=== PATIENT | male | born 1935 | race Caucasian/White ===

== ENCOUNTER → 2017-06-08 13:36 | Outpatient (CLI) | payer MEDICARE, SELFPAY ==
[2017-06-08 13:26] LABS: Absolute Lymphocyte Count 1.95 X10^3/ul (0.83-4.51); Absolute Neutrophil Count 3.2 X10^3/uL (2.0-7.7); Basophil# 0.03 X10^3/uL; Basophil% 0.5 % (0-1); Eosinophil# 0.15 X10^3/uL; Eosinophils% 2.4 % (0-5); Hematocrit 44.1 % (40-54); Hemoglobin 14.5 g/dl (13.0-16.5); Lymphocyte # 1.95 X10^3/ul (4.0); Lymphocyte % 31.2 % (19-41); Mean Corp Hgb Conc 32.9 g/gl (32-36); Mean Corpuscular Hgb 27.7 pg (27.0-32.0); Mean Corpuscular Volume 84.2 fL (80-94); Mean Platelet Vol. 10.2 fl (6.2-12.0); Monocyte# 0.96 X10^3/uL; Monocyte% 15.4 % (0-10); Neutrophil # 3.15 X10^3/uL (2.7-7.7); Neutrophil % 50.3 % (47-70); Platelet Count 170 K/mm3 (150-450); RBC Distribution Width CV 16.1 % (11.6-14.6); RBC Distribution Width SD 49.2 fl (35.1-43.9); Red Blood Count 5.24 M/mm3 (4.6-6.2); White Blood Count 6.3 K/mm3 (4.4-11.0)
[2017-06-08 13:28] LABS: POSITIVE COUNT NO; POSITIVE DIFFERENTIAL NO; POSITIVE MORPHOLOGY NO
[2017-06-08 13:45] LABS: Vitamin D,25 Hydroxy 17.9 ng/mL (29.95-100.01)
[2017-06-08 13:48] LABS: ALB/GLOB Ratio 1.1 RATIO (0.9-2.4); AST(SGOT) 11 U/L (15-37); Alanine Aminotransfer ALT/SGPT 17 U/L (16-61); Albumin, Serum 3.8 g/dL (3.2-5.0); Alkaline Phosphatase 139 U/L (45-117); Anion Gap 7 (5-15); BUN 14 mg/dL (7-18); BUN/Creat Ratio 15.1 RATIO (10-20); Calcium,Total 8.3 mg/dL (8.5-10.1); Chloride 108 mmol/L (98-107); Creatinine, Serum 0.93 mg/dL (0.70-1.30); EST Glomerular Filtration Rate 83 mL/min (>60); Est Glom Filt Rate - Afr Amer 100 mL/min (>60); Globulin 3.6 g/dL (2.2-4.2); Glucose 117 mg/dL (74-106); Protein, Total 7.4 g/dL (6.4-8.2); Sodium Level 141 mmol/L (136-145)
== END ==
PROVIDERS: Family Provider Family Medicine Geriatric Medicine; PCP Family Medicine Geriatric Medicine; Visit Provider Family Medicine Geriatric Medicine
DX: I10 Essential (primary) hypertension (principal); E55.9 Vitamin D deficiency, unspecified; N39.0 Urinary tract infection, site not specified
CPT/HCPCS: 36415; 80053; 82306; 84443; 85025; 87077; 87086; 87088

== ENCOUNTER → 2017-12-06 14:06 | Outpatient (CLI) | payer MEDICARE, SELFPAY ==
[2017-12-06 17:04] LABS: Absolute Neutrophil Count 4.5 X10^3/uL (2.0-7.7); Basophil# 0.05 X10^3/uL; Basophil% 0.7 % (0-1); Eosinophil# 0.06 X10^3/uL; Eosinophils% 0.8 % (0-5); Hematocrit 44.2 % (40-54); Hemoglobin 15.4 g/dl (13.0-16.5); Lymphocyte % 23.7 % (19-41); Mean Corp Hgb Conc 34.8 g/gl (32-36); Mean Corpuscular Hgb 31.2 pg (27.0-32.0); Mean Corpuscular Volume 89.7 fL (80-94); Mean Platelet Vol. 10.3 fl (6.2-12.0); Monocyte% 12.5 % (0-10); Neutrophil # 4.45 X10^3/uL (2.7-7.7); Platelet Count 193 K/mm3 (150-450); RBC Distribution Width SD 45.9 fl (35.1-43.9); Red Blood Count 4.93 M/mm3 (4.6-6.2); White Blood Count 7.2 K/mm3 (4.4-11.0)
[2017-12-06 17:33] LABS: Vitamin D,25 Hydroxy 26.6 ng/mL (29.95-100.01)
[2017-12-06 17:48] LABS: POSITIVE COUNT NO; POSITIVE DIFFERENTIAL NO; POSITIVE MORPHOLOGY NO
[2017-12-06 17:49] LABS: ALB/GLOB Ratio 1.1 RATIO (0.9-2.4); AST(SGOT) 12 U/L (15-37); Alanine Aminotransfer ALT/SGPT 22 U/L (16-61); Albumin, Serum 3.9 g/dL (3.2-5.0); Alkaline Phosphatase 111 U/L (45-117); Anion Gap 9 (5-15); BUN 10 mg/dL (7-18); BUN/Creat Ratio 10.2 RATIO (10-20); Calcium,Total 8.7 mg/dL (8.5-10.1); Chloride 102 mmol/L (98-107); Creatinine, Serum 0.98 mg/dL (0.70-1.30); EST Glomerular Filtration Rate 78 mL/min (>60); Est Glom Filt Rate - Afr Amer 94 mL/min (>60); Globulin 3.5 g/dL (2.2-4.2); Glucose 113 mg/dL (74-106); Potassium 4.3 mmol/L (3.5-5.1); Protein, Total 7.4 g/dL (6.4-8.2); Sodium Level 137 mmol/L (136-145); Thyroid Stim Hormone (TSH) 2.75 uIU/mL (0.358-3.74)
== END ==
PROVIDERS: Family Provider Family Medicine Geriatric Medicine; PCP Family Medicine Geriatric Medicine; Visit Provider Family Medicine Geriatric Medicine
DX: I10 Essential (primary) hypertension (principal); E55.9 Vitamin D deficiency, unspecified
CPT/HCPCS: 36415; 80053; 82306; 84443; 85025

== ENCOUNTER → 2018-06-18 | Outpatient (CLI) | payer MEDICARE, SELFPAY ==
[2017-01-10 14:19] VITALS: BMI 28.8
[2018-06-18 12:44] LABS: Absolute Lymphocyte Count 2.38 X10^3/ul (0.83-4.51); Absolute Neutrophil Count 4.4 X10^3/uL (2.0-7.7); Basophil# 0.04 X10^3/uL; Basophil% 0.5 % (0-1); Eosinophil# 0.17 X10^3/uL; Eosinophils% 2.1 % (0-5); Hematocrit 47.1 % (40-54); Hemoglobin 16.1 g/dl (13.0-16.5); Lymphocyte # 2.38 X10^3/ul (4.0); Lymphocyte % 29.9 % (19-41); Mean Corp Hgb Conc 34.2 g/gl (32-36); Mean Corpuscular Hgb 31.6 pg (27.0-32.0); Mean Corpuscular Volume 92.5 fL (80-94); Mean Platelet Vol. 10.2 fl (6.2-12.0); Monocyte# 0.98 X10^3/uL; Monocyte% 12.3 % (0-10); Neutrophil # 4.36 X10^3/uL (2.7-7.7); Neutrophil % 54.8 % (47-70); Platelet Count 159 K/mm3 (150-450); RBC Distribution Width CV 13.5 % (11.6-14.6); RBC Distribution Width SD 45.8 fl (35.1-43.9); Red Blood Count 5.09 M/mm3 (4.6-6.2)
[2018-06-18 12:52] LABS: POSITIVE COUNT NO; POSITIVE DIFFERENTIAL NO; POSITIVE MORPHOLOGY NO
[2018-06-18 12:59] LABS: Vitamin D,25 Hydroxy 13.3 ng/mL (29.95-100.01)
[2018-06-18 13:05] LABS: ALB/GLOB Ratio 1.2 RATIO (0.9-2.4); AST(SGOT) 16 U/L (15-37); Alanine Aminotransfer ALT/SGPT 27 U/L (16-61); Albumin, Serum 4.1 g/dL (3.2-5.0); Alkaline Phosphatase 126 U/L (45-117); Anion Gap 6 (5-15); BUN 13 mg/dL (7-18); BUN/Creat Ratio 13.4 RATIO (10-20); Calcium,Total 8.7 mg/dL (8.5-10.1); Chloride 106 mmol/L (98-107); Creatinine, Serum 0.97 mg/dL (0.70-1.30); EST Glomerular Filtration Rate 79 mL/min (>60); Est Glom Filt Rate - Afr Amer 95 mL/min (>60); Globulin 3.4 g/dL (2.2-4.2); Glucose 96 mg/dL (74-106); Potassium 4.5 mmol/L (3.5-5.1); Protein, Total 7.5 g/dL (6.4-8.2); Sodium Level 142 mmol/L (136-145); Thyroid Stim Hormone (TSH) 3.11 uIU/mL (0.358-3.74)
== END | disposition home or self-care (01) ==
PROVIDERS: Family Provider Family Medicine Geriatric Medicine; PCP Family Medicine Geriatric Medicine; Visit Provider Family Medicine Geriatric Medicine
DX: I10 Essential (primary) hypertension (principal); E55.9 Vitamin D deficiency, unspecified
CPT/HCPCS: 36415; 80053; 82306; 84443; 85025

== ENCOUNTER 2018-10-18 06:52 | Emergency (ER) | payer MEDICARE, SELFPAY ==
[2018-10-18 06:54] VITALS: BP 142/87; PULSE 8; RESP 15; TEMP 36.6; O2SAT 97; BMI 27.5
--- NOTE | 2018-10-18 07:29 | CT_ITS ---
STUDY: CT ABDOMEN AND PELVIS WITHOUT CONTRAST REASON FOR EXAM: Male, 82 years old. Low back pain with constipation RADIATION DOSAGE (If Supplied By Facility): CTDIvol = ( 8.43 ) mGy, DLP = ( 419.31 ) mGycm TECHNIQUE: Transaxial images were obtained from the dome of the diaphragm to the symphysis pubis without oral contrast, and without intravenous contrast. Sagittal and coronal images were reconstructed. Individualized dose optimization techniques were used for this CT. COMPARISON: 12/11/2016. FINDINGS: Mild to moderate hiatal hernia, with increase in size since prior. The visualized lung bases are unremarkable. The visualized portions of the heart are within normal limits. Normal liver. Normal gallbladder and extrahepatic biliary system. Normal spleen. Normal pancreas. Normal bilateral adrenal glands. Bilateral mild perinephric infiltration, and this may be due to sequelae of chronic medical renal disease. Normal visualized stomach. Normal small intestine. Moderate amount of stool content in the colon. The appendix is visualized and appears normal. There is diffuse atherosclerotic calcification of the abdominal aorta, without a demonstrated aneurysm. Normal inferior vena cava. Normal retroperitoneum. Normal urinary bladder. There is enlargement of the prostate gland. There is stable prominent fatty distention of the inguinal canals in proximal spermatic cords. There are diffuse degenerative changes of the visualized lumbar spine, increased in extent since prior, most significantly at L2-3. CT/Abdomen/Pelvis without Cont IMPRESSION: Moderate fecal loading in the colon. Prostatomegaly. [id number] hiatal hernia, with increase in size since prior study. Bilateral mild perinephric infiltration, and this may be due to sequelae of chronic medical renal disease. There are diffuse degenerative changes of the visualized lumbar spine, increased in extent since prior, most significantly at L2-3 level. Electronically Signed: Mynor Gastelum MD at 9:15 EDT Tel [phone], Service support ,
--- NOTE | 2018-10-18 07:30 | ED.DCSUM_ITS ---
History of Present Illness Chief Complaint: Back Detail of Chief Complaint: back pain, constipation Informant: Patient Onset: Weeks - several Context: Gradual Onset Timing: Continuous Quality: ache Location: across low back Current Severity: Mild Maximum Severity: Severe Worsened by: moving; this AM, severe when trying to stand up Relieved by: rest/remaining still Associated Symptoms: constipation Narrative: Patient states for several weeks he has been very constipated. He is having bowel movements but they are small and hard like rocks. The last one was yesterday. He feels like he needs to have a bowel movement but is unable at this time. He presents by EMS because of severe pain in his low back when he tried to stand this morning. He states standing has been difficult because of this pain, but this morning the pain was much more severe. States it is not as bad now but is still aches. He has had no radiation of pain down his lower extremities, no numbness in his lower extremities or his groin/perineum, and no problems urinating. Denies any incontinence or retention of urine, denies any incontinence of stool. He denies any weakness in his legs, he was only limited by pain. He denies having any abdominal pain, nausea, or vomiting. No fevers or thoracic symptoms or lightheadedness/syncope. States he has been taking MiraLAX and stool softeners which seemed to help yesterday, but overall they are not fixing the problem. He is on no narcotic analgesics. Patient does provide all of this history, however he does not remember any other details and states he has been having some memory issues for several months. He lives with a significant other who corroborates this history. - Past Medical History (1) Anemia Status: Chronic (2) Atrial fibrillation Status: Chronic (3) Dysphagia Status: Chronic (4) GERD (gastroesophageal reflux disease) Status: Chronic (5) HLD (hyperlipidemia) Status: Chronic (6) Osteoarthritis Status: Chronic Past Medical History - Allergies and Home Meds Allergies/Adverse Reactions: Allergies No Known Allergies Allergy (Verified 12/11/16 15:00) Primary Care Physician: Jose Francisco Shah Chi, MD [Primary Care Provider] - Surgical History: TURP Lives: Spouse/ Significant Other Smoking Status: Never smoker Alcohol: None Drugs: None - Family History Maternal Family History: Reports: - Additional Family History: No coronary artery disease Paternal Family History: Reports: - - His father of a stroke at the age of 89. There is no family history of myocardial infarction or congestive heart failure. Review of Systems General: Denies: Chills, Fever, Sweats Eyes: Denies: Visual changes - bilaterally, Diplopia ENT: Denies: Rhinorrhea, Sore throat Cardiovascular: Denies: Chest pain, Palpitations Respiratory: Denies: Dyspnea, Cough, Dyspnea on exertion Gastrointestinal: Reports: Constipation. Denies: Abdominal pain, Nausea, Vomiting, Diarrhea, Melena, Hematochezia Genitourinary: Denies: Dysuria, Hematuria, Frequency Musculoskeletal: Reports: Back pain. Denies: Swelling, Extremity Pain Skin: Denies: Rash, Wounds Neurological: Reports: - - memory problems. Denies: Headache, Weakness, Numbness Physical Exam Vital Signs/Narrative: Vital Signs Temp Pulse Resp BP Pulse Ox 10/18/18 06:54 97.8 F 8 L 15 142/87 H 97 Inital Vital Signs reviewed: Yes General: Well nourished, Well developed, No Acute Distress - well-appearing, conversive Head: Normocephalic, Atraumatic Eyes: Perrl, EOMI ENT: Moist mucous membranes, No rhinorrhea Neck: Supple, Nontender Cardiovascular: Regular rate, Regular rhythm, No murmurs Respiratory: No distress, CTA bilaterally, Chest nontender Abdomen: Soft, Nontender, Nondistended, Normal bowel sounds. Negative for: Pulsatile mass Rectal: Nontender - no hard stool palpable. no gross blood or melena. normal tone and sensation. Back: Nontender, Normal Inspection - w/o rash, - - able to sit up w/ assistance w/o significant pain, although he said it did hurt to do so. Negative for: CVA tenderness, Spinal tenderness Extremities: Nontender, No edema Skin: Normal color, No rash Neurological: Alert, Oriented x3, Cranial nerves II-XII grossly intact, Normal Strength, Normal Sensation Psychological: Normal affect, Normal Mood Diagnostic/Tx/Re-eval Impressions Abdomen/Pelvis CT 10/18/18 07:29 IMPRESSION: Moderate fecal loading in the colon. Prostatomegaly. [id number]-[id number] hiatal hernia, with increase in size since prior study. Bilateral mild perinephric infiltration, and this may be due to sequelae of chronic medical renal disease. There are diffuse degenerative changes of the visualized lumbar spine, increased in extent since prior, most significantly at L2-3 level. Electronically Signed: Mynor Gastelum MD at 9:15 EDT Tel [phone], Service support , 10/18/18 07:29 Abdomen/Pelvis without Cont [CT] Stat Laboratory Results 10/18/18 10/18/18 10/18/18 07:05 07:05 07:50 WBC 6.5 RBC 5.14 Hgb 16.2 Hct 47.0 MCV 91.4 MCH 31.5 MCHC 34.5 RDW Std Deviation 42.8 RDW Coeff of Francis 12.8 Plt Count 148 L MPV 9.7 Immature Gran % (Auto) 0.200 Neut % (Auto) 57.4 Lymph % (Auto) 28.1 [place] % (Auto) 11.2 H Eos % (Auto) 2.0 Baso % (Auto) 1.1 H Absolute Neuts (auto) 3.8 Absolute Lymphs (auto) 1.83 Nucleated RBC % 0 Sodium 142 Potassium 3.8 Chloride 107 Carbon Dioxide 29.0 Anion Gap 6 BUN 14 Creatinine 0.99 Estim Creat Clear Calc 60.21 Est GFR (MDRD) Af Amer 93 Est GFR (MDRD) Non-Af 77 BUN/Creatinine Ratio 14.1 Glucose 112 H Calcium 8.7 Urine Color Yellow Urine Clarity Sl. Cloudy Urine pH 7.0 Ur Specific [place] 1.010 Urine Protein 15 H Urine Glucose (UA) Normal Urine Ketones Negative Urine Occult Blood 10 H Urine Nitrite Negative Urine Bilirubin Negative Urine Urobilinogen 1 H Ur Leukocyte Esterase 25 H Urine RBC 0-5 SEEN Urine WBC 0-5 SEEN Ur Squamous Epith Cells 0 SEEN Urine Bacteria 3+ Urine Mucus 0 SEEN - Medical Decision Making Labs and CT are unremarkable, and consistent with significant constipation. He was given an enema and did have somewhat of a bowel movement, he did feel better. He does have musculoskeletal component to his back discomfort since he is triggering it/exacerbating it with movements and standing, he feels able to go home and he was able to stand without significant difficulty here. Advised to follow-up and continue stool softeners with MiraLAX which seemed to help yesterday. He is comfortable with that plan. ED Disposition - Plan for ED Patient: Disposition: Home or Assisted Living Diagnosis: Constipation, Low back pain Instructions: BACK PAIN (Acute or Chronic), CONSTIPATION (Adult) Referrals: Jose Francisco Shah Chi, MD [Primary Care Provider] - 3-5 Days if not improving Additional Instructions: Continue stool softeners, daily MiraLAX while drinking plenty of fluids, and you may use a fleets enema as needed for worsening issues.
[2018-10-18] MEDS: Acetaminophen 325 MG Tablet 650 MG PO (07:45)
[2018-10-18 07:57] LABS: Mucous, Urine 0 SEEN /hpf (<or=2+); Squamous Epithelial Cells - UA 0 SEEN /hpf (0-5)
[2018-10-18 07:59] LABS: Color, Urine Yellow (Yellow); Glucose, Dipstick Normal (Normal); Ketone-Dipstick Negative (Negative); Leukocyte Esterase-Dipstick 25 /ul (Negative); Nitrite-Dipstick Negative (Negative); Occult Blood-Urine 10 /ul (Negative); Protein-Dipstick 15 mg/dl (Negative); Urine Bilirubin Dipstick Negative (Negative); Urine Clarity Sl. Cloudy (Clear); Urine Urobilinogen 1 mg/dl (Normal)
[2018-10-18 08:00] LABS: Absolute Lymphocyte Count 1.83 X10^3/uL (0.83-4.51); Absolute Neutrophil Count 3.8 X10^3/uL (2.0-7.7); Basophil# 0.07 X10^3/uL; Basophil% 1.1 % (0-1); Eosinophil# 0.13 X10^3/uL; Hemoglobin 16.2 g/dL (13.0-16.5); Lymphocyte # 1.83 X10^3/ul (4.0); Lymphocyte % 28.1 % (19-41); Mean Corp Hgb Conc 34.5 g/dL (32-36); Mean Corpuscular Hgb 31.5 pg (27.0-32.0); Mean Corpuscular Volume 91.4 fL (80-94); Mean Platelet Vol. 9.7 fl (6.2-12.0); Monocyte# 0.73 X10^3/uL; Monocyte% 11.2 % (0-10); NRBC Flagged by Analyzer 0 % (0-5); Neutrophil # 3.75 X10^3/uL (2.7-7.7); Neutrophil % 57.4 % (47-70); Platelet Count 148 K/mm3 (150-450); RBC Distribution Width CV 12.8 % (11.6-14.6); RBC Distribution Width SD 42.8 fl (35.1-43.9); Red Blood Count 5.14 M/mm3 (4.6-6.2); White Blood Count 6.5 K/mm3 (4.4-11.0)
[2018-10-18 08:05] LABS: Bacteria 3+ /hpf (None Seen); Red Blood Cells-Urine 0-5 SEEN /hpf (0-5); White Blood Cells 0-5 SEEN /hpf (0-5)
[2018-10-18 08:08] LABS: Anion Gap 6 (5-15); BUN 14 mg/dL (7-18); BUN/Creat Ratio 14.1 RATIO (10-20); Calcium,Total 8.7 mg/dL (8.5-10.1); Chloride 107 mmol/L (98-107); Creatinine, Serum 0.99 mg/dL (0.70-1.30); EST Glomerular Filtration Rate 77 mL/min (>60); Est Glom Filt Rate - Afr Amer 93 mL/min (>60); Estimated Creatinine Clearance 60.21 ml/min; Glucose 112 mg/dL (74-106); Potassium 3.8 mmol/L (3.5-5.1); Sodium Level 142 mmol/L (136-145)
[2018-10-18] MEDS: Fleet Enema 1 ML RECTAL (11:05)
[2018-10-18 11:45] VITALS: BP 159/67; PULSE 75; RESP 16; RESP 18; O2SAT 97
== END 2018-10-18 11:47 | disposition home or self-care (01) ==
PROVIDERS: Emergency Provider Emergency Medicine; Family Provider Family Medicine Geriatric Medicine; PCP Family Medicine Geriatric Medicine
DX: K59.00 Constipation, unspecified (principal); M54.5 Low back pain; I48.91 Unspecified atrial fibrillation; K21.9 Gastro-esophageal reflux disease without esophagitis; E78.5 Hyperlipidemia, unspecified; M19.90 Unspecified osteoarthritis, unspecified site
CPT/HCPCS: 74176; 80048; 81001; 85025; 99285; A4216

== ENCOUNTER → 2018-12-18 | Outpatient (CLI) | payer MEDICARE, SELFPAY ==
[2018-12-18 12:50] LABS: Absolute Lymphocyte Count 1.74 X10^3/uL (0.83-4.51); Absolute Neutrophil Count 4.3 X10^3/uL (2.0-7.7); Basophil# 0.09 X10^3/uL; Basophil% 1.3 % (0-1); Eosinophils% 1.4 % (0-5); Hematocrit 48.6 % (40-54); Hemoglobin 16.5 g/dL (13.0-16.5); Lymphocyte # 1.74 X10^3/ul (4.0); Lymphocyte % 24.5 % (19-41); Mean Corpuscular Hgb 31.7 pg (27.0-32.0); Mean Corpuscular Volume 93.3 fL (80-94); Mean Platelet Vol. 9.9 fl (6.2-12.0); Monocyte% 12.7 % (0-10); NRBC Flagged by Analyzer 0 % (0-5); Neutrophil # 4.25 X10^3/uL (2.7-7.7); Neutrophil % 59.8 % (47-70); Platelet Count 182 K/mm3 (150-450); RBC Distribution Width CV 12.8 % (11.6-14.6); RBC Distribution Width SD 43.9 fl (35.1-43.9); Red Blood Count 5.21 M/mm3 (4.6-6.2); White Blood Count 7.1 K/mm3 (4.4-11.0)
[2018-12-18 13:11] LABS: ALB/GLOB Ratio 1.1 RATIO (0.9-2.4); AST(SGOT) 17 U/L (15-37); Alanine Aminotransfer ALT/SGPT 26 U/L (16-61); Albumin, Serum 4.1 g/dL (3.2-5.0); Alkaline Phosphatase 103 U/L (45-117); Anion Gap 5 (5-15); BUN 13 mg/dL (7-18); Calcium,Total 8.7 mg/dL (8.5-10.1); Chloride 101 mmol/L (98-107); EST Glomerular Filtration Rate 76 mL/min (>60); Est Glom Filt Rate - Afr Amer 92 mL/min (>60); Globulin 3.6 g/dL (2.2-4.2); Glucose 96 mg/dL (74-106); Potassium 4.6 mmol/L (3.5-5.1); Protein, Total 7.7 g/dL (6.4-8.2); Sodium Level 136 mmol/L (136-145); Thyroid Stim Hormone (TSH) 3.06 uIU/mL (0.358-3.74)
== END | disposition home or self-care (01) ==
LOC: POLAB3 11:02
PROVIDERS: Family Provider Family Medicine Geriatric Medicine; PCP Family Medicine Geriatric Medicine; Visit Provider Family Medicine Geriatric Medicine
DX: E55.9 Vitamin D deficiency, unspecified (principal); I10 Essential (primary) hypertension
CPT/HCPCS: 36415; 80053; 82306; 84443; 85025

== ENCOUNTER → 2019-06-20 | Outpatient (CLI) | payer MEDICARE, SELFPAY ==
[2019-06-20 12:33] LABS: Absolute Lymphocyte Count 2.03 X10^3/uL (0.83-4.51); Absolute Neutrophil Count 5.2 X10^3/uL (2.0-7.7); Basophil# 0.08 X10^3/uL; Basophil% 0.9 % (0-1); Eosinophils% 1.2 % (0-5); Hematocrit 48.7 % (40-54); Hemoglobin 16.4 g/dL (13.0-16.5); Lymphocyte # 2.03 X10^3/ul (4.0); Lymphocyte % 24.1 % (19-41); Mean Corp Hgb Conc 33.7 g/dL (32-36); Mean Corpuscular Hgb 31.3 pg (27.0-32.0); Mean Corpuscular Volume 92.9 fL (80-94); Mean Platelet Vol. 9.9 fl (6.2-12.0); Monocyte# 0.95 X10^3/uL; Monocyte% 11.3 % (0-10); NRBC Flagged by Analyzer 0 % (0-5); Neutrophil # 5.23 X10^3/uL (2.7-7.7); Platelet Count 198 K/mm3 (150-450); RBC Distribution Width CV 13.2 % (11.6-14.6); RBC Distribution Width SD 44.6 fl (35.1-43.9); Red Blood Count 5.24 M/mm3 (4.6-6.2); White Blood Count 8.4 K/mm3 (4.4-11.0)
[2019-06-20 12:55] LABS: Vitamin D,25 Hydroxy 34.1 ng/mL
[2019-06-20 13:08] LABS: AST(SGOT) 18 U/L (15-37); Alanine Aminotransfer ALT/SGPT 31 U/L (16-61); Alkaline Phosphatase 108 U/L (45-117); Anion Gap 6 (5-15); BUN 11 mg/dL (7-18); BUN/Creat Ratio 11.9 RATIO (10-20); Calcium,Total 9.1 mg/dL (8.5-10.1); Chloride 104 mmol/L (98-107); Creatinine, Serum 0.93 mg/dL (0.70-1.30); EST Glomerular Filtration Rate 83 mL/min (>60); Est Glom Filt Rate - Afr Amer 100 mL/min (>60); Globulin 3.9 g/dL (2.2-4.2); Glucose 104 mg/dL (74-106); Potassium 3.9 mmol/L (3.5-5.1); Protein, Total 7.9 g/dL (6.4-8.2); Sodium Level 136 mmol/L (136-145); Thyroid Stim Hormone (TSH) 3.35 uIU/mL (0.358-3.74)
== END | disposition home or self-care (01) ==
LOC: LAB.FUTURE 11:33
PROVIDERS: PCP Family Medicine Geriatric Medicine; Referring Provider Family Medicine Geriatric Medicine; Visit Provider Family Medicine Geriatric Medicine
DX: I10 Essential (primary) hypertension (principal); E55.9 Vitamin D deficiency, unspecified
CPT/HCPCS: 36415; 80053; 82306; 84443; 85025

== ENCOUNTER 2019-07-11 12:56 | Observation (INO) | payer MEDICARE, SELFPAY ==
[2019-07-11] VITALS (11 sets, daily range): BP systolic 113–145; BP diastolic 65–80; PULSE 100–144; RESP 16–25; TEMP 36.4–37.7; O2SAT 94–100; BMI 26.2; BMI 25.5; BMI 25.6
--- NOTE | 2019-07-11 13:15 | EKG12_ITS ---
Test Reason : IRREGHR Blood Pressure : / mmHG Vent. Rate : 115 BPM Atrial Rate : 115 BPM P-R Int : 166 ms QRS Dur : 088 ms QT Int : 316 ms P-R-T Axes : 068 041 128 degrees QTc Int : 437 ms Sinus tachycardia with Premature atrial complexes Nonspecific T wave abnormality Abnormal ECG Confirmed by LATASHA ROBERSON, SAMIRA ([id number]), food editor AL PAINTING ([id number]) on 07/15/2019 3:15:18 PM Referred By: CAMI Confirmed By:ALCON PAGAN MD
[2019-07-11 13:36] LABS: Absolute Lymphocyte Count 1.43 X10^3/uL (0.83-4.51); Basophil# 0.05 X10^3/uL; Basophil% 0.5 % (0-1); Hematocrit 38.5 % (40-54); Hemoglobin 13.5 g/dL (13.0-16.5); Lymphocyte # 1.43 X10^3/ul (4.0); Lymphocyte % 13.9 % (19-41); Mean Corp Hgb Conc 35.1 g/dL (32-36); Mean Corpuscular Hgb 31.8 pg (27.0-32.0); Mean Corpuscular Volume 90.8 fL (80-94); Mean Platelet Vol. 9.5 fl (6.2-12.0); Monocyte# 0.82 X10^3/uL; Monocyte% 7.9 % (0-10); NRBC Flagged by Analyzer 0 % (0-5); Neutrophil # 7.98 X10^3/uL (2.7-7.7); Neutrophil % 77.3 % (47-70); Platelet Count 189 K/mm3 (150-450); RBC Distribution Width CV 13.2 % (11.6-14.6); RBC Distribution Width SD 43.5 fl (35.1-43.9); Red Blood Count 4.24 M/mm3 (4.6-6.2); White Blood Count 10.3 K/mm3 (4.4-11.0)
--- NOTE | 2019-07-11 13:40 | RAD_ITS ---
STUDY: X-RAY CHEST REASON FOR EXAM: Male, 83 years old. TACHYCARDIA, HEMATURIA TECHNIQUE: Single AP portable view of the chest. COMPARISON: Comparison is made with prior examination of May 14, 2013. FINDINGS: EKG electrodes are seen. There is hyperinflation of the lungs consistent with chronic obstructive lung disease (COPD). There is no demonstrated pleural abnormality. Normal size heart. Normal mediastinum and deysi. There is prominence of the pulmonary hilar arteries without peripheral pulmonary vascular congestion, suggesting pulmonary hypertension. There is atherosclerotic calcification of the aortic arch with tortuosity. There are diffuse degenerative changes of the visualized thoracic spine. Normal visualized ribs, clavicles, and shoulders. There is no demonstrated abnormality of the visualized soft tissue structures of the upper abdomen. RAD/Chest 1 View (Portable) IMPRESSION: Hyperinflation. Prominence of the central pulmonary arteries bilaterally. Electronically Signed: Omega Almaguer, at 13:53 EDT , Service support ,
[2019-07-11 13:42] LABS: International Normalized Ratio 1.1; Prothrombin Time (Protime)PT. 13.8 SECONDS (11.7-14.9)
[2019-07-11 13:43] LABS: Partial Thromboplast Time 32.3 Seconds (24.1-36.2)
[2019-07-11 13:50] LABS: ALB/GLOB Ratio 1.1 RATIO (0.9-2.4); AST(SGOT) 15 U/L (15-37); Alanine Aminotransfer ALT/SGPT 23 U/L (16-61); Albumin, Serum 3.8 g/dL (3.2-5.0); Alkaline Phosphatase 81 U/L (45-117); Anion Gap 5 (5-15); BUN 21 mg/dL (7-18); BUN/Creat Ratio 20.4 RATIO (10-20); Calcium,Total 9.3 mg/dL (8.5-10.1); Chloride 109 mmol/L (98-107); Creatinine, Serum 1.03 mg/dL (0.70-1.30); EST Glomerular Filtration Rate 73 mL/min (>60); Est Glom Filt Rate - Afr Amer 88 mL/min (>60); Estimated Creatinine Clearance 56.86 ml/min; Globulin 3.6 g/dL (2.2-4.2); Glucose 146 mg/dL (74-106); Potassium 3.9 mmol/L (3.5-5.1); Protein, Total 7.4 g/dL (6.4-8.2); Sodium Level 142 mmol/L (136-145)
[2019-07-11 14:01] LABS: Lactic Acid 1.6 mmol/L (0.4-1.9)
[2019-07-11 14:11] LABS: Bacteria 0 SEEN /hpf (None Seen); Mucous, Urine 0 SEEN /hpf (<or=2+); Squamous Epithelial Cells - UA 0 SEEN /hpf (0-5); White Blood Cells 0 SEEN /hpf (0-5)
[2019-07-11 14:26] LABS: Color, Urine Red (Yellow); Glucose, Dipstick Normal (Normal); Ketone-Dipstick 5 mg/dl (Negative); Leukocyte Esterase-Dipstick 25 /ul (Negative); Nitrite-Dipstick Negative (Negative); Occult Blood-Urine 250 /ul (Negative); Protein-Dipstick 500 mg/dl (Negative); Urine Bilirubin Dipstick Negative (Negative); Urine Clarity Turbid (Clear); Urine Urobilinogen Normal (Normal)
[2019-07-11 14:29] LABS: Red Blood Cells-Urine > 100 SEEN /hpf (0-5)
--- NOTE | 2019-07-11 15:00 | CT_ITS ---
STUDY: CT ABDOMEN AND PELVIS WITHOUT CONTRAST REASON FOR EXAM: Male, 83 years old. HEMATURIA X 1 WEEK, CONFUSION. ENLARGED PROSTATE. URINARY RETENTION/CATHETER RADIATION DOSAGE (If Supplied By Facility): CTDIvol = ( 13.73 ) mGy, DLP = ( 677.17 ) mGycm TECHNIQUE: Transaxial images were obtained from the dome of the diaphragm to the symphysis pubis without oral contrast, and without intravenous contrast. Sagittal and coronal images were reconstructed. Individualized dose optimization techniques were used for this CT. COMPARISON: Comparison is made with prior study dated October 18, 2018. FINDINGS: The visualized lung bases are unremarkable. Coronary arterial calcification. Normal liver. Normal gallbladder and extrahepatic biliary system. Normal spleen. There is diffuse atrophy of the pancreas. Normal bilateral adrenal glands. Normal right kidney. Minimal degree of left perinephric stranding and minimal degree of the left hydronephrosis. There is a small hiatal hernia. Normal small intestine. There are multiple colonic diverticula consistent with diverticulosis. The appendix is visualized and appears normal. There is diffuse atherosclerotic calcification of the abdominal aorta, without a demonstrated aneurysm. Normal inferior vena cava. Normal retroperitoneum. There is evidence of high density material within the base of the bladder suggestive of blood within the bladder. A small amount of air is seen in the anterior aspect of the bladder most likely secondary to the presence of the Velarde catheter. Marked enlargement of the prostate with indentation of the bladder base. The prostate measures 7.8 cm x 6.1 cm. A Velarde catheter is seen within the base of the bladder. Small bilateral inguinal hernias containing fat. There are degenerative changes of the visualized lumbar spine. CT/Abdomen/Pelvis without Cont IMPRESSION: Mildly distended urinary bladder with findings suggestive of blood within the bladder base. Marked enlargement of the prostate gland. Electronically Signed: Omega Almaguer, at 15:33 EDT , Service support ,
--- NOTE | 2019-07-11 15:38 | PCM.HP.STD ---
Problem List (1) Hematuria Status: Acute (2) S/P TURP (status post transurethral resection of prostate) Status: Chronic (3) Atrial fibrillation Status: Chronic Qualifiers: (4) BPH (benign prostatic hyperplasia) Status: Chronic (5) GERD (gastroesophageal reflux disease) Status: Chronic (6) HLD (hyperlipidemia) Status: Chronic (7) Osteoarthritis Status: Chronic History of Present Illness Date of Admission: 07/11/19 Chief Complaint: hematuria The patient is a 83 year old M with pmhx of BPH s/p TURP, CVA, Afib, who presented to the ER with c/o hematuria. He is a very poor historian with a hx of sundownders so suspected dementia. The patient thinks he has had hematuria with difficulty voiding for several days. When I talked to him he was more concerned about constipation and not moving his bowels for 2 days. He has no abdominal pain. He denies dysuria. He has no SOB/LH/Dizziness and does not have a significantly low Hgb. He has seen Nacho in the past for BPH and TURP. He has been irrigated in the ER and still has dark red blood. He will be seen by Dr. Griffith. [] Past Medical History Past Medical History (Chronic Problems): Chronic Problems Atrial fibrillation (Chronic) Anemia (Chronic) S/P TURP (status post transurethral resection of prostate) (Chronic) HLD (hyperlipidemia) (Chronic) Dysphagia (Chronic) Osteoarthritis (Chronic) GERD (gastroesophageal reflux disease) (Chronic) BPH (benign prostatic hyperplasia) (Chronic) Allergies No Known Allergies Allergy (Verified 07/11/19 12:59) Home Medications: Ambulatory Orders Medication Instructions Recorded Aspirin E.C. [Ecotrin] 81 mg PO DAILY@0800 01/03/17 Levothyroxine [Synthroid] 50 mcg PO DAILY 10/18/18 Atorvastatin Calcium [Lipitor] 40 mg PO QHS 07/11/19 Surgical History: TURP Psychiatric History: No pertinent psych hx Lives: Spouse/ Significant Other Smoking Status: Never smoker Tobacco Use: Non-smoker Alcohol: None Drugs: None - *Family History Maternal History Items: - Paternal History Items: - - His father of a stroke at the age of 89. There is no family history of myocardial infarction or congestive heart failure. Review of Systems Constitutional: Denies: Chills, Fever, Weight Change HEENT: Denies: Head Aches, Sinus Congestion, Sinus Drainage Cardiovascular: Denies: Chest Pain, Heaviness, Light Headedness, Palpitations Respiratory: Denies: Cough, Shortness of Breath, Shortness of breath at rest, Sputum production Gastrointestinal: Reports: Constipation. Denies: Abdominal Pain, Diarrhea, Nausea, Vomiting Genitourinary: Reports: Hematuria. Denies: Dysuria Musculoskeletal: Denies: Joint Pain, Joint Tenderness, Muscle pain Skin: Denies: Lesions, Rash, Wounds Neurological: Denies: Numbness, Tingling, Focal weakness Psychiatric: Denies: Anxiety, Depression, Homicidal Ideations, Suicidal Ideations Hematologic/ Lymphatic: Denies: Easy Bruising, Easy Bleeding VTE Information - Inpt Only VTE Present on Admission: No VTE Mechan Device Prophylaxis: SCD's VTE Pharm Prophylaxis ordered?: No Patient Problems: Active and Suspected Problems Hematuria (Acute) - Physical Exam Vitals/I&O's: Vital Signs Temp Pulse Resp BP Pulse Ox 99.9 F H 106 H 25 H 118/75 94 07/11/19 13:57 07/11/19 14:15 07/11/19 14:15 07/11/19 14:15 07/11/19 14:15 Oxygen Delivery Method Room Air Weight: 188 lb 6.4 oz Body Mass Index (BMI) 26.2 Finger Stick Blood Glucose 105 Intake and Output for Last 24 Hours 07/09/19 07/10/19 07/11/19 23:59 23:59 23:59 Output Total 1350 / 1350 Balance -1350 / -1350 General: Alert, Cooperative, Confused - a/ox2 HEENT: Atraumatic, PERRLA, EOMI, Normocephalic Neck: Supple, No JVD, Negative Carotid Bruits Lungs: Clear to auscultation, Normal air movement Cardiovascular: Regular rate, No murmurs Abdomen: Bowel Sounds Present, Soft, Non Tender Extremities: No edema, Capillary Refill Less than 3 Seconds Skin: No rashes, No breakdown Musculoskeletal: No Tenderness to Palpation of Joints or Extremities Neurological: Cranial nerves II-XII grossly intact Psych/Mental Status: Normal Affect, Appropriate Laboratory Results 07/11/19 13:18: WBC 10.3, RBC 4.24 L, Hgb 13.5, Hct 38.5 L, MCV 90.8, MCH 31.8, MCHC 35.1, RDW Std Deviation 43.5, RDW Coeff of Francis 13.2, Plt Count 189, MPV 9.5, Immature Gran % (Auto) 0.400, Neut % (Auto) 77.3 H, Lymph % (Auto) 13.9 L, [place] % (Auto) 7.9, Eos % (Auto) 0.0, Baso % (Auto) 0.5, Absolute Neuts (auto) 8.0 H, Absolute Lymphs (auto) 1.43, Nucleated RBC % 0 07/11/19 13:18: PT 13.8, INR 1.1, APTT 32.3 07/11/19 13:18: Sodium 142, Potassium 3.9, Chloride 109 H, Carbon Dioxide 28.0, Anion Gap 5, BUN 21 H, Creatinine 1.03, Estim Creat Clear Calc 56.86, Est GFR (MDRD) Af Amer 88, Est GFR (MDRD) Non-Af 73, BUN/Creatinine Ratio 20.4 H, Glucose 146 H, Calcium 9.3, Total Bilirubin 0.80, AST 15, ALT 23, Alkaline Phosphatase 81, Total Protein 7.4, Albumin 3.8, Globulin 3.6, Albumin/Globulin Ratio 1.1 07/11/19 13:18: Lactic Acid 1.6 07/11/19 14:04: Urine Color Red, Urine Clarity Turbid, Urine pH 7.0, Ur Specific [place] 1.010, Urine Protein 500 H, Urine Glucose (UA) Normal, Urine Ketones 5 H, Urine Occult Blood 250 H, Urine Nitrite Negative, Urine Bilirubin Negative, Urine Urobilinogen Normal, Ur Leukocyte Esterase 25 H, Urine RBC > 100 SEEN, Urine WBC 0 SEEN, Ur Squamous Epith Cells 0 SEEN, Urine Bacteria 0 SEEN, Urine Mucus 0 SEEN 07/11/19 14:38: Blood Type Pending, Antibody Screen Pending Assessment/Plan All Active Problems Hematuria (Acute) Abnormal cardiac enzyme level (Acute) Dysarthria (Acute) Expressive aphasia (Acute) Syncope (Acute) 1. Hematuria - hx BPH prior TURP. Continue with CBI. C/s to Dr. Griffith. No significant anemia. Hold aspirin. AM CBC. [address] abdomen shows large prostate, blood in the bladder, distended bladder. Prior TURP. 2. HLD - statin 3. hypothyroidism - continue synthroid. 4. Dementia - poor historian. Lives with spouse. 5. Hx CVA - hold aspirin. continue statin DVT ppx: SCDs This patient was seen by Vishnu Shipman PA-C under the supervision of Dr. Anderson.
--- NOTE | 2019-07-11 15:42 | ED.DCSUM_ITS ---
- ER Visit Summary Date of Service: 07/11/19 Chief Complaint: Blood in urine History of Present Illness: The patient is a [address] Shah. He had seen Dr. Griffith in the past. He is a poor informant. He reports that he is had blood in his urine for the past week. States is been able to urinate in all today. He denies any fever or chills. No abdominal pain. No nausea, vomiting, or diarrhea. No chest pain or shortness of breath. Physical Examination: Vitals: Stable. Afebrile. General: Well-nourished and well-developed. Head: Normocephalic atraumatic. Neck: Supple, no lymphadenopathy. No JVD. Nontender. Cardiovascular: Tachycardic regular rhythm with a 2 out of 6 stock murmur. Respiratory: No respiratory distress. Clear to auscultation bilaterally. Abdominal: Soft, nontender, nondistended, normal bowel sounds. No guarding, rebound, or peritoneal signs. Back: Nontender. Extremities: Nontender, 1+ pitting edema lower extremities bilaterally. Skin: Normal color, no rash. Neurologic: Alert and oriented ?2. Cranial nerves II through XII are intact. Normal strength and sensation. Psych: Normal affect. Test Results: EKG is sinus tachycardia at [address] changes. CBC shows a hematocrit of 38.5, stable neutrophils 77, lymphocytes 14. Chem-7 shows a chloride 109, glucose 146, BUN 21. Lactic acid is normal. INR is 1.1. PTT is 32.3. UA shows greater than 100 reds with no evidence of infection. Clinical Impression(s) from Imaging Studies Chest X-Ray 07/11/19 13:40 IMPRESSION: Hyperinflation. Prominence of the central pulmonary arteries bilaterally. Electronically Signed: Omega Almaguer, at 13:53 EDT , Service support , Abdomen/Pelvis CT 07/11/19 15:00 IMPRESSION: Mildly distended urinary bladder with findings suggestive of blood within the bladder base. Marked enlargement of the prostate gland. Electronically Signed: Omega Almaguer, at 15:33 EDT , Service support , Emergency Department Course and Treatment: Patient had an IV placed. Is given 500 cc bolus of normal saline. He had a catheter placed. Manual irrigation was undertaken this was not clearing. He was placed on continuous irrigation and continues to drain grossly bloody urine. Treatment Plan: Patient was discussed Dr. Anderson and Dr. Griffith. He will be admitted to hospital for further evaluation treatment. Disposition: Admitted in stable condition. Impression: 1. Gross hematuria. 2. Sinus tachycardia. This note was generated with [employer] dictation software. It may contain incorrect words, spelling, and punctuation that were not noted in review of the chart prior to signing ED Disposition - Plan for ED Patient: Referrals: Jose Francisco Shah Chi, MD [Primary Care Provider] -
--- NOTE | 2019-07-11 15:47 | NURSING ---
PCU HEMATURIA TERELETSKY
--- NOTE | 2019-07-11 16:34 | ED.RN ---
[place] plugged again and pt restless with hr up. manual irrigation done x3 with larg amt clots evacuated. [place] patent after irrigation. waiting on bed for floor
--- NOTE | 2019-07-11 17:06 | CON.PCM_ITS ---
Problem List (1) Gross hematuria Status: Acute Reason for Consult Date of Consultation: 07/11/19 Reason for Consultation: Gross hematuria history of a TURP in the past History of Present Illness: The patient is a 83 year old male who presented to the hospital 3 years ago in 2017 with urinary retention over 2.5 L in his bladder at that point he failed a voiding trial and Dr. Da Silva took him to surgery for a transurethral resection of the prostate and placement of a suprapubic catheter. After this the superacute pubic catheter was removed and surprisingly he resumed normal urination with low postvoid residuals. He is followed in the office but recently he failed to keep his follow-up appointment mostly due to his worsening short-term memory says he could not remember where the office was and did not follow-up for his appointment because of his memory problems. Now he presents to the emergency room with difficulty with urination and gross hematuria. He states this is been going on for some time but his memory is poor he cannot tell me how a days he is been urinating blood. Had a CAT scan done that demonstrates a bladder that has bright blood within the bladder no clots no obvious tumors does have a very large prostate he has been on some aspirin or blood thinners. Catheter is in place and irrigating well still having a few clots. Past Medical History Past Medical History (Chronic Problems): Chronic Problems Atrial fibrillation (Chronic) Anemia (Chronic) S/P TURP (status post transurethral resection of prostate) (Chronic) HLD (hyperlipidemia) (Chronic) Dysphagia (Chronic) Osteoarthritis (Chronic) GERD (gastroesophageal reflux disease) (Chronic) BPH (benign prostatic hyperplasia) (Chronic) Allergies No Known Allergies Allergy (Verified 07/11/19 12:59) Home Medications: Ambulatory Orders Medication Instructions Recorded Aspirin E.C. [Ecotrin] 81 mg PO DAILY@0800 01/03/17 Levothyroxine [Synthroid] 50 mcg PO DAILY 10/18/18 Atorvastatin Calcium [Lipitor] 40 mg PO QHS 07/11/19 Surgical History: TURP Psychiatric History: No pertinent psych hx Lives: Spouse/ Significant Other Smoking Status: Never smoker Tobacco Use: Non-smoker Alcohol: None Drugs: None - *Family History Maternal History Items: - Paternal History Items: - - His father of a stroke at the age of 89. There is no family history of myocardial infarction or congestive heart failure. Review of Systems Constitutional: Denies: Chills, Fever, Weight Change HEENT: Denies: Head Aches, Sinus Congestion, Sinus Drainage Cardiovascular: Denies: Chest Pain, Palpitations Respiratory: Denies: Cough, Shortness of breath at rest, Sputum production Gastrointestinal: Denies: Abdominal Pain, Nausea, Vomiting Genitourinary: Reports: Dysuria, Frequency, Hematuria Musculoskeletal: Denies: Joint Pain, Joint Tenderness Skin: Denies: Rash, Wounds Neurological: Denies: Numbness, Tingling, Focal weakness Psychiatric: Denies: Anxiety, Depression, Homicidal Ideations, Suicidal Ideation s Hematologic/ Lymphatic: Denies: Easy Bruising, Easy Bleeding Physical Exam - Physical Exam Vital Signs Temp 98.5 F 07/11/19 16:00 Pulse 101 H 07/11/19 16:00 Resp 16 07/11/19 16:00 BP 145/72 H 07/11/19 16:00 Pulse Ox 98 07/11/19 16:00 Intake & Output 07/09/19 07/10/19 07/11/19 23:59 23:59 23:59 Output Total 1350 / 1350 Balance -1350 / -1350 Weight: 85.457 kg Output: Urine 1350 / 1350 General: Alert, Oriented x3 HEENT: Atraumatic, PERRLA Oral: Moist Mucosa, No Gingival or Mucosal Lesions/ Ulcerations Neck: Supple, No JVD Lungs: Normal air movement Cardiovascular: Regular rate Abdomen: Soft, Obese Rectal: Exam deferred Testicle: Right Normal, Left Normal Epididymis: Right Normal, Left Normal Penis: Velarde in place Groin: No hernia, Non-reducible hernia Extremities: No clubbing, No cyanosis, No edema Skin: No rashes Musculoskeletal: No Tenderness to Palpation of Joints or Extremities Lymphatic: No Cervical, Supraclavicular, or Inguinal Adenopathy Neurological: Cranial nerves II-XII grossly intact Laboratory Tests Past 24 Hrs 07/11/19 07/11/19 07/11/19 13:18 13:18 13:18 WBC 10.3 RBC 4.24 L Hgb 13.5 Hct 38.5 L MCV 90.8 MCH 31.8 MCHC 35.1 RDW Std Deviation 43.5 RDW Coeff of Francis 13.2 Plt Count 189 MPV 9.5 Immature Gran % (Auto) 0.400 Neut % (Auto) 77.3 H Lymph % (Auto) 13.9 L [place] % (Auto) 7.9 Eos % (Auto) 0.0 Baso % (Auto) 0.5 Absolute Neuts (auto) 8.0 H Absolute Lymphs (auto) 1.43 Nucleated RBC % 0 PT 13.8 INR 1.1 APTT 32.3 Sodium 142 Potassium 3.9 Chloride 109 H Carbon Dioxide 28.0 Anion Gap 5 BUN 21 H Creatinine 1.03 Estim Creat Clear Calc 56.86 Est GFR (MDRD) Af Amer 88 Est GFR (MDRD) Non-Af 73 BUN/Creatinine Ratio 20.4 H Glucose 146 H Lactic Acid Calcium 9.3 Total Bilirubin 0.80 AST 15 ALT 23 Alkaline Phosphatase 81 Total Protein 7.4 Albumin 3.8 Globulin 3.6 Albumin/Globulin Ratio 1.1 Urine Color Urine Clarity Urine pH Ur Specific [place] Urine Protein Urine Glucose (UA) Urine Ketones Urine Occult Blood Urine Nitrite Urine Bilirubin Urine Urobilinogen Ur Leukocyte Esterase Urine RBC Urine WBC Ur Squamous Epith Cells Urine Bacteria Urine Mucus Blood Type Antibody Screen 07/11/19 07/11/19 07/11/19 13:18 14:04 14:38 WBC RBC Hgb Hct MCV MCH MCHC RDW Std Deviation RDW Coeff of Francis Plt Count MPV Immature Gran % (Auto) Neut % (Auto) Lymph % (Auto) [place] % (Auto) Eos % (Auto) Baso % (Auto) Absolute Neuts (auto) Absolute Lymphs (auto) Nucleated RBC % PT INR APTT Sodium Potassium Chloride Carbon Dioxide Anion Gap BUN Creatinine Estim Creat Clear Calc Est GFR (MDRD) Af Amer Est GFR (MDRD) Non-Af BUN/Creatinine Ratio Glucose Lactic Acid 1.6 Calcium Total Bilirubin AST ALT Alkaline Phosphatase Total Protein Albumin Globulin Albumin/Globulin Ratio Urine Color Red Urine Clarity Turbid Urine pH 7.0 Ur Specific [place] 1.010 Urine Protein 500 H Urine Glucose (UA) Normal Urine Ketones 5 H Urine Occult Blood 250 H Urine Nitrite Negative Urine Bilirubin Negative Urine Urobilinogen Normal Ur Leukocyte Esterase 25 H Urine RBC > 100 SEEN Urine WBC 0 SEEN Ur Squamous Epith Cells 0 SEEN Urine Bacteria 0 SEEN Urine Mucus 0 SEEN Blood Type O POSITIVE Antibody Screen NEGATIVE Assessment/Plan All Active Problems Hematuria (Acute) Gross hematuria (Acute) Abnormal cardiac enzyme level (Acute) Dysarthria (Acute) Expressive aphasia (Acute) Syncope (Acute) 83-year-old male with a history of multiple medical problems who presents to the hospital he has been on blood thinners with aspirin presents with gross hematuria he does have a very large prostate on CAT scan and he is been having gross bleeding, Velarde catheter is in place and has been irrigating at this point given his status of not, taken to surgery anytime soon we will continue with continuous bladder irrigation recommend the nurses do manual irrigation as necessary if this catheter clots off he may need a bigger catheter like a 24 Romansh catheter to irrigate and will continue with irrigation hold aspirin. He can eat regular food no plan for surgery at this point spoke to the patient regarding the current condition he knows that he has bleeding but cannot remember when it started explained to him would like to avoid taking the surgery if possible continue with irrigation to see if this will clear on its own certainly if it fails to clear on its own then we may consider surgical intervention but will wait till the aspirin and blood thinning wears off first, no obvious signs of any cancer on CAT scan will await results from the CAT scan itself medical service is good admit the patient I will continue to follow.
[2019-07-11] MEDS: 0.9% Saline Lock 10 ML Syringe IV (18:04)
[2019-07-11] MEDS: Tamsulosin HCl 0.4 MG Capsule 0.8 MG PO (18:04)
[2019-07-11] MEDS: 0.9% Normal Saline 1,000 ML 100 ML IV (18:05)
--- NOTE | 2019-07-11 18:34 | NURSING ---
Call recieved from ER that Pts POA and son Juan Jose Win just got intubated and is in icu. ER spoke with other son Mann Win whom can be reached @ [phone].
[2019-07-11] MEDS: Atorvastatin Calcium 40 MG Tablet PO (21:00)
[2019-07-12] VITALS (7 sets, daily range): BP systolic 115–139; BP diastolic 54–83; PULSE 92–115; RESP 16–18; TEMP 36.7–37.3; O2SAT 95–98
--- NOTE | 2019-07-12 03:10 | NURSING ---
Pt increasingly getting more agitated. setting off bed exit approx every 20 minutes. Stating he is leaving. States he is going to call the police on staff, threatened to charge staff with assault 'for doing this to him'. Pt does not remember coming into the ER or being in the hospital. Several attempts to reorient. Pt will settle back down but attempting to get out of bed frequently.
[2019-07-12] MEDS: 0.9% Saline Lock 10 ML Syringe IV (03:43)
[2019-07-12] MEDS: 0.9% Normal Saline 1,000 ML 100 ML IV (03:44)
[2019-07-12] MEDS: Levothyroxine 50 MCG Tablet PO (05:02)
[2019-07-12 06:17] LABS: Absolute Lymphocyte Count 1.48 X10^3/uL (0.83-4.51); Absolute Neutrophil Count 7.9 X10^3/uL (2.0-7.7); Basophil# 0.05 X10^3/uL; Basophil% 0.5 % (0-1); Eosinophil# 0.11 X10^3/uL; Hematocrit 32.4 % (40-54); Lymphocyte # 1.48 X10^3/ul (4.0); Lymphocyte % 13.9 % (19-41); Mean Corpuscular Hgb 31.3 pg (27.0-32.0); Mean Corpuscular Volume 92.3 fL (80-94); Mean Platelet Vol. 9.6 fl (6.2-12.0); Monocyte# 1.02 X10^3/uL; Monocyte% 9.6 % (0-10); NRBC Flagged by Analyzer 0 % (0-5); Neutrophil # 7.94 X10^3/uL (2.7-7.7); Neutrophil % 74.6 % (47-70); Platelet Count 158 K/mm3 (150-450); Red Blood Count 3.51 M/mm3 (4.6-6.2); White Blood Count 10.6 K/mm3 (4.4-11.0)
[2019-07-12 06:39] LABS: Anion Gap 6 (5-15); BUN 15 mg/dL (7-18); BUN/Creat Ratio 22.1 RATIO (10-20); Calcium,Total 7.9 mg/dL (8.5-10.1); Chloride 111 mmol/L (98-107); Creatinine, Serum 0.68 mg/dL (0.70-1.30); EST Glomerular Filtration Rate 118 mL/min (>60); Est Glom Filt Rate - Afr Amer 143 mL/min (>60); Estimated Creatinine Clearance 58.57 ml/min; Glucose 116 mg/dL (74-106); Potassium 3.4 mmol/L (3.5-5.1); Sodium Level 142 mmol/L (136-145)
--- NOTE | 2019-07-12 10:13 | PCM.PROGNOTE ---
Patient Problems: Active and Suspected Problems Hematuria (Acute) Gross hematuria (Acute) Subjective: Follow-up to consultation, 83-year-old male with a history of enlarged prostate TURP in the past presents with gross hematuria, has been irrigated overnight the urine today is more clear, darkish tea colored no active bleeding seen will continue with CBI no surgical intervention at this point planned CT scan reviewed. - Physical Exam Vitals/I&O's: Vital Signs Temp Pulse Resp BP Pulse Ox 99.0 F 115 H 16 115/54 L 95 07/12/19 08:58 07/12/19 08:58 07/12/19 08:58 07/12/19 08:58 07/12/19 08:58 Oxygen Delivery Method Room Air Weight: 83.1 kg Body Mass Index (BMI) 25.5 Finger Stick Blood Glucose 105 Intake and Output for Last 24 Hours 07/10/19 07/11/19 07/12/19 23:59 23:59 23:59 Intake Total 500 / 500 1015 / 1015 Output Total 2625 / 2625 575 / 575 Balance -2125 / -2125 440 / 440 General: Alert, Oriented x3, Cooperative HEENT: Atraumatic, PERRLA, EOMI, Normocephalic Neck: Supple, No JVD, Negative Carotid Bruits Lungs: Clear to auscultation, Normal air movement Cardiovascular: Regular rate, No murmurs Abdomen: Bowel Sounds Present, Soft, Non Tender Extremities: No edema, Capillary Refill Less than 3 Seconds Skin: No rashes, No breakdown Musculoskeletal: No Tenderness to Palpation of Joints or Extremities Neurological: Cranial nerves II-XII grossly intact Psych/Mental Status: Normal Affect, Appropriate Laboratory Results 07/11/19 13:18: WBC 10.3, RBC 4.24 L, Hgb 13.5, Hct 38.5 L, MCV 90.8, MCH 31.8, MCHC 35.1, RDW Std Deviation 43.5, RDW Coeff of Francis 13.2, Plt Count 189, MPV 9.5, Immature Gran % (Auto) 0.400, Neut % (Auto) 77.3 H, Lymph % (Auto) 13.9 L, [place] % (Auto) 7.9, Eos % (Auto) 0.0, Baso % (Auto) 0.5, Absolute Neuts (auto) 8.0 H, Absolute Lymphs (auto) 1.43, Nucleated RBC % 0 07/11/19 13:18: PT 13.8, INR 1.1, APTT 32.3 07/11/19 13:18: Sodium 142, Potassium 3.9, Chloride 109 H, Carbon Dioxide 28.0, Anion Gap 5, BUN 21 H, Creatinine 1.03, Estim Creat Clear Calc 56.86, Est GFR (MDRD) Af Amer 88, Est GFR (MDRD) Non-Af 73, BUN/Creatinine Ratio 20.4 H, Glucose 146 H, Calcium 9.3, Total Bilirubin 0.80, AST 15, ALT 23, Alkaline Phosphatase 81, Total Protein 7.4, Albumin 3.8, Globulin 3.6, Albumin/Globulin Ratio 1.1 07/11/19 13:18: Lactic Acid 1.6 07/11/19 14:04: Urine Color Red, Urine Clarity Turbid, Urine pH 7.0, Ur Specific [place] 1.010, Urine Protein 500 H, Urine Glucose (UA) Normal, Urine Ketones 5 H, Urine Occult Blood 250 H, Urine Nitrite Negative, Urine Bilirubin Negative, Urine Urobilinogen Normal, Ur Leukocyte Esterase 25 H, Urine RBC > 100 SEEN, Urine WBC 0 SEEN, Ur Squamous Epith Cells 0 SEEN, Urine Bacteria 0 SEEN, Urine Mucus 0 SEEN 07/11/19 14:38: Blood Type O POSITIVE, Antibody Screen NEGATIVE 07/12/19 05:50: WBC 10.6, RBC 3.51 L, Hgb 11.0 L, Hct 32.4 L, MCV 92.3, MCH 31.3, MCHC 34.0, RDW Std Deviation 43.0, RDW Coeff of Francis 13.0, Plt Count 158, MPV 9.6, Immature Gran % (Auto) 0.400, Neut % (Auto) 74.6 H, Lymph % (Auto) 13.9 L, [place] % (Auto) 9.6, Eos % (Auto) 1.0, Baso % (Auto) 0.5, Absolute Neuts (auto) 7.9 H, Absolute Lymphs (auto) 1.48, Nucleated RBC % 0 07/12/19 05:50: Sodium 142, Potassium 3.4 L, Chloride 111 H, Carbon Dioxide 25.0, Anion Gap 6, BUN 15, Creatinine 0.68 L, Estim Creat Clear Calc 58.57, Est GFR (MDRD) Af Amer 143, Est GFR (MDRD) Non-Af 118, BUN/Creatinine Ratio 22.1 H, Glucose 116 H, Calcium 7.9 L Current Medications Atorvastatin Calcium (Lipitor) 40 mg PO QHS [facility] Last Admin: 07/11/19 21:00 Dose: 40 mg Documented by: Ciprofloxacin HCl (Cipro) 500 mg PO BID [facility] Dextrose (D50w Syringe) 0 gm IV X1 PRN; Protocol PRN Reason: Hypoglycemia Glucagon () 1 mg IM .X1 PRN PRN Reason: Hypoglycemia Sodium Chloride () 1,000 mls @ 75 mls/hr IV .[id number] [facility] Last Admin: 07/12/19 03:44 Dose: 100 mls/hr Documented by: Sodium Chloride () 250 mls @ 15 mls/hr IV .[id number] PRN PRN Reason: Saline Flush Sodium Chloride () 250 mls @ 15 mls/hr IV .[id number] PRN PRN Reason: Additional IVPB Infusion Levothyroxine Sodium (Synthroid) 50 mcg PO DAILY@0600 [facility] Last Admin: 07/12/19 05:02 Dose: 50 mcg Documented by: Sodium Chloride () 10 - 40 ml IV UD PRN PRN Reason: SALINE FLUSH Last Admin: 07/12/19 03:43 Dose: 10 ml Documented by: Tamsulosin HCl (Flomax) 0.8 mg PO DAILY@1730 [facility] Last Admin: 07/11/19 18:04 Dose: 0.8 mg Documented by: Medical Necessity - Tobacco Use Smoking Status: Never smoker Tobacco Use: Non-smoker Assessment/Plan All Active Problems Hematuria (Acute) Gross hematuria (Acute) Abnormal cardiac enzyme level (Acute) Dysarthria (Acute) Expressive aphasia (Acute) Syncope (Acute) 83-year-old male history of very large prostate he had bleeding probably from the prostate also hematuria could continue with antibiotics also can add finasteride to see if this helps shrink the prostate prevent more bleeding I suspect the prostate is the main source of the bleeding once his urine gets clear we can DC the Velarde for voiding trial. I will be back to see him tomorrow.
[2019-07-12] MEDS: Ciprofloxacin 500 MG Tablet PO ×2 (10:25→20:48)
--- NOTE | 2019-07-12 11:06 | PN_ITS ---
Patient Problems: Active and Suspected Problems Hematuria (Acute) Gross hematuria (Acute) Reason for Visit: Hematuria Subjective: Pt has no complaints. CBI shows tea colored urine. No CP/SOB/LH. Pt pleasantly confused. Vitals/I&O's: Vital Signs Temp Pulse Resp BP Pulse Ox 99.0 F 115 H 16 115/54 L 95 07/12/19 08:58 07/12/19 08:58 07/12/19 08:58 07/12/19 08:58 07/12/19 08:58 Oxygen Delivery Method Room Air Weight: 183 lb 3.266 oz Body Mass Index (BMI) 25.5 Finger Stick Blood Glucose 105 Intake and Output for Last 24 Hours 07/10/19 07/11/19 07/12/19 23:59 23:59 23:59 Intake Total 500 / 500 1015 / 1015 Output Total 2625 / 2625 575 / 575 Balance -2125 / -2125 440 / 440 General: Alert, Cooperative, Confused HEENT: Atraumatic, PERRLA, EOMI, Normocephalic Neck: Supple, No JVD, Negative Carotid Bruits Lungs: Clear to auscultation, Normal air movement Cardiovascular: Regular rate, No murmurs Abdomen: Bowel Sounds Present, Soft, Non Tender Extremities: No edema, Capillary Refill Less than 3 Seconds Skin: No rashes, No breakdown Musculoskeletal: No Tenderness to Palpation of Joints or Extremities Neurological: Cranial nerves II-XII grossly intact Psych/Mental Status: Normal Affect, Appropriate, Alert and oriented to time, place, person, mood and affect Laboratory Results 07/11/19 13:18: WBC 10.3, RBC 4.24 L, Hgb 13.5, Hct 38.5 L, MCV 90.8, MCH 31.8, MCHC 35.1, RDW Std Deviation 43.5, RDW Coeff of Francis 13.2, Plt Count 189, MPV 9.5, Immature Gran % (Auto) 0.400, Neut % (Auto) 77.3 H, Lymph % (Auto) 13.9 L, [place] % (Auto) 7.9, Eos % (Auto) 0.0, Baso % (Auto) 0.5, Absolute Neuts (auto) 8.0 H, Absolute Lymphs (auto) 1.43, Nucleated RBC % 0 07/11/19 13:18: PT 13.8, INR 1.1, APTT 32.3 07/11/19 13:18: Sodium 142, Potassium 3.9, Chloride 109 H, Carbon Dioxide 28.0, Anion Gap 5, BUN 21 H, Creatinine 1.03, Estim Creat Clear Calc 56.86, Est GFR (MDRD) Af Amer 88, Est GFR (MDRD) Non-Af 73, BUN/Creatinine Ratio 20.4 H, Glucose 146 H, Calcium 9.3, Total Bilirubin 0.80, AST 15, ALT 23, Alkaline Phosphatase 81, Total Protein 7.4, Albumin 3.8, Globulin 3.6, Albumin/Globulin Ratio 1.1 07/11/19 13:18: Lactic Acid 1.6 07/11/19 14:04: Urine Color Red, Urine Clarity Turbid, Urine pH 7.0, Ur Specific [place] 1.010, Urine Protein 500 H, Urine Glucose (UA) Normal, Urine Ketones 5 H , Urine Occult Blood 250 H, Urine Nitrite Negative, Urine Bilirubin Negative, Urine Urobilinogen Normal, Ur Leukocyte Esterase 25 H, Urine RBC > 100 SEEN, Urine WBC 0 SEEN, Ur Squamous Epith Cells 0 SEEN, Urine Bacteria 0 SEEN, Urine Mucus 0 SEEN 07/11/19 14:38: Blood Type O POSITIVE, Antibody Screen NEGATIVE 07/12/19 05:50: WBC 10.6, RBC 3.51 L, Hgb 11.0 L, Hct 32.4 L, MCV 92.3, MCH 31.3, MCHC 34.0, RDW Std Deviation 43.0, RDW Coeff of Francis 13.0, Plt Count 158, MPV 9.6, Immature Gran % (Auto) 0.400, Neut % (Auto) 74.6 H, Lymph % (Auto) 13.9 L, [place] % (Auto) 9.6, Eos % (Auto) 1.0, Baso % (Auto) 0.5, Absolute Neuts (auto) 7.9 H, Absolute Lymphs (auto) 1.48, Nucleated RBC % 0 07/12/19 05:50: Sodium 142, Potassium 3.4 L, Chloride 111 H, Carbon Dioxide 25.0, Anion Gap 6, BUN 15, Creatinine 0.68 L, Estim Creat Clear Calc 58.57, Est GFR (MDRD) Af Amer 143, Est GFR (MDRD) Non-Af 118, BUN/Creatinine Ratio 22.1 H, Glucose 116 H, Calcium 7.9 L Current Medications Atorvastatin Calcium (Lipitor) 40 mg PO QHS [facility] Last Admin: 07/11/19 21:00 Dose: 40 mg Documented by: Ciprofloxacin HCl (Cipro) 500 mg PO BID [facility] Last Admin: 07/12/19 10:25 Dose: 500 mg Documented by: Dextrose (D50w Syringe) 0 gm IV X1 PRN; Protocol PRN Reason: Hypoglycemia Finasteride (Proscar) 5 mg PO DAILY [facility] Glucagon () 1 mg IM .X1 PRN PRN Reason: Hypoglycemia Sodium Chloride () 1,000 mls @ 75 mls/hr IV .[id number] [facility] Last Admin: 07/12/19 03:44 Dose: 100 mls/hr Documented by: Sodium Chloride () 250 mls @ 15 mls/hr IV .[id number] PRN PRN Reason: Saline Flush Sodium Chloride () 250 mls @ 15 mls/hr IV .[id number] PRN PRN Reason: Additional IVPB Infusion Levothyroxine Sodium (Synthroid) 50 mcg PO DAILY@0600 [facility] Last Admin: 07/12/19 05:02 Dose: 50 mcg Documented by: Sodium Chloride () 10 - 40 ml IV UD PRN PRN Reason: SALINE FLUSH Last Admin: 07/12/19 03:43 Dose: 10 ml Documented by: Tamsulosin HCl (Flomax) 0.8 mg PO DAILY@1730 [facility] Last Admin: 07/11/19 18:04 Dose: 0.8 mg Documented by: STROKE Vital Signs/Narrative: Vital Signs Temp Pulse Resp BP Pulse Ox 07/12/19 08:58 99.0 F 115 H 16 115/54 L 95 07/12/19 07:27 108 H Medical Necessity - Tobacco Use Smoking Status: Never smoker Tobacco Use: Non-smoker Assessment/Plan All Active Problems Hematuria (Acute) Gross hematuria (Acute) Abnormal cardiac enzyme level (Acute) Dysarthria (Acute) Expressive aphasia (Acute) Syncope (Acute) 1. Hematuria - hx BPH prior TURP. Continue with CBI. Dr. Griffith following. Continue flomax. Continue IVF. Uro started proscar. Uro recommends continue abx: Cipro BID. Mild drop in Hgb, will trend. Hold aspirin. AM CBC. [address] abdomen shows large prostate, blood in the bladder, distended bladder. Prior TURP. 2. HLD - statin 3. hypothyroidism - continue synthroid. 4. Dementia - poor historian. Lives with spouse. 5. Hx CVA - hold aspirin. continue statin 6. hypokalemia - replete K+. DVT ppx: SCDs This patient was seen by Vishnu Shipman PA-C under the supervision of Dr. Anderson.
--- NOTE | 2019-07-12 14:13 | CASEMGMT ---
[employer] form completed via phone with son Mann Win. Per hospitalist documentation patient is confused. RN KHRIS explained [employer] form with son Mann. Mann voiced understanding and gave telephone consent for form. Original [employer] form filed in chart and copy placed in patient's discharge folder. Cm voiced no further questions or concerns.
[2019-07-12] MEDS: 0.9% Normal Saline 1,000 ML 75 ML IV (14:27)
--- NOTE | 2019-07-12 15:11 | NURSING ---
PT ATTEMPTED TO GET OUT OF BED. PT WAS FOUND STANDING AT BEDSIDE WITH IV AND SMITH STRETCHED TAUT. PT REORIENTED BACK TO PLACE AND ESCORTED BACK INTO BED.
[2019-07-12] MEDS: Tamsulosin HCl 0.4 MG Capsule 0.8 MG PO (17:41)
[2019-07-12] MEDS: Atorvastatin Calcium 40 MG Tablet PO (20:48)
[2019-07-13] MEDS: QUEtiapine 25 MG Tablet 12.5 MG PO ×2 (00:10→22:40)
[2019-07-13 02:27] VITALS: BP 139/73; PULSE 101; RESP 18; TEMP 36.8; O2SAT 94
[2019-07-13] MEDS: 0.9% Normal Saline 1,000 ML 75 ML IV ×2 (03:21→22:35)
[2019-07-13 06:30] LABS: Hematocrit 31.4 % (40-54); Hemoglobin 10.7 g/dL (13.0-16.5); Mean Corp Hgb Conc 34.1 g/dL (32-36); Mean Corpuscular Hgb 31.6 pg (27.0-32.0); Mean Corpuscular Volume 92.6 fL (80-94); Mean Platelet Vol. 9.8 fl (6.2-12.0); Platelet Count 165 K/mm3 (150-450); RBC Distribution Width CV 12.8 % (11.6-14.6); RBC Distribution Width SD 42.4 fl (35.1-43.9); Red Blood Count 3.39 M/mm3 (4.6-6.2); White Blood Count 8.6 K/mm3 (4.4-11.0)
[2019-07-13 06:35] LABS: Anion Gap 7 (5-15); BUN 8 mg/dL (7-18); BUN/Creat Ratio 11.4 RATIO (10-20); Calcium,Total 8.1 mg/dL (8.5-10.1); Chloride 109 mmol/L (98-107); EST Glomerular Filtration Rate 114 mL/min (>60); Est Glom Filt Rate - Afr Amer 138 mL/min (>60); Estimated Creatinine Clearance 58.57 ml/min; Glucose 97 mg/dL (74-106); Potassium 3.3 mmol/L (3.5-5.1); Sodium Level 141 mmol/L (136-145)
[2019-07-13] MEDS: Finasteride 5 MG Tablet PO (11:02)
[2019-07-13] MEDS: Ciprofloxacin 500 MG Tablet PO ×2 (11:03→22:37)
[2019-07-13 11:07] VITALS: BP 128/58; PULSE 80; RESP 18; TEMP 36.8; O2SAT 97
--- NOTE | 2019-07-13 12:04 | PN_ITS ---
Patient Problems: Active and Suspected Problems Hematuria (Acute) Gross hematuria (Acute) Reason for Visit: Hematuria Subjective: Pt resting comfortably in bed NAD. He is confused stating that he has been kidnapped and is being held against his will. He has no fever/chills, no rectal pain, no abdominal pain, no ventura discomfort. Vitals/I&O's: Vital Signs Temp Pulse Resp BP Pulse Ox 98.3 F 80 18 128/58 H 97 07/13/19 11:07 07/13/19 11:07 07/13/19 11:07 07/13/19 11:07 07/13/19 11:07 Oxygen Delivery Method Room Air Weight: 183 lb 3.266 oz Body Mass Index (BMI) 25.5 Finger Stick Blood Glucose 105 Intake and Output for Last 24 Hours 07/11/19 07/12/19 07/13/19 23:59 23:59 23:59 Intake Total 500 / 500 1975.42 / 2175.42 1317.5 / 1317.5 Output Total 2625 / 2625 575 / 575 0 / 0 Balance -2125 / -2125 1400.42 / 1600.42 1317.5 / 1317.5 General: Alert, Oriented x3, Cooperative HEENT: Atraumatic, PERRLA, EOMI, Normocephalic Neck: Supple, No JVD, Negative Carotid Bruits Lungs: Clear to auscultation, Normal air movement Cardiovascular: Regular rate, No murmurs Abdomen: Bowel Sounds Present, Soft, Non Tender Extremities: No edema, Capillary Refill Less than 3 Seconds Skin: No rashes, No breakdown Musculoskeletal: No Tenderness to Palpation of Joints or Extremities Neurological: Cranial nerves II-XII grossly intact Psych/Mental Status: Normal Affect, Appropriate, Alert and oriented to time, place, person, mood and affect Microbiology Past 72 Hours 07/11/19 13:41 Blood Culture (Wb) - Left Hand Blood Culture - Preliminary No growth in 48 hours. 07/11/19 13:18 Blood Culture (Wb) - Anticubital Left Blood Culture - Preliminary No growth in 48 hours. 07/11/19 14:04 Urine Catheter - Catheter Urine Culture - Preliminary Alpha Hemolytic Streptococcus Laboratory Results 07/13/19 05:45: WBC 8.6, RBC 3.39 L, Hgb 10.7 L, Hct 31.4 L, MCV 92.6, MCH 31.6, MCHC 34.1, RDW Std Deviation 42.4, RDW Coeff of Francis 12.8, Plt Count 165, MPV 9.8 07/13/19 05:45: Sodium 141, Potassium 3.3 L, Chloride 109 H, Carbon Dioxide 25.0, Anion Gap 7, BUN 8, Creatinine 0.70, Estim Creat Clear Calc 58.57, Est GFR (MDRD) Af Amer 138, Est GFR (MDRD) Non-Af 114, BUN/Creatinine Ratio 11.4, Glucose 97, Calcium 8.1 L Current Medications Atorvastatin Calcium (Lipitor) 40 mg PO QHS [facility] Last Admin: 07/12/19 20:48 Dose: 40 mg Documented by: Ciprofloxacin HCl (Cipro) 500 mg PO BID [facility] Last Admin: 07/13/19 11:03 Dose: 500 mg Documented by: Dextrose (D50w Syringe) 0 gm IV X1 PRN; Protocol PRN Reason: Hypoglycemia Finasteride (Proscar) 5 mg PO DAILY [facility] Last Admin: 07/13/19 11:02 Dose: 5 mg Documented by: Glucagon () 1 mg IM .X1 PRN PRN Reason: Hypoglycemia Sodium Chloride () 1,000 mls @ 75 mls/hr IV .[id number] [facility] Last Admin: 07/13/19 03:21 Dose: 75 mls/hr Documented by: Sodium Chloride () 250 mls @ 15 mls/hr IV .[id number] PRN PRN Reason: Saline Flush Sodium Chloride () 250 mls @ 15 mls/hr IV .[id number] PRN PRN Reason: Additional IVPB Infusion Levothyroxine Sodium (Synthroid) 50 mcg PO DAILY@0600 [facility] Last Admin: 07/13/19 06:13 Dose: Not Given Documented by: Sodium Chloride () 10 - 40 ml IV UD PRN PRN Reason: SALINE FLUSH Last Admin: 07/12/19 03:43 Dose: 10 ml Documented by: Tamsulosin HCl (Flomax) 0.8 mg PO DAILY@1730 [facility] Last Admin: 07/12/19 17:41 Dose: 0.8 mg Documented by: STROKE Vital Signs/Narrative: Vital Signs Temp Pulse Resp BP Pulse Ox 07/13/19 11:07 98.3 F 80 18 128/58 H 97 Medical Necessity - Tobacco Use Smoking Status: Never smoker Tobacco Use: Non-smoker Assessment/Plan All Active Problems Hematuria (Acute) Gross hematuria (Acute) Abnormal cardiac enzyme level (Acute) Dysarthria (Acute) Expressive aphasia (Acute) Syncope (Acute) 1. Hematuria - hx BPH prior TURP. Hgb stable now. Bag has some pink, ventura line is clear yellow. Urology following. Continue proscar, flomax, cipro. Aspirin held. DC CBI when ok with urology. 2. HLD - statin 3. hypothyroidism - continue Synthroid. 4. Dementia - poor historian. Lives with spouse who also has dementia. 5. Hx CVA - hold aspirin. continue statin 6. hypokalemia - replete K+. check mag DVT ppx: SCDs DC planning: likely unsafe to return home. also has dementia. Case management consult in the AM. PT OT evals added as there may be a need for SNF placement. This patient was seen by Vishnu Shipman PA-C under the supervision of Dr. Anderson.
[2019-07-13 12:31] LABS: Magnesium 1.8 mg/dL (1.6-2.6)
[2019-07-13 14:43] LABS: Phosphorus 2.6 mg/dL (2.5-4.9)
[2019-07-13] MEDS: Magnesium Oxide 400 MG Tablet 800 MG PO (18:23)
[2019-07-13] MEDS: Tamsulosin HCl 0.4 MG Capsule 0.8 MG PO (18:24)
[2019-07-13 18:26] VITALS: BP 127/80; PULSE 101; RESP 16; TEMP 36.8; O2SAT 97
--- NOTE | 2019-07-13 18:48 | NURSING ---
Irrigated, no clots obtained. D/c'ed CBI bags.
[2019-07-13 22:09] VITALS: BP 142/77; PULSE 98; RESP 18; TEMP 37.1; O2SAT 97
[2019-07-13] MEDS: Atorvastatin Calcium 40 MG Tablet PO (22:37)
[2019-07-13 22:49] VITALS: RESP 18
[2019-07-14 04:00] VITALS: BP 108/60; PULSE 52; RESP 18; TEMP 36.8; O2SAT 94
[2019-07-14] MEDS: Levothyroxine 50 MCG Tablet PO (04:38)
[2019-07-14 06:07] LABS: Hematocrit 32.3 % (40-54); Hemoglobin 11.1 g/dL (13.0-16.5); Mean Corp Hgb Conc 34.4 g/dL (32-36); Mean Corpuscular Hgb 31.4 pg (27.0-32.0); Mean Corpuscular Volume 91.5 fL (80-94); Mean Platelet Vol. 9.8 fl (6.2-12.0); Platelet Count 170 K/mm3 (150-450); RBC Distribution Width CV 12.7 % (11.6-14.6); RBC Distribution Width SD 41.7 fl (35.1-43.9); Red Blood Count 3.53 M/mm3 (4.6-6.2); White Blood Count 6.7 K/mm3 (4.4-11.0)
[2019-07-14 06:25] LABS: Anion Gap 5 (5-15); BUN 10 mg/dL (7-18); BUN/Creat Ratio 14.6 RATIO (10-20); Calcium,Total 8.2 mg/dL (8.5-10.1); Chloride 109 mmol/L (98-107); Creatinine, Serum 0.69 mg/dL (0.70-1.30); EST Glomerular Filtration Rate 117 mL/min (>60); Est Glom Filt Rate - Afr Amer 141 mL/min (>60); Estimated Creatinine Clearance 58.57 ml/min; Glucose 92 mg/dL (74-106); Potassium 3.3 mmol/L (3.5-5.1); Sodium Level 140 mmol/L (136-145)
--- NOTE | 2019-07-14 07:37 | PCM.PROGNOTE ---
Patient Problems: Active and Suspected Problems Hematuria (Acute) Gross hematuria (Acute) Subjective: 83-year-old male admitted for bleeding, had a TURP about 3 years ago, had a UTI culture came back positive make sure that we treat this. Urine is now nice and clear with no bladder infection draining clear yellow urine. He is on Flomax I recommend he continue also with Flomax and Proscar. He does have a lot of confusion dementia and poor memory which is chronic. - Physical Exam Vitals/I&O's: Vital Signs Temp Pulse Resp BP Pulse Ox 98.3 F 52 L 18 108/60 94 07/14/19 04:00 07/14/19 04:00 07/14/19 04:00 07/14/19 04:00 07/14/19 04:00 Oxygen Delivery Method Room Air Weight: 83.1 kg Body Mass Index (BMI) 25.5 Finger Stick Blood Glucose 105 Intake and Output for Last 24 Hours 07/12/19 07/13/19 07/14/19 23:59 23:59 23:59 Intake Total 1975.42 / 2175.42 2677.5 / 2677.5 200 / 200 Output Total 575 / 575 300 / 300 1400 / 1400 Balance 1400.42 / 1600.42 2377.5 / 2377.5 -1200 / -1200 General: Alert, Oriented x3, Cooperative HEENT: Atraumatic, PERRLA, EOMI, Normocephalic Neck: Supple, No JVD, Negative Carotid Bruits Lungs: Clear to auscultation, Normal air movement Cardiovascular: Regular rate, No murmurs Abdomen: Bowel Sounds Present, Soft, Non Tender Extremities: No edema, Capillary Refill Less than 3 Seconds Skin: No rashes, No breakdown Musculoskeletal: No Tenderness to Palpation of Joints or Extremities Neurological: Cranial nerves II-XII grossly intact Psych/Mental Status: Normal Affect, Appropriate Microbiology Past 72 Hours 07/11/19 14:04 Urine Catheter - Catheter Urine Culture - Final Streptococcus viridans group 07/11/19 13:41 Blood Culture (Wb) - Left Hand Blood Culture - Preliminary No growth in 48 hours. 07/11/19 13:18 Blood Culture (Wb) - Anticubital Left Blood Culture - Preliminary No growth in 48 hours. Laboratory Results 07/13/19 05:45: Magnesium 1.8 07/13/19 05:45: Phosphorus 2.6 07/14/19 05:30: WBC 6.7, RBC 3.53 L, Hgb 11.1 L, Hct 32.3 L, MCV 91.5, MCH 31.4, MCHC 34.4, RDW Std Deviation 41.7, RDW Coeff of Francis 12.7, Plt Count 170, MPV 9.8 07/14/19 05:30: Sodium 140, Potassium 3.3 L, Chloride 109 H, Carbon Dioxide 26.0, Anion Gap 5, BUN 10, Creatinine 0.69 L, Estim Creat Clear Calc 58.57, Est GFR (MDRD) Af Amer 141, Est GFR (MDRD) Non-Af 117, BUN/Creatinine Ratio 14.6, Glucose 92, Calcium 8.2 L Current Medications Atorvastatin Calcium (Lipitor) 40 mg PO QHS REPLACED BY [facility] Last Admin: 07/13/19 22:37 Dose: 40 mg Documented by: Ciprofloxacin HCl (Cipro) 500 mg PO BID REPLACED BY [facility] Last Admin: 07/13/19 22:37 Dose: 500 mg Documented by: Dextrose (D50w Syringe) 0 gm IV X1 PRN; Protocol PRN Reason: Hypoglycemia Finasteride (Proscar) 5 mg PO DAILY REPLACED BY [facility] Last Admin: 07/13/19 11:02 Dose: 5 mg Documented by: Glucagon () 1 mg IM .X1 PRN PRN Reason: Hypoglycemia Sodium Chloride () 1,000 mls @ 75 mls/hr IV .[id number] REPLACED BY [facility] Last Admin: 07/13/19 22:35 Dose: 75 mls/hr Documented by: Sodium Chloride () 250 mls @ 15 mls/hr IV .[id number] PRN PRN Reason: Saline Flush Sodium Chloride () 250 mls @ 15 mls/hr IV .[id number] PRN PRN Reason: Additional IVPB Infusion Levothyroxine Sodium (Synthroid) 50 mcg PO DAILY@0600 REPLACED BY [facility] Last Admin: 07/14/19 04:38 Dose: 50 mcg Documented by: Quetiapine Fumarate (Seroquel) 12.5 mg PO QHS REPLACED BY [facility] Last Admin: 07/13/19 22:40 Dose: 12.5 mg Documented by: Sodium Chloride () 10 - 40 ml IV UD PRN PRN Reason: SALINE FLUSH Last Admin: 07/12/19 03:43 Dose: 10 ml Documented by: Tamsulosin HCl (Flomax) 0.8 mg PO DAILY@1730 REPLACED BY [facility] Last Admin: 07/13/19 18:24 Dose: 0.8 mg Documented by: Medical Necessity - Tobacco Use Smoking Status: Never smoker Tobacco Use: Non-smoker Assessment/Plan All Active Problems Hematuria (Acute) Gross hematuria (Acute) Abnormal cardiac enzyme level (Acute) Dysarthria (Acute) Expressive aphasia (Acute) Syncope (Acute) 83-year-old male admitted to the hospital for gross hematuria urinary tract infection CAT scan was done demonstrated a large prostate lots of blood in the bladder but no obvious tumors or masses. The urine is now clear, today we can remove the catheter for voiding trial if he is able to urinate okay we can leave the catheter out he can follow-up as an outpatient in my office for an outpatient cystoscopy to evaluate the prostate and bladder he needs to continue with Flomax and Proscar for his large prostate and he needs to finish up a course of antibiotics for the infection call me with questions.
[2019-07-14 08:08] VITALS: BP 135/84; PULSE 95; RESP 18; TEMP 36.7; O2SAT 99
[2019-07-14] MEDS: Ciprofloxacin 500 MG Tablet PO (09:08)
[2019-07-14] MEDS: Finasteride 5 MG Tablet PO (09:09)
--- NOTE | 2019-07-14 11:15 | CASEMGMT ---
Addendum entered by Radha Teixeira 07/14/19 14:24: SW had also spoken to Mann about 24 hour care in the home, assisted living, independent living. Addendum entered by Radha Teixeira 07/14/19 12:00: PT/OT are available. MANASA faxed referral to [facility]. MANASA called Yuliya at [facility], per Yuliya's voicemail she is out of the office until tomorrow asked to call Brigid ([phone]). MANASA placed a call to Brigid and provided referral. Fabby asked for referral to be faxed. MANASA informed Fabby that referral has been faxed so she should receive referral shortly. Brigid states understanding, states will review referral and then give this worker a call. Original Note: Social Work Note SW received referral for possible SNF placement, not safe for pt to return home at discharge as pt is alert and orientated x1, demented. MANASA reviewed pt's chart. No HCPOA/LW documents are on file for pt. Pt has two children listed on demographics, son Mann and daughter Silvia. Pt also has significant other Ekaterina listed who per notes, also has memory issues. Pt also has a son Juan Jose who is in ICU, intubated currently at [facility]. Per notes, staff at [facility] has been talking to pt's son Mann. MANASA placed a call to pt's son Mann (Shreyas) to discuss discharge plans. MANASA introduced self and role at [facility]. Shreyas states that he lives in [place], pt's daughter Silvia lives 10-12 minutes from pt, and pt's son Juan Jose (Refugio) lives in [facility] but does confirm that Refugio is currently in ICU at [facility]. Mann (Shreyas) states that he and pt's daughter Silvia have been making decisions together for pt since Juan Jose (Shreyas) has been at [facility]. Mann states that as far as he knows pt doesn't have HCPOA/LW files. 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 Mann states that he feels that pt and Ekaterina are not able to live alone together and not able to take care of themselves at home. Mann states that about 18 months ago, it was recommended that pt go to independent living but pt adamantly refused. MANASA informed Mann that pt is currently confused, only alert and orientated x1, unable to make own decisions so by law it would go to his children to make Healthcare decisions as pt and Ekaterina are not . Mann states that he is aware that pt probably has the beginning of advanced dementia and not safe for pt to return home at this time but states that he hasn't thought about getting his dad into any independent living or assisted living. MANASA spoke with Mann regarding going to SNF for rehabilitation while he and Silvia work to discuss the next plan for pt whether that be independent living or assisted living. Mann agreeable to SNF. MANASA verbally provided Mann with list of SNF that accept pt's insurance. Mann states his first choice is [facility], second choice would be [facility]. MANASA explained referral process and that pt would need pre-cert. Mann states understanding. MANASA informed Mann that this worker will be calling Silvia to update her. Mann states that Silvia's had cataract surgery today, won't be available until this afternoon. MANASA informed Mann that this worker will send referrals out and see which SNF is able to accept pt and then update both Mann and Silvia. Mann states understanding. MANASA placed a call to Clementine in TCU, provided referral. Clementine states she is able to accept pt pending pre-cert, will need negative COVID test. MANASA updated PA who will order COVID test. MANASA will fax referral to [facility] once PT/OT notes are available. Plan: TCU pending pre-cert Radha Teixeira MSW, REVENUE CYCLE ADMINISTRATOR
--- NOTE | 2019-07-14 11:25 | NURSING ---
confirmed with Vishnu MAYBERRY COVID testing done for ECF placement, no symptoms
[2019-07-14 13:35] VITALS: BP 147/91; PULSE 109; RESP 18; TEMP 36.7; O2SAT 98
--- NOTE | 2019-07-14 13:41 | PCM.PN.HOSP ---
<Vishnu Shipman - Last Filed: 07/14/19 13:41> Patient Problems: Active and Suspected Problems Hematuria (Acute) Gross hematuria (Acute) Reason for Visit: hematuria Subjective: Velarde removed. Awaiting voiding trial. No fevers/chills. No abd pain/rectal pain. No dysuria. Vitals/I&O's: Vital Signs Temp Pulse Resp BP Pulse Ox 98.0 F 109 H 18 147/91 H 98 07/14/19 13:35 07/14/19 13:35 07/14/19 13:35 07/14/19 13:35 07/14/19 13:35 Oxygen Delivery Method Room Air Weight: 183 lb 3.266 oz Body Mass Index (BMI) 25.5 Finger Stick Blood Glucose 105 Intake and Output for Last 24 Hours 07/12/19 07/13/19 07/14/19 23:59 23:59 23:59 Intake Total 1975.42 / 2175.42 2677.5 / 2677.5 1636.25 / 1636.25 Output Total 575 / 575 300 / 300 1400 / 1400 Balance 1400.42 / 1600.42 2377.5 / 2377.5 236.25 / 236.25 General: Alert, Cooperative, Confused HEENT: Atraumatic, PERRLA, EOMI, Normocephalic Neck: Supple, No JVD, Negative Carotid Bruits Lungs: Clear to auscultation, Normal air movement Cardiovascular: Regular rate, No murmurs Abdomen: Bowel Sounds Present, Soft, Non Tender Extremities: No edema, Capillary Refill Less than 3 Seconds Skin: No rashes, No breakdown Musculoskeletal: No Tenderness to Palpation of Joints or Extremities Neurological: Cranial nerves II-XII grossly intact Psych/Mental Status: Normal Affect, Appropriate, Alert and oriented to time, place, person, mood and affect Microbiology Past 72 Hours 07/11/19 14:04 Urine Catheter - Catheter Urine Culture - Final Streptococcus viridans group 07/11/19 13:41 Blood Culture (Wb) - Left Hand Blood Culture - Preliminary No growth in 48 hours. 07/11/19 13:18 Blood Culture (Wb) - Anticubital Left Blood Culture - Preliminary No growth in 48 hours. Laboratory Results 07/13/19 05:45: Phosphorus 2.6 07/14/19 05:30: WBC 6.7, RBC 3.53 L, Hgb 11.1 L, Hct 32.3 L, MCV 91.5, MCH 31.4, MCHC 34.4, RDW Std Deviation 41.7, RDW Coeff of Francis 12.7, Plt Count 170, MPV 9.8 07/14/19 05:30: Sodium 140, Potassium 3.3 L, Chloride 109 H, Carbon Dioxide 26.0, Anion Gap 5, BUN 10, Creatinine 0.69 L, Estim Creat Clear Calc 58.57, Est GFR (MDRD) Af Amer 141, Est GFR (MDRD) Non-Af 117, BUN/Creatinine Ratio 14.6, Glucose 92, Calcium 8.2 L 07/14/19 11:26: COVID-19 ([place]) Pending Current Medications Atorvastatin Calcium (Lipitor) 40 mg PO QHS [facility] Last Admin: 07/13/19 22:37 Dose: 40 mg Documented by: Dextrose (D50w Syringe) 0 gm IV X1 PRN; Protocol PRN Reason: Hypoglycemia Finasteride (Proscar) 5 mg PO DAILY [facility] Last Admin: 07/14/19 09:09 Dose: 5 mg Documented by: Glucagon () 1 mg IM .X1 PRN PRN Reason: Hypoglycemia Sodium Chloride () 250 mls @ 15 mls/hr IV .[id number] PRN PRN Reason: Saline Flush Sodium Chloride () 250 mls @ 15 mls/hr IV .[id number] PRN PRN Reason: Additional IVPB Infusion Ceftriaxone Sodium 2 gm/ (Sodium Chloride) 50 mls @ 100 mls/hr IV Q24 [facility] Last Infusion: 07/14/19 12:53 Dose: Infused Documented by: Levothyroxine Sodium (Synthroid) 50 mcg PO DAILY@0600 [facility] Last Admin: 07/14/19 04:38 Dose: 50 mcg Documented by: Quetiapine Fumarate (Seroquel) 12.5 mg PO QHS [facility] Last Admin: 07/13/19 22:40 Dose: 12.5 mg Documented by: Sodium Chloride () 10 - 40 ml IV UD PRN PRN Reason: SALINE FLUSH Last Admin: 07/12/19 03:43 Dose: 10 ml Documented by: Tamsulosin HCl (Flomax) 0.8 mg PO DAILY@1730 [facility] Last Admin: 07/13/19 18:24 Dose: 0.8 mg Documented by: STROKE Vital Signs/Narrative: Vital Signs Temp Pulse Resp BP Pulse Ox 07/14/19 13:35 98.0 F 109 H 18 147/91 H 98 Medical Necessity - Tobacco Use Smoking Status: Never smoker Tobacco Use: Non-smoker Assessment/Plan All Active Problems Hematuria (Acute) Gross hematuria (Acute) Abnormal cardiac enzyme level (Acute) Dysarthria (Acute) Expressive aphasia (Acute) Syncope (Acute) 1. Hematuria - hx BPH prior TURP. Hgb stable now. Velarde out. Continue proscar/flomax. Continue abx for possible underlying prostatitis. Cx shows Strep viridans. F.u with Dr. Griffith as an outpatient. 2. HLD - statin 3. hypothyroidism - continue Synthroid. 4. Dementia - poor historian. Lives with spouse who also has dementia. 5. Hx CVA - hold aspirin. continue statin 6. hypokalemia - replete K+. DVT ppx: SCDs DC planning: TCU pending precert. COVID test pending (required for TCU) This patient was seen by Vishnu Shipman PA-C under the supervision of Dr. Holt <Tyler Holt - Last Filed: 07/14/19 13:55> Reason for Visit: The patient was admitted with hematuria. History of BPH status post TURP. Patient had hematuria, difficulty voiding, irritative symptoms of increased frequency and urgency for several days. Vitals/I&O's: Vital Signs Temp Pulse Resp BP Pulse Ox 98.0 F 109 H 18 147/91 H 98 07/14/19 13:35 07/14/19 13:35 07/14/19 13:35 07/14/19 13:35 07/14/19 13:35 Oxygen Delivery Method Room Air Weight: 183 lb 3.266 oz Body Mass Index (BMI) 25.5 Finger Stick Blood Glucose 105 Intake and Output for Last 24 Hours 07/12/19 07/13/19 07/14/19 23:59 23:59 23:59 Intake Total 1975.42 / 2175.42 2677.5 / 2677.5 1636.25 / 1636.25 Output Total 575 / 575 300 / 300 1400 / 1400 Balance 1400.42 / 1600.42 2377.5 / 2377.5 236.25 / 236.25 General: Alert, Cooperative, - - Patient has cognitive deficit symptoms difficulty in recall and registration. HEENT: Atraumatic, PERRLA, EOMI, Normocephalic Neck: Supple, No JVD, Negative Carotid Bruits Lungs: Clear to auscultation, No rhonchi, No wheeze, No rales, Diminished Cardiovascular: Regular rate, Regular Rhythm, Normal S1, Normal S2, No murmurs Abdomen: Bowel Sounds Present, Soft, Non Tender, Non-Distended Extremities: No edema, Capillary Refill Less than 3 Seconds Skin: No rashes, No breakdown Musculoskeletal: No Tenderness to Palpation of Joints or Extremities, Arthritic Changes Neurological: Cranial nerves II-XII grossly intact, Neuro grossly intact Psych/Mental Status: Normal Affect, Appropriate Microbiology Past 72 Hours 07/11/19 14:04 Urine Catheter - Catheter Urine Culture - Final Streptococcus viridans group 07/11/19 13:41 Blood Culture (Wb) - Left Hand Blood Culture - Preliminary No growth in 48 hours. 07/11/19 13:18 Blood Culture (Wb) - Anticubital Left Blood Culture - Preliminary No growth in 48 hours. Laboratory Results 07/13/19 05:45: Phosphorus 2.6 07/14/19 05:30: WBC 6.7, RBC 3.53 L, Hgb 11.1 L, Hct 32.3 L, MCV 91.5, MCH 31.4, MCHC 34.4, RDW Std Deviation 41.7, RDW Coeff of Francis 12.7, Plt Count 170, MPV 9.8 07/14/19 05:30: Sodium 140, Potassium 3.3 L, Chloride 109 H, Carbon Dioxide 26.0, Anion Gap 5, BUN 10, Creatinine 0.69 L, Estim Creat Clear Calc 58.57, Est GFR (MDRD) Af Amer 141, Est GFR (MDRD) Non-Af 117, BUN/Creatinine Ratio 14.6, Glucose 92, Calcium 8.2 L 07/14/19 11:26: COVID-19 ([place]) Pending Current Medications Atorvastatin Calcium (Lipitor) 40 mg PO QHS [facility] Last Admin: 07/13/19 22:37 Dose: 40 mg Documented by: Dextrose (D50w Syringe) 0 gm IV X1 PRN; Protocol PRN Reason: Hypoglycemia Finasteride (Proscar) 5 mg PO DAILY [facility] Last Admin: 07/14/19 09:09 Dose: 5 mg Documented by: Glucagon () 1 mg IM .X1 PRN PRN Reason: Hypoglycemia Sodium Chloride () 250 mls @ 15 mls/hr IV .[id number] PRN PRN Reason: Saline Flush Sodium Chloride () 250 mls @ 15 mls/hr IV .[id number] PRN PRN Reason: Additional IVPB Infusion Ceftriaxone Sodium 2 gm/ (Sodium Chloride) 50 mls @ 100 mls/hr IV Q24 [facility] Last Infusion: 07/14/19 12:53 Dose: Infused Documented by: Levothyroxine Sodium (Synthroid) 50 mcg PO DAILY@0600 [facility] Last Admin: 07/14/19 04:38 Dose: 50 mcg Documented by: Quetiapine Fumarate (Seroquel) 12.5 mg PO QHS [facility] Last Admin: 07/13/19 22:40 Dose: 12.5 mg Documented by: Sodium Chloride () 10 - 40 ml IV UD PRN PRN Reason: SALINE FLUSH Last Admin: 07/12/19 03:43 Dose: 10 ml Documented by: Tamsulosin HCl (Flomax) 0.8 mg PO DAILY@1730 [facility] Last Admin: 07/13/19 18:24 Dose: 0.8 mg Documented by: STROKE Vital Signs/Narrative: Vital Signs Temp Pulse Resp BP Pulse Ox 07/14/19 13:35 98.0 F 109 H 18 147/91 H 98 Assessment/Plan This patient was seen in conjunction with Vishnu MAYBERRY. I have independently interviewed and examined the patient and reviewed pertinent history, examination findings, laboratory and plan of management. I have reviewed the note and agree with the documented findings with the few additional points. In brief, patient is 83, gentleman with history of BPH status post TURP was admitted with hematuria. Patient is on Proscar and Flomax. CT abdomen was done which showed marked enlargement of the prostate with indentation of base of bladder. Prostate measures 7.8 x 6.1 cm. Presence of blood in the bladder. Urine culture shows strep viridans sensitive to benzyl penicillin. Suspicion of acute prostatitis therefore patient will need 4 weeks of antibiotic. Discussed with ID. Follow-up with Dr. Griffith and ID as an outpatient. Patient needs precertification for discharge to TCU I have discussed my assessment with Vishnu MAYBERRY and orders have been reviewed. Inpatient E&M: [id number] Subs Hosp L2
--- NOTE | 2019-07-14 14:30 | CASEMGMT ---
Addendum entered by Radha Teixeira 07/14/19 15:34: SW received call from Fabby at [facility] stating pt has been approved for SNF, can admit today. SW updated PA, pt's COVID test came back negative, pt is able to admit to TCU today. SW placed a call to Clementine in TCU and updated her. Clementine confirms she can take pt today. SW placed a call to pt's son Mann and updated him on acceptance and approval to TCU and discharge today. Mann states understanding, asked that this worker call pt's daughter Silvia to update. SW placed a call to pt's daughter Silvia, introduced self and role at [facility]. SW updated Silvia that pt will be going to TCU today for therapy. Silvia states she will call pt's S/O Noreen and update her. SW asked Silvia about Noreen being alone in the home and asked if there are any concerns with her being alone. Silvia states that she checks in with Noreen daily and will be continuing to do so while pt is at TCU. SW explained that this worker can make APS referral and they can send someone out pt's house to meet with Noreen and check in with Noreen and provide additional information and resources for Noreen. Silvia is agreeable to APS referral. SW in to speak with pt. SW introduced self and role at [facility]. Pt states that he lives with his (significant other) in a condo but is not sure if there are any steps to enter. Pt states that he has cane, walker, wheelchair at home. Pt states that he was previously independent with ADLs and he and Noreen are able to assist each other as needed. Pt confirms his PCP is Dr. Shah. Pt denied any Mental Health or substance abuse history. SW spoke with pt about going to TCU as physicians are recommending SNF and pt's family Mann and Silvia are agreeable to TCU. SW informed pt that he would be going to TCU for therapy and continued nursing care. Pt does state that he had to have his catheter inserted again as he was unable to relieve himself. MANASA spoke with pt regarding TCU. Pt asked this worker to call his significant other Noreen and get approval from her and if she approves he will go to TCU. Pt was alert and orientated x3, and able to answers questions appropriately. MANASA placed a call to pt's significant other Noreen and updated her on approval and recommendation for TCU. Noreen is agreeable to pt going to TCU. Noreen asked for pt's room number and phone number to call. MANASA informed Noreen that this worker doesn't know pt's room number yet for TCU but can have staff at TCU call her and provide pt's room number and direct number to call. Noreen states understanding. SW back in to speak with pt. MANASA updated pt that this worker called Noreen and she is agreeable to pt going to TCU. Pt states understanding, agreeable to TCU. SW asked pt about HCPOA/LW as currently pt is alert and orientated x3. Pt states that he hasn't completed documents, SW asked pt if he wanted to complete them but pt states he doesn't have his reading glasses and doesn't want to complete them without his reading glasses so he can see the document. SW informed pt that this worker will leave documents for pt and SW on TCU will able to complete them with pt if he is agreeable. Pt states understanding. MANASA called APS, provided referral to [facility]. Plan: TCU today Original Note: Social Work Note MANASA placed a call to Brigid at [facility] for update on referral. Fabby states she is reviewing referral right now, will call this worker back soon. MANASA provided direct number for Brigid to call. MANASA waiting for call back from Brigid at [facility]. Plan: TCU pending pre-cert. Radha Teixeira CHIEF OPERATOR HYDROFORMER, WOOD HEEL ATTACHER
--- NOTE | 2019-07-14 15:03 | PCM.EXTCARCO ---
- Diet 07/11/19 17:28 Diet: Regular Diet Food consistency:: Regular Liquid Consistency:: Regular/Thin - Routine Orders/Code Status Suppository Type: Dulcolax 10mg Suppository Frequency: Daily PRN Routine Lab Work: CBC - 3 days, BMP - 3 days Code Status: Full Code - Therapies Physical Therapy: Eval and Treat Occupational Therapy: Eval and Treat - Problem/Diagnosis (1) Hematuria Status: Acute Current Visit: Yes (2) S/P TURP (status post transurethral resection of prostate) Status: Chronic Current Visit: No (3) Atrial fibrillation Status: Chronic Current Visit: No (4) BPH (benign prostatic hyperplasia) Status: Chronic Current Visit: No (5) GERD (gastroesophageal reflux disease) Status: Chronic Current Visit: No (6) HLD (hyperlipidemia) Status: Chronic Current Visit: No (7) Osteoarthritis Status: Chronic Current Visit: No (8) Dementia Status: Chronic Current Visit: Yes - Allergies/Procedures Done in Hospital Allergies/Adverse Reactions: Allergies No Known Allergies Allergy (Verified 07/11/19 12:59) Procedures: - - CBI - Type of Care/Length of Stay Estimated LOS: Convalescent Care Less Than 30 days Type of Care Needed: Skilled Rehab Potential: Fair Prognosis: Fair - Additional Orders/Day of Discharge Day of Discharge: 07/14/19 - Follow Up Care Primary Care Physician: Jose Francisco Shah Chi, MD [Primary Care Provider] - Please follow up with your Primary Care Physician in: 1-2 weeks Please Follow Up With: Markos Griffith MD When: 1-2 weeks
--- NOTE | 2019-07-14 15:05 | PCM.DC.SUM ---
<Vishnu Shipman - Last Filed: 07/14/19 15:05> Discharge Date and Diagnosis - Problem List Patient Problems: Active and Suspected Problems Hematuria (Acute) Gross hematuria (Acute) Date of Admission: 07/11/19 Date of Discharge: 07/14/19 - Primary Discharge Diagnosis Active and Suspected Problems Hematuria (Acute) 2/2 BPH, suspected acute prostatitis 2/2 Streptococcus viridans Hypokalemia Dementia Hypothyroidism Hx CVA - Secondary Discharge Diagnosis Chronic Problems Dementia (Chronic) Atrial fibrillation (Chronic) Anemia (Chronic) S/P TURP (status post transurethral resection of prostate) (Chronic) HLD (hyperlipidemia) (Chronic) Dysphagia (Chronic) Osteoarthritis (Chronic) GERD (gastroesophageal reflux disease) (Chronic) BPH (benign prostatic hyperplasia) (Chronic) Hospital Course and Treatment Imaging Results: RAD/Chest 1 View (Portable) IMPRESSION: Hyperinflation. Prominence of the central pulmonary arteries bilaterally. CT/Abdomen/Pelvis without Cont IMPRESSION: Mildly distended urinary bladder with findings suggestive of blood within the bladder base. Marked enlargement of the prostate gland. Consults: Urology Naomi Griffith Operations: None Procedures: - - CBI Summary of Care Provided: Hospital Course: The patient is a 83 year old M with pmhx of dementia, BPH with prior TURP per Dr. Griffith, who presented to the ER with hematuria for unspecified amount of time. The patient has significant dementia and was not able to provide accurate history, and lives with a significant other that is also demented. The patient was started on continuous bladder irrigation in the ER with dark red drainage. CT abdomen showed large prostate and blood in the bladder. Hgb was 13.5. He was admitted to the med surg floor. His home aspirin was discontinued. Bladder irrigation was continued. He was started on cipro for possible underlying prostatitis. He grew Strep viridans in his urine. We were able to clear the hematuria with CBI. Dr. Griffith felt there was no need for cystoscopy at this time. He was placed on flomax and proscar. Velarde was discontinued. He had minor decrease in Hgb, and it was 11.1 by the time of discharge. He was confused throughout his stay and was felt to be unsafe to return home and care for himself. His care was discussed with his son and it was decided that he would go to shelter. He was discharged to TCU in stable condition. He will need follow up with his PCP in 1-[address] Griffith in 1-2 weeks. He completed 3 days of antibiotic therapy here and will need to complete 25 more days of antibiotic therapy for 4 weeks minimum - for Strep viridans he was placed on Amoxicillin 875 BID next dose tomorrow AM. COVID 19 test is negative. This patient was seen by Vishnu Shipman PA-C under the supervision of Dr. Holt. [] Patient Problems: Active and Suspected Problems Hematuria (Acute) Gross hematuria (Acute) - Physical Exam Vitals/I&O's: Vital Signs Temp Pulse Resp BP Pulse Ox 98.0 F 109 H 18 147/91 H 98 07/14/19 13:35 07/14/19 13:35 07/14/19 13:35 07/14/19 13:35 07/14/19 13:35 Oxygen Delivery Method Room Air Weight: 183 lb 3.266 oz Body Mass Index (BMI) 25.5 Finger Stick Blood Glucose 105 Intake and Output for Last 24 Hours 07/12/19 07/13/19 07/14/19 23:59 23:59 23:59 Intake Total 1975.42 / 2175.42 2677.5 / 2677.5 1636.25 / 1636.25 Output Total 575 / 575 300 / 300 1400 / 1400 Balance 1400.42 / 1600.42 2377.5 / 2377.5 236.25 / 236.25 General: Alert, Cooperative, Confused HEENT: Atraumatic, PERRLA, EOMI, Normocephalic Neck: Supple, No JVD, Negative Carotid Bruits Lungs: Clear to auscultation, Normal air movement Cardiovascular: Regular rate, No murmurs Abdomen: Bowel Sounds Present, Soft, Non Tender Extremities: No edema, Capillary Refill Less than 3 Seconds Skin: No rashes, No breakdown Musculoskeletal: No Tenderness to Palpation of Joints or Extremities Neurological: Cranial nerves II-XII grossly intact Psych/Mental Status: Normal Affect, Appropriate, Alert and oriented to time, place, person, mood and affect Microbiology Past 72 Hours 07/14/19 11:26 Mucosa - Nasopharyngeal Coronavirus COVID-19 PCR - Final 07/11/19 14:04 Urine Catheter - Catheter Urine Culture - Final Streptococcus viridans group 07/11/19 13:41 Blood Culture (Wb) - Left Hand Blood Culture - Preliminary No growth in 48 hours. 07/11/19 13:18 Blood Culture (Wb) - Anticubital Left Blood Culture - Preliminary No growth in 48 hours. Laboratory Results 07/14/19 05:30: WBC 6.7, RBC 3.53 L, Hgb 11.1 L, Hct 32.3 L, MCV 91.5, MCH 31.4, MCHC 34.4, RDW Std Deviation 41.7, RDW Coeff of Francis 12.7, Plt Count 170, MPV 9.8 07/14/19 05:30: Sodium 140, Potassium 3.3 L, Chloride 109 H, Carbon Dioxide 26.0, Anion Gap 5, BUN 10, Creatinine 0.69 L, Estim Creat Clear Calc 58.57, Est GFR (MDRD) Af Amer 141, Est GFR (MDRD) Non-Af 117, BUN/Creatinine Ratio 14.6, Glucose 92, Calcium 8.2 L 07/14/19 11:26: COVID-19 ([place]) Pending Current Medications Atorvastatin Calcium (Lipitor) 40 mg PO QHS [facility] Last Admin: 07/13/19 22:37 Dose: 40 mg Documented by: Dextrose (D50w Syringe) 0 gm IV X1 PRN; Protocol PRN Reason: Hypoglycemia Finasteride (Proscar) 5 mg PO DAILY [facility] Last Admin: 07/14/19 09:09 Dose: 5 mg Documented by: Glucagon () 1 mg IM .X1 PRN PRN Reason: Hypoglycemia Sodium Chloride () 250 mls @ 15 mls/hr IV .[id number] PRN PRN Reason: Saline Flush Sodium Chloride () 250 mls @ 15 mls/hr IV .[id number] PRN PRN Reason: Additional IVPB Infusion Ceftriaxone Sodium 2 gm/ (Sodium Chloride) 50 mls @ 100 mls/hr IV Q24 [facility] Last Infusion: 07/14/19 12:53 Dose: Infused Documented by: Levothyroxine Sodium (Synthroid) 50 mcg PO DAILY@0600 [facility] Last Admin: 07/14/19 04:38 Dose: 50 mcg Documented by: Quetiapine Fumarate (Seroquel) 12.5 mg PO QHS [facility] Last Admin: 07/13/19 22:40 Dose: 12.5 mg Documented by: Sodium Chloride () 10 - 40 ml IV UD PRN PRN Reason: SALINE FLUSH Last Admin: 07/12/19 03:43 Dose: 10 ml Documented by: Tamsulosin HCl (Flomax) 0.8 mg PO DAILY@1730 [facility] Last Admin: 07/13/19 18:24 Dose: 0.8 mg Documented by: Discharge Diet: Low fat/ Low Cholesterol, 2000 mg Sodium Diet Discharge Activity: Return to Normal Activity Home Medications: Medications to take at Discharge Levothyroxine [Synthroid] 50 mcg PO DAILY 10/18/18 Atorvastatin Calcium [Lipitor] 40 mg PO QHS 07/11/19 Amoxicillin 875 mg PO BID 25 Days #50 tab 07/14/19 Finasteride [Proscar] 5 mg PO DAILY tab 07/14/19 Tamsulosin HCl [Flomax] 0.8 mg PO DAILY@1730 cap 07/14/19 Following Prescrptions Were Given to Patient: Amoxicillin 875 mg PO BID 25 Days #50 tab Primary Care Physician: Jose Francisco Shah Chi, MD [Primary Care Provider] - Please follow up with your Primary Care Physician in: 1-2 weeks Please Follow Up With: Markos Griffith MD When: 1-2 weeks Disposition: Halfway facility Minutes spent on discharge:: 35 Patient Condition:: Stable Medical Necessity - Tobacco Use Smoking Status: Never smoker Tobacco Use: Non-smoker Meaningful Use Info Meaningful Use Diagnoses (Choose all that apply): None applicable <JonathonRandyTyler - Last Filed: 07/14/19 16:01> Discharge Date and Diagnosis - Primary Discharge Diagnosis Active and Suspected Problems Hematuria (Acute) Gross hematuria (Acute) - Secondary Discharge Diagnosis Chronic Problems Dementia (Chronic) Atrial fibrillation (Chronic) Anemia (Chronic) S/P TURP (status post transurethral resection of prostate) (Chronic) HLD (hyperlipidemia) (Chronic) Dysphagia (Chronic) Osteoarthritis (Chronic) GERD (gastroesophageal reflux disease) (Chronic) BPH (benign prostatic hyperplasia) (Chronic) Hospital Course and Treatment Summary of Care Provided: [] This patient was seen in conjunction with Vishnu MAYBERRY. I have independently interviewed and examined the patient and reviewed pertinent history, examination findings, laboratory and plan of management. I have reviewed the note and agree with the documented findings with the few additional points. In brief, patient is 83, gentleman with history of BPH status post TURP was admitted with hematuria. Patient is on Proscar and Flomax. CT abdomen was done which showed marked enlargement of the prostate with indentation of base of bladder. Prostate measures 7.8 x 6.1 cm. Presence of blood in the bladder. Urine culture shows strep viridans sensitive to benzyl penicillin. Suspicion of acute prostatitis therefore patient will need 4 weeks of antibiotic. Discussed with ID. Follow-up with Dr. Griffith and ID as an outpatient. Velarde catheter was reinserted as he could not void spontaneously. Patient is being discharged to TCU. Discharge medication reconciliation done. Discharge follow-up instructions completed. Discharge process discussed with the patient and all questions were answered to patient's satisfaction. Total time spent, exact 35 minutes on discharge meds reconciliation, examination, coordination of care with nurses and ancillary staff, review of imaging and blood test and discussion with the patient on follow-up instructions I have discussed my assessment with Vishnu MAYBERRY and orders have been reviewed. Objective: Patient was seen and examined today on the day of discharge. Patient could not spontaneously void the urine therefore Velarde catheter was reinserted. - Physical Exam Vitals/I&O's: Vital Signs Temp Pulse Resp BP Pulse Ox 98.0 F 109 H 18 147/91 H 98 07/14/19 13:35 07/14/19 13:35 07/14/19 13:35 07/14/19 13:35 07/14/19 13:35 Oxygen Delivery Method Room Air Weight: 183 lb 3.266 oz Body Mass Index (BMI) 25.5 Finger Stick Blood Glucose 105 Intake and Output for Last 24 Hours 07/12/19 07/13/19 07/14/19 23:59 23:59 23:59 Intake Total 1975.42 / 2175.42 2677.5 / 2677.5 1636.25 / 1636.25 Output Total 575 / 575 300 / 300 2200 / 2200 Balance 1400.42 / 1600.42 2377.5 / 2377.5 -563.75 / -563.75 Microbiology Past 72 Hours 07/14/19 11:26 Mucosa - Nasopharyngeal Coronavirus COVID-19 PCR - Final 07/11/19 14:04 Urine Catheter - Catheter Urine Culture - Final Streptococcus viridans group 07/11/19 13:41 Blood Culture (Wb) - Left Hand Blood Culture - Preliminary No growth in 48 hours. 07/11/19 13:18 Blood Culture (Wb) - Anticubital Left Blood Culture - Preliminary No growth in 48 hours. Laboratory Results 07/14/19 05:30: WBC 6.7, RBC 3.53 L, Hgb 11.1 L, Hct 32.3 L, MCV 91.5, MCH 31.4, MCHC 34.4, RDW Std Deviation 41.7, RDW Coeff of Francis 12.7, Plt Count 170, MPV 9.8 07/14/19 05:30: Sodium 140, Potassium 3.3 L, Chloride 109 H, Carbon Dioxide 26.0, Anion Gap 5, BUN 10, Creatinine 0.69 L, Estim Creat Clear Calc 58.57, Est GFR (MDRD) Af Amer 141, Est GFR (MDRD) Non-Af 117, BUN/Creatinine Ratio 14.6, Glucose 92, Calcium 8.2 L 07/14/19 11:26: COVID-19 ([place]) Pending Current Medications Atorvastatin Calcium (Lipitor) 40 mg PO QHS [facility] Last Admin: 07/13/19 22:37 Dose: 40 mg Documented by: Dextrose (D50w Syringe) 0 gm IV X1 PRN; Protocol PRN Reason: Hypoglycemia Finasteride (Proscar) 5 mg PO DAILY [facility] Last Admin: 07/14/19 09:09 Dose: 5 mg Documented by: Glucagon () 1 mg IM .X1 PRN PRN Reason: Hypoglycemia Sodium Chloride () 250 mls @ 15 mls/hr IV .[id number] PRN PRN Reason: Saline Flush Sodium Chloride () 250 mls @ 15 mls/hr IV .[id number] PRN PRN Reason: Additional IVPB Infusion Ceftriaxone Sodium 2 gm/ (Sodium Chloride) 50 mls @ 100 mls/hr IV Q24 [facility] Last Infusion: 07/14/19 12:53 Dose: Infused Documented by: Levothyroxine Sodium (Synthroid) 50 mcg PO DAILY@0600 [facility] Last Admin: 07/14/19 04:38 Dose: 50 mcg Documented by: Quetiapine Fumarate (Seroquel) 12.5 mg PO QHS [facility] Last Admin: 07/13/19 22:40 Dose: 12.5 mg Documented by: Sodium Chloride () 10 - 40 ml IV UD PRN PRN Reason: SALINE FLUSH Last Admin: 07/12/19 03:43 Dose: 10 ml Documented by: Tamsulosin HCl (Flomax) 0.8 mg PO DAILY@0300 [facility] Last Admin: 07/13/19 18:24 Dose: 0.8 mg Documented by: Please cancel the charge of progress note of same date. Inpatient E&M: [id number] Disch Hosp
== END 2019-07-14 16:00 | disposition skilled nursing facility (03) ==
LOC: ED 13:56 → MS3 18:23
PROVIDERS: Physician Assistant; Admitting Provider Internal Medicine; Emergency Provider Emergency Medicine; PCP Family Medicine Geriatric Medicine; Visit Provider Internal Medicine
DX: N40.1 Benign prostatic hyperplasia with lower urinary tract symptoms (principal); N39.0 Urinary tract infection, site not specified; B95.4 Other streptococcus as the cause of diseases classified elsewhere; R31.0 Gross hematuria; E87.6 Hypokalemia; R00.0 Tachycardia, unspecified; R94.31 Abnormal electrocardiogram [ECG] [EKG]; E03.9 Hypothyroidism, unspecified; F03.90 Unspecified dementia, unspecified severity, without behavioral disturbance, psychotic disturbance, mood disturbance, and anxiety; R47.01 Aphasia; R47.1 Dysarthria and anarthria; K21.9 Gastro-esophageal reflux disease without esophagitis; M19.90 Unspecified osteoarthritis, unspecified site; E78.5 Hyperlipidemia, unspecified; I48.20 Chronic atrial fibrillation, unspecified; Z79.899 Other long term (current) drug therapy; Z79.82 Long term (current) use of aspirin
CPT/HCPCS: 36415; 51702; 71045; 74176; 80048; 80053; 81001; 83605; 83735; 84100; 85025; 85027; 85610; 85730; 86850; 86900; 86901; 87040; 87077; 87086; 87088; 87186; 87635; 93005; 96361; 96365; 96366; 97162; 97166; 99218; 99285; G2023; J7030; A4216; G0378; J0696; U0002; U0004

== ENCOUNTER 2019-07-14 16:18 | Inpatient (IN) | payer MEDICARE, SELFPAY ==
[2019-07-11 17:35] VITALS: BMI 25.5
[2019-07-14 16:21] VITALS: BP 148/84; PULSE 114; RESP 16; TEMP 37.2; O2SAT 98; BMI 26.2; BMI 262.0
[2019-07-14] MEDS: Tamsulosin HCl 0.4 MG Capsule 0.8 MG PO (18:55)
--- NOTE | 2019-07-14 20:14 | PCM.HP.STD ---
Problem List (1) Debility Status: Acute (2) Prostatitis Status: Acute (3) UTI (urinary tract infection) Status: Acute (4) Urinary retention Status: Acute (5) Vascular dementia Status: Chronic (6) Stroke Status: Chronic (7) Osteoarthritis Status: Chronic (8) Hypothyroidism Status: Chronic (9) Gross hematuria Status: Acute (10) Atrial fibrillation Status: Chronic Qualifiers: (11) HLD (hyperlipidemia) Status: Chronic (12) GERD (gastroesophageal reflux disease) Status: Chronic (13) BPH (benign prostatic hyperplasia) Status: Chronic History of Present Illness Date of Admission: 07/14/19 Chief Complaint: Here for rehabilitation, strengthening, prior to disposition determination. 07/11/2019 The patient is a 83 year old Male with below past medical history presented to [facility] Emergency Department with blood in urine. 07/11/2019 Chest X-ray showed hyperinflation, prominence of central pulmonary arteries bilaterally. 07/11/2019 CT abdomen/pelvis mildly distended urinary bladder with blood bladder base, markedly enlarged prostate. Blood in urine x 1 week, but patient poor historian. EKG sinus tachycardia, heart rate 115, Nonspecific ST changes. HCT 38.5, Glucose 146, BUN 21, Lactic acid normal. INR 1.1, PTT 32.3. UA > 100 RBC, negative for infection. IV Fluids given, Ventura catheter inserted, continuous bladder irrigation. 07/11/2019 Admit to Hospital. Hold Aspirin due to hematuria. Consult Dr. Griffith. Continuous bladder irrigation. 07/11/2019 Dr. Griffith recomended continuous bladder irrigation. Consider Surgery in future. Cipro started for prostatitis. Urine grew strep viridans. Hematuria resolved with continuous bladder irrigation. Tamsulosin, Finasteride started for enlarged prostate. Unable to return home due to vascular dementia. Failed voiding trial, Ventura catheter reinserted. 4 weeks Augmentin for prostatitis, Strep viridans UTI. 07/14/2019 Admit to TCU with debility, here for rehabilitation, strengthening, prior to disposition determination. Due to vascular dementia, I have asked him to move to assisted living every time I saw him in the office but he has stubbornly refused. Past Medical History Past Medical History (Chronic Problems): Chronic Problems Dementia (Chronic) Vascular dementia (Chronic) Stroke (Chronic) Osteoarthritis (Chronic) Hypothyroidism (Chronic) Atrial fibrillation (Chronic) Anemia (Chronic) S/P TURP (status post transurethral resection of prostate) (Chronic) HLD (hyperlipidemia) (Chronic) Dysphagia (Chronic) Osteoarthritis (Chronic) GERD (gastroesophageal reflux disease) (Chronic) BPH (benign prostatic hyperplasia) (Chronic) Allergies No Known Allergies Allergy (Verified 07/11/19 12:59) Home Medications: Ambulatory Orders Medication Instructions Recorded Levothyroxine [Synthroid] 50 mcg PO DAILY 10/18/18 Atorvastatin Calcium [Lipitor] 40 mg PO QHS 07/11/19 Amoxicillin 875 mg PO BID 07/14/19 Finasteride [Proscar] 5 mg PO DAILY 07/14/19 Tamsulosin HCl [Flomax] 0.8 mg PO DAILY@1730 07/14/19 Surgical History: TURP Psychiatric History: No pertinent psych hx Lives: Spouse/ Significant Other - Lives with demented girlfriend. Smoking Status: Never smoker Tobacco Use: Non-smoker Alcohol: None Drugs: None - *Family History Maternal History Items: - Paternal History Items: - - His father of a stroke at the age of 89. There is no family history of myocardial infarction or congestive heart failure. Review of Systems Constitutional: Denies: Chills, Fever, Weight Change HEENT: Denies: Head Aches, Sinus Congestion, Sinus Drainage Cardiovascular: Denies: Chest Pain, Palpitations Respiratory: Denies: Cough, Shortness of breath at rest, Sputum production Gastrointestinal: Denies: Abdominal Pain, Nausea, Vomiting Genitourinary: Denies: Dysuria Musculoskeletal: Denies: Joint Pain, Joint Tenderness Skin: Denies: Rash, Wounds Neurological: Denies: Numbness, Tingling, Focal weakness Psychiatric: Denies: Anxiety, Depression, Homicidal Ideations, Suicidal Ideations Hematologic/ Lymphatic: Denies: Easy Bruising, Easy Bleeding VTE Information - Inpt Only VTE Present on Admission: No VTE Mechan Device Prophylaxis: Knee High JUDY Hose VTE Pharm Prophylaxis ordered?: No Reason prophylaxis not ordered:: Medical Contraindication Patient Problems: Active and Suspected Problems Debility (Acute) Prostatitis (Acute) UTI (urinary tract infection) (Acute) Urinary retention (Acute) - Physical Exam Vitals/I&O's: Vital Signs Temp Pulse Resp BP Pulse Ox 99.0 F 114 H 16 148/84 H 98 07/14/19 16:21 07/14/19 16:21 07/14/19 16:21 07/14/19 16:21 07/14/19 16:21 Oxygen Delivery Method Room Air Weight: 85.2 kg Body Mass Index (BMI) 26.2 Finger Stick Blood Glucose 105 General: Alert, Oriented x3, Cooperative HEENT: Atraumatic, PERRLA, EOMI, Normocephalic Neck: Supple, No JVD, Negative Carotid Bruits Lungs: Clear to auscultation, Normal air movement Cardiovascular: Regular rate, No murmurs Abdomen: Bowel Sounds Present, Soft, Non Tender, - - Indwelling ventura catheter, urine in bag is clear. Extremities: No edema, Capillary Refill Less than 3 Seconds Skin: No rashes, No breakdown Musculoskeletal: No Tenderness to Palpation of Joints or Extremities Neurological: Cranial nerves II-XII grossly intact Psych/Mental Status: Normal Affect, Appropriate Current Medications Amoxicillin (Amoxicillin) 875 mg PO BID [facility] Stop: 08/08/19 18:01 Atorvastatin Calcium (Lipitor) 40 mg PO QHS [facility] Finasteride (Proscar) 5 mg PO DAILY [facility] Levothyroxine Sodium (Synthroid) 50 mcg PO DAILY [facility] Tamsulosin HCl (Flomax) 0.8 mg PO DAILY@1730 [facility] Last Admin: 07/14/19 18:55 Dose: 0.8 mg Documented by: Tuberculin PPD (Tubersol, Aplisol, Ppd) 5 tu ID X1 ONE Stop: 07/15/19 10:01 Tuberculin PPD (Tubersol, Aplisol, Ppd) 5 tu ID X1 ONE Stop: 07/22/19 10:01 Assessment/Plan All Active Problems Hematuria (Acute) Gross hematuria (Acute) Debility (Acute) Prostatitis (Acute) UTI (urinary tract infection) (Acute) Urinary retention (Acute) Abnormal cardiac enzyme level (Acute) Dysarthria (Acute) Expressive aphasia (Acute) Syncope (Acute) 83 year old male with below past medical history hospitalized for hematuria, complicated by BPH, prostatitis, vascular dementia, non-compliance, admitted to TCU with debility, here for rehabilitation, strengthening, prior to disposition determination. Debility - PT/OT. Pain - Tylenol 1000MG Q6H PRN pain (1-10). Bowel - Miralax 17GM daily, Senna/colace 1 tablet BID, Dulcolax 10MG daily PRN, Soap Suds enema x 1. Adult immunization - Administer Prevnar 13, Pneumovax 23, Fluzone as appropriate. DVT prophylaxis - Hold, recent hematuria. S. Viridans prostatitis - Amoxicillin 875MG BID thru 08/08/2019. Hyperlipidemia - Atorvastatin 40MG QHS. BPH - Finasteride 5MG, Tamsulosin 0.8MG daily. Urinary retention - Indwelling Ventura catheter, voiding trials per protocol. Hypothyroidism - Levothyroxine 50MCG daily. Vascular Dementia - Rx Galantamine 4MG BID. Stroke - Restart Aspirin 81MG in 1 week. Disposition - Recommend discharge to Assisted Living Facility, resident lives with demented girlfriend, and it is not a safe living situation.
[2019-07-14] MEDS: Atorvastatin Calcium 40 MG Tablet PO (20:29)
--- NOTE | 2019-07-14 23:09 | NURSING ---
Addendum entered by Korina Chirinos 07/15/19 01:00: 0000 Pt confused bed alarm sounding & trying to get OOB unassisted. Pt pulling at ventura and pulled off stat-lock. New stat-lock applied, pt reoriented and repositioned in bed. some blood streaks noted in tubing of ventura catheter. will continue to monitor. Original Note: 2245- SSE administered per orders. Small, loose BM on BSC. Pt alert and oriented to self at this time. Asking if he was still in the hospital. Easily reoriented/redirected. Bed alarm on and functioning. Use of call light reinforced.
[2019-07-15] MEDS: Polyethylene Glycol 3350 17 GM PACKET PO (03:39)
[2019-07-15] MEDS: Finasteride 5 MG Tablet PO (03:40)
[2019-07-15] MEDS: Levothyroxine 50 MCG Tablet PO (03:40)
[2019-07-15] MEDS: Bisacodyl 5 MG Tablet 10 MG PO (03:40)
[2019-07-15] MEDS: AMOXICILLIN 875 MG TABLET PO ×2 (03:41→17:17)
[2019-07-15] MEDS: Senna/Docusate Sodium 1 Tablet PO ×2 (03:41→17:18)
[2019-07-15 04:00] VITALS: BP 119/71; PULSE 95; RESP 18; TEMP 36.9; O2SAT 96
[2019-07-15 05:46] LABS: Absolute Lymphocyte Count 1.45 X10^3/uL (0.83-4.51); Absolute Neutrophil Count 5.9 X10^3/uL (2.0-7.7); Basophil# 0.07 X10^3/uL; Basophil% 0.8 % (0-1); Eosinophil# 0.14 X10^3/uL; Eosinophils% 1.6 % (0-5); Hematocrit 34.7 % (40-54); Hemoglobin 11.9 g/dL (13.0-16.5); Lymphocyte # 1.45 X10^3/ul (4.0); Lymphocyte % 16.9 % (19-41); Mean Corp Hgb Conc 34.3 g/dL (32-36); Mean Corpuscular Hgb 31.5 pg (27.0-32.0); Mean Corpuscular Volume 91.8 fL (80-94); Mean Platelet Vol. 9.8 fl (6.2-12.0); Monocyte# 0.98 X10^3/uL; Monocyte% 11.4 % (0-10); NRBC Flagged by Analyzer 0 % (0-5); Neutrophil # 5.89 X10^3/uL (2.7-7.7); Neutrophil % 68.6 % (47-70); Platelet Count 232 K/mm3 (150-450); RBC Distribution Width CV 12.8 % (11.6-14.6); RBC Distribution Width SD 41.9 fl (35.1-43.9); Red Blood Count 3.78 M/mm3 (4.6-6.2); White Blood Count 8.6 K/mm3 (4.4-11.0)
[2019-07-15 06:11] LABS: Anion Gap 7 (5-15); BUN 10 mg/dL (7-18); BUN/Creat Ratio 11.8 RATIO (10-20); Calcium,Total 8.4 mg/dL (8.5-10.1); Chloride 103 mmol/L (98-107); Creatinine, Serum 0.85 mg/dL (0.70-1.30); EST Glomerular Filtration Rate 91 mL/min (>60); Est Glom Filt Rate - Afr Amer 111 mL/min (>60); Glucose 105 mg/dL (74-106); Potassium 3.5 mmol/L (3.5-5.1); Sodium Level 137 mmol/L (136-145)
[2019-07-15] MEDS: Tuberculin,Purif.prot.deriv. 50 TU/ML Vial 5 ML ID (09:54)
[2019-07-15] MEDS: Galantamine Hydrobromide 4 MG Tablet PO ×2 (09:56→17:18)
--- NOTE | 2019-07-15 12:09 | PCM.PN.RX ---
<ZeeshanandreaOlga M - Last Filed: 07/15/19 12:09> Progress Note - Pharmacy Subjective: TCU ADMISSION Objective: Allergies No Known Allergies Allergy (Verified 07/11/19 12:59) Current Medications Generic Name Dose Route Start Last Admin Trade Name Freq PRN Reason Stop Dose Admin Acetaminophen 1,000 mg 07/14/19 20:31 Tylenol PO Q6H PRN PRN Pain Score 1-10 Amoxicillin 875 mg 07/15/19 06:00 07/15/19 03:41 Amoxicillin PO 08/08/19 18:01 875 mg BID ERICH Administration Aspirin 81 mg 07/21/19 08:00 Ecotrin PO DAILY@0800 ERICH Atorvastatin Calcium 40 mg 07/14/19 22:00 07/14/19 20:29 Lipitor PO 40 mg QHS ERICH Administration Bisacodyl 10 mg 07/14/19 20:32 07/15/19 03:40 Dulcolax PO 10 mg DAILY PRN Administration Constipation Finasteride 5 mg 07/15/19 06:00 07/15/19 03:40 Proscar PO 5 mg DAILY ERICH Administration Galantamine Hydrobromide 4 mg 07/15/19 08:00 07/15/19 09:56 Razadyne PO 4 mg BIDCM ERICH Administration Levothyroxine Sodium 50 mcg 07/15/19 06:00 07/15/19 03:40 Synthroid PO 50 mcg DAILY ERICH Administration Polyethylene Glycol 17 gm 07/15/19 06:00 07/15/19 03:39 Miralax PO 17 gm DAILY ERICH Administration Senna/Docusate Sodium 1 tablet 07/15/19 06:00 07/15/19 03:41 Senokot-S, Rocio-Colace PO 1 tablet BID ERICH Administration Tamsulosin HCl 0.8 mg 07/14/19 17:30 07/14/19 18:55 Flomax PO 0.8 mg DAILY@1730 ERICH Administration Tuberculin PPD 5 tu 07/22/19 10:00 Tubersol, Aplisol, Ppd ID 07/22/19 10:01 X1 ONE Problem List Debility (Acute) Prostatitis (Acute) UTI (urinary tract infection) (Acute) Urinary retention (Acute) Vascular dementia (Chronic) Stroke (Chronic) Osteoarthritis (Chronic) Hypothyroidism (Chronic) Vital Signs Temp Pulse Resp BP Pulse Ox 98.5 F 95 18 119/71 96 07/15/19 04:00 07/15/19 04:00 07/15/19 04:00 07/15/19 04:00 07/15/19 04:00 Oxygen Delivery Method Room Air Weight: 85.2 kg Body Mass Index (BMI) 26.2 Finger Stick Blood Glucose 105 Sodium 137 mmol/L (136-145) 07/15/19 05:15 Potassium 3.5 mmol/L (3.5-5.1) 07/15/19 05:15 Chloride 103 mmol/L (98-107) 07/15/19 05:15 Carbon Dioxide 27.0 mmol/L (21.0-32.0) 07/15/19 05:15 Anion Gap 7 (5-15) 07/15/19 05:15 BUN 10 mg/dL (7-18) 07/15/19 05:15 Creatinine 0.85 mg/dL (0.70-1.30) 07/15/19 05:15 Est GFR (MDRD) Af Amer 111 mL/min (>60) 07/15/19 05:15 Est GFR (MDRD) Non-Af 91 mL/min (>60) 07/15/19 05:15 BUN/Creatinine Ratio 11.8 RATIO (10-20) 07/15/19 05:15 Glucose 105 mg/dL (74-106) 07/15/19 05:15 Assessment/Plan: 1. Pain: Tylenol 1000mg PO Q6h PRN pain 1-12/05. Please continue to monitor for S/S increased/decreased pain, PRN medication usage. 2. Prostatidis secondary to S. Viridans: Amoxil 800mg PO BID thru 08/08/19. Please monitor for improvement of infection, headache, nausea, diarrhea. 3. BPH: Finasteride 5mg PO Daily, Flomax 0.8mg PO Daily. Please continue to monitor for medication effectiveness, symptom improvement. 4. Hypothyroid: Synthroid 50mcg PO Daily. Please continue to monitor for S/S hyper/hypothyroid, thyroid function testing as indicated. 5. HLD/ Cardiac: Lipitor 40mg PO QHS, Aspirin 81mg Daily. Please continue to monitor lipid panel at least annually or sooner if clinically indicated, S/S bleeding or bruising. 6. Vascular Dementia: Galantamine 4mg PO BID. Please continue to monitor symptoms. Psychotropic Medications: None Unnecessary Medications: None Bowel Regimen: Miralax 17g PO Daily, Senna/Docusate 1 tab PO BID, Bisacodyl 10mg PO Daily PRN. Please continue to monitor for increased/decreased constipation and/or diarrhea. Date of Note:: 07/15/19 - Provider Comments Provider responsibility: Provider responsible to enter orders to implement recommendations <Jose Francisco Shah Chi - Last Filed: 07/15/19 13:02> Progress Note - Pharmacy Subjective: [] Objective: Allergies No Known Allergies Allergy (Verified 07/11/19 12:59) Current Medications Generic Name Dose Route Start Last Admin Trade Name Freq PRN Reason Stop Dose Admin Acetaminophen 1,000 mg 07/14/19 20:31 Tylenol PO Q6H PRN PRN Pain Score 1-12/05 Amoxicillin 875 mg 07/15/19 06:00 07/15/19 03:41 Amoxicillin PO 08/08/19 18:01 875 mg BID ERICH Administration Aspirin 81 mg 07/21/19 08:00 Ecotrin PO DAILY@0800 ERICH Atorvastatin Calcium 40 mg 07/14/19 22:00 07/14/19 20:29 Lipitor PO 40 mg QHS ERICH Administration Bisacodyl 10 mg 07/14/19 20:32 07/15/19 03:40 Dulcolax PO 10 mg DAILY PRN Administration Constipation Finasteride 5 mg 07/15/19 06:00 07/15/19 03:40 Proscar PO 5 mg DAILY ERICH Administration Galantamine Hydrobromide 4 mg 07/15/19 08:00 07/15/19 09:56 Razadyne PO 4 mg BIDCM ERICH Administration Levothyroxine Sodium 50 mcg 07/15/19 06:00 07/15/19 03:40 Synthroid PO 50 mcg DAILY ERICH Administration Polyethylene Glycol 17 gm 07/15/19 06:00 07/15/19 03:39 Miralax PO 17 gm DAILY ERICH Administration Senna/Docusate Sodium 1 tablet 07/15/19 06:00 07/15/19 03:41 Senokot-S, Rocio-Colace PO 1 tablet BID ERICH Administration Tamsulosin HCl 0.8 mg 07/14/19 17:30 07/14/19 18:55 Flomax PO 0.8 mg DAILY@1730 ERICH Administration Tuberculin PPD 5 tu 07/22/19 10:00 Tubersol, Aplisol, Ppd ID 07/22/19 10:01 X1 ONE Problem List Debility (Acute) Prostatitis (Acute) UTI (urinary tract infection) (Acute) Urinary retention (Acute) Vascular dementia (Chronic) Stroke (Chronic) Osteoarthritis (Chronic) Hypothyroidism (Chronic) Vital Signs Temp Pulse Resp BP Pulse Ox 98.5 F 95 18 119/71 96 07/15/19 04:00 07/15/19 04:00 07/15/19 04:00 07/15/19 04:00 07/15/19 04:00 Oxygen Delivery Method Room Air Weight: 85.2 kg Body Mass Index (BMI) 26.2 Finger Stick Blood Glucose 105 Sodium 137 mmol/L (136-145) 07/15/19 05:15 Potassium 3.5 mmol/L (3.5-5.1) 07/15/19 05:15 Chloride 103 mmol/L (98-107) 07/15/19 05:15 Carbon Dioxide 27.0 mmol/L (21.0-32.0) 07/15/19 05:15 Anion Gap 7 (5-15) 07/15/19 05:15 BUN 10 mg/dL (7-18) 07/15/19 05:15 Creatinine 0.85 mg/dL (0.70-1.30) 07/15/19 05:15 Est GFR (MDRD) Af Amer 111 mL/min (>60) 07/15/19 05:15 Est GFR (MDRD) Non-Af 91 mL/min (>60) 07/15/19 05:15 BUN/Creatinine Ratio 11.8 RATIO (10-20) 07/15/19 05:15 Glucose 105 mg/dL (74-106) 07/15/19 05:15 Assessment/Plan: Psychotropic Medications: Unnecessary Medications: Bowel Regimen: - Provider Comments Provider responsibility: Provider responsible to enter orders to implement recommendations Provider Comments to Recommendations by Pharmacy: Agree
--- NOTE | 2019-07-15 13:07 | CASEMGMT ---
Social Work Discussed code status with pt. Pt confirmed full code. MOLST form completed and placed in chart. Vanessa Claudio MSW VESSEL CREW MEMBER
[2019-07-15 14:19] VITALS: BP 141/78; PULSE 58; RESP 20; TEMP 37.4; O2SAT 97
[2019-07-15 15:32] VITALS: PULSE 160
[2019-07-15 15:46] VITALS: PULSE 160; TEMP 37.4
--- NOTE | 2019-07-15 15:55 | NURSING ---
Addendum entered by Marli Maradiaga 07/15/19 16:30: Son, updated on elevated pulse and toprol given. Original Note: pulse noted to be 160 BPM, irregular, while doing clinical assessment. Denies chest discomfort. History of chronic A.fib. Temp 99.3, BP stable. Dr Shah updated and orders Metoprolol 12.5mg PO BID and give dose now.
[2019-07-15 16:15] VITALS: PULSE 160
[2019-07-15] MEDS: Metoprolol Tartrate 25 MG Tablet 12.5 MG PO (16:15)
[2019-07-15] MEDS: Tamsulosin HCl 0.4 MG Capsule 0.8 MG PO (17:18)
[2019-07-15 17:29] VITALS: PULSE 136
[2019-07-15] MEDS: Atorvastatin Calcium 40 MG Tablet PO (19:34)
[2019-07-16 06:14] VITALS: BP 116/58; PULSE 96
[2019-07-16] MEDS: Metoprolol Tartrate 25 MG Tablet 12.5 MG PO ×2 (06:14→17:36)
[2019-07-16] MEDS: Finasteride 5 MG Tablet PO (06:16)
[2019-07-16] MEDS: Senna/Docusate Sodium 1 Tablet PO ×2 (06:17→17:36)
[2019-07-16] MEDS: AMOXICILLIN 875 MG TABLET PO ×2 (06:17→17:37)
[2019-07-16] MEDS: Levothyroxine 50 MCG Tablet PO (06:17)
[2019-07-16] MEDS: Polyethylene Glycol 3350 17 GM PACKET PO (06:17)
[2019-07-16 06:21] VITALS: BP 116/58; PULSE 96; RESP 18; TEMP 36.9; O2SAT 97
[2019-07-16] MEDS: Galantamine Hydrobromide 4 MG Tablet PO ×2 (08:31→17:37)
[2019-07-16 14:17] VITALS: BP 106/51; PULSE 59; RESP 18; TEMP 36.7; O2SAT 98
[2019-07-16 17:32] VITALS: BP 147/81; PULSE 99; RESP 14; TEMP 36.6; O2SAT 99
[2019-07-16 17:36] VITALS: BP 147/81; PULSE 99
[2019-07-16] MEDS: Tamsulosin HCl 0.4 MG Capsule 0.8 MG PO (17:38)
[2019-07-16] MEDS: Atorvastatin Calcium 40 MG Tablet PO (21:07)
[2019-07-17 06:45] VITALS: BP 111/57; PULSE 62
[2019-07-17] MEDS: Levothyroxine 50 MCG Tablet PO (06:45)
[2019-07-17] MEDS: Senna/Docusate Sodium 1 Tablet PO ×2 (06:45→16:50)
[2019-07-17] MEDS: Finasteride 5 MG Tablet PO (06:45)
[2019-07-17] MEDS: Metoprolol Tartrate 25 MG Tablet 12.5 MG PO ×2 (06:45→16:49)
[2019-07-17] MEDS: AMOXICILLIN 875 MG TABLET PO ×2 (06:45→16:49)
[2019-07-17] MEDS: Polyethylene Glycol 3350 17 GM PACKET PO (06:45)
[2019-07-17 06:49] VITALS: RESP 17; TEMP 36.8; O2SAT 94
[2019-07-17] MEDS: Galantamine Hydrobromide 4 MG Tablet PO ×2 (07:55→16:02)
[2019-07-17] MEDS: Magnesium Citrate 300 ML PO (09:25)
[2019-07-17 10:00] VITALS: PULSE 90; RESP 14; O2SAT 94
--- NOTE | 2019-07-17 10:44 | NURSING ---
Resident speaking with family on the phone at this time. Resident sitting comfortably in recliner in room. No complaints or concerns.
[2019-07-17 12:53] VITALS: BP 115/54; PULSE 90; RESP 16; TEMP 36.9; O2SAT 94
[2019-07-17] MEDS: Tamsulosin HCl 0.4 MG Capsule 0.8 MG PO (16:02)
[2019-07-17 16:49] VITALS: PULSE 90
[2019-07-17] MEDS: Atorvastatin Calcium 40 MG Tablet PO (22:09)
[2019-07-18 05:07] VITALS: BP 124/62; PULSE 90; RESP 16; TEMP 36.6; O2SAT 95
[2019-07-18 05:09] VITALS: BP 124/62; PULSE 90
[2019-07-18] MEDS: Metoprolol Tartrate 25 MG Tablet 12.5 MG PO ×2 (05:09→17:11)
[2019-07-18] MEDS: AMOXICILLIN 875 MG TABLET PO ×2 (05:09→17:12)
[2019-07-18] MEDS: Levothyroxine 50 MCG Tablet PO (05:09)
[2019-07-18] MEDS: Polyethylene Glycol 3350 17 GM PACKET PO (05:10)
[2019-07-18] MEDS: Finasteride 5 MG Tablet PO (05:10)
[2019-07-18] MEDS: Senna/Docusate Sodium 1 Tablet PO (05:10)
[2019-07-18] MEDS: Galantamine Hydrobromide 4 MG Tablet PO ×2 (08:09→17:12)
[2019-07-18] MEDS: Electrolyte Solution/Peg's 4000 ML 1000 ML PO (10:40)
--- NOTE | 2019-07-18 12:29 | CASEMGMT ---
Social Work BIMS and PHQ-9 completed for MDS assessment. Vanessa Claudio, [employer]GS[employer] STOCK CLERK CORE WORKER
[2019-07-18 15:03] VITALS: BP 119/60; PULSE 101; RESP 16; TEMP 36.8; O2SAT 96
[2019-07-18 17:11] VITALS: PULSE 101
[2019-07-18] MEDS: Tamsulosin HCl 0.4 MG Capsule 0.8 MG PO (17:12)
[2019-07-18] MEDS: Atorvastatin Calcium 40 MG Tablet PO (20:56)
[2019-07-19 04:00] VITALS: BP 110/61; PULSE 94; RESP 18; TEMP 37.3; O2SAT 94
[2019-07-19] MEDS: Polyethylene Glycol 3350 17 GM PACKET PO (06:14)
[2019-07-19] MEDS: Menthol/Lanolin/Calamine/Znox 113 GM Tube 1 APPLIC TOPICAL ×2 (06:14→17:27)
[2019-07-19 06:15] VITALS: PULSE 94
[2019-07-19] MEDS: Finasteride 5 MG Tablet PO (06:15)
[2019-07-19] MEDS: Metoprolol Tartrate 25 MG Tablet 12.5 MG PO ×2 (06:15→17:26)
[2019-07-19] MEDS: Senna/Docusate Sodium 1 Tablet PO ×2 (06:15→17:25)
[2019-07-19] MEDS: Levothyroxine 50 MCG Tablet PO (06:15)
[2019-07-19] MEDS: AMOXICILLIN 875 MG TABLET PO ×2 (06:15→17:27)
[2019-07-19] MEDS: Galantamine Hydrobromide 4 MG Tablet PO ×2 (08:59→17:26)
[2019-07-19 10:00] VITALS: PULSE 78; RESP 16; O2SAT 97
[2019-07-19 14:02] VITALS: BP 109/60; PULSE 84; RESP 15; TEMP 36.9; O2SAT 95
[2019-07-19] MEDS: Tamsulosin HCl 0.4 MG Capsule 0.8 MG PO (17:25)
[2019-07-19 17:26] VITALS: PULSE 68
[2019-07-19] MEDS: Atorvastatin Calcium 40 MG Tablet PO (20:37)
[2019-07-20 04:00] VITALS: BP 114/61; PULSE 80; RESP 16; TEMP 36.7; O2SAT 96
[2019-07-20] MEDS: Polyethylene Glycol 3350 17 GM PACKET PO (04:18)
[2019-07-20 04:20] VITALS: BP 114/61; PULSE 80
[2019-07-20] MEDS: Metoprolol Tartrate 25 MG Tablet 12.5 MG PO ×2 (04:20→17:42)
[2019-07-20] MEDS: Senna/Docusate Sodium 1 Tablet PO ×2 (04:20→17:42)
[2019-07-20] MEDS: AMOXICILLIN 875 MG TABLET PO ×2 (04:21→17:42)
[2019-07-20] MEDS: Levothyroxine 50 MCG Tablet PO (04:25)
[2019-07-20] MEDS: Finasteride 5 MG Tablet PO (04:25)
[2019-07-20] MEDS: Menthol/Lanolin/Calamine/Znox 113 GM Tube 1 APPLIC TOPICAL ×2 (04:27→17:54)
[2019-07-20] MEDS: Galantamine Hydrobromide 4 MG Tablet PO ×2 (07:47→17:43)
[2019-07-20 15:06] VITALS: BP 107/60; PULSE 94; RESP 14; TEMP 36.6; O2SAT 96
[2019-07-20 17:42] VITALS: BP 107/60; PULSE 75
[2019-07-20] MEDS: Tamsulosin HCl 0.4 MG Capsule 0.8 MG PO (17:42)
[2019-07-20] MEDS: Atorvastatin Calcium 40 MG Tablet PO (20:33)
[2019-07-21 04:00] VITALS: BP 111/67; PULSE 84; RESP 16; O2SAT 95
[2019-07-21 06:07] VITALS: BP 111/67; PULSE 84
[2019-07-21] MEDS: Levothyroxine 50 MCG Tablet PO (06:07)
[2019-07-21] MEDS: Polyethylene Glycol 3350 17 GM PACKET PO (06:07)
[2019-07-21] MEDS: Senna/Docusate Sodium 1 Tablet PO ×2 (06:07→17:19)
[2019-07-21] MEDS: AMOXICILLIN 875 MG TABLET PO ×2 (06:07→17:20)
[2019-07-21] MEDS: Metoprolol Tartrate 25 MG Tablet 12.5 MG PO ×2 (06:07→17:19)
[2019-07-21] MEDS: Finasteride 5 MG Tablet PO (06:09)
[2019-07-21] MEDS: Menthol/Lanolin/Calamine/Znox 113 GM Tube 1 APPLIC TOPICAL ×2 (06:12→17:20)
[2019-07-21] MEDS: Galantamine Hydrobromide 4 MG Tablet PO ×2 (07:41→17:20)
[2019-07-21] MEDS: Aspirin E.C. 81 MG Tablet PO (07:41)
[2019-07-21 07:50] VITALS: PULSE 88; RESP 16; O2SAT 95
[2019-07-21 15:01] VITALS: BP 106/42; PULSE 120; RESP 16; TEMP 36.9; O2SAT 94
[2019-07-21 17:19] VITALS: PULSE 102
[2019-07-21] MEDS: Tamsulosin HCl 0.4 MG Capsule 0.8 MG PO (17:20)
[2019-07-21] MEDS: Atorvastatin Calcium 40 MG Tablet PO (20:42)
[2019-07-22 04:27] VITALS: BP 113/55; PULSE 78; RESP 16; TEMP 36.6; O2SAT 95
[2019-07-22 04:31] VITALS: BP 113/55; PULSE 78
[2019-07-22] MEDS: Polyethylene Glycol 3350 17 GM PACKET PO (04:31)
[2019-07-22] MEDS: Metoprolol Tartrate 25 MG Tablet 12.5 MG PO ×2 (04:31→17:40)
[2019-07-22] MEDS: Senna/Docusate Sodium 1 Tablet PO ×2 (04:31→17:41)
[2019-07-22] MEDS: Levothyroxine 50 MCG Tablet PO (04:31)
[2019-07-22] MEDS: Finasteride 5 MG Tablet PO (04:32)
[2019-07-22] MEDS: AMOXICILLIN 875 MG TABLET PO ×2 (04:32→17:39)
[2019-07-22] MEDS: Menthol/Lanolin/Calamine/Znox 113 GM Tube 1 APPLIC TOPICAL ×2 (04:34→17:40)
[2019-07-22 05:49] LABS: Absolute Lymphocyte Count 1.45 X10^3/uL (0.83-4.51); Absolute Neutrophil Count 4.7 X10^3/uL (2.0-7.7); Basophil# 0.08 X10^3/uL; Basophil% 1.1 % (0-1); Eosinophil# 0.22 X10^3/uL; Hematocrit 34.6 % (40-54); Hemoglobin 11.5 g/dL (13.0-16.5); Lymphocyte # 1.45 X10^3/ul (4.0); Lymphocyte % 19.9 % (19-41); Mean Corp Hgb Conc 33.2 g/dL (32-36); Mean Corpuscular Volume 93.3 fL (80-94); Mean Platelet Vol. 9.6 fl (6.2-12.0); Monocyte# 0.83 X10^3/uL; Monocyte% 11.4 % (0-10); NRBC Flagged by Analyzer 0 % (0-5); Neutrophil # 4.67 X10^3/uL (2.7-7.7); Neutrophil % 64.3 % (47-70); Platelet Count 257 K/mm3 (150-450); RBC Distribution Width CV 13.2 % (11.6-14.6); RBC Distribution Width SD 44.7 fl (35.1-43.9); Red Blood Count 3.71 M/mm3 (4.6-6.2); White Blood Count 7.3 K/mm3 (4.4-11.0)
[2019-07-22 06:12] LABS: Anion Gap 4 (5-15); BUN 14 mg/dL (7-18); BUN/Creat Ratio 17.3 RATIO (10-20); Calcium,Total 8.3 mg/dL (8.5-10.1); Chloride 104 mmol/L (98-107); Creatinine, Serum 0.81 mg/dL (0.70-1.30); EST Glomerular Filtration Rate 97 mL/min (>60); Est Glom Filt Rate - Afr Amer 117 mL/min (>60); Glucose 104 mg/dL (74-106); Potassium 3.8 mmol/L (3.5-5.1); Sodium Level 137 mmol/L (136-145)
[2019-07-22] MEDS: Aspirin E.C. 81 MG Tablet PO (08:07)
[2019-07-22] MEDS: Galantamine Hydrobromide 4 MG Tablet PO ×2 (08:07→17:39)
[2019-07-22] MEDS: Tuberculin,Purif.prot.deriv. 50 TU/ML Vial 5 ML ID (11:35)
[2019-07-22 16:00] VITALS: BP 135/80; PULSE 108; RESP 18; TEMP 37; O2SAT 97
[2019-07-22] MEDS: Tamsulosin HCl 0.4 MG Capsule 0.8 MG PO (17:39)
[2019-07-22 17:40] VITALS: PULSE 108
[2019-07-22] MEDS: Atorvastatin Calcium 40 MG Tablet PO (20:05)
[2019-07-23 04:30] VITALS: BP 115/60; PULSE 85; RESP 16; TEMP 36.5; O2SAT 96
[2019-07-23 04:36] VITALS: PULSE 85
[2019-07-23] MEDS: AMOXICILLIN 875 MG TABLET PO ×2 (04:36→18:17)
[2019-07-23] MEDS: Polyethylene Glycol 3350 17 GM PACKET PO (04:36)
[2019-07-23] MEDS: Metoprolol Tartrate 25 MG Tablet 12.5 MG PO ×2 (04:36→18:21)
[2019-07-23] MEDS: Menthol/Lanolin/Calamine/Znox 113 GM Tube 1 APPLIC TOPICAL ×2 (04:36→18:22)
[2019-07-23] MEDS: Finasteride 5 MG Tablet PO (04:36)
[2019-07-23] MEDS: Levothyroxine 50 MCG Tablet PO (04:37)
[2019-07-23] MEDS: Senna/Docusate Sodium 1 Tablet PO ×2 (04:37→18:21)
[2019-07-23] MEDS: Aspirin E.C. 81 MG Tablet PO (08:24)
[2019-07-23] MEDS: Galantamine Hydrobromide 4 MG Tablet PO ×2 (08:24→18:17)
[2019-07-23 13:25] VITALS: BP 114/72; PULSE 114; RESP 18; TEMP 36.7; O2SAT 96
--- NOTE | 2019-07-23 15:40 | NURSING ---
Update provided to family
--- NOTE | 2019-07-23 15:52 | CASEMGMT ---
Social Work IDT met with patient, son and via conference call for care plan meeting. Discussed patient's progress in therapy. Pt is SBA for bed mobility and transfers with cane, just started using cane this week and needs CGA-SBA ambulating 120 ft. Pt is SBA for UE bathing, min for LE bathing, SBA for UE dressing, min assist LE dressing, SBA for standing at the sink for grooming. ST working with pt on memory deficits, pt requiring repetition of information, deficits with problem solving for safety, poor insight, although pt is oriented. appears to have issues with memory as well. PT enjoying discussing hiking and past experiences, journaling and 1:1 visits with activities. Pt is out of room isolation 07/26, and has new catheter. Explained insurance with [employer] 07/21 and continued stay is not guaranteed. The goal is for the pt to return home with the spouse. Will notify Suha at [facility] upon discharge. IDT [id number] supervision at NH. Son stated he lives in [place] and the his brother whom lives by pt is having his own health issues so cannot assist. Explained nonskilled [facility] agencies. Emailed son a list to contact.
[2019-07-23] MEDS: Tamsulosin HCl 0.4 MG Capsule 0.8 MG PO (18:17)
[2019-07-23 18:21] VITALS: PULSE 114
[2019-07-23] MEDS: Atorvastatin Calcium 40 MG Tablet PO (19:40)
[2019-07-24 04:00] VITALS: BP 114/66; PULSE 79; RESP 18; TEMP 36.7; O2SAT 98
[2019-07-24 06:25] VITALS: BP 114/66; PULSE 79
[2019-07-24] MEDS: Polyethylene Glycol 3350 17 GM PACKET PO (06:25)
[2019-07-24] MEDS: AMOXICILLIN 875 MG TABLET PO ×2 (06:25→17:18)
[2019-07-24] MEDS: Metoprolol Tartrate 25 MG Tablet 12.5 MG PO ×2 (06:25→17:18)
[2019-07-24] MEDS: Levothyroxine 50 MCG Tablet PO (06:26)
[2019-07-24] MEDS: Finasteride 5 MG Tablet PO (06:26)
[2019-07-24] MEDS: Senna/Docusate Sodium 1 Tablet PO ×2 (06:26→17:19)
[2019-07-24] MEDS: Menthol/Lanolin/Calamine/Znox 113 GM Tube 1 APPLIC TOPICAL ×2 (06:30→17:18)
[2019-07-24] MEDS: Aspirin E.C. 81 MG Tablet PO (07:51)
[2019-07-24] MEDS: Galantamine Hydrobromide 4 MG Tablet PO ×2 (07:51→17:17)
[2019-07-24 14:44] VITALS: BP 101/56; PULSE 80; RESP 16; TEMP 36.8; O2SAT 98
--- NOTE | 2019-07-24 14:51 | MDS.RN ---
Information for the mds was obtained from review of the clinical record, interview of resident, staff, and direct observation of resident's care.
--- NOTE | 2019-07-24 15:05 | NURSING ---
No complaints this shift other than resident states he is feeling a little depressed and alludes to it being kept in the hospital. He states he will feel better when I can see my . tearful. Encouragement offered.
[2019-07-24] MEDS: Tamsulosin HCl 0.4 MG Capsule 0.8 MG PO (17:17)
[2019-07-24 17:18] VITALS: PULSE 80
--- NOTE | 2019-07-24 17:34 | PCM.CONS.U ---
Reason for Consult Date of Consultation: 07/24/19 Reason for Consultation: Urinary retention History of Present Illness: The patient is a 83 year old male with a history of urinary tension he was in the hospital with BPH obstruction and catheter was then placed he had gross hematuria the urine is now cleared up but he still is a Velarde catheter in half to go home with a catheter we will see him in the office to discuss options of management including either TURP or UroLift in the office given his age probably would try to avoid anesthesia but will see what the best for him we will set set him up for cystoscopy as an outpatient. Past Medical History Past Medical History (Chronic Problems): Chronic Problems Dementia (Chronic) Vascular dementia (Chronic) Stroke (Chronic) Osteoarthritis (Chronic) Hypothyroidism (Chronic) Atrial fibrillation (Chronic) Anemia (Chronic) S/P TURP (status post transurethral resection of prostate) (Chronic) HLD (hyperlipidemia) (Chronic) Dysphagia (Chronic) Osteoarthritis (Chronic) GERD (gastroesophageal reflux disease) (Chronic) BPH (benign prostatic hyperplasia) (Chronic) Allergies No Known Allergies Allergy (Verified 07/11/19 12:59) Home Medications: Ambulatory Orders Medication Instructions Recorded Levothyroxine [Synthroid] 50 mcg PO DAILY 10/18/18 Atorvastatin Calcium [Lipitor] 40 mg PO QHS 07/11/19 Amoxicillin 875 mg PO BID 07/14/19 Finasteride [Proscar] 5 mg PO DAILY 07/14/19 Tamsulosin HCl [Flomax] 0.8 mg PO DAILY@1730 07/14/19 Surgical History: TURP Psychiatric History: No pertinent psych hx Lives: Spouse/ Significant Other - Lives with demented girlfriend. Smoking Status: Never smoker Tobacco Use: Non-smoker Alcohol: None Drugs: None - *Family History Maternal History Items: - Paternal History Items: - - His father of a stroke at the age of 89. There is no family history of myocardial infarction or congestive heart failure. Review of Systems Constitutional: Denies: Chills, Fever, Weight Change HEENT: Denies: Head Aches, Sinus Congestion, Sinus Drainage Cardiovascular: Denies: Chest Pain, Palpitations Respiratory: Denies: Cough, Shortness of breath at rest, Sputum production Gastrointestinal: Denies: Abdominal Pain, Nausea, Vomiting Genitourinary: Denies: Dysuria Musculoskeletal: Denies: Joint Pain, Joint Tenderness Skin: Denies: Rash, Wounds Neurological: Denies: Numbness, Tingling, Focal weakness Psychiatric: Denies: Anxiety, Depression, Homicidal Ideations, Suicidal Ideations Hematologic/ Lymphatic: Denies: Easy Bruising, Easy Bleeding Physical Exam - Physical Exam Vital Signs Temp 98.2 F 07/24/19 14:44 Pulse 80 07/24/19 17:18 Resp 16 07/24/19 14:44 BP 101/56 L 07/24/19 14:44 Pulse Ox 98 07/24/19 14:44 Intake & Output 07/22/19 07/23/19 07/24/19 23:59 23:59 23:59 Intake Total 580 / 580 480 / 480 480 / 480 Output Total 800 / 800 2275 / 2275 1050 / 1050 Balance -220 / -220 -1795 / -1795 -570 / -570 Weight: 85.2 kg Intake: Oral 580 / 580 480 / 480 480 / 480 Output: Urine 800 / 800 2275 / 2275 1050 / 1050 Other: Incontinent Amount Moderate Moderate General: Alert, Oriented x3 HEENT: Atraumatic Oral: Moist Mucosa Neck: Supple Lungs: Normal air movement Assessment/Plan All Active Problems Hematuria (Acute) Gross hematuria (Acute) Debility (Acute) Prostatitis (Acute) UTI (urinary tract infection) (Acute) Urinary retention (Acute) Abnormal cardiac enzyme level (Acute) Dysarthria (Acute) Expressive aphasia (Acute) Syncope (Acute) 83-year-old male with BPH and obstruction with catheter in place urine is now nice and clear he does not want to do a voiding trial we talked about about taking out the catheter receiving urine in his own but he is afraid he is in a fail he is already failed once before. Plan is to home with a catheter he can see me in the office please help the patient make an appoint with me says he does know where my office is and I can see him in the office for follow-up plan to do a cystoscopy and set him up either for TURP or UroLift depending on his findings.
[2019-07-24] MEDS: Atorvastatin Calcium 40 MG Tablet PO (20:15)
[2019-07-25 05:21] VITALS: BP 114/58; PULSE 82; RESP 16; TEMP 36.6; O2SAT 97
[2019-07-25 05:26] VITALS: BP 114/58; PULSE 82
[2019-07-25] MEDS: AMOXICILLIN 875 MG TABLET PO ×2 (05:26→16:47)
[2019-07-25] MEDS: Metoprolol Tartrate 25 MG Tablet 12.5 MG PO ×2 (05:26→16:46)
[2019-07-25] MEDS: Finasteride 5 MG Tablet PO (05:27)
[2019-07-25] MEDS: Polyethylene Glycol 3350 17 GM PACKET PO (05:27)
[2019-07-25] MEDS: Senna/Docusate Sodium 1 Tablet PO ×2 (05:27→16:46)
[2019-07-25] MEDS: Menthol/Lanolin/Calamine/Znox 113 GM Tube 1 APPLIC TOPICAL ×2 (05:27→16:47)
[2019-07-25] MEDS: Levothyroxine 50 MCG Tablet PO (05:27)
[2019-07-25] MEDS: Galantamine Hydrobromide 4 MG Tablet PO ×2 (07:43→16:46)
[2019-07-25] MEDS: Aspirin E.C. 81 MG Tablet PO (07:43)
[2019-07-25 10:17] VITALS: PULSE 83; RESP 16; O2SAT 95
[2019-07-25 13:50] VITALS: BP 101/50; PULSE 65; RESP 18; TEMP 36.7; O2SAT 92
--- NOTE | 2019-07-25 16:22 | NURSING ---
PT son, Mann updated on plan of care. no changes.
[2019-07-25 16:46] VITALS: PULSE 65
[2019-07-25] MEDS: Tamsulosin HCl 0.4 MG Capsule 0.8 MG PO (16:46)
[2019-07-25] MEDS: Atorvastatin Calcium 40 MG Tablet PO (20:39)
[2019-07-26 05:21] VITALS: BP 130/66; PULSE 91
[2019-07-26] MEDS: Metoprolol Tartrate 25 MG Tablet 12.5 MG PO ×2 (05:21→18:13)
[2019-07-26] MEDS: Polyethylene Glycol 3350 17 GM PACKET PO (05:21)
[2019-07-26] MEDS: AMOXICILLIN 875 MG TABLET PO ×2 (05:21→18:13)
[2019-07-26] MEDS: Levothyroxine 50 MCG Tablet PO (05:21)
[2019-07-26] MEDS: Senna/Docusate Sodium 1 Tablet PO ×2 (05:21→18:13)
[2019-07-26] MEDS: Finasteride 5 MG Tablet PO (05:22)
[2019-07-26] MEDS: Menthol/Lanolin/Calamine/Znox 113 GM Tube 1 APPLIC TOPICAL ×2 (05:24→18:17)
[2019-07-26 05:25] VITALS: BP 130/66; PULSE 91; RESP 16; TEMP 36.4; O2SAT 96
[2019-07-26] MEDS: Galantamine Hydrobromide 4 MG Tablet PO ×2 (07:49→18:13)
[2019-07-26] MEDS: Aspirin E.C. 81 MG Tablet PO (07:49)
[2019-07-26 10:00] VITALS: PULSE 78; RESP 78; O2SAT 98
[2019-07-26 14:28] VITALS: BP 105/56; PULSE 81; RESP 16; TEMP 36.9; O2SAT 96
[2019-07-26 18:13] VITALS: BP 105/56; PULSE 81
[2019-07-26] MEDS: Tamsulosin HCl 0.4 MG Capsule 0.8 MG PO (18:13)
[2019-07-26] MEDS: Atorvastatin Calcium 40 MG Tablet PO (20:58)
[2019-07-27] MEDS: Polyethylene Glycol 3350 17 GM PACKET PO (05:41)
[2019-07-27] MEDS: AMOXICILLIN 875 MG TABLET PO ×2 (05:41→17:06)
[2019-07-27] MEDS: Finasteride 5 MG Tablet PO (05:41)
[2019-07-27 05:42] VITALS: BP 117/62; PULSE 82
[2019-07-27] MEDS: Metoprolol Tartrate 25 MG Tablet 12.5 MG PO ×2 (05:42→17:05)
[2019-07-27] MEDS: Senna/Docusate Sodium 1 Tablet PO ×2 (05:42→17:06)
[2019-07-27] MEDS: Levothyroxine 50 MCG Tablet PO (05:42)
[2019-07-27] MEDS: Menthol/Lanolin/Calamine/Znox 113 GM Tube 1 APPLIC TOPICAL ×2 (05:44→17:06)
[2019-07-27 05:45] VITALS: BP 117/62; PULSE 81; RESP 18; TEMP 37.1; O2SAT 96
[2019-07-27] MEDS: Galantamine Hydrobromide 4 MG Tablet PO ×2 (07:56→17:06)
[2019-07-27] MEDS: Aspirin E.C. 81 MG Tablet PO (07:56)
[2019-07-27 16:00] VITALS: BP 119/59; PULSE 80; RESP 16; TEMP 36.6; O2SAT 97
[2019-07-27 17:05] VITALS: PULSE 79
[2019-07-27] MEDS: Tamsulosin HCl 0.4 MG Capsule 0.8 MG PO (17:06)
[2019-07-27] MEDS: Atorvastatin Calcium 40 MG Tablet PO (20:26)
[2019-07-28 04:24] VITALS: BP 109/56; PULSE 76; RESP 15; TEMP 36.7; O2SAT 98
[2019-07-28 04:26] VITALS: BP 109/56; PULSE 76
[2019-07-28] MEDS: Metoprolol Tartrate 25 MG Tablet 12.5 MG PO ×2 (04:26→16:41)
[2019-07-28] MEDS: Levothyroxine 50 MCG Tablet PO (04:26)
[2019-07-28] MEDS: Senna/Docusate Sodium 1 Tablet PO ×2 (04:26→16:41)
[2019-07-28] MEDS: Finasteride 5 MG Tablet PO (04:26)
[2019-07-28] MEDS: AMOXICILLIN 875 MG TABLET PO ×2 (04:27→16:41)
[2019-07-28] MEDS: Menthol/Lanolin/Calamine/Znox 113 GM Tube 1 APPLIC TOPICAL ×2 (04:28→16:42)
[2019-07-28] MEDS: Aspirin E.C. 81 MG Tablet PO (07:46)
[2019-07-28] MEDS: Galantamine Hydrobromide 4 MG Tablet PO ×2 (07:46→16:41)
[2019-07-28 13:45] VITALS: BP 114/54; PULSE 83; RESP 16; TEMP 37.1; O2SAT 97
--- NOTE | 2019-07-28 16:28 | NURSING ---
updated family on pt, pt requesting to talk with Dr Shah. note left for Dr Shah to go speak with pt.
[2019-07-28 16:41] VITALS: PULSE 83
[2019-07-28] MEDS: Tamsulosin HCl 0.4 MG Capsule 0.8 MG PO (16:41)
--- NOTE | 2019-07-28 16:59 | CASEMGMT ---
Social Work Therapy spoke with pt about DC plans as pt is requesting to DC home. SW followed up and IDT agreeable to DC home 07/30 for HHC and APS to follow up prior to weekend. Pt agreeable to C and requested SW to call son Shreyas. Message left with Shreyas to finalize DC plans. Will continue to follow. Vanessa Claudio, BOATHOUSE KEEPER SURGICAL SERVICES DIRECTOR
--- NOTE | 2019-07-28 17:43 | NURSING ---
Pt requesting to speak with Dr shah, Dr Shah went in & discussed discharge date and answered questions of pt
--- NOTE | 2019-07-28 19:06 | DCINST_ITS ---
- Discharge Diagnoses Current Active Problems: Current Active and Chronic Problems Debility (Acute) Prostatitis (Acute) UTI (urinary tract infection) (Acute) Urinary retention (Acute) Vascular dementia (Chronic) Stroke (Chronic) Osteoarthritis (Chronic) Hypothyroidism (Chronic) You will use the following diet at home:: No restrictions, Regular Your food should be the consistency of: Regular Your liquids should be the consistency of: Regular/Thin Discharge Activity: Return to Normal Activity, May Shower, Use Walker Weight Bearing Status: Weight bearing as tolerated Call your doctor if you observe: Fever of 101 or Higher, Inability to urinate, Inability to have a bowel movement, Shortness of breath, Chest pain, Uncontrolled pain Allergies/Adverse Reactions: Allergies No Known Allergies Allergy (Verified 07/11/19 12:59) Medications to take at Discharge Levothyroxine [Synthroid] 50 mcg PO DAILY 10/18/18 Atorvastatin Calcium [Lipitor] 40 mg PO QHS 07/11/19 Acetaminophen [Tylenol] 1,000 mg PO Q6H PRN PRN tablet 07/28/19 Amoxicillin 875 mg PO BID #18 tab 07/28/19 Aspirin E.C. [Ecotrin] 81 mg PO DAILY@0800 tablet 07/28/19 Finasteride [Proscar] 5 mg PO DAILY #30 tab 07/28/19 Galantamine Hbr [Razadyne] 4 mg PO BIDCM #60 tab 07/28/19 Menthol/Lanolin/Calamine/Znox [Calmoseptine Ointment] 1 applic TOPICAL BID tube 07/28/19 Metoprolol Tartrate [Lopressor (beta fidencio)] 12.5 mg PO BID #60 tab 07/28/19 Tamsulosin HCl [Flomax] 0.8 mg PO DAILY@1730 #60 cap 07/28/19 The following prescriptions were given: Amoxicillin 875 mg PO BID #18 tab Transmission Status: Pending to [facility] Tamsulosin HCl [Flomax] 0.8 mg PO DAILY@1730 #60 cap Transmission Status: Pending to [facility] Metoprolol Tartrate [Lopressor (beta fidencio)] 12.5 mg PO BID #60 tab Transmission Status: Pending to [facility] Finasteride [Proscar] 5 mg PO DAILY #30 tab Transmission Status: Pending to [facility] Galantamine Hbr [Razadyne] 4 mg PO BIDCM #60 tab Transmission Status: Pending to [facility] Primary Care Physician: Jose Francisco Shah Chi, MD [Primary Care Provider] - Please follow up with your Primary Care Physician in: 1 week. Test Results: Test results from this visit will be discussed in further detail at your follow- up appointment, if applicable. Please Follow Up With: Markos Griffith MD When: after d/c from TCU Proposed Discharge Date: 07/31/19
--- NOTE | 2019-07-28 19:08 | DS.PCM_ITS ---
Discharge Date and Diagnosis - Problem List Patient Problems: Active and Suspected Problems Debility (Acute) Prostatitis (Acute) UTI (urinary tract infection) (Acute) Urinary retention (Acute) Date of Admission: 07/14/19 Date of Discharge: 07/31/19 - Primary Discharge Diagnosis Acute Problems: Active Problems Debility (Acute) Prostatitis (Acute) UTI (urinary tract infection) (Acute) Urinary retention (Acute) - Secondary Discharge Diagnosis Chronic Problems: Chronic Problems Dementia (Chronic) Vascular dementia (Chronic) Stroke (Chronic) Osteoarthritis (Chronic) Hypothyroidism (Chronic) Atrial fibrillation (Chronic) Anemia (Chronic) S/P TURP (status post transurethral resection of prostate) (Chronic) HLD (hyperlipidemia) (Chronic) Dysphagia (Chronic) Osteoarthritis (Chronic) GERD (gastroesophageal reflux disease) (Chronic) BPH (benign prostatic hyperplasia) (Chronic) Hospital Course and Treatment Imaging Results: 07/14/19 16:27 Diet: Regular Diet Food consistency:: Regular Liquid Consistency:: Regular/Thin Operations: None Procedures: None Summary of Care Provided: The patient is a 83 year old Male with below past medical history hospitalized for hematuria, complicated by BPH, prostatitis, vascular dementia, non-c ompliance, admitted to TCU with debility, here for rehabilitation, strengthening, prior to disposition determination. Due to vascular dementia, resident having increasing difficulty caring for self. I have discussed with Juan oJse higher level of care for at least 2 years, but he has refused to move, he told me today he likes his house, dog, car, common sense (not common law) . I told Juan Jose, most likely he will go home, something bad will happen, and he will have to return to hospital shortly. Dr. Griffith consulted on Juan Jose, will discharge home with indwelling Velarde Catheter, needs outpatient cystoscopy, then decide Urolift versus TURP. Discharge home with significant other [facility] for PT/OT/ST. APS to follow. Patient Problems: Active and Suspected Problems Debility (Acute) Prostatitis (Acute) UTI (urinary tract infection) (Acute) Urinary retention (Acute) - Physical Exam Vitals/I&O's: Vital Signs Temp Pulse Resp BP Pulse Ox 98.8 F 83 16 114/54 L 97 07/28/19 13:45 07/28/19 16:41 07/28/19 13:45 07/28/19 13:45 07/28/19 13:45 Oxygen Delivery Method Room Air Weight: 85.2 kg Body Mass Index (BMI) 26.2 Finger Stick Blood Glucose 105 Intake and Output for Last 24 Hours 07/26/19 07/27/19 07/28/19 23:59 23:59 23:59 Intake Total 540 / 540 360 / 360 480 / 480 Output Total 1300 / 1300 1125 / 1125 1525 / 1525 Balance -760 / -760 -765 / -765 -1045 / -1045 Current Medications Acetaminophen (Tylenol) 1,000 mg PO Q6H PRN PRN PRN Reason: Pain Score 1-12/05 Amoxicillin (Amoxicillin) 875 mg PO BID [facility] Stop: 08/08/19 18:01 Last Admin: 07/28/19 16:41 Dose: 875 mg Documented by: Aspirin (Ecotrin) 81 mg PO DAILY@0800 [facility] Last Admin: 07/28/19 07:46 Dose: 81 mg Documented by: Atorvastatin Calcium (Lipitor) 40 mg PO QHS [facility] Last Admin: 07/27/19 20:26 Dose: 40 mg Documented by: Bisacodyl (Dulcolax) 10 mg PO DAILY PRN PRN Reason: Constipation Last Admin: 07/15/19 03:40 Dose: 10 mg Documented by: Calamine/Phenol (Calmoseptine Ointment) 1 applic TOPICAL BID [facility]; Protocol Last Admin: 07/28/19 16:42 Dose: 1 applicatio Documented by: Finasteride (Proscar) 5 mg PO DAILY [facility] Last Admin: 07/28/19 04:26 Dose: 5 mg Documented by: [facility]amine [facility] ([facility]) [facility] Last Admin: 07/28/19 16:41 Dose: 4 mg Documented by: Levothyroxine Sodium (Synthroid) 50 mcg PO DAILY [facility] Last Admin: 07/28/19 04:26 Dose: 50 mcg Documented by: Metoprolol Tartrate (Lopressor (Beta Samuel)) 12.5 mg PO BID [facility] Last Admin: 07/28/19 16:41 Dose: 12.5 mg Documented by: Polyethylene Glycol (Miralax) 17 gm PO DAILY [facility] Last Admin: 07/28/19 04:27 Dose: Not Given Documented by: Senna/Docusate Sodium (Senokot-S, Rocio-Colace) 1 tablet PO BID [facility] Last Admin: 07/28/19 16:41 Dose: 1 tablet Documented by: Tamsulosin HCl (Flomax) 0.8 mg PO DAILY@1730 [facility] Last Admin: 07/28/19 16:41 Dose: 0.8 mg Documented by: Discharge Diet: No Restrictions Discharge Activity: Return to Normal Activity, May Shower, Use Walker Weight Bearing Status: Weight bearing as tolerated Call your doctor if you observe: Fever of 101 or Higher, Inability to urinate, Inability to have a bowel movement, Shortness of breath, Chest pain, Uncontrolled pain Home Medications: Medications to take at Discharge Levothyroxine [Synthroid] 50 mcg PO DAILY 10/18/18 Atorvastatin Calcium [Lipitor] 40 mg PO QHS 07/11/19 Acetaminophen [Tylenol] 1,000 mg PO Q6H PRN PRN tablet 07/28/19 Amoxicillin 875 mg PO BID #18 tab 07/28/19 Aspirin E.C. [Ecotrin] 81 mg PO DAILY@0800 tablet 07/28/19 Finasteride [Proscar] 5 mg PO DAILY #30 tab 07/28/19 Galantamine Hbr [Razadyne] 4 mg PO BIDCM #60 tab 07/28/19 Menthol/Lanolin/Calamine/Znox [Calmoseptine Ointment] 1 applic TOPICAL BID tube 07/28/19 Metoprolol Tartrate [Lopressor (beta samuel)] 12.5 mg PO BID #60 tab 07/28/19 Tamsulosin HCl [Flomax] 0.8 mg PO DAILY@1730 #60 cap 07/28/19 Following Prescrptions Were Given to Patient: Amoxicillin 875 mg PO BID #18 tab Transmission Status: Pending to [facility] Tamsulosin HCl [Flomax] 0.8 mg PO DAILY@1730 #60 cap Transmission Status: Pending to [facility] Metoprolol Tartrate [Lopressor (beta samuel)] 12.5 mg PO BID #60 tab Transmission Status: Pending to [facility] Finasteride [Proscar] 5 mg PO DAILY #30 tab Transmission Status: Pending to [facility] Galantamine Hbr [Razadyne] 4 mg PO BIDCM #60 tab Transmission Status: Pending to [facility] Primary Care Physician: Jose Francisco Shah Chi, MD [Primary Care Provider] - Please follow up with your Primary Care Physician in: 1 week. Please Follow Up With: Markos Griffith MD When: after d/c from TCU Disposition: Home with Home Health Minutes spent on discharge:: 35 Patient Condition:: Stable Medical Necessity - Tobacco Use Smoking Status: Never smoker Tobacco Use: Non-smoker Meaningful Use Info Meaningful Use Diagnoses (Choose all that apply): None applicable
[2019-07-28] MEDS: Atorvastatin Calcium 40 MG Tablet PO (19:50)
[2019-07-29 05:40] LABS: Absolute Lymphocyte Count 1.31 X10^3/uL (0.83-4.51); Absolute Neutrophil Count 3.7 X10^3/uL (2.0-7.7); Basophil# 0.07 X10^3/uL; Basophil% 1.1 % (0-1); Eosinophil# 0.25 X10^3/uL; Eosinophils% 4.1 % (0-5); Hematocrit 37.1 % (40-54); Hemoglobin 11.8 g/dL (13.0-16.5); Lymphocyte # 1.31 X10^3/ul (4.0); Lymphocyte % 21.3 % (19-41); Mean Corp Hgb Conc 31.8 g/dL (32-36); Mean Corpuscular Hgb 30.5 pg (27.0-32.0); Mean Corpuscular Volume 95.9 fL (80-94); Mean Platelet Vol. 9.6 fl (6.2-12.0); Monocyte# 0.77 X10^3/uL; Monocyte% 12.5 % (0-10); NRBC Flagged by Analyzer 0 % (0-5); Neutrophil # 3.73 X10^3/uL (2.7-7.7); Neutrophil % 60.8 % (47-70); Platelet Count 208 K/mm3 (150-450); RBC Distribution Width CV 13.5 % (11.6-14.6); RBC Distribution Width SD 47.4 fl (35.1-43.9); Red Blood Count 3.87 M/mm3 (4.6-6.2); White Blood Count 6.1 K/mm3 (4.4-11.0)
[2019-07-29 05:51] VITALS: BP 110/68; PULSE 77; RESP 16; TEMP 36.8; O2SAT 98
[2019-07-29 05:53] VITALS: BP 110/68; PULSE 77
[2019-07-29] MEDS: Metoprolol Tartrate 25 MG Tablet 12.5 MG PO ×2 (05:53→17:08)
[2019-07-29] MEDS: Polyethylene Glycol 3350 17 GM PACKET PO (05:53)
[2019-07-29] MEDS: AMOXICILLIN 875 MG TABLET PO ×2 (05:53→17:08)
[2019-07-29] MEDS: Senna/Docusate Sodium 1 Tablet PO ×2 (05:54→17:08)
[2019-07-29] MEDS: Levothyroxine 50 MCG Tablet PO (05:54)
[2019-07-29] MEDS: Finasteride 5 MG Tablet PO (05:54)
[2019-07-29] MEDS: Menthol/Lanolin/Calamine/Znox 113 GM Tube 1 APPLIC TOPICAL ×2 (05:55→17:10)
[2019-07-29 06:02] LABS: Anion Gap 4 (5-15); BUN 9 mg/dL (7-18); BUN/Creat Ratio 9.6 RATIO (10-20); Calcium,Total 8.3 mg/dL (8.5-10.1); Chloride 106 mmol/L (98-107); Creatinine, Serum 0.94 mg/dL (0.70-1.30); EST Glomerular Filtration Rate 82 mL/min (>60); Est Glom Filt Rate - Afr Amer 99 mL/min (>60); Glucose 94 mg/dL (74-106); Potassium 3.9 mmol/L (3.5-5.1); Sodium Level 139 mmol/L (136-145)
[2019-07-29] MEDS: Galantamine Hydrobromide 4 MG Tablet PO ×2 (07:51→17:08)
[2019-07-29] MEDS: Aspirin E.C. 81 MG Tablet PO (07:51)
[2019-07-29] MEDS: Glycerin/Hypromellose/PEG400 15 ml Bottle 2 DRP LEFT EYE ×3 (12:20→20:03)
--- NOTE | 2019-07-29 12:22 | NURSING ---
Addendum entered by Dilia Packer 07/29/19 12:26: pt incont liquid yellowish stool. incont care provided. Original Note: pt c/o LT eye painful, like something in it. assessed, unable to see any objects in eye. Flushed with sterile water & cool wash cloth given. Dr Shah updated, new order for art tears. Pt states feeling better after flushing. LT eye sclera reddened. will cont monitor.
--- NOTE | 2019-07-29 12:30 | NURSING ---
pt c/o pain LT eye feels like something in eye. assessed with light, no foreign objects noted. flushed eye with 5 cc sterile water, pt stated it felt alittle better. Dr lopez updated, new order for artificial tears PRN. Sclera noted with redness. cool washcloth given. pt sitting in recliner chair. call light in reach.
[2019-07-29 13:29] VITALS: BP 125/54; PULSE 84; RESP 16; TEMP 36.6; O2SAT 96
[2019-07-29 17:08] VITALS: PULSE 84
[2019-07-29] MEDS: Tamsulosin HCl 0.4 MG Capsule 0.8 MG PO (17:08)
[2019-07-29] MEDS: Atorvastatin Calcium 40 MG Tablet PO (20:03)
[2019-07-30 05:19] VITALS: BP 121/65; PULSE 82; RESP 18; TEMP 36.8; O2SAT 97
[2019-07-30 05:21] VITALS: BP 121/65; PULSE 82
[2019-07-30] MEDS: Senna/Docusate Sodium 1 Tablet PO ×2 (05:21→17:21)
[2019-07-30] MEDS: Metoprolol Tartrate 25 MG Tablet 12.5 MG PO ×2 (05:21→17:17)
[2019-07-30] MEDS: Levothyroxine 50 MCG Tablet PO (05:21)
[2019-07-30] MEDS: Finasteride 5 MG Tablet PO (05:21)
[2019-07-30] MEDS: AMOXICILLIN 875 MG TABLET PO ×2 (05:22→17:18)
[2019-07-30] MEDS: Polyethylene Glycol 3350 17 GM PACKET PO (05:22)
[2019-07-30] MEDS: Menthol/Lanolin/Calamine/Znox 113 GM Tube 1 APPLIC TOPICAL ×2 (05:24→17:19)
[2019-07-30] MEDS: Galantamine Hydrobromide 4 MG Tablet PO ×2 (07:36→17:18)
[2019-07-30] MEDS: Aspirin E.C. 81 MG Tablet PO (07:37)
[2019-07-30 09:32] VITALS: PULSE 87; RESP 14; O2SAT 96
--- NOTE | 2019-07-30 12:45 | CASEMGMT ---
Addendum entered by Vanessa Claudio 07/30/19 12:53: Adding [facility]. Original Note: Social Work Contacted Bill again - Bill will moss picker patient 07/30 at noon. Son requested [facility] - referral made for PT/OT/ST/SN. Notified Suha at [facility] of DC date. Referred to [facility] for cane and son to pick that up. Vanessa Claudio, CIRCUS AGENT OUTDOOR PURSUITS INSTRUCTOR
[2019-07-30 13:33] VITALS: BP 120/56; PULSE 81; RESP 18; TEMP 36.4; O2SAT 98
--- NOTE | 2019-07-30 15:17 | NURSING ---
Update provided to family.
[2019-07-30 17:17] VITALS: PULSE 81
[2019-07-30] MEDS: Tamsulosin HCl 0.4 MG Capsule 0.8 MG PO (17:18)
[2019-07-30 19:00] LABS: Mucous, Urine 0 SEEN /hpf (<or=2+); Squamous Epithelial Cells - UA 0 SEEN /hpf (0-5)
[2019-07-30 19:42] LABS: Color, Urine Amber (Yellow); Glucose, Dipstick Normal (Normal); Ketone-Dipstick 5 mg/dl (Negative); Leukocyte Esterase-Dipstick 100 /ul (Negative); Nitrite-Dipstick Negative (Negative); Occult Blood-Urine 250 /ul (Negative); Protein-Dipstick 100 mg/dl (Negative); Specific Gravity, Urine 1.025 (1.002-1.030); Urine Bilirubin Dipstick Negative (Negative); Urine Clarity Cloudy (Clear); Urine Urobilinogen 1 mg/dl (Normal)
[2019-07-30 19:51] LABS: Bacteria RARE /hpf (None Seen); Calcium Oxalate Crystals Ur 1+ /hpf (<or=2+); Red Blood Cells-Urine > 100 SEEN /hpf (0-5); White Blood Cells 0-5 SEEN /hpf (0-5)
[2019-07-30] MEDS: Atorvastatin Calcium 40 MG Tablet PO (20:26)
[2019-07-31] MEDS: Polyethylene Glycol 3350 17 GM PACKET PO (04:57)
[2019-07-31 04:58] VITALS: BP 122/78; PULSE 88
[2019-07-31] MEDS: Senna/Docusate Sodium 1 Tablet PO (04:58)
[2019-07-31] MEDS: Metoprolol Tartrate 25 MG Tablet 12.5 MG PO (04:58)
[2019-07-31] MEDS: Levothyroxine 50 MCG Tablet PO (04:59)
[2019-07-31] MEDS: AMOXICILLIN 875 MG TABLET PO (04:59)
[2019-07-31] MEDS: Finasteride 5 MG Tablet PO (04:59)
[2019-07-31] MEDS: Menthol/Lanolin/Calamine/Znox 113 GM Tube 1 APPLIC TOPICAL (05:00)
[2019-07-31 05:05] VITALS: BP 122/78; PULSE 88; RESP 17; TEMP 36.9; O2SAT 92
[2019-07-31] MEDS: Galantamine Hydrobromide 4 MG Tablet PO (07:59)
[2019-07-31] MEDS: Aspirin E.C. 81 MG Tablet PO (08:00)
--- NOTE | 2019-07-31 10:23 | NURSING ---
pt given wallet back that was locked in med box. pt to get picked up at 1200 today with son. dc instructions gone over and given to pt and then pt's son bill. home health to also come for continued catheter care.
[2019-07-31 11:22] VITALS: BP 121/66; PULSE 75; RESP 16; TEMP 37.1; O2SAT 98
== END 2019-07-31 11:55 | disposition home health service (06) | DRG 728 ==
PROVIDERS: Admitting Provider Family Medicine Geriatric Medicine; PCP Family Medicine Geriatric Medicine; Referring Provider Family Medicine Geriatric Medicine; Visit Provider Family Medicine Geriatric Medicine
DX: N41.0 Acute prostatitis (principal); N39.0 Urinary tract infection, site not specified; I48.20 Chronic atrial fibrillation, unspecified; N13.8 Other obstructive and reflux uropathy; F01.50 Vascular dementia, unspecified severity, without behavioral disturbance, psychotic disturbance, mood disturbance, and anxiety; E03.9 Hypothyroidism, unspecified; N40.1 Benign prostatic hyperplasia with lower urinary tract symptoms; E78.5 Hyperlipidemia, unspecified; R33.9 Retention of urine, unspecified; Z91.19 Patient's noncompliance with other medical treatment and regimen; K21.9 Gastro-esophageal reflux disease without esophagitis; M19.90 Unspecified osteoarthritis, unspecified site; B95.4 Other streptococcus as the cause of diseases classified elsewhere
CPT/HCPCS: 36415; 80048; 81001; 85025; 87086; 87635; 92507; 92523; 97110; 97116; 97162; 97166; 97530; 97535; 97802; G2023; U0002

== ENCOUNTER 2019-08-08 08:11 | Day surgery (SDC) | payer MEDICARE, SELFPAY ==
[2019-07-14 16:21] VITALS: BMI 26.2
[2019-08-08] VITALS (11 sets, daily range): BP systolic 90–112; BP diastolic 48–68; PULSE 52–79; RESP 14–18; TEMP 36.2–36.8; O2SAT 95–99; BMI 24.4
--- NOTE | 2019-08-08 08:37 | PCM.HP.STD ---
History of Present Illness Date of Admission: 08/08/19 Chief Complaint: Urinary retention The patient is a 83 year old elderly male with a history of BPH with obstruction presented to my office with a catheter he was discharged from the hospital recently has not been able to urinate without a catheter is failed voiding trial so organ to proceed with a TURP Past Medical History Past Medical History (Chronic Problems): Chronic Problems Dementia (Chronic) Vascular dementia (Chronic) Stroke (Chronic) Osteoarthritis (Chronic) Hypothyroidism (Chronic) Atrial fibrillation (Chronic) Anemia (Chronic) S/P TURP (status post transurethral resection of prostate) (Chronic) HLD (hyperlipidemia) (Chronic) Dysphagia (Chronic) Osteoarthritis (Chronic) GERD (gastroesophageal reflux disease) (Chronic) BPH (benign prostatic hyperplasia) (Chronic) Allergies No Known Allergies Allergy (Verified 08/08/19 08:16) Home Medications: Ambulatory Orders Medication Instructions Recorded Levothyroxine [Synthroid] 50 mcg PO DAILY 10/18/18 Atorvastatin Calcium [Lipitor] 40 mg PO QHS 07/11/19 Acetaminophen [Tylenol] 1,000 mg PO Q6H PRN PRN tab 07/28/19 Amoxicillin 875 mg PO BID #18 tab 07/28/19 Finasteride [Proscar] 5 mg PO DAILY #30 tab 07/28/19 Galantamine Hbr [Razadyne] 4 mg PO BIDCM #60 tab 07/28/19 Menthol/Lanolin/Calamine/Znox 1 applic TOPICAL BID tube 07/28/19 [Calmoseptine Ointment] Metoprolol Tartrate [Lopressor 12.5 mg PO BID #60 tab 07/28/19 (beta fidencio)] Tamsulosin HCl [Flomax] 0.8 mg PO DAILY@1730 #60 cap 07/28/19 Surgical History: TURP Psychiatric History: No pertinent psych hx Smoking Status: Former smoker - *Family History Maternal History Items: - Paternal History Items: - - His father of a stroke at the age of 89. There is no family history of myocardial infarction or congestive heart failure. Review of Systems Constitutional: Denies: Chills, Fever, Weight Change HEENT: Denies: Head Aches, Sinus Congestion, Sinus Drainage Cardiovascular: Denies: Chest Pain, Palpitations Respiratory: Denies: Cough, Shortness of breath at rest, Sputum production Gastrointestinal: Denies: Abdominal Pain, Nausea, Vomiting Genitourinary: Reports: Retention. Denies: Dysuria Musculoskeletal: Denies: Joint Pain, Joint Tenderness Skin: Denies: Rash, Wounds Neurological: Denies: Numbness, Tingling, Focal weakness Psychiatric: Denies: Anxiety, Depression, Homicidal Ideations, Suicidal Ideations Hematologic/ Lymphatic: Denies: Easy Bruising, Easy Bleeding VTE Information - Inpt Only VTE Present on Admission: No VTE Mechan Device Prophylaxis: SCD's - Physical Exam Vitals/I&O's: Body Mass Index (BMI) 26.2 Finger Stick Blood Glucose 105 General: Alert, Oriented x3, Cooperative HEENT: Atraumatic, PERRLA, EOMI, Normocephalic Neck: Supple, No JVD, Negative Carotid Bruits Lungs: Clear to auscultation, Normal air movement Cardiovascular: Regular rate, No murmurs Abdomen: Bowel Sounds Present, Soft, Non Tender Extremities: No edema, Capillary Refill Less than 3 Seconds Skin: No rashes, No breakdown Musculoskeletal: No Tenderness to Palpation of Joints or Extremities Neurological: Cranial nerves II-XII grossly intact Psych/Mental Status: Normal Affect, Appropriate Comment: Velarde catheter in place Laboratory Results 08/07/19 10:10: COVID-19 ([place]) Not Detected 08/08/19 08:30: TSH Pending Current Medications Cefazolin Sodium 2 gm/ Sodium (Chloride) 110 mls @ 150 mls/hr IV PREOP ONE Stop: 08/08/19 10:43 Assessment/Plan All Active Problems Hematuria (Acute) Gross hematuria (Acute) Debility (Acute) Prostatitis (Acute) UTI (urinary tract infection) (Acute) Urinary retention (Acute) Abnormal cardiac enzyme level (Acute) Dysarthria (Acute) Expressive aphasia (Acute) Syncope (Acute) 83-year-old male with multiple medical problems retention of urine is failed conservative management still not able to urinate working and plan with a to proceed with a transurethral resection of the prostate.
--- NOTE | 2019-08-08 08:39 | DCINST_ITS ---
Discharge Diet: No Restrictions, Light diet - advance as tolerated Discharge Activity: Return to Normal Activity, May Not Drive - for 2 days., May not drive while taking narcotic pain medications. Additional Activity Instructions:: Please be aware that pain medications may cause nausea. You should typically eat light foods as you take your pain medication. Pain medication may cause constipation, if this is a problem for you, please discuss with your doctor. Call your doctor if your incision/area has: Continuous Slow Oozing, Sudden Increased Bleeding, Increased Pain/ Swelling, Increased Redness, Foul Smelling Discharge, Swelling at the incision site Call your doctor if you observe: Fever of 101 or Higher, Inability to urinate, Uncontrolled pain Suture Line Care: Avoid Pulling/Pushing, Avoid Pinching/Bending Instructions: Transurethral Resection of the Prostate (TURP): Home Recovery Allergies/Adverse Reactions: Allergies No Known Allergies Allergy (Verified 08/08/19 08:16) Medications to take at Discharge Levothyroxine [Synthroid] 50 mcg PO DAILY 10/18/18 Atorvastatin Calcium [Lipitor] 40 mg PO QHS 07/11/19 Acetaminophen [Tylenol] 1,000 mg PO Q6H PRN PRN tab 07/28/19 Amoxicillin 875 mg PO BID #18 tab 07/28/19 Finasteride [Proscar] 5 mg PO DAILY #30 tab 07/28/19 Galantamine Hbr [Razadyne] 4 mg PO BIDCM #60 tab 07/28/19 Menthol/Lanolin/Calamine/Znox [Calmoseptine Ointment] 1 applic TOPICAL BID tube 07/28/19 Metoprolol Tartrate [Lopressor (beta fidencio)] 12.5 mg PO BID #60 tab 07/28/19 Tamsulosin HCl [Flomax] 0.8 mg PO DAILY@1730 #60 cap 07/28/19 Ciprofloxacin [Cipro] 500 mg PO BID #14 tab 08/08/19 Orders to be completed after discharge: Thyroid Stim Hormone (TSH) Time Frame: 08/08/19, Facility: [facility], Location: Laboratory Primary Care Physician: Jose Francisco Shah Chi, MD [Primary Care Provider] - Test Results: Test results from this visit will be discussed in further detail at your follow- up appointment, if applicable. Please Follow Up With: Markos Griffith MD When: in 2 weeks, please call to make an appointment. Proposed Discharge Date: 08/08/19
[2019-08-08] MEDS: Lactated Ringers 1,000 ML 100 ML IV (08:44)
[2019-08-08] MEDS: Cefazolin 2 GM in 0.9% Normal Saline 100 ML IV (09:04)
[2019-08-08 09:22] LABS: Thyroid Stim Hormone (TSH) 2.47 uIU/mL (0.358-3.74)
--- NOTE | 2019-08-08 09:56 | PCM.OPRPT ---
Report of Operation Date of Procedure: 08/08/19 Pre-Operative Diagnosis: BPH with retention Post-Operative Diagnosis: Same Surgery/Procedure Performed:: Transurethral resection of prostate Description of Surgical Findings:: 83-year-old male who has a catheter is failed voiding trials not been able to urinate he does have a weakened bladder cleared we tried medical therapy he has not been able to urinate spontaneously so today we will proceed a transurethral resection of the prostate. Patient was taken back to the operating room at the smooth induction of general anesthesia he was placed supine on the table and then in dorsolithotomy position, the penis and testicles were prepped and draped in usual sterile fashion. I first went into the bladder with a 21 Cook Islander rigid cystourethroscope the entire length of the urethra was normal the prostate was enlarged mostly some able growth is blocking the channel inside the bladder was trabeculated with large diverticuli throughout the bladder and saccules left the right ureter orifice were identified. I decided to use a bipolar button vaporization to resect the prostate I started with the resection at the bladder neck were correct way back to the verumontanum resected the right lobe of the prostate resected the left lobe the prostate create a nice wide open channel did a flow test, after the flow test had a nice wide open flow then went back in and with cautery I cauterized the prostate extensively until I got good hemostasis once there was no more bleeding from the prostate put a 22 Cook Islander catheter into the bladder and continuous irrigation anesthesia was reversed he was taken back to PACU good condition plans to remove the catheter tomorrow for voiding trial. Type of Anesthesia:: General Drains: [address] - Admit VTE Documentation VTE Present on Admission: No VTE Mechan Device Prophylaxis: SCD's
[2019-08-08] MEDS: 0.9% Normal Saline 1,000 ML 75 ML IV ×2 (11:35→20:53)
--- NOTE | 2019-08-08 14:09 | CASEMGMT ---
ABELARDO PINEDO NOTE: Message received that pt is active w/[facility]. Call placed to Earline Zimmer RN, @ [facility]. She states pt is currently receiving SN, PT/OT, ST, and SW services. She requests for d/c instructions to be faxed to [facility] @ D/C. [facility]: PH: [phone] Babak YU RN CM
--- NOTE | 2019-08-08 14:11 | CASEMGMT ---
Social Work Note SW updated that pt had [facility] report made when pt discharged from TCU. MANASA placed a call to Greg at [facility] and left message that pt is in [facility] for surgery will likely discharge home tomorrow. Radha Teixeira NOVELTY CANDY MAKER, MILK HANDLER
[2019-08-08] MEDS: Galantamine Hydrobromide 4 MG Tablet PO (16:30)
[2019-08-08] MEDS: Tamsulosin HCl 0.4 MG Capsule 0.8 MG PO (16:30)
[2019-08-08] MEDS: Metoprolol Tartrate 25 MG Tablet 12.5 MG PO (20:51)
[2019-08-08] MEDS: Amox/Clavulanate 875 MG Tablet PO (20:52)
[2019-08-08] MEDS: Docusate Sodium 100 MG Capsule PO (20:52)
[2019-08-08] MEDS: Atorvastatin Calcium 40 MG Tablet PO (20:52)
[2019-08-09 00:09] VITALS: BP 115/77; PULSE 75; RESP 16; TEMP 36.8; O2SAT 96
[2019-08-09 03:25] VITALS: BP 112/68; PULSE 79; RESP 16; TEMP 36.8; O2SAT 96
[2019-08-09] MEDS: Levothyroxine 50 MCG Tablet PO (06:39)
[2019-08-09 08:53] VITALS: BP 113/59; PULSE 70; RESP 16; TEMP 36.9; O2SAT 99
[2019-08-09 08:56] VITALS: PULSE 70
[2019-08-09] MEDS: Metoprolol Tartrate 25 MG Tablet 12.5 MG PO (08:56)
[2019-08-09] MEDS: Docusate Sodium 100 MG Capsule PO (08:56)
[2019-08-09] MEDS: Galantamine Hydrobromide 4 MG Tablet PO (08:57)
[2019-08-09] MEDS: Amox/Clavulanate 875 MG Tablet PO (08:57)
[2019-08-09] MEDS: Pantoprazole Sodium 40 MG Tablet PO (08:58)
[2019-08-09] MEDS: Finasteride 5 MG Tablet PO (08:58)
[2019-08-09] MEDS: 0.9% Normal Saline 1,000 ML 75 ML IV (08:58)
--- NOTE | 2019-08-09 09:30 | NURSING ---
Assisted patient up to chair.
--- NOTE | 2019-08-09 11:37 | NURSING ---
Update given to patient's significant other, Ekaterina, and daughter, Silvia. They are both aware of POC for this afternoon.
[2019-08-09 13:04] VITALS: BP 137/61; PULSE 67; RESP 18; TEMP 36.6; O2SAT 97
--- NOTE | 2019-08-11 08:24 | CASEMGMT ---
Social Work Note SW called Suha at [facility] and left message that pt discharged home over the weekend. Radha Teixeira ULTRASOUND COORDINATOR, PEST CONTROL WORKER
== END 2019-08-09 13:45 | disposition home or self-care (01) ==
LOC: SDC 08:12 → AC 08:14 → MS3 12:57
PROVIDERS: Anesthesiology; PCP Family Medicine Geriatric Medicine; Referring Provider Urology; Visit Provider Urology
PROC: (CPT 52630; principal; 2019-08-08 10:00)
DX: N40.1 Benign prostatic hyperplasia with lower urinary tract symptoms (principal); R33.8 Other retention of urine; F01.50 Vascular dementia, unspecified severity, without behavioral disturbance, psychotic disturbance, mood disturbance, and anxiety; M19.90 Unspecified osteoarthritis, unspecified site; E03.9 Hypothyroidism, unspecified; D64.9 Anemia, unspecified; E78.5 Hyperlipidemia, unspecified; K21.9 Gastro-esophageal reflux disease without esophagitis; I48.91 Unspecified atrial fibrillation; G47.30 Sleep apnea, unspecified; Z11.59 Encounter for screening for other viral diseases; Z86.73 Personal history of transient ischemic attack (TIA), and cerebral infarction without residual deficits; Z79.899 Other long term (current) drug therapy; Z87.891 Personal history of nicotine dependence
CPT/HCPCS: 00914; 52630; 84443; 87635; G2023; J7030; J7120; J2405; U0003

== ENCOUNTER → 2020-01-01 15:53 | Outpatient (CLI) | payer MEDICARE, SELFPAY ==
[2019-08-08 11:36] VITALS: BMI 24.4
[2020-01-01 17:38] LABS: Absolute Lymphocyte Count 1.83 X10^3/uL (0.83-4.51); Absolute Neutrophil Count 4.7 X10^3/uL (2.0-7.7); Basophil# 0.06 X10^3/uL; Basophil% 0.8 % (0-1); Eosinophils% 1.3 % (0-5); Hematocrit 47.2 % (40-54); Hemoglobin 15.4 g/dL (13.0-16.5); Lymphocyte # 1.83 X10^3/ul (4.0); Lymphocyte % 24.3 % (19-41); Mean Corp Hgb Conc 32.6 g/dL (32-36); Mean Corpuscular Hgb 29.2 pg (27.0-32.0); Mean Corpuscular Volume 89.4 fL (80-94); Mean Platelet Vol. 9.9 fl (6.2-12.0); Monocyte# 0.87 X10^3/uL; Monocyte% 11.5 % (0-10); NRBC Flagged by Analyzer 0 % (0-5); Neutrophil # 4.65 X10^3/uL (2.7-7.7); Neutrophil % 61.7 % (47-70); Platelet Count 186 K/mm3 (150-450); RBC Distribution Width CV 15.6 % (11.6-14.6); RBC Distribution Width SD 51.5 fl (35.1-43.9); Red Blood Count 5.28 M/mm3 (4.6-6.2); White Blood Count 7.5 K/mm3 (4.4-11.0)
[2020-01-01 17:48] LABS: Vitamin D,25 Hydroxy 30.2 ng/mL
[2020-01-01 18:01] LABS: AST(SGOT) 16 U/L (15-37); Alanine Aminotransfer ALT/SGPT 33 U/L (16-61); Albumin, Serum 3.6 g/dL (3.2-5.0); Alkaline Phosphatase 123 U/L (45-117); Anion Gap 7 (5-15); BUN 12 mg/dL (7-18); BUN/Creat Ratio 11.5 RATIO (10-20); Calcium,Total 8.3 mg/dL (8.5-10.1); Chloride 106 mmol/L (98-107); Creatinine, Serum 1.04 mg/dL (0.70-1.30); EST Glomerular Filtration Rate 72 mL/min (>60); Est Glom Filt Rate - Afr Amer 87 mL/min (>60); Globulin 3.5 g/dL (2.2-4.2); Glucose 124 mg/dL (74-106); Protein, Total 7.1 g/dL (6.4-8.2); Sodium Level 140 mmol/L (136-145); Thyroid Stim Hormone (TSH) 3.23 uIU/mL (0.358-3.74)
== END ==
PROVIDERS: PCP Family Medicine Geriatric Medicine; Visit Provider Family Medicine Geriatric Medicine
DX: I10 Essential (primary) hypertension (principal); E55.9 Vitamin D deficiency, unspecified
CPT/HCPCS: 36415; 80053; 82306; 84443; 85025

== ENCOUNTER 2020-04-29 08:03 | Outpatient (RCR) | payer MEDICARE, SELFPAY ==
[2019-08-08 11:36] VITALS: BMI 24.4
[2020-04-29] MEDS: COVID-19 VACC, MRNA(PFIZER)/PF 30 MCG/0.3 ML SYRINGE IM (14:30)
[2020-05-20] MEDS: COVID-19 VACC, MRNA(PFIZER)/PF 30 MCG/0.3 ML SYRINGE IM (13:42)
== END 2020-08-03 23:59 ==
LOC: IMMUN 08:03
PROVIDERS: PCP Family Medicine Geriatric Medicine; Referring Provider Family Medicine; Visit Provider Family Medicine
DX: Z23 Encounter for immunization (principal)
CPT/HCPCS: 0001A; 0002A; 91300

== ENCOUNTER → 2020-06-21 11:23 | Outpatient (CLI) | payer MEDICARE, SELFPAY ==
[2019-08-08 11:36] VITALS: BMI 24.4
[2020-06-21 12:24] LABS: Absolute Lymphocyte Count 1.52 X10^3/uL (0.83-4.51); Absolute Neutrophil Count 4.5 X10^3/uL (2.0-7.7); Basophil# 0.06 X10^3/uL; Basophil% 0.8 % (0-1); Eosinophil# 0.07 X10^3/uL; Hemoglobin 16.2 g/dL (13.0-16.5); Lymphocyte # 1.52 X10^3/ul (0.83-4.51); Lymphocyte % 21.3 % (19-41); Mean Corp Hgb Conc 33.8 g/dL (32-36); Mean Corpuscular Hgb 30.8 pg (27.0-32.0); Mean Corpuscular Volume 91.3 fL (80-94); Mean Platelet Vol. 9.5 fl (6.2-12.0); NRBC Flagged by Analyzer 0 % (0-5); Neutrophil # 4.46 X10^3/uL (2.7-7.7); Neutrophil % 62.6 % (47-70); Platelet Count 182 K/mm3 (150-450); RBC Distribution Width CV 13.2 % (11.6-14.6); RBC Distribution Width SD 44.5 fl (35.1-43.9); Red Blood Count 5.26 M/mm3 (4.6-6.2); White Blood Count 7.1 K/mm3 (4.4-11.0)
[2020-06-21 12:49] LABS: Vitamin D,25 Hydroxy 28.9 ng/mL
[2020-06-21 12:50] LABS: ALB/GLOB Ratio 0.9 RATIO (0.9-2.4); AST(SGOT) 13 U/L (15-37); Alanine Aminotransfer ALT/SGPT 27 U/L (16-61); Albumin, Serum 3.7 g/dL (3.2-5.0); Alkaline Phosphatase 110 U/L (45-117); Anion Gap 3 (5-15); BUN 9 mg/dL (7-18); BUN/Creat Ratio 9.7 RATIO (10-20); Calcium,Total 9.3 mg/dL (8.5-10.1); Chloride 99 mmol/L (98-107); Creatinine, Serum 0.93 mg/dL (0.70-1.30); EST Glomerular Filtration Rate 82 mL/min (>60); Est Glom Filt Rate - Afr Amer 99 mL/min (>60); Globulin 3.9 g/dL (2.2-4.2); Glucose 96 mg/dL (74-106); Potassium 4.5 mmol/L (3.5-5.1); Protein, Total 7.6 g/dL (6.4-8.2); Sodium Level 134 mmol/L (136-145); Thyroid Stim Hormone (TSH) 2.85 uIU/mL (0.358-3.74)
== END ==
PROVIDERS: PCP Family Medicine Geriatric Medicine; Visit Provider Family Medicine Geriatric Medicine
DX: I10 Essential (primary) hypertension (principal); E55.9 Vitamin D deficiency, unspecified
CPT/HCPCS: 36415; 80053; 82306; 84443; 85025

== ENCOUNTER 2020-07-09 22:30 | Observation (INO) | payer MEDICARE, SELFPAY ==
[2019-08-08 11:36] VITALS: BMI 24.4
[2020-07-09 22:31] VITALS: BP 161/89; PULSE 87; RESP 15; TEMP 36.8; O2SAT 96; BMI 24.9
[2020-07-09 22:37] VITALS: BP 161/89; PULSE 82; RESP 15; TEMP 36.8; O2SAT 96
--- NOTE | 2020-07-09 23:10 | CT_ITS ---
STUDY: CT ABDOMEN AND PELVIS WITHOUT CONTRAST REASON FOR EXAM: Male, 84 years old. back pain RADIATION DOSAGE (If Supplied By Facility): CTDIvol = ( 7.38 ) mGy, DLP = ( 379.94 ) mGycm TECHNIQUE: Transaxial images were obtained from the dome of the diaphragm to the symphysis pubis without oral contrast, and without intravenous contrast. Sagittal and coronal images were reconstructed. Individualized dose optimization techniques were used for this CT. COMPARISON: None. FINDINGS: Subtle right basilar airspace disease. Moderate cardiomegaly. Normal liver. Normal gallbladder and extrahepatic biliary system. Normal spleen. Normal pancreas. Normal bilateral adrenal glands. Normal right kidney. Normal left kidney. There is a small hiatal hernia. Normal small intestine. There are multiple colonic diverticula consistent with diverticulosis. There is non-visualization of the appendix. Prominent fecal retention throughout the colon. There is diffuse atherosclerotic calcification of the abdominal aorta, without a demonstrated aneurysm. Normal inferior vena cava. Normal retroperitoneum. Normal urinary bladder. Marked enlargement of the prostate Normal abdominal wall. There are diffuse degenerative changes of the visualized lumbar spine. Likely subacute compression fracture of L2. CT/Abdomen/Pelvis without Cont IMPRESSION: Likely subacute compression fracture of L2. No retropulsed fragmentation. Subtle right basilar airspace disease. Electronically Signed: Jose Billy DO at 0:13 EDT Tel , Service support ,
--- NOTE | 2020-07-09 23:11 | ED.VIS.BACK ---
HPI History of Present Illness Chief Complaint: Back Informant: patient Onset/Context/Timing Onset: Month(s) (a number) Context: - (unk) Timing: Continuous Quality: Aching Location: Lumbar (across, bilat) Current Severity: Moderate Maximum Severity: Severe Worsened by: improves with Movement Relieved by: Nothing Associated Symptoms Associated Symptoms: Unable to Ambulate (tonight due to pain severity) and Constipation; Negative for Numbness, Tingling, Radiation to Right Leg, Radiation to Left Leg, Fever, Abdominal Pain, Dysuria, Unable to Transfer, Urinary Retention, Urinary Incontinence and Fecal Incontinence Narrative Narrative: Patient states he has been having pain across his low back for months, but it got worse today, gradually, for no good reason necessarily or anything obvious that he can tell is associated with it. Denies any numbness in his groin, perianal area, lower extremities. He has nocturia that is chronic and unchanged. He has constipation over the last 4 or 5 days. He denies any systemic symptoms. He provides relatively poor history on all of this. [facility] Medical History Anemia Atrial fibrillation BPH (benign prostatic hyperplasia) Debility Dementia GERD (gastroesophageal reflux disease) Hypothyroidism Osteoarthritis Prostatitis Stroke Urinary retention Vascular dementia Home Medications levothyroxine 50 mcg PO DAILY 10/18/18 [History Last Taken Unknown] atorvastatin 40 mg PO QHS 07/11/19 [History Last Taken Unknown] finasteride 5 mg PO DAILY #30 tab 07/28/19 [Rx Last Taken Unknown] galantamine 4 mg PO BIDCM #60 tab 07/28/19 [Rx Last Taken Unknown] metoprolol tartrate 12.5 mg PO BID #60 tab 07/28/19 [Rx Last Taken Unknown] tamsulosin 0.8 mg PO DAILY@1730 #60 cap 07/28/19 [Rx Last Taken Unknown] hydrocodone-acetaminophen 1 tab PO Q6H PRN PRN 3 Days #10 tablet 07/10/20 [Rx Last Taken Unknown] Allergy/AdvReac Type Severity Reaction Status Date / Time No Known Allergies Allergy Verified 07/09/20 22:39 Surgical History (Updated 07/09/20 @ 23:[address] Jarett Joseph MD) S/P TURP (status post transurethral resection of prostate) Social History Smoking Status: Former smoker ROS ROS ED Constitutional Constitutional ED: Denies chills or fever(s) Eyes Eyes: Denies change in vision or diplopia ENT ENT ED: Denies rhinorrhea or sore throat Cardiovascular Cardiovascular: Denies chest pain or palpitations Respiratory/Chest Respiratory/Chest: Denies cough or dyspnea Gastrointestinal Gastrointestinal: Denies abdominal pain, diarrhea, nausea or vomiting Genitourinary Genitourinary ED: Denies dysuria or hematuria Musculoskeletal Musculoskeletal: Denies neck pain Integumentary Denies abscess or rash Neurologic Neurologic: Denies headache(s), paresthesias or weakness Psychiatric Psychiatric: Reports depression and suicidal thoughts; Denies anxiety or suicidal ideation EXAM Physical Exam Const Vital Signs: 07/09/20 22:31 07/09/20 22:37 07/09/20 23:14 Temperature 98.2 F 98.2 F Temperature Source Temporal Temporal Pulse Rate 87 82 88 Respiratory Rate 15 15 Blood Pressure 161/89 H 161/89 H 136/79 H Blood Pressure Mean 113 113 98 Pulse Ox 96 96 95 Oxygen Delivery Method Room Air Room Air Room Air 07/09/20 23:45 07/10/20 00:18 07/10/20 01:14 Temperature 98.7 F 98.0 F 98.1 F Temperature Source Temporal Temporal Temporal Pulse Rate 84 87 84 Respiratory Rate 15 14 16 Blood Pressure 154/90 H 139/84 H 132/80 H Blood Pressure Mean 111 102 97 Pulse Ox 94 95 97 Oxygen Delivery Method Room Air Room Air Room Air Positive well nourished and well developed General Appearance ED: well developed and NAD HEENT Reports moist mucous membranes normocephalic and atraumatic Eyes PERRL and EOMs intact bilaterally Neck full ROM and supple Resp normal respiratory effort and clear to auscultation bilaterally Cardio regular rate, regular rhythm and no murmurs GI non-distended Auscultation: normoactive bowel sounds Palpation: soft and tender epigastric, LUQ and RUQ; Negative for guarding or rebound tenderness present Back/Spine no CVA tenderness, normal to inspection, no thoracic nor lumbar tenderness and straight leg raise negative bilaterally General Back: other FROM Extremity normal to inspection General Extremety ED: Negative for edema, pulses abnormal or tenderness General Extremity: Negative for edema or pulses abnormal Neuro oriented x3, CN's II-XII intact bilaterally and no sensory deficits noted Sensorium / Orientation: awake and alert Motor Exam: strength 5/5 throughout Skin no rashes or lesions noted and no wounds MDM MDM MDM Narrative Medical decision making narrative: CT abdomen and pelvis was performed, shows no intra-abdominal abnormality but a likely subacute L2 fracture which would explain his pain. He was having a difficult time urinating, so the nurse straight cathed him for 1 or 200 cc of urine, there was pyuria but no bacteria, this was sent for culture, I am less suspicious this is indicative of acute infection, which would not necessarily explain his symptoms, but the L2 fracture would. I offered admission, he initially declined and, wanted to go home, but he was unable to get out of bed without a significant amount of assistance, even after 2 doses of analgesics. He lives at home with his elderly ; nurses and pt spoke to her on the phone and she doesn't seem able to help him much, and she convinced the pt to stay in the hospital for further tx and evaluation, which I think would be safest for him. Lab Data Attestation: I reviewed the patient's lab results. Labs: Laboratory Results - last 24 hr 07/09/20 07/10/20 23:40 00:19 Sodium 136 Potassium 3.7 Chloride 103 Carbon Dioxide 29.0 Anion Gap 4 L BUN 13 Creatinine 0.76 Estim Creat Clear Calc 59.28 Est GFR (MDRD) Af Amer 125 Est GFR (MDRD) Non-Af 103 BUN/Creatinine Ratio 17.1 Glucose 118 H Calcium 8.5 Total Bilirubin 1.80 H AST 19 ALT 18 Alkaline Phosphatase 92 Total Protein 7.0 Albumin 3.6 Globulin 3.4 Albumin/Globulin Ratio 1.1 Lipase 59 L Urine Color Yellow Urine Clarity Sl. Cloudy Urine pH 6.0 Ur Specific [place] 1.025 Urine Protein 30 H Urine Glucose (UA) Normal Urine Ketones 50 H Urine Occult Blood 25 H Urine Nitrite Negative Urine Bilirubin 1 H Urine Urobilinogen 4 H Ur Leukocyte Esterase 100 H Urine RBC 5-10 SEEN Urine WBC 10-25 SEEN Ur Squamous Epith Cells 0 SEEN Amorphous Sediment 1+ Urine Bacteria 0 SEEN Urine Mucus 1+ Urine Yeast 1+ Radiography Diagnostic Testing: Radiology Impression Abdomen/Pelvis CT 07/09/20 23:10 IMPRESSION: Likely subacute compression fracture of L2. No retropulsed fragmentation. Subtle right basilar airspace disease. Electronically Signed: Jose DO Wenceslao at 0:13 EDT Tel , Service support , Discharge Plan Dx/Rx/DC Orders Clinical Impression: Closed compression fracture of L2 vertebra, Intractable low back pain Disposition Disposition: Acute Care Hospital [facility]
[2020-07-09 23:14] VITALS: BP 136/79; PULSE 88; O2SAT 95
[2020-07-09] MEDS: Ondansetron 4 MG/2 ML Vial IV (23:41)
[2020-07-09] MEDS: Morphine 2 MG/ML Syringe IV (23:41)
[2020-07-09 23:45] VITALS: BP 154/90; PULSE 84; RESP 15; TEMP 37.1; O2SAT 94
[2020-07-10] VITALS (11 sets, daily range): BP systolic 130–148; BP diastolic 74–84; PULSE 68–87; RESP 14–18; TEMP 36.6–36.7; O2SAT 94–98; BMI 24.4
[2020-07-10 00:18] LABS: ALB/GLOB Ratio 1.1 RATIO (0.9-2.4); AST(SGOT) 19 U/L (15-37); Alanine Aminotransfer ALT/SGPT 18 U/L (16-61); Albumin, Serum 3.6 g/dL (3.2-5.0); Alkaline Phosphatase 92 U/L (45-117); Anion Gap 4 (5-15); BUN 13 mg/dL (7-18); BUN/Creat Ratio 17.1 RATIO (10-20); Calcium,Total 8.5 mg/dL (8.5-10.1); Chloride 103 mmol/L (98-107); Creatinine, Serum 0.76 mg/dL (0.70-1.30); EST Glomerular Filtration Rate 103 mL/min (>60); Est Glom Filt Rate - Afr Amer 125 mL/min (>60); Estimated Creatinine Clearance 59.28 ml/min; Globulin 3.4 g/dL (2.2-4.2); Glucose 118 mg/dL (74-106); Lipase 59 U/L (73-393); Potassium 3.7 mmol/L (3.5-5.1); Sodium Level 136 mmol/L (136-145)
[2020-07-10 00:25] LABS: Bacteria 0 SEEN /hpf (None Seen); Squamous Epithelial Cells - UA 0 SEEN /hpf (0-5)
--- NOTE | 2020-07-10 00:25 | ED.RN ---
patient not able to void after several attempts and his boxers were soiled in feces and urine. Requested straight cath order and cleaned patient up after. 500ml dark yellow, odorous urine drained from the catheter. Barrier wipes used. Tolerated well and no further needs at this time
[2020-07-10 00:26] LABS: Color, Urine Yellow (Yellow); Glucose, Dipstick Normal (Normal); Ketone-Dipstick 50 mg/dl (Negative); Leukocyte Esterase-Dipstick 100 /ul (Negative); Nitrite-Dipstick Negative (Negative); Occult Blood-Urine 25 /ul (Negative); Protein-Dipstick 30 mg/dl (Negative); Specific Gravity, Urine 1.025 (1.002-1.030); Urine Clarity Sl. Cloudy (Clear); Urine Urobilinogen 4 mg/dl (Normal)
[2020-07-10 00:48] LABS: Urine Bilirubin Dipstick 1 mg/dL (Negative)
[2020-07-10 00:49] LABS: Amorphous Sediment 1+; Mucous, Urine 1+ /hpf (<or=2+); Red Blood Cells-Urine 5-10 SEEN /hpf (0-5); White Blood Cells 10-25 SEEN /hpf (0-5); Yeast-Urine 1+ /hpf (None Seen)
[2020-07-10] MEDS: HYDROcodone Bitartrate/Apap 5/325 Tablet PO (01:37)
--- NOTE | 2020-07-10 03:13 | ED.RN ---
Patient continues to have issues with mobility and cannot get up or down on his own. He is elderly and lives alone with his . He states his pain comes and goes and right now no pain. Once he is up, he is pretty steady ambulating with a walker but he uses a cane at home. He states he as a walker at home to use while he is struggling. He has dementia and when talking to his she did not know he was here and did not know how he got here but she was present when the squad picked up him to bring him. This nurse had a long conversation with patient regarding the decision to go home and follow up with his dr Sunday vs stay here. He initially wanted to go home but he continues to not be able to get up and down on his own which is what brought him in here. He states he does not want to be a burden on his and states she cannot help him. I asked about kids but he says he has one local daughter who he has not talked to in a while. He also said he was from far away in [place] and thought we were in [place]. He does not live in [place], as he lives in [place], so uncertain of the accuracy of this report. Regardless, he states no one can help him at home and with the limited mobility and pain, he would like to talk to the doctor regarding admission. A social service director should be considered while in the hospital.
--- NOTE | 2020-07-10 03:47 | PCM.HP.STD ---
HPI - General General Date of Admission: 07/10/20 HPI Narrative BETHANY MNOAHAN, is a 84 M with a significant history of vascular dementia; hypothyroidism; debility; atrial fibrillation and BPH who presents with excruciating sharp lower back pain which prevented him from being able to get up and was kept in knee down position for a long time. Patient has had low back pain for several months however on the day of presentation his back pain worsened considerably. His pain worsens with movement and his pain improves with rest. His pain is nonradiating. At the Emergency department even after pain medication patient continued to have pain so a decision was made to admit the patient. At the emergency department 500 mL urine was obtained with catheterization. Of note patient has chronic urinary retention. He reports chronic constipation. [facility] Medical History Anemia Atrial fibrillation BPH (benign prostatic hyperplasia) Debility Dementia Depression Former smoker GERD (gastroesophageal reflux disease) Hypertension Hypothyroidism Hypothyroidism Osteoarthritis Prostatitis Sleep apnea Stroke Urinary retention Vascular dementia Home Medications levothyroxine 50 mcg PO DAILY 10/18/18 [History Last Taken Unknown] atorvastatin 40 mg PO QHS 07/11/19 [History Last Taken Unknown] finasteride 5 mg PO DAILY #30 tab 07/28/19 [Rx Last Taken Unknown] galantamine 4 mg PO BIDCM #60 tab 07/28/19 [Rx Last Taken Unknown] metoprolol tartrate 12.5 mg PO BID #60 tab 07/28/19 [Rx Last Taken Unknown] tamsulosin 0.8 mg PO DAILY@1730 #60 cap 07/28/19 [Rx Last Taken Unknown] hydrocodone-acetaminophen 1 tab PO Q6H PRN PRN 3 Days #10 tablet 07/10/20 [Rx Last Taken Unknown] Allergy/AdvReac Type Severity Reaction Status Date / Time No Known Allergies Allergy Verified 07/09/20 22:39 unable to obtain (Unable to be obtained secondary to vascular dementia. Reportedly also have a cognitive issues) Surgical History S/P TURP (status post transurethral resection of prostate) Social History Smoking Status: Former smoker ROS Review of Systems ROS Unobtainable: due to mental condition and other Details: also has cognitive issue. Vital Signs Vital Signs Vital Signs: 07/09/20 22:31 07/09/20 22:37 07/09/20 23:14 Temperature 98.2 F 98.2 F Temperature Source Temporal Temporal Pulse Rate 87 82 88 Respiratory Rate 15 15 Blood Pressure 161/89 H 161/89 H 136/79 H Blood Pressure Mean 113 113 98 Pulse Ox 96 96 95 Oxygen Delivery Method Room Air Room Air Room Air 07/09/20 23:45 07/10/20 00:18 07/10/20 01:14 Temperature 98.7 F 98.0 F 98.1 F Temperature Source Temporal Temporal Temporal Pulse Rate 84 87 84 Respiratory Rate 15 14 16 Blood Pressure 154/90 H 139/84 H 132/80 H Blood Pressure Mean 111 102 97 Pulse Ox 94 95 97 Oxygen Delivery Method Room Air Room Air Room Air 07/10/20 03:19 Temperature 97.9 F Temperature Source Oral Pulse Rate 68 Respiratory Rate 14 Blood Pressure 136/77 H Blood Pressure Mean 96 Pulse Ox 97 Oxygen Delivery Method Room Air Physical Exam Narrative Alert and oriented x3 Nontraumatic; normocephalic Lung clear to auscultate Heart sounds S1-S2. No murmur, gallop or rubs. Abdomen bowel sounds present soft, nontender nondistended Extremity without edema cyanosis or clubbing. Lab / Micro Data Result Diagrams: 07/09/20 23:40 07/09/20 23:40 Labs: Laboratory Results - last 24 hr 07/09/20 07/10/20 23:40 00:19 Sodium 136 Potassium 3.7 Chloride 103 Carbon Dioxide 29.0 Anion Gap 4 L BUN 13 Creatinine 0.76 Estim Creat Clear Calc 59.28 Est GFR (MDRD) Af Amer 125 Est GFR (MDRD) Non-Af 103 BUN/Creatinine Ratio 17.1 Glucose 118 H Calcium 8.5 Total Bilirubin 1.80 H AST 19 ALT 18 Alkaline Phosphatase 92 Total Protein 7.0 Albumin 3.6 Globulin 3.4 Albumin/Globulin Ratio 1.1 Lipase 59 L Urine Color Yellow Urine Clarity Sl. Cloudy Urine pH 6.0 Ur Specific [place] 1.025 Urine Protein 30 H Urine Glucose (UA) Normal Urine Ketones 50 H Urine Occult Blood 25 H Urine Nitrite Negative Urine Bilirubin 1 H Urine Urobilinogen 4 H Ur Leukocyte Esterase 100 H Urine RBC 5-10 SEEN Urine WBC 10-25 SEEN Ur Squamous Epith Cells 0 SEEN Amorphous Sediment 1+ Urine Bacteria 0 SEEN Urine Mucus 1+ Urine Yeast 1+ Radiology Impression Abdomen/Pelvis CT 07/09/20 23:10 IMPRESSION: Likely subacute compression fracture of L2. No retropulsed fragmentation. Subtle right basilar airspace disease. Electronically Signed: Jose Billy DO at 0:13 EDT Tel , Service support , Assessment & Plan Assessment/Plan (1) Closed compression fracture of L2 vertebra: QUALIFIERS: Encounter type: initial encounter Qualified Code(s): S32.020A - Wedge compression fracture of second lumbar vertebra, initial encounter for closed fracture (2) Intractable low back pain: PLAN: Closed compression fracture of L2 vertebrae/intractable lower back pain Abdomen and pelvis CT showed likely subacute compression fracture of L2. This confirms patient's symptoms. PT and OT to work with patient. Case management consult for disposition. Oxycodone as needed and acetaminophen as needed ordered. Decadron [id number]. Constipation MiraLAX and senna as needed ordered DVT prophylaxis Subcutaneous Lovenox ordered. Visit Charges OBSV E&M: 56561 Initial observation care L2
--- NOTE | 2020-07-10 04:02 | ED.RN ---
Issues with [employer] and pharmacy. Called pharm and waiting for med so we can give him before going to the floor since not crossing over.
--- NOTE | 2020-07-10 04:08 | ED.RN ---
Talked to and tried to call daughter but her name is lien and the name on the voicemail was renetta. Son's number did go to a voicemail with a male voice but I am not sure if that is him and he did not continuous pickling line pickler helper the phone. Patient states he does not know the numbers and neither does the , will have to try to conact Adria, son, again tomorrow from the floor.
--- NOTE | 2020-07-10 04:16 | ED.RN ---
Still having issues with pharmacy and begin able to get meds to cross over to mar. OVERRIDE done for the morphine 2mg in 1ml and given to patient via IV in L hand. Cnnfirmed [id number], name and on band, record and name with patient. lot [id number]. exp 07/27/2021.
[2020-07-10] MEDS: dexAMETHasone 4 MG/ML Vial IV (06:16)
[2020-07-10] MEDS: 0.9% Saline Lock 10 ML Syringe IV (06:16)
[2020-07-10] MEDS: Levothyroxine 50 MCG Tablet PO (06:16)
[2020-07-10] MEDS: Galantamine Hydrobromide 4 MG Tablet PO ×2 (07:40→16:51)
[2020-07-10] MEDS: Finasteride 5 MG Tablet PO (09:28)
[2020-07-10] MEDS: Polyethylene Glycol 3350 17 GM PACKET PO (09:28)
[2020-07-10] MEDS: Metoprolol Tartrate 25 MG Tablet 12.5 MG PO ×2 (09:28→22:44)
[2020-07-10] MEDS: Acetaminophen 500 MG Tablet 1000 MG PO ×2 (13:53→22:44)
--- NOTE | 2020-07-10 15:36 | CASEMGMT ---
Addendum entered by Gaye Santoyo 07/10/20 16:47: MANASA reviewed legal section of patient's chart and NO HCPOA or Advanced directives in legal charting of [facility] . Gaye GREENBERG Addendum entered by Gaye Santoyo 07/10/20 16:06: MANASA called patient's daughter, Silvia, to ask if patient receives any [facility] from [facility]. She said no. Gaye GREENBERG Original Note: MANASA Note Referral Source: MD Guzman Referral Reason: Discharge planning SW met with charger Carole on MS3 and nurse Андрей. They report that patient and his girlfriend live together and the girlfriend has dementia and forgot he (patient) left . Per staff patient was not sure how he got to the hospital. Staff noted that patient is very confused. SW met with patient in his room. He was agitated and as we talked he became increasingly irritable. Patient was asked his PCP and he said Oh I forget it starts with a C and reports he doesn't think he has any specialist. Patient wanted this teletypewriter installer to speak to his and continually attempted to get out of the chair. SW encouraged the patient to just stay in his chair and this teletypewriter installer will look for his . SW will call family for history. MANASA spoke to staff physical therapist. Patient's daughter, Silvia Bains ([phone]) called in this morning to check on patient. SW will follow up with her. SW was advised by health psychologist that patient's daughter was in the hospital visiting patient. SW went to [facility] and went to patient's room and patient's daughter left the room. Patient asked who this teletypewriter installer was and what did you want earlier'. MANASA advised that this teletypewriter installer will follow up with patient's daughter. MANASA called patient's daughter, Silvia. Silvia said that she had gotten off the phone with her brothers as she met with her dad this morning and said to them dad's not with it. Silvia said that she has been researching [facility] ([facility]) for the past 2 months as she realized that placement would come soon for her dad. Silvia said that patient's is actually his girlfrien, Noreen, and she is worse off. Silvia said that we need to put Noreen somewhere. Silvia said that her dad doesn't remember doing things in the previous 24 hours. Silvia said that this morning, when she met with patient, he was very agitated and thinks his home is being invaded. Silvia reports that she is not legally her dad's stepdaughter as her mother is . Silvia said that her mother in 2009. Silvia said that patient calls her his daughter and she calls him dad. Silvia said that sometimes patient will say that her mom is Noreen but Noreen is NOT her mother. Silvia said that one brother lives in [place], one brother lives in [place] and one brother lives in [place] but in 2019 he had heart issues and was in the hospital. Patient said that her brothers say Silvia take over. Silvia said that she has also been in every SNF as she volunteered with [facility] and took dogs into all SNF settings. Silvia was trixie to assist this teletypewriter installer in completing the SW assessment. Patient's PCP: Dr. Shah Specialist: None Preferred Pharmacy: [facility] Insurance: [facility] Living Will/POA : Patient reports that she was attempting to get an appointment for POA/Living Will but did not. LNOK: Per chart patients Mann Win, son, Living Arrangements: One story condo. DME: Patient does not use any DME, except when Silvia takes him shopping and he has to walk a long distance and then he uses a can. HHC/SNF: No home health care. Silvia believes she wants [facility] and plans to tour it. She believes it will be best as when patient's medicare benefits run out he can stay there on medicaid. Patient had previously been at [facility]( [facility]) in the past (2019) June/July for Rehab on the 4th floor at [facility]. Plan: Family plans to place patient in [facility] at discharge. Gaye GREENBERG
--- NOTE | 2020-07-10 15:40 | CASEMGMT ---
ABELARDO PINEDO competed ESCOBEDO form with daughter Silvia via telephone as patient is confused. Silvia understood and gave telephone consent for ESCOBEDO form. Copy of ESCOBEDO form placed in patient's room. Silvia had no further questions or concerns at this time.
[2020-07-10] MEDS: Tamsulosin HCl 0.4 MG Capsule 0.8 MG PO (16:51)
[2020-07-10] MEDS: MELATONIN 3 MG TABLET PO (22:44)
[2020-07-10] MEDS: Atorvastatin Calcium 40 MG Tablet PO (22:44)
[2020-07-11] VITALS (7 sets, daily range): BP systolic 145–159; BP diastolic 78–86; PULSE 70–95; RESP 16–18; TEMP 36.4–36.8; O2SAT 93–98
[2020-07-11] MEDS: oxyCODONE 5 MG Tablet PO ×3 (00:33→21:40)
[2020-07-11 06:37] LABS: Absolute Lymphocyte Count 0.77 X10^3/uL (0.83-4.51); Absolute Neutrophil Count 9.5 X10^3/uL (2.0-7.7); Basophil# 0.04 X10^3/uL; Basophil% 0.3 % (0-1); Eosinophil# 0.01 X10^3/uL; Eosinophils% 0.1 % (0-5); Lymphocyte # 0.77 X10^3/ul (0.83-4.51); Lymphocyte % 6.5 % (19-41); Mean Corp Hgb Conc 34.8 g/dL (32-36); Mean Corpuscular Hgb 31.5 pg (27.0-32.0); Mean Corpuscular Volume 90.6 fL (80-94); Mean Platelet Vol. 9.9 fl (6.2-12.0); Monocyte# 1.44 X10^3/uL; Monocyte% 12.2 % (0-10); NRBC Flagged by Analyzer 0 % (0-5); Neutrophil # 9.53 X10^3/uL (2.7-7.7); Neutrophil % 80.4 % (47-70); Platelet Count 145 K/mm3 (150-450); RBC Distribution Width CV 13.1 % (11.6-14.6); RBC Distribution Width SD 43.3 fl (35.1-43.9); Red Blood Count 5.08 M/mm3 (4.6-6.2); White Blood Count 11.9 K/mm3 (4.4-11.0)
[2020-07-11] MEDS: Levothyroxine 50 MCG Tablet PO (06:43)
[2020-07-11] MEDS: Acetaminophen 500 MG Tablet 1000 MG PO ×3 (06:43→21:41)
[2020-07-11 07:06] LABS: AST(SGOT) 17 U/L (15-37); Alanine Aminotransfer ALT/SGPT 16 U/L (16-61); Albumin, Serum 3.3 g/dL (3.2-5.0); Alkaline Phosphatase 85 U/L (45-117); Anion Gap 7 (5-15); BUN 19 mg/dL (7-18); BUN/Creat Ratio 31.1 RATIO (10-20); Calcium,Total 8.5 mg/dL (8.5-10.1); Chloride 100 mmol/L (98-107); Creatinine, Serum 0.61 mg/dL (0.70-1.30); EST Glomerular Filtration Rate 133 mL/min (>60); Est Glom Filt Rate - Afr Amer 161 mL/min (>60); Estimated Creatinine Clearance 57.52 ml/min; Globulin 3.3 g/dL (2.2-4.2); Glucose 116 mg/dL (74-106); Potassium 3.5 mmol/L (3.5-5.1); Protein, Total 6.6 g/dL (6.4-8.2); Sodium Level 134 mmol/L (136-145)
[2020-07-11] MEDS: dexAMETHasone 4 MG Tablet PO (09:57)
[2020-07-11] MEDS: Metoprolol Tartrate 25 MG Tablet 12.5 MG PO ×2 (09:57→21:41)
[2020-07-11] MEDS: Polyethylene Glycol 3350 17 GM PACKET PO (09:59)
[2020-07-11] MEDS: Finasteride 5 MG Tablet PO (09:59)
[2020-07-11] MEDS: Galantamine Hydrobromide 4 MG Tablet PO ×2 (09:59→18:03)
--- NOTE | 2020-07-11 12:12 | PCM.PN.HOSP ---
Subjective Subjective Patient was seen and examined. He is intermittently confused. Alert oriented to self. Family is looking for discharge to long term facility. Objective Data Objective Data Vital Signs: Vital Signs Temp Pulse Resp BP Pulse Ox 98.3 F 81 16 145/81 H 96 07/11/20 09:00 07/11/20 09:57 07/11/20 09:00 07/11/20 09:00 07/11/20 09:00 Oxygen Delivery Method Room Air Weight: 79.435 kg Body Mass Index (BMI) 24.4 Intake & Output: Intake and Output for Last 24 Hours 07/09/20 07/10/20 07/11/20 23:59 23:59 23:59 Output Total 400 / 400 100 / 100 Balance -400 / -400 -100 / -100 Lab / Micro Data Result Diagrams: 07/11/20 06:00 07/11/20 06:00 Labs: Laboratory Results - last 24 hr 07/11/20 07/11/20 06:00 06:00 WBC 11.9 H RBC 5.08 Hgb 16.0 Hct 46.0 MCV 90.6 MCH 31.5 MCHC 34.8 RDW Std Deviation 43.3 RDW Coeff of Francis 13.1 Plt Count 145 L MPV 9.9 Immature Gran % (Auto) 0.500 Neut % (Auto) 80.4 H Lymph % (Auto) 6.5 L [place] % (Auto) 12.2 H Eos % (Auto) 0.1 Baso % (Auto) 0.3 Absolute Neuts (auto) 9.5 H Absolute Lymphs (auto) 0.77 L Nucleated RBC % 0 Sodium 134 L Potassium 3.5 Chloride 100 Carbon Dioxide 27.0 Anion Gap 7 BUN 19 H Creatinine 0.61 L Estim Creat Clear Calc 57.52 Est GFR (MDRD) Af Amer 161 Est GFR (MDRD) Non-Af 133 BUN/Creatinine Ratio 31.1 H Glucose 116 H Calcium 8.5 Total Bilirubin 1.70 H AST 17 ALT 16 Alkaline Phosphatase 85 Total Protein 6.6 Albumin 3.3 Globulin 3.3 Albumin/Globulin Ratio 1.0 Physical Exam Narrative Physical exam: General: Alert, Oriented to self, Cooperative, No apparent distress, Well developed HEENT: Atraumatic Oral: Moist Mucosa Neck: Supple Lungs: Clear to auscultation Cardiovascular: HS I+II, regular, no murmurs Abdomen: Bowel Sounds Present, Soft, Non Tender Extremities: No edema Skin: No rashes, No breakdown Neurological: Grossly intact Psych/Mental Status: Appropriate Assessment & Plan Assessment/Plan (1) Closed compression fracture of L2 vertebra: QUALIFIERS: Encounter type: initial encounter Qualified Code(s): S32.020A - Wedge compression fracture of second lumbar vertebra, initial encounter for closed fracture (2) Intractable low back pain: (3) Constipation: QUALIFIERS: Constipation type: unspecified constipation type Qualified Code(s): K59.00 - Constipation, unspecified PLAN: 84-year-old male with past medical history of dementia, who lives at home with his demented girlfriend comes in after a fall and complains of intractable back pain. 1. Acute intractable back pain secondary to subacute L2 fracture, pain has been controlled Continue on Tylenol scheduled, Decadron, oxycodone as needed May DC Decadron in am if patient continues to have his pain improved Will consult pain management for evaluation for possible kyphoplasty 2. Constipation, continue stool regimen 3. Rest of chronic medical conditions including dementia, BPH, hypothyroidism, hypertension all remained stable Home regimen continued Disposition: Social work consult for discharge planning to long term facility (4) Debility: Visit Charges Inpatient E&M: 73430 Subs Hosp L2
[2020-07-11] MEDS: Tamsulosin HCl 0.4 MG Capsule 0.8 MG PO (18:03)
[2020-07-11] MEDS: Atorvastatin Calcium 40 MG Tablet PO (21:40)
[2020-07-11] MEDS: MELATONIN 3 MG TABLET PO (21:40)
[2020-07-12] VITALS (8 sets, daily range): BP systolic 130–140; BP diastolic 62–81; PULSE 71–89; RESP 16–18; TEMP 36.7–37.1; O2SAT 94–98
[2020-07-12] MEDS: oxyCODONE 5 MG Tablet PO (02:15)
[2020-07-12] MEDS: Acetaminophen 500 MG Tablet 1000 MG PO ×2 (05:11→13:19)
[2020-07-12] MEDS: Levothyroxine 50 MCG Tablet PO (05:11)
[2020-07-12 05:26] LABS: Absolute Lymphocyte Count 1.08 X10^3/uL (0.83-4.51); Basophil# 0.03 X10^3/uL; Basophil% 0.3 % (0-1); Eosinophil# 0.05 X10^3/uL; Eosinophils% 0.5 % (0-5); Hematocrit 43.4 % (40-54); Hemoglobin 15.4 g/dL (13.0-16.5); Lymphocyte # 1.08 X10^3/ul (0.83-4.51); Lymphocyte % 11.4 % (19-41); Mean Corp Hgb Conc 35.5 g/dL (32-36); Mean Corpuscular Hgb 31.7 pg (27.0-32.0); Mean Corpuscular Volume 89.3 fL (80-94); Mean Platelet Vol. 9.3 fl (6.2-12.0); Monocyte# 1.24 X10^3/uL; Monocyte% 13.1 % (0-10); NRBC Flagged by Analyzer 0 % (0-5); Neutrophil # 7.03 X10^3/uL (2.7-7.7); Neutrophil % 74.5 % (47-70); Platelet Count 156 K/mm3 (150-450); RBC Distribution Width CV 13.2 % (11.6-14.6); RBC Distribution Width SD 42.8 fl (35.1-43.9); Red Blood Count 4.86 M/mm3 (4.6-6.2); White Blood Count 9.5 K/mm3 (4.4-11.0)
[2020-07-12 05:49] LABS: ALB/GLOB Ratio 0.9 RATIO (0.9-2.4); AST(SGOT) 15 U/L (15-37); Alanine Aminotransfer ALT/SGPT 16 U/L (16-61); Albumin, Serum 2.9 g/dL (3.2-5.0); Alkaline Phosphatase 78 U/L (45-117); Anion Gap 6 (5-15); BUN 20 mg/dL (7-18); BUN/Creat Ratio 26.8 RATIO (10-20); Calcium,Total 8.4 mg/dL (8.5-10.1); Chloride 102 mmol/L (98-107); Creatinine, Serum 0.74 mg/dL (0.70-1.30); EST Glomerular Filtration Rate 106 mL/min (>60); Est Glom Filt Rate - Afr Amer 128 mL/min (>60); Estimated Creatinine Clearance 57.52 ml/min; Globulin 3.2 g/dL (2.2-4.2); Glucose 95 mg/dL (74-106); Potassium 3.9 mmol/L (3.5-5.1); Protein, Total 6.1 g/dL (6.4-8.2); Sodium Level 135 mmol/L (136-145)
[2020-07-12] MEDS: Galantamine Hydrobromide 4 MG Tablet PO (09:03)
[2020-07-12] MEDS: dexAMETHasone 4 MG Tablet PO (09:03)
[2020-07-12] MEDS: Finasteride 5 MG Tablet PO (10:33)
[2020-07-12] MEDS: Metoprolol Tartrate 25 MG Tablet 12.5 MG PO (10:34)
--- NOTE | 2020-07-12 10:35 | CASEMGMT ---
Social Work Note Pt's daughter Silvia is present at [facility]. SW in to speak with pt and Silvia. SW spoke with pt and Silvia about discharge plans and recommendation of SNF. SW explained that pt is medically ready for discharge today so a decision of discharge planning needs to be made. Silvia states she spoke with her other family and plan is to take pt home while they look at facilities. SW informed Silvia that pt will need 24/7 care at this time. Silvia states between her and her family pt will have 24/7 care. SW spoke with pt and Silvia about HHC. Pt and Silvia agreeable to C. MANASA updated RN CM. Plan: Home with HHC Radha Teixeira APARTMENT PROPERTY MANAGER, PRE PRESS OPERATOR
[2020-07-12] MEDS: Polyethylene Glycol 3350 17 GM PACKET PO (10:38)
--- NOTE | 2020-07-12 11:00 | CASEMGMT ---
ABELARDO PINEDO updated by MANASA that patient and daughter Silvia would like HHC at discharge. RN CM in to discuss HHC with patient and daughter Silvia. Patient was provided a list of C providers including quality and resource use data and consistent with the patient?s preferred geographic region, medical needs, and insurance network. The patient?s preferred provider is [facility]. RN KHRIS sent referral to [facility] and they are able to accept the patient. CM to send discharge paperwork when available. Patient and daughter Silvia updated regarding acceptance.
--- NOTE | 2020-07-12 13:44 | CASEMGMT ---
RN CM in to discuss discharge planning with patient and daughter Silvia. Silvia states that they would like for patient to discharge home with [facility]. Patient was provided a list of [facility] providers including quality and resource use data and consistent with the patient?s preferred geographic region, medical needs, and insurance network. The patient?s preferred provider is [facility]. RN CM sent referral to [facility] and they are able to accept the patient. CM to send discharge paperwork when available. Patient and daughter Silvia updated regarding acceptance.
--- NOTE | 2020-07-12 14:06 | PCM.DC ---
Discharge Instructions Diet Discharge Diet: No restrictions Activity Discharge Activity: Return to Normal Activity and May Not Drive Weight Bearing Status: Weight bearing as tolerated Dressing / Incision Call your doctor if you observe: Fever of 101 or Higher, Coldness, Increased Pain, Numbness or Tingling, Change in Color, Inability to urinate, Inability to have a bowel movement, Shortness of breath, Dizziness, Fainting spells, Swelling in the ankles, Chest pain, Prolonged hiccupping, Increased palpitations (irregular heartbeat), Calf discomfort and Uncontrolled pain Follow Up Care Test Results: Test results from this visit will be discussed in further detail at your follow-up appointment, if applicable. Discharge Plan Admission Admit Date/Time: 07/10/20 05:39 Primary Reason for Your Visit: Closed compression fracture of L2 vertebra Attending Provider: Tyler Holt Primary Care Provider: Jose Francisco Shah Chi Consulting Providers: Anaid Myrick Instructions Patient Instructions: Back Fracture (Compression Fracture) Discharge Orders/Prescriptions Prescriptions: New hydrocodone-acetaminophen 5-325 mg tablet 1 tab PO Q6H PRN PRN (Reason: Pain) 3 Days Qty: 10 RF: 0 sennosides-docusate sodium [Stool Softener-Stimulant Laxat] 8.6-50 mg Tablet 2 tab PO BID PRN PRN (Reason: Constipation) Qty: 0 RF: 0 polyethylene glycol 3350 17 gram Powder In Packet 17 g PO DAILY Qty: 0 RF: 0 oxycodone 5 mg tablet 5 mg PO Q4H PRN PRN (Reason: Pain Score 4-10/10) 3 Days Qty: 10 RF: 0 Continued levothyroxine 50 MCG tablet 50 mcg PO DAILY RF: 0 atorvastatin 40 MG tablet 40 mg PO QHS RF: 0 galantamine 4 MG tablet 4 mg PO BIDCM Qty: 60 RF: 0 metoprolol tartrate 25 MG tablet 12.5 mg PO BID Qty: 60 RF: 0 tamsulosin 0.4 MG capsule 0.8 mg PO DAILY@1730 Qty: 60 RF: 0 finasteride 5 MG tablet 5 mg PO DAILY Qty: 30 RF: 0 Referrals / Follow Up: Jose Francisco Shah Chi, MD [Primary Care Provider] - As soon as possible
--- NOTE | 2020-07-12 14:23 | PCM.DC.SUM ---
Providers Date of Admission: 07/10/20 Primary Care Physician: Dr. Joes Francisco Shah MD Consultations 07/11/20 12:12 Consult: Pain Management Routine Consulting Provider: Anaid Myrick Reason for Consult: Subacute L2 compression fracture EMERGENT Consult: No MD Notified: Yes Date Notified:: 07/12/20 Time Notified: 08:13 Method of Notification: spoke with office Reason For Visit: L2 COMPRESSION FX, INTRACTABLE BACK PAIN Diagnosis Discharge Diagnosis (1) Closed compression fracture of L2 vertebra: Status: Acute Code(s): S32.020A - Wedge compression fracture of second lumbar vertebra, initial encounter for closed fracture Qualifiers: Encounter type: initial encounter Qualified Code(s): S32.020A - Wedge compression fracture of second lumbar vertebra, initial encounter for closed fracture (2) Intractable low back pain: Status: Acute Code(s): M54.5 - Low back pain (3) Constipation: Status: Acute Code(s): K59.00 - Constipation, unspecified Qualifiers: Constipation type: unspecified constipation type Qualified Code(s): K59.00 - Constipation, unspecified (4) Debility: Status: Acute Code(s): R53.81 - Other malaise Medications at Discharge Home Medications levothyroxine 50 mcg PO DAILY 10/18/18 atorvastatin 40 mg PO QHS 07/11/19 finasteride 5 mg PO DAILY #30 tab 07/28/19 galantamine 4 mg PO BIDCM #60 tab 07/28/19 metoprolol tartrate 12.5 mg PO BID #60 tab 07/28/19 tamsulosin 0.8 mg PO DAILY@1730 #60 cap 07/28/19 oxycodone 5 mg PO Q4H PRN PRN 3 Days #10 tab 07/12/20 polyethylene glycol 3350 17 g PO DAILY #0 ea 07/12/20 sennosides-docusate sodium [Stool Softener-Stimulant Laxat] 2 tab PO BID PRN PRN #0 tab 07/12/20 Hospital Course Summary of Care Provided Hospital Course: This is 84-year-old male with past medical history of dementia, who lives at home with his girlfriend who also has dementia came to ER after fall and intractable lower back pain. Patient was admitted on [facility] floor. 1.? Acute intractable back pain secondary to subacute L2 fracture, with disability: Pain has been controlled. 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 Recommended home health care and patient discharged with [facility]. Patient was given Decadron during hospital course but discontinued after improvement of pain. Patient given prescription for oxycodone 5 mg every 4 hourly as needed for severe pain total 10 tablets. [place] is checked and patient does not have previous prescription controlled substances. Continue Tylenol [id number] for tflv-if-ritmzetw pain. Follow-up with pain management Dr. Myrick for evaluation for outpatient kyphoplasty. 2.? Constipation, continue stool regimen. Patient on MiraLAX and senna S with me. 3.? Rest of chronic medical conditions including dementia, BPH, hypothyroidism, hypertension all remained stable Discharge medication reconciliation done. Discharge follow-up instructions completed. Discharge process discussed with the patient and all questions were answered to patient's satisfaction. Total time spent, exact 35 minutes on discharge meds reconciliation, examination, coordination of care with nurses and ancillary staff, review of imaging and blood test and discussion with the patient on follow-up instructions Physical Exam Narrative Seen and examined. Patient pain is controlled. Complain of 3-4/10 on movement. General: Alert, Oriented x3, Cooperative HEENT: Atraumatic, PERRLA, EOMI, Normocephalic Oral: No Gingival or Mucosal Lesions/ Ulcerations Neck: Supple, No JVD, Negative Carotid Bruits Lungs: Air entry diminished in bilateral lung bases. No crepitation/rhonchi Cardiovascular: Regular rate, Regular Rhythm, Normal S1, Normal S2, No murmurs Abdomen: Bowel Sounds Present, Soft, Non Tender, Non-Distended : Denies retention of urine or residual urine after voiding. No renal angle tenderness. No suprapubic tenderness. Extremities: No edema, Capillary Refill Less than 3 Seconds Skin: No rashes, No breakdown Musculoskeletal/spine: Tenderness over L2-L3 vertebra. No Tenderness to Palpation of joints of extremities. ROM limited. Neurological: Cranial nerves II-XII grossly intact, Deep Tendon Reflexes 2+/4 and Symmetrical, Neuro grossly intact Psych/Mental Status: Normal Affect, Appropriate. ABG / Lab / Microbiology Data Result Diagrams: 07/12/20 05:14 07/12/20 05:14 Laboratory: Laboratory Results - last 24 hr 07/12/20 07/12/20 05:14 05:14 WBC 9.5 RBC 4.86 Hgb 15.4 Hct 43.4 MCV 89.3 MCH 31.7 MCHC 35.5 RDW Std Deviation 42.8 RDW Coeff of Francis 13.2 Plt Count 156 MPV 9.3 Immature Gran % (Auto) 0.200 Neut % (Auto) 74.5 H Lymph % (Auto) 11.4 L [place] % (Auto) 13.1 H Eos % (Auto) 0.5 Baso % (Auto) 0.3 Absolute Neuts (auto) 7.0 Absolute Lymphs (auto) 1.08 Nucleated RBC % 0 Sodium 135 L Potassium 3.9 Chloride 102 Carbon Dioxide 27.0 Anion Gap 6 BUN 20 H Creatinine 0.74 Estim Creat Clear Calc 57.52 Est GFR (MDRD) Af Amer 128 Est GFR (MDRD) Non-Af 106 BUN/Creatinine Ratio 26.8 H Glucose 95 Calcium 8.4 L Total Bilirubin 1.30 H AST 15 ALT 16 Alkaline Phosphatase 78 Total Protein 6.1 L Albumin 2.9 L Globulin 3.2 Albumin/Globulin Ratio 0.9 Microbiology: Microbiology 07/10/20 00:19 Urine Culture - Preliminary Urine Catheter - Catheter Yeast Microbiology 07/10/20 00:19 Urine Catheter - Catheter Urine Culture - Preliminary Yeast D/C Instructions Discharge Diet: No restrictions Discharge Activity: Return to Normal Activity and May Not Drive Weight Bearing Status: Weight bearing as tolerated Call your doctor if you observe: Fever of 101 or Higher, Coldness, Increased Pain, Numbness or Tingling, Change in Color, Inability to urinate, Inability to have a bowel movement, Shortness of breath, Dizziness, Fainting spells, Swelling in the ankles, Chest pain, Prolonged hiccupping, Increased palpitations (irregular heartbeat), Calf discomfort and Uncontrolled pain Meaningful Use Info Meaningful Use Diagnoses (Choose all that apply): None applicable Discharge Plan Admission Admit Date/Time: 07/10/20 05:39 Primary Reason for Your Visit: Closed compression fracture of L2 vertebra Attending Provider: Tyler Holt Primary Care Provider: Jose Francisco Shah Chi Consulting Providers: Anaid Myrick Instructions Patient Instructions: Back Fracture (Compression Fracture), ED Fracture, Vertebral Compression Discharge Orders/Prescriptions Prescriptions: New sennosides-docusate sodium [Stool Softener-Stimulant Laxat] 8.6-50 mg Tablet 2 tab PO BID PRN PRN (Reason: Constipation) Qty: 0 RF: 0 polyethylene glycol 3350 17 gram Powder In Packet 17 g PO DAILY Qty: 0 RF: 0 oxycodone 5 mg tablet 5 mg PO Q4H PRN PRN (Reason: Pain Score 4-10/10) 3 Days Qty: 10 RF: 0 Continued levothyroxine 50 MCG tablet 50 mcg PO DAILY RF: 0 atorvastatin 40 MG tablet 40 mg PO QHS RF: 0 galantamine 4 MG tablet 4 mg PO BIDCM Qty: 60 RF: 0 metoprolol tartrate 25 MG tablet 12.5 mg PO BID Qty: 60 RF: 0 tamsulosin 0.4 MG capsule 0.8 mg PO DAILY@1730 Qty: 60 RF: 0 finasteride 5 MG tablet 5 mg PO DAILY Qty: 30 RF: 0 Referrals / Follow Up: Anaid Myrick MD [STAFF PHYSICIAN] - In 1 Week ( Call in 2 days to refill pain medication) Jose Francisco Shah Chi, MD [Primary Care Provider] - As soon as possible (In 1 to 2 weeks. Call in [address] Shah office to refill pain medication) Disposition Disposition (needs filled in before D/C Order can be placed): Home Health Service Visit Charges Inpatient E&M: 58469 Disch Hosp
--- NOTE | 2020-07-12 15:00 | PHA.DC.MC ---
Pharmacy Service has performed discharge medication reconciliation and counseling for this patient. 1. OXYCODONE 5MG PO Q4H PRN PAIN 2. MIRALAX 17GM PO DAILY 3. SENNA/DOCUSATE 2T BID PRN CONSTIPATION The patient's discharge medication list was reviewed for discrepancies and discrepancies were resolved. Home Medications levothyroxine 50 mcg PO DAILY 10/18/18 atorvastatin 40 mg PO QHS 07/11/19 finasteride 5 mg PO DAILY #30 tab 07/28/19 galantamine 4 mg PO BIDCM #60 tab 07/28/19 metoprolol tartrate 12.5 mg PO BID #60 tab 07/28/19 tamsulosin 0.8 mg PO DAILY@1730 #60 cap 07/28/19 oxycodone 5 mg PO Q4H PRN PRN 3 Days #10 tab 07/12/20 polyethylene glycol 3350 17 g PO DAILY #0 ea 07/12/20 sennosides-docusate sodium [Stool Softener-Stimulant Laxat] 2 tab PO BID PRN PRN #0 tab 07/12/20 The patient was counseled on the following discharge medications and changes in medications for homegoing were reviewed. The Reason for Use, instructions for use, and potential side effects were reviewed for all new medications. The patient's questions regarding all of their medications were answered. The patient was able to verbally demonstrate an understanding of their discharge medications. Patient's daughter counseled by pharmacy graduate intern
== END 2020-07-12 15:23 | disposition home health service (06) ==
LOC: ED 07-10 03:13 → MS3 07-10 06:02
PROVIDERS: Internal Medicine; Admitting Provider Hospitalist; Emergency Provider Emergency Medicine; PCP Family Medicine Geriatric Medicine; Visit Provider Internal Medicine
DX: S32.020A Wedge compression fracture of second lumbar vertebra, initial encounter for closed fracture (principal); K21.9 Gastro-esophageal reflux disease without esophagitis; R33.8 Other retention of urine; N40.1 Benign prostatic hyperplasia with lower urinary tract symptoms; F01.50 Vascular dementia, unspecified severity, without behavioral disturbance, psychotic disturbance, mood disturbance, and anxiety; M19.90 Unspecified osteoarthritis, unspecified site; E03.9 Hypothyroidism, unspecified; I48.91 Unspecified atrial fibrillation; G47.30 Sleep apnea, unspecified; I10 Essential (primary) hypertension; K59.09 Other constipation; Z87.891 Personal history of nicotine dependence; W19.XXXA Unspecified fall, initial encounter; Y93.9 Activity, unspecified; Y92.9 Unspecified place or not applicable; Z79.899 Other long term (current) drug therapy
CPT/HCPCS: 36415; 74176; 80048; 80053; 81001; 83690; 85025; 87086; 87088; 96374; 96375; 97110; 97163; 97165; 97530; 97535; 99218; 99285; P9612; A4216; G0378; J2405

== ENCOUNTER 2020-07-14 08:41 | Observation (INO) | payer MEDICARE, SELFPAY ==
[2020-07-10 04:39] VITALS: BMI 24.4
[2020-07-14] VITALS (11 sets, daily range): BP systolic 104–148; BP diastolic 67–92; PULSE 77–128; RESP 13–20; TEMP 36.1–36.7; O2SAT 95–99; BMI 25.2; BMI 24.9
--- NOTE | 2020-07-14 08:45 | ED.VIS.BACK ---
HPI History of Present Illness Chief Complaint: Back Informant: patient Onset/Context/Timing Onset: Days (5) Injury: lifting and fall Timing: Continuous Quality: Sharp Location: Lumbar Worsened by: improves with Movement Relieved by: Nothing Associated Symptoms Associated Symptoms: Abdominal Pain and Constipation; Negative for Numbness, Tingling, Radiation to Right Leg, Radiation to Left Leg, Dysuria, Urinary Retention and Urinary Incontinence Narrative Narrative: Patient presents with back pain that became worse today. Patient states he fell recently while he was attempting to lift and has a fracture of his L2 vertebrae. Patient has been taking his pain medications at home with minimal relief. Patient states the pain is worse with movement. Patient states nothing seems to help with the pain. Patient states the pain radiates into his abdomen. Patient admits to some constipation. Patient denies any urine or stool incontinence. Patient denies any paresthesias or weakness. Patient denies any radiation of the pain to his lower extremities. [facility] Medical History Anemia Atrial fibrillation BPH (benign prostatic hyperplasia) Debility Dementia Depression Former smoker GERD (gastroesophageal reflux disease) Hypertension Hypothyroidism Hypothyroidism L2 vertebral fracture Osteoarthritis Prostatitis Sleep apnea Stroke Urinary retention Vascular dementia Home Medications levothyroxine 50 mcg PO DAILY 10/18/18 [History Last Taken Unknown] atorvastatin 40 mg PO QHS 07/11/19 [History Last Taken Unknown] finasteride 5 mg PO DAILY #30 tab 07/28/19 [Rx Last Taken Unknown] galantamine 4 mg PO BIDCM #60 tab 07/28/19 [Rx Last Taken Unknown] metoprolol tartrate 12.5 mg PO BID #60 tab 07/28/19 [Rx Last Taken Unknown] tamsulosin 0.8 mg PO DAILY@1730 #60 cap 07/28/19 [Rx Last Taken Unknown] oxycodone 5 mg PO Q4H PRN PRN 3 Days #10 tab 07/12/20 [Rx Last Taken Unknown] polyethylene glycol 3350 17 g PO DAILY #0 ea 07/12/20 [Rx Last Taken Unknown] sennosides-docusate sodium [Stool Softener-Stimulant Laxat] 2 tab PO BID PRN PRN #0 tab 07/12/20 [Rx Last Taken Unknown] Allergy/AdvReac Type Severity Reaction Status Date / Time No Known Allergies Allergy Verified 07/14/20 08:45 Surgical History S/P TURP (status post transurethral resection of prostate) Social History Smoking Status: Former smoker ROS ROS ED Constitutional Constitutional ED: Denies chills or fever(s) Eyes Eyes: Denies blurry vision or change in vision ENT ENT ED: Denies rhinorrhea or sore throat Cardiovascular Cardiovascular: Denies chest pain or palpitations Respiratory/Chest Respiratory/Chest: Denies dyspnea or sputum Gastrointestinal Gastrointestinal: Reports constipation; Denies nausea or vomiting Genitourinary Genitourinary ED: Denies dysuria or hematuria Musculoskeletal Musculoskeletal: Reports back pain; Denies neck pain Integumentary Denies abscess or rash Neurologic Neurologic: Denies paresthesias or weakness Allergic/Immunologic Allergic/Immunologic ED: Denies mouth swelling or urticaria EXAM Physical Exam Const Vital Signs: 07/14/20 08:42 07/14/20 13:26 Temperature 97.7 F L Temperature Source Oral Pulse Rate 120 H 112 H Respiratory Rate 20 H 13 Blood Pressure 104/67 126/79 H Blood Pressure Mean 79 94 Pulse Ox 96 99 Oxygen Delivery Method Room Air Room Air Positive well nourished and well developed General Appearance ED: well developed Neck supple and no JVD Resp normal respiratory effort and clear to auscultation bilaterally Cardio regular rate and regular rhythm GI normal to inspection, nondistended, normoactive bowel sounds, soft to palpation and non-tender Back/Spine Back/Spine Narrative: There is tenderness over the lower lumbar spine. There is no bony crepitance or step-off. Range of motion was limited in all motions of the lumbar spine secondary to pain. Extremity normal to inspection General Extremety ED: Negative for edema or tenderness General Extremity: Negative for edema Neuro oriented x3 and no sensory deficits noted Sensorium / Orientation: alert Psych mental status grossly normal MDM MDM MDM Narrative Medical decision making narrative: Acute abdominal x-rays were ordered. There were 7 views. On my interpretation, there is no acute cardiopulmonary process. There is an ileus/possible early small bowel obstruction. There is no free air. Radiologist also interpreted the x-ray and agrees. Because of this, CT scan of the abdomen pelvis with oral and IV contrast was ordered. There is an ileus but there is no evidence of bowel obstruction. There is a stable compression fracture of L2. This was interpreted by the radiologist and reviewed by myself. CBC was within normal limits. Comprehensive metabolic profile was essentially within normal limits. Troponin was normal. Urinalysis does not show any evidence of urinary tract infection. Lab Data Attestation: I reviewed the patient's lab results. Labs: Laboratory Results - last 24 hr 07/14/20 07/14/20 07/14/20 09:00 09:00 11:35 WBC 9.4 RBC 5.38 Hgb 17.0 H Hct 48.3 MCV 89.8 MCH 31.6 MCHC 35.2 RDW Std Deviation 43.1 RDW Coeff of Francis 13.2 Plt Count 186 MPV 9.3 Immature Gran % (Auto) 0.300 Neut % (Auto) 75.8 H Lymph % (Auto) 8.8 L [place] % (Auto) 14.1 H Eos % (Auto) 0.5 Baso % (Auto) 0.5 Absolute Neuts (auto) 7.1 Absolute Lymphs (auto) 0.82 L Nucleated RBC % 0 Sodium 134 L Potassium 3.5 Chloride 99 Carbon Dioxide 28.0 Anion Gap 7 BUN 16 Creatinine 0.86 Estim Creat Clear Calc 66.88 Est GFR (MDRD) Af Amer 108 Est GFR (MDRD) Non-Af 89 BUN/Creatinine Ratio 18.5 Glucose 102 Calcium 8.5 Total Bilirubin 1.60 H AST 11 L ALT 16 Alkaline Phosphatase 79 Troponin I < 0.015 Total Protein 6.4 Albumin 3.0 L Globulin 3.4 Albumin/Globulin Ratio 0.9 Urine Color Yellow Urine Clarity Sl. Cloudy Urine pH 6.0 Ur Specific [place] 1.020 Urine Protein 15 H Urine Glucose (UA) Normal Urine Ketones 50 H Urine Occult Blood 25 H Urine Nitrite Negative Urine Bilirubin Negative Urine Urobilinogen 1 H Ur Leukocyte Esterase 25 H Urine RBC 0-5 SEEN Urine WBC 0-5 SEEN Ur Squamous Epith Cells 0-5 SEEN Calcium Oxalate Crystal 1+ Urine Bacteria 2+ Fine Granular Casts 0-5 SEEN Urine Mucus 2+ Radiography Diagnostic Testing: Radiology Impression Acute Abdomen Series 07/14/20 08:57 IMPRESSION: Ileus/early obstructive pattern No free air Degenerative bony changes Electronically Signed: Jorge Alberto Altamirano MD at 10:17 EDT , Service support , Abdomen/Pelvis CT 07/14/20 11:08 IMPRESSION: Small bowel ileus likely due to retained stool in the cecum and ascending colon Retrocardiac hiatal hernia with stable thickening of the distal esophagus suggesting reflux esophagitis. Enlarged prostate No free intraperitoneal fluid, air, or suspicious adenopathy Small bilateral pleural effusions with bibasilar atelectasis Calcified coronary vessels Stable compression fracture at L2 Electronically Signed: Jorge Alberto Altamirano MD at 13:47 EDT , Service support , Treatment and Re-Evaluation Vital Sign Attestation:: Vital signs were reviewed prior to patient being admitted. Patient is still slightly tachycardic at 116. Vital signs are otherwise stable. Discharge Plan Dx/Rx/DC Orders Clinical Impression: Obstructive ileus of small intestine due to impaction, Debility, Intractable low back pain Disposition Disposition: Acute Care [facility] Discharge Date/Time: 07/14/20 14:33
--- NOTE | 2020-07-14 08:57 | RAD_ITS ---
STUDY: X-RAY - ACUTE ABDOMINAL SERIES REASON FOR EXAM: Male, 84 years old. Abdominal pain and distention TECHNIQUE: Single view of the chest. Supine, and decubitus view(s) of the abdomen were obtained. 7 total views obtained COMPARISON: CT scan from 07/09/2020 FINDINGS: EKG leads overlie the chest There are interstitial changes of the lungs. Normal size heart. Normal mediastinum and deysi. Normal visualized pulmonary arteries. Normal visualized aortic arch and descending thoracic aorta. Borderline distended air-filled loops of small and large bowel in all 4 quadrants of the abdomen with multiple air-fluid levels noted on the decubitus films. Findings suggest ileus/early obstruction. There is no significant retained stool. There is also no bowel gas noted within the rectum. There are multiple calcified phleboliths. There are diffuse degenerative changes of the visualized lumbar spine. RAD/Acute Abdomen Inc Chest IMPRESSION: Ileus/early obstructive pattern No free air Degenerative bony changes Electronically Signed: Jorge Alberto Altamirano MD at 10:17 EDT , Service support ,
[2020-07-14] MEDS: Morphine 4 MG/ML Syringe IV (09:31)
[2020-07-14 09:32] LABS: Absolute Lymphocyte Count 0.82 X10^3/uL (0.83-4.51); Absolute Neutrophil Count 7.1 X10^3/uL (2.0-7.7); Basophil# 0.05 X10^3/uL; Basophil% 0.5 % (0-1); Eosinophil# 0.05 X10^3/uL; Eosinophils% 0.5 % (0-5); Hematocrit 48.3 % (40-54); Lymphocyte # 0.82 X10^3/ul (0.83-4.51); Lymphocyte % 8.8 % (19-41); Mean Corp Hgb Conc 35.2 g/dL (32-36); Mean Corpuscular Hgb 31.6 pg (27.0-32.0); Mean Corpuscular Volume 89.8 fL (80-94); Mean Platelet Vol. 9.3 fl (6.2-12.0); Monocyte# 1.32 X10^3/uL; Monocyte% 14.1 % (0-10); NRBC Flagged by Analyzer 0 % (0-5); Neutrophil # 7.08 X10^3/uL (2.7-7.7); Neutrophil % 75.8 % (47-70); Platelet Count 186 K/mm3 (150-450); RBC Distribution Width CV 13.2 % (11.6-14.6); RBC Distribution Width SD 43.1 fl (35.1-43.9); Red Blood Count 5.38 M/mm3 (4.6-6.2); White Blood Count 9.4 K/mm3 (4.4-11.0)
--- NOTE | 2020-07-14 09:34 | ED.RN ---
PT GIVEN A WARM BLANKET UNDER HIS BACK WHICH HELPED HIS PAIN. PT ALSO GIVEN ICE CHIPS PER REQUEST. DAUGHTER AND PT AWARE THAT WE WILL LET MEDS WORK FOR A FEW MIN THEN SEND HIM TO XRAY
[2020-07-14 09:46] LABS: ALB/GLOB Ratio 0.9 RATIO (0.9-2.4); AST(SGOT) 11 U/L (15-37); Alanine Aminotransfer ALT/SGPT 16 U/L (16-61); Alkaline Phosphatase 79 U/L (45-117); Anion Gap 7 (5-15); BUN 16 mg/dL (7-18); BUN/Creat Ratio 18.5 RATIO (10-20); Calcium,Total 8.5 mg/dL (8.5-10.1); Chloride 99 mmol/L (98-107); Creatinine, Serum 0.86 mg/dL (0.70-1.30); EST Glomerular Filtration Rate 89 mL/min (>60); Est Glom Filt Rate - Afr Amer 108 mL/min (>60); Estimated Creatinine Clearance 66.88 ml/min; Globulin 3.4 g/dL (2.2-4.2); Glucose 102 mg/dL (74-106); Potassium 3.5 mmol/L (3.5-5.1); Protein, Total 6.4 g/dL (6.4-8.2); Sodium Level 134 mmol/L (136-145)
--- NOTE | 2020-07-14 11:08 | CT_ITS ---
STUDY: CT ABDOMEN AND PELVIS WITH CONTRAST REASON FOR EXAM: Male, 84 years old. Abdominal pain -- IV PO Contrast RADIATION DOSAGE (If Supplied By Facility): CTDIvol = ( 19.88 ) mGy, DLP = ( 1097.60 ) mGycm TECHNIQUE: Transaxial images were obtained from the dome of the diaphragm to the symphysis pubis without oral contrast. Oral and amp; IV Gastrografin and amp; 100mL Isovue-300 was administered. Sagittal and coronal images were reconstructed. Individualized dose optimization techniques were used for this CT. COMPARISON: 07/09/2020 FINDINGS: Chronic interstitial changes in both lung goins with small bilateral pleural effusions and bibasilar atelectasis worse on the right than the left. Calcified coronary vessels noted. Normal liver. Normal gallbladder and extrahepatic biliary system. Normal spleen. Normal pancreas. Normal bilateral adrenal glands. Normal right kidney. Normal left kidney. Small retrocardiac hiatal hernia noted with thickening of the distal esophagus suggesting reflux esophagitis. Nondistended fluid-filled small bowel loops are noted consistent with ileus. Retained stool noted in the ascending colon There is non-visualization of the appendix. There is diffuse atherosclerotic calcification of the abdominal aorta, without a demonstrated aneurysm. Normal inferior vena cava. Normal retroperitoneum. There is a SMITH catheter within the bladder. The prostate is enlarged and contains punctate calcifications. Bilateral fat-containing inguinal hernias noted. There are diffuse degenerative changes of the visualized lumbar spine, and pelvis. Stable compression fracture at L2. CT/Abdomen/Pelvis WITH Contrast IMPRESSION: Small bowel ileus likely due to retained stool in the cecum and ascending colon Retrocardiac hiatal hernia with stable thickening of the distal esophagus suggesting reflux esophagitis. Enlarged prostate No free intraperitoneal fluid, air, or suspicious adenopathy Small bilateral pleural effusions with bibasilar atelectasis Calcified coronary vessels Stable compression fracture at L2 Electronically Signed: Jorge Alberto Altamirano MD at 13:47 EDT , Service support ,
[2020-07-14 11:49] LABS: Color, Urine Yellow (Yellow); Glucose, Dipstick Normal (Normal); Ketone-Dipstick 50 mg/dl (Negative); Leukocyte Esterase-Dipstick 25 /ul (Negative); Nitrite-Dipstick Negative (Negative); Occult Blood-Urine 25 /ul (Negative); Protein-Dipstick 15 mg/dl (Negative); Urine Bilirubin Dipstick Negative (Negative); Urine Clarity Sl. Cloudy (Clear); Urine Urobilinogen 1 mg/dl (Normal)
[2020-07-14 11:58] LABS: Bacteria 2+ /hpf (None Seen); Mucous, Urine 2+ /hpf (<or=2+)
[2020-07-14 12:00] LABS: Calcium Oxalate Crystals Ur 1+ /hpf (<or=2+); Fine Granular Cast- Urine 0-5 SEEN /lpf (0-5); Red Blood Cells-Urine 0-5 SEEN /hpf (0-5); Squamous Epithelial Cells - UA 0-5 SEEN /hpf (0-5); White Blood Cells 0-5 SEEN /hpf (0-5)
--- NOTE | 2020-07-14 13:55 | HP.PCM.HOS_ITS ---
HPI - General General Date of Admission: 07/14/20 HPI Narrative BETHANY MONAHAN, is a 84 M with a PMH as outlined who presents with a complaint of worsening back pain. Patient says he fell recently after he was trying to lift something heavy, and fractured his L2 vertebrae. He was being managed conservatively on percocet. Pain was however not well controlled, and he also complained of constipation. Pain was worsening and he couldnt move much in the ED. CT of the abdomen showed intestinal ileus. CBC showed wbc of 9.4, Hb of 17 and platelets of 186. CHemistry was unremarkable. and UA showed no evidence of UTI. CT of the abdomen and pelvis showed small bowel ileus likely due to retained stool in the cecum and ascending colon and retrocardiac hiatal hernia with stable thickening of the distal esophagus suggesting reflux esophagitis. He is being admitted to be managed for debility due to intractable back pain from compression fracture, and small bowel ileus due to constipation. [facility] Medical History Anemia Atrial fibrillation BPH (benign prostatic hyperplasia) Debility Dementia Depression Former smoker GERD (gastroesophageal reflux disease) Hypertension Hypothyroidism Hypothyroidism L2 vertebral fracture Osteoarthritis Prostatitis Sleep apnea Stroke Urinary retention Vascular dementia Home Medications levothyroxine 50 mcg PO DAILY 10/18/18 [History Last Taken Unknown] atorvastatin 40 mg PO QHS 07/11/19 [History Last Taken Unknown] finasteride 5 mg PO DAILY #30 tab 07/28/19 [Rx Last Taken Unknown] galantamine 4 mg PO BIDCM #60 tab 07/28/19 [Rx Last Taken Unknown] metoprolol tartrate 12.5 mg PO BID #60 tab 07/28/19 [Rx Last Taken Unknown] tamsulosin 0.8 mg PO DAILY@1730 #60 cap 07/28/19 [Rx Last Taken Unknown] oxycodone 5 mg PO Q4H PRN PRN 3 Days #10 tab 07/12/20 [Rx Last Taken Unknown] polyethylene glycol 3350 17 g PO DAILY #0 ea 07/12/20 [Rx Last Taken Unknown] sennosides-docusate sodium [Stool Softener-Stimulant Laxat] 2 tab PO BID PRN PRN #0 tab 07/12/20 [Rx Last Taken Unknown] Allergy/AdvReac Type Severity Reaction Status Date / Time No Known Allergies Allergy Verified 07/14/20 08:45 Surgical History S/P TURP (status post transurethral resection of prostate) Social History Smoking Status: Former smoker ROS Constitutional Constitutional: Denies anorexia, change in weight, malaise or weakness Eyes Eyes: Denies change in eye color ENT HEENT: Denies dysphagia or headache(s) Cardiovascular Cardiovascular: Denies chest pain, dyspnea on exertion, edema, lightheadedness, orthopnea, palpitations, paroxysmal nocturnal dyspnea or rapid heart rate Respiratory/Chest Respiratory/Chest: Denies cough, dyspnea, shortness of breath at rest or shortness of breath with exertion Gastrointestinal Gastrointestinal: Reports constipation; Denies abdominal pain Genitourinary Genitourinary: Denies burning urination or dysuria Musculoskeletal Musculoskeletal: Reports back pain Neurologic Neurologic: Denies abnormal gait Psychiatric Psychiatric: Denies anxiety Endocrine Endocrinology: Denies change in body appearance Hematologic/Lymphatic Hematologic/Lymphatic: Denies anemia Vital Signs Vital Signs Vital Signs: 07/14/20 08:42 07/14/20 13:26 Temperature 97.7 F L Temperature Source Oral Pulse Rate 120 H 112 H Respiratory Rate 20 H 13 Blood Pressure 104/67 126/79 H Blood Pressure Mean 79 94 Pulse Ox 96 99 Oxygen Delivery Method Room Air Room Air Physical Exam Const alert and oriented x3 General Appearance: cooperative HEENT normocephalic, head/scalp atraumatic and hearing grossly normal bilaterally Eyes EOMs intact bilaterally and conjunctivae normal Neck no lymphadenopathy Resp normal respiratory effort, no retractions, no use of accessory muscles and clear to auscultation bilaterally Cardio regular rate, regular rhythm, S1 normal heart sound, S2 normal heart sound and no murmurs GI normal to inspection, nondistended, normoactive bowel sounds, soft to palpation and non-tender Extremity normal to inspection, full ROM and no clubbing, cyanosis or edema Peripheral Pulses: Yes pulses 2+ throughout Skin no rashes or lesions noted Neuro oriented x3 Neuro Narrative: has lower back tenderness with palpation Sensorium / Orientation: awake and alert Psych affect normal Lab / Micro Data Result Diagrams: 07/14/20 09:00 07/14/20 09:00 Labs: Laboratory Results - last 24 hr 07/14/20 07/14/20 07/14/20 09:00 09:00 11:35 WBC 9.4 RBC 5.38 Hgb 17.0 H Hct 48.3 MCV 89.8 MCH 31.6 MCHC 35.2 RDW Std Deviation 43.1 RDW Coeff of Francis 13.2 Plt Count 186 MPV 9.3 Immature Gran % (Auto) 0.300 Neut % (Auto) 75.8 H Lymph % (Auto) 8.8 L [place] % (Auto) 14.1 H Eos % (Auto) 0.5 Baso % (Auto) 0.5 Absolute Neuts (auto) 7.1 Absolute Lymphs (auto) 0.82 L Nucleated RBC % 0 Sodium 134 L Potassium 3.5 Chloride 99 Carbon Dioxide 28.0 Anion Gap 7 BUN 16 Creatinine 0.86 Estim Creat Clear Calc 66.88 Est GFR (MDRD) Af Amer 108 Est GFR (MDRD) Non-Af 89 BUN/Creatinine Ratio 18.5 Glucose 102 Calcium 8.5 Total Bilirubin 1.60 H AST 11 L ALT 16 Alkaline Phosphatase 79 Troponin I < 0.015 Total Protein 6.4 Albumin 3.0 L Globulin 3.4 Albumin/Globulin Ratio 0.9 Urine Color Yellow Urine Clarity Sl. Cloudy Urine pH 6.0 Ur Specific [place] 1.020 Urine Protein 15 H Urine Glucose (UA) Normal Urine Ketones 50 H Urine Occult Blood 25 H Urine Nitrite Negative Urine Bilirubin Negative Urine Urobilinogen 1 H Ur Leukocyte Esterase 25 H Urine RBC 0-5 SEEN Urine WBC 0-5 SEEN Ur Squamous Epith Cells 0-5 SEEN Calcium Oxalate Crystal 1+ Urine Bacteria 2+ Fine Granular Casts 0-5 SEEN Urine Mucus 2+ Radiology Impression Acute Abdomen Series 07/14/20 08:57 IMPRESSION: Ileus/early obstructive pattern No free air Degenerative bony changes Electronically Signed: Jorge Alberto Altamirano MD at 10:17 EDT , Service support , Abdomen/Pelvis CT 07/14/20 11:08 IMPRESSION: Small bowel ileus likely due to retained stool in the cecum and ascending colon Retrocardiac hiatal hernia with stable thickening of the distal esophagus suggesting reflux esophagitis. Enlarged prostate No free intraperitoneal fluid, air, or suspicious adenopathy Small bilateral pleural effusions with bibasilar atelectasis Calcified coronary vessels Stable compression fracture at L2 Electronically Signed: Jorge Alberto Altamirano MD at 13:47 EDT , Service support , Assessment & Plan Assessment/Plan (1) Intractable low back pain: (2) Constipation: QUALIFIERS: Constipation type: unspecified constipation type Qualified Code(s): K59.00 - Constipation, unspecified (3) Obstructive ileus of small intestine due to impaction: PLAN: #Intractable back pain due to compression fracture of L2 * Admit to [facility] * PT OT consult. Fall precaution. * IV morphine, p.o. Tylenol and p.o. oxycodone as needed for pain * May need placement if is not able to do well with therapy. * Will place on bowel regimen * #Small bowel ileus * Due to constipation from pain medication * Will give an enema and laxatives. If constipation resolves, will hold off on general surgery consult. * will hydrate with IVF NS @ 125cc/hr * if patient continues vomiting, will insert NG tube. * #Afib with RVR * Patient's heart rate was initially controlled but when patient gets up to use the bedside commode or he throws up, his heart rate goes up to the 140s and 150s. * Patient was hydrated with IV fluids and heart rate did improve. 2D echo ordered. * I discussed with knockdown worker on-call, and the thinking is that the A. fib with RVR is likely due to patient's acute medical condition namely the small bowel ileus, nausea and vomiting and intractable back pain. We will hold off on any Cardizem or amiodarone drip for now as patient's heart rate came down to the 110s with just hydration with IV fluids. * Patient also had not taken his metoprolol today. Patient's metoprolol resumed. IV Lopressor as needed. If heart rate goes up again and remains persistently elevated, he will benefit from a drip then. * #Hypothyroidism: On statin #Hypertension: on Metoprolol #BPH: On Flomax DVT prophylaxis: lovenox Code status: DNRCCA do not intubate * Patient was not very interested in discussing CODE STATUS. However his daughter later had a chat with the nurse and per the nurse, patient's daughter said patient has essentially lost the will to live but they would want him to have treatment as needed during this admission. Patient's CODE STATUS was therefore made DNR CCA DO NOT INTUBATE per Discussion with daughter. Visit Charges Inpatient E&M: 83824 Init Hosp L3
--- NOTE | 2020-07-14 14:26 | NURSING ---
324 KORAM ILEUS, L2 FX
[2020-07-14] MEDS: Ondansetron 4 MG/2 ML Vial IV (14:29)
[2020-07-14] MEDS: 0.9% Normal Saline 1,000 ML 500 ML IV (15:45)
[2020-07-14 16:28] LABS: Magnesium 2.1 mg/dL (1.6-2.6)
[2020-07-14] MEDS: Metoprolol Tartrate 25 MG Tablet 12.5 MG PO (17:02)
[2020-07-14] MEDS: 0.9% Normal Saline 1,000 ML 125 ML IV (17:05)
[2020-07-14] MEDS: Galantamine Hydrobromide 4 MG Tablet PO (20:00)
[2020-07-14] MEDS: Senna/Docusate Sodium 1 Tablet 2 TABLET PO (20:00)
[2020-07-14] MEDS: oxyCODONE 5 MG Tablet PO (20:00)
[2020-07-14] MEDS: Tamsulosin HCl 0.4 MG Capsule 0.8 MG PO (20:00)
[2020-07-14] MEDS: Atorvastatin Calcium 40 MG Tablet PO (20:00)
[2020-07-15] VITALS (12 sets, daily range): BP systolic 132–179; BP diastolic 73–92; PULSE 69–137; RESP 16–20; TEMP 36.6–36.8; O2SAT 96–98; BMI 24.9
[2020-07-15] MEDS: 0.9% Normal Saline 1,000 ML 125 ML IV ×3 (01:30→16:49)
[2020-07-15] MEDS: Levothyroxine 50 MCG Tablet PO (05:45)
[2020-07-15] MEDS: Senna/Docusate Sodium 1 Tablet 2 TABLET PO (05:49)
[2020-07-15] MEDS: oxyCODONE 5 MG Tablet PO ×2 (05:49→23:58)
--- NOTE | 2020-07-15 05:55 | ECHOD_ITS ---
Reason For Study: AFIB Procedure This was a 2D Doppler, Color Flow transthoracic echocardiogram. Technically difficult parasternals. Exam performed portable in patient room. Left Ventricle Normal LV size. The estimated ejection fraction is 55 %. No evidence for diastolic dysfunction. No regional wall motion abnormalities noted. Right Ventricle Normal RV size. Normal systolic function. Atria Normal left atrium. Normal right atrium. No doppler evidence for ASD. Mitral Valve There is no mitral valve stenosis. Trivial mitral valve insufficiency. Tricuspid Valve There is no tricuspid stenosis. Trivial tricuspid valve insufficiency. Pulmonary artery systolic pressure is 30-35 mmHg. Aortic Valve Aortic sclerosis, no stenosis. There is no aortic stenosis. No aortic valve insufficiency. Pulmonic Valve There is no pulmonic valvular stenosis. No pulmonic valve insufficiency. Great Vessels Normal aortic root. Pericardium/Pleural No pericardial effusion. MMode/2D Measurements & Calculations LVIDd: 5.1 cm IVSd: 0.88 cm Ao root diam: 2.9 cm LVIDs: 4.2 cm LVPWd: 0.93 cm RVDd: 4.2 cm FS: 18.6 % LAV(MOD-bp): 47.0 ml LVAd ap4: 24.0 cm2 LVAd ap2: 22.0 cm2 LAV(MOD-bp) Indexed: 24.0 ml/m2 LVLd ap4: 7.1 cm LVLd ap2: 8.0 cm LAV(MOD-sp2): 36.1 ml EDV(MOD-sp4): 66.7 ml EDV(MOD-sp2): 51.0 ml LAV(MOD-sp4): 56.3 ml EDV(sp4-el): 68.4 ml EDV(sp2-el): 51.2 ml LVAs ap4: 16.9 cm2 LVAs ap2: 14.3 cm2 LVLs ap4: 6.9 cm LVLs ap2: 7.0 cm ESV(MOD-sp4): 35.7 ml ESV(MOD-sp2): 25.1 ml ESV(sp4-el): 35.4 ml ESV(sp2-el): 24.6 ml EF(MOD-sp4): 46.5 % EF(MOD-sp2): 50.9 % EF(sp4-el): 48.3 % SV(MOD-sp4): 31.0 ml SV(MOD-sp2): 26.0 ml SV(sp4-el): 33.0 ml LA dimension(2D): 3.9 cm LA A4 area: 19.3 cm2 RA A4 area: 16.7 cm2 Time Measurements MV dec time: 0.18 sec Doppler Measurements & Calculations MV E max mee: 91.0 cm/sec Ao V2 max: 98.5 cm/sec LV V1 max: 83.9 cm/sec Ao max P.0 mmHg LV V1 max P.9 mmHg PA V2 max: 96.1 cm/sec TR max mee: 290.7 cm/sec TR max P.8 mmHg ECHO/Echo Complete Interpretation Summary The estimated ejection fraction is 55 %. No evidence for diastolic dysfunction. Trivial mitral valve insufficiency. Ordering Physician: Toshia Chavez Referring Physician: SUNITA WILSON Performed By: Natali Prado RDCS, RVT
[2020-07-15 06:41] LABS: Absolute Lymphocyte Count 0.94 X10^3/uL (0.83-4.51); Absolute Neutrophil Count 5.5 X10^3/uL (2.0-7.7); Basophil# 0.05 X10^3/uL; Basophil% 0.6 % (0-1); Eosinophil# 0.09 X10^3/uL; Eosinophils% 1.2 % (0-5); Hematocrit 46.5 % (40-54); Hemoglobin 16.4 g/dL (13.0-16.5); Lymphocyte # 0.94 X10^3/ul (0.83-4.51); Lymphocyte % 12.1 % (19-41); Mean Corp Hgb Conc 35.3 g/dL (32-36); Mean Corpuscular Hgb 31.4 pg (27.0-32.0); Mean Corpuscular Volume 89.1 fL (80-94); Mean Platelet Vol. 9.7 fl (6.2-12.0); Monocyte# 1.14 X10^3/uL; Monocyte% 14.7 % (0-10); NRBC Flagged by Analyzer 0 % (0-5); Neutrophil # 5.51 X10^3/uL (2.7-7.7); Neutrophil % 70.8 % (47-70); Platelet Count 153 K/mm3 (150-450); RBC Distribution Width CV 13.2 % (11.6-14.6); Red Blood Count 5.22 M/mm3 (4.6-6.2); White Blood Count 7.8 K/mm3 (4.4-11.0)
[2020-07-15 07:09] LABS: Anion Gap 6 (5-15); BUN 12 mg/dL (7-18); BUN/Creat Ratio 20.8 RATIO (10-20); Chloride 104 mmol/L (98-107); Creatinine, Serum 0.58 mg/dL (0.70-1.30); EST Glomerular Filtration Rate 142 mL/min (>60); Est Glom Filt Rate - Afr Amer 172 mL/min (>60); Estimated Creatinine Clearance 55.76 ml/min; Glucose 94 mg/dL (74-106); Potassium 3.3 mmol/L (3.5-5.1); Sodium Level 135 mmol/L (136-145)
--- NOTE | 2020-07-15 07:33 | PN.HOSP_ITS ---
Subjective Subjective Patient easily gets frustrated not cooperative with history. States it is all mentioned in my chart. Patient has chronic urinary retention and incontinence and had Velarde catheter insertion during previous admission. Patient was discharged with Velarde catheter and is on Flomax 0.8 mg along with finasteride. Objective Data Objective Data Vital Signs: Vital Signs Temp Pulse Resp BP Pulse Ox 98.1 F 137 H 18 132/75 H 98 07/15/20 03:00 07/15/20 06:59 07/15/20 03:00 07/15/20 03:00 07/15/20 03:00 Oxygen Delivery Method Room Air Weight: 173 lb 8.061 oz Body Mass Index (BMI) 24.9 Intake & Output: Intake and Output for Last 24 Hours 07/13/20 07/14/20 07/15/20 23:59 23:59 23:59 Intake Total 1023.33 / 1023.33 1480 / 1480 Output Total 600 / 600 400 / 400 Balance 423.33 / 423.33 1080 / 1080 Lab / Micro Data Result Diagrams: 07/15/20 05:40 07/15/20 05:40 Labs: Laboratory Results - last 24 hr 07/14/20 07/14/20 07/14/20 09:00 09:00 09:00 WBC 9.4 RBC 5.38 Hgb 17.0 H Hct 48.3 MCV 89.8 MCH 31.6 MCHC 35.2 RDW Std Deviation 43.1 RDW Coeff of Francis 13.2 Plt Count 186 MPV 9.3 Immature Gran % (Auto) 0.300 Neut % (Auto) 75.8 H Lymph % (Auto) 8.8 L [place] % (Auto) 14.1 H Eos % (Auto) 0.5 Baso % (Auto) 0.5 Absolute Neuts (auto) 7.1 Absolute Lymphs (auto) 0.82 L Nucleated RBC % 0 Sodium 134 L Potassium 3.5 Chloride 99 Carbon Dioxide 28.0 Anion Gap 7 BUN 16 Creatinine 0.86 Estim Creat Clear Calc 66.88 Est GFR (MDRD) Af Amer 108 Est GFR (MDRD) Non-Af 89 BUN/Creatinine Ratio 18.5 Glucose 102 Calcium 8.5 Magnesium 2.1 Total Bilirubin 1.60 H AST 11 L ALT 16 Alkaline Phosphatase 79 Troponin I < 0.015 Total Protein 6.4 Albumin 3.0 L Globulin 3.4 Albumin/Globulin Ratio 0.9 Urine Color Urine Clarity Urine pH Ur Specific [place] Urine Protein Urine Glucose (UA) Urine Ketones Urine Occult Blood Urine Nitrite Urine Bilirubin Urine Urobilinogen Ur Leukocyte Esterase Urine RBC Urine WBC Ur Squamous Epith Cells Calcium Oxalate Crystal Urine Bacteria Fine Granular Casts Urine Mucus 07/14/20 07/15/20 07/15/20 11:35 05:40 05:40 WBC 7.8 RBC 5.22 Hgb 16.4 Hct 46.5 MCV 89.1 MCH 31.4 MCHC 35.3 RDW Std Deviation 43.0 RDW Coeff of Francis 13.2 Plt Count 153 MPV 9.7 Immature Gran % (Auto) 0.600 Neut % (Auto) 70.8 H Lymph % (Auto) 12.1 L [place] % (Auto) 14.7 H Eos % (Auto) 1.2 Baso % (Auto) 0.6 Absolute Neuts (auto) 5.5 Absolute Lymphs (auto) 0.94 Nucleated RBC % 0 Sodium 135 L Potassium 3.3 L Chloride 104 Carbon Dioxide 25.0 Anion Gap 6 BUN 12 Creatinine 0.58 L Estim Creat Clear Calc 55.76 Est GFR (MDRD) Af Amer 172 Est GFR (MDRD) Non-Af 142 BUN/Creatinine Ratio 20.8 H Glucose 94 Calcium 8.0 L Magnesium Total Bilirubin AST ALT Alkaline Phosphatase Troponin I Total Protein Albumin Globulin Albumin/Globulin Ratio Urine Color Yellow Urine Clarity Sl. Cloudy Urine pH 6.0 Ur Specific [place] 1.020 Urine Protein 15 H Urine Glucose (UA) Normal Urine Ketones 50 H Urine Occult Blood 25 H Urine Nitrite Negative Urine Bilirubin Negative Urine Urobilinogen 1 H Ur Leukocyte Esterase 25 H Urine RBC 0-5 SEEN Urine WBC 0-5 SEEN Ur Squamous Epith Cells 0-5 SEEN Calcium Oxalate Crystal 1+ Urine Bacteria 2+ Fine Granular Casts 0-5 SEEN Urine Mucus 2+ Radiography Diagnostic Testing: Radiology Impression Acute Abdomen Series 07/14/20 08:57 IMPRESSION: Ileus/early obstructive pattern No free air Degenerative bony changes Electronically Signed: Jorge Alberto Altamirano MD at 10:17 EDT , Service support , Abdomen/Pelvis CT 07/14/20 11:08 IMPRESSION: Small bowel ileus likely due to retained stool in the cecum and ascending colon Retrocardiac hiatal hernia with stable thickening of the distal esophagus suggesting reflux esophagitis. Enlarged prostate No free intraperitoneal fluid, air, or suspicious adenopathy Small bilateral pleural effusions with bibasilar atelectasis Calcified coronary vessels Stable compression fracture at L2 Electronically Signed: Jorge Alberto Altamirano MD at 13:47 EDT , Service support , Physical Exam Narrative General: Alert, Oriented x3, Cooperative. HEENT: Atraumatic, PERRLA, EOMI, Normocephalic Oral: No Gingival or Mucosal Lesions/ Ulcerations Neck: Supple, No JVD, Negative Carotid Bruits Lungs:? Air entry diminished in bilateral lung bases.? No crepitation/rhonchi Cardiovascular: Regular rate, Regular Rhythm, Normal S1, Normal S2, No murmurs Abdomen: Bowel Sounds Present, Soft, Non Tender, Non-Distended : Velarde catheter, yellow urine. No renal angle tenderness.? No suprapubic tenderness. Extremities: No edema, Capillary Refill Less than 3 Seconds Skin: No rashes, No breakdown Musculoskeletal/spine: Tenderness over L2-L3 vertebra.? No Tenderness to Palpation of joints of extremities.? ROM limited. Neurological: Cranial nerves II-XII grossly intact, Deep Tendon Reflexes 2+/4 and Symmetrical, Neuro grossly intact Psych/Mental Status: Irritable, mild cognitive deficit. Assessment & Plan Assessment/Plan (1) Obstructive ileus of small intestine due to impaction: (2) Closed compression fracture of L2 vertebra: QUALIFIERS: Encounter type: initial encounter Qualified Code(s): S32.020A - Wedge compression fracture of second lumbar vertebra, initial encounter for closed fracture PLAN: This is an elderly 84-year-old gentleman was discharged on 07/14 after pain control of compression fracture of L2 vertebra but came back to ER wi th worsening of pain. CT of abdomen showed intestinal ileus. 1.? Acute intractable back pain secondary to subacute compression fracture of L2 vertebra with disability: Lower lumbar spine pain mainly on movement and is standing up. PT and OT. On pain medications. During previous admission, patie nt was advised to follow-up with Dr. Basali for outpatient kyphoplasty. 2. Constipation with a small bowel ileus: On stool regimen. Dulcolax suppository and soapsuds enema as needed. Patient had bowel movement in the morning today. 3.? A. fib with RVR: Patient heart rate easily controlled but goes high in the 140s on exertion walking. On metoprolol. IV metoprolol as needed for heart rate more than 120. Discussed with floor layer apprentice by admitting hospitalist and advised to hold on Cardizem or amiodarone drip. Heart rate is low 100s. 4. Urinary retention with incontinence probably for last 6 months: 1 Velarde catheter. U[address]ist consult Dr. Griffith. Continue Flomax and Proscar. Rest of chronic medical conditions including dementia, BPH, hypothyroidism, hypertension all remained stable DVT prophylaxis: lovenox Code status: DNRCCA do not intubate as per during last admission which was last week. CODE STATUS was discussed with patient's daughter. Visit Charges Inpatient E&M: 38608 Subs Hosp L2
[2020-07-15] MEDS: Enoxaparin 40 MG/0.4 ML Syringe SC (09:06)
[2020-07-15] MEDS: Metoprolol Tartrate 25 MG Tablet 12.5 MG PO (09:07)
[2020-07-15] MEDS: Galantamine Hydrobromide 4 MG Tablet PO ×2 (09:07→16:50)
[2020-07-15] MEDS: Polyethylene Glycol 3350 17 GM PACKET PO (09:07)
[2020-07-15] MEDS: Finasteride 5 MG Tablet PO (09:07)
--- NOTE | 2020-07-15 13:50 | CASEMGMT ---
Addendum entered by Shira Syed 07/15/20 14:33: Upon giving pt ESCOBEDO form, pt sig other needed assistance with transportation home. TC to grandson Ej Win per pt request. He is coming to transport sig other who has dementia. Original Note: ABELARDO PINEDO made tc to pt dtr regarding ESCOBEDO form as pt is confused per MD report. ABELARDO PINEDO explained ESCOBEDO form, daughter voiced understanding. Daughter gave verbal consent of signature for form and filed in chart. Pt provided with a copy of signed ESCOBEDO form in room. Patient daughter had no further questions or concerns at this time. Jaylyn GOEL witnessed daughter's consent.
--- NOTE | 2020-07-15 13:52 | CASEMGMT ---
MANASA spoke with patient's daughter via phone. SW asked if she was looking for patient to go to a assisted facility. She said definitely. She is out of town until Sunday. She was not sure where she wants him to go. She asked SW to call her son, patient's grandson. He is handling things while she is out of town. SW will call patient's grandson. Jaylyn BLANKENSHIP
--- NOTE | 2020-07-15 14:44 | NT.THERAPY_ITS ---
Nutrition Therapy Report - History Nutrition Services has been consulted to:: Manage nutrient details of diet order Current diet / nutrition support order:: clear liquids, 120mL ensure clear 4x/day - Anthropometric Measurements Height:: 5 ft 10 in Weight:: 78.7 kg Body Mass Index (BMI):: 24.9 - Relevant Labs Relevant Labs:: Hgb 17.0 g/dL (13.0-16.5) H 07/14/20 09:00 Neut % (Auto) 70.8 % (47-70) H 07/15/20 05:40 Lymph % (Auto) 12.1 % (19-41) L 07/15/20 05:40 [place] % (Auto) 14.7 % (0-10) H 07/15/20 05:40 Absolute Lymphs (auto) 0.82 X10^3/uL (0.83-4.51) L 07/14/20 09:00 Sodium 135 mmol/L (136-145) L 07/15/20 05:40 Potassium 3.3 mmol/L (3.5-5.1) L 07/15/20 05:40 Creatinine 0.58 mg/dL (0.70-1.30) L 07/15/20 05:40 BUN/Creatinine Ratio 20.8 RATIO (10-20) H 07/15/20 05:40 Calcium 8.0 mg/dL (8.5-10.1) L 07/15/20 05:40 Total Bilirubin 1.60 mg/dL (0.20-1.00) H 07/14/20 09:00 AST 11 U/L (15-37) L 07/14/20 09:00 Albumin 3.0 g/dL (3.2-5.0) L 07/14/20 09:00 - Assessment Food / Nutrition-Related History:: Pt reports that he has been eating ~50% of his meals. Denies any decrease in appetite. Pt believes UBW is 200# and CBW is 174# representing weight loss of 14% in one year. However, per EMR wt was 183.2# on 07/11/2019 suggesting a 5% wt loss x 1 year. Says he doesn't remember when he last weighed himself. States that he has had chronic constipation. Reports trouble swallowing at times but pt is not specific w/ detains. Noted hx of dysphagia. Denies presence of nausea or vomiting. Says that he has an urge to cough at times. Noted prominent clavicles/muscle loss in clavicle region. - Nutrition Diagnosis Problem / Etiology / Signs & Symptoms (PES):: moderate, chronic malnutrition r/t alteration in gastrointestinal tract function as evidenced by pt report of consumption of ~50% food at meals, muscle wasting/fat loss w/ prominent clavicles, and chronically decreased appetite r/t chronic constipation. Evidence of Malnutrition Exists:: Yes Moderate Protein Calorie Malnutrition:: Chronic Illness - Nutrition Intervention Nutrition Prescription:: 1,800-1,900 kcal/day (RMR x 1.3). Protein 70-80g/day (1g/kg). Fluid 2000mL/day (25mL/kg) - Food / Nutrient Delivery Interventions Summary of nutrition intervention:: Pt is not appropriate for nutrition education. Will monitor appropriateness of ASSET PROTECTION ASSISTANT evaluation pending advancement of PO diet. Nutrition support ordered as / adjusted to:: advance as tolerated to regular; continue ensure w/ medpass. ASSET PROTECTION ASSISTANT eval pending chewing/swallowing difficulties. - MNT Monitoring Further MNT monitoring and evaluation required?: Yes MNT Follow-up in:: 3-5 days
--- NOTE | 2020-07-15 15:58 | CASEMGMT ---
MANASA spoke with patient's grandson Lázaro. MANASA sat down with him and answered his questions as he said he was tossed in the middle of this since his aunt is out of town. He said he thought the plan was for patient to go to [facility]. MANASA told him SW can check on bed availability. MANASA called while sitting there and they would have a bed Sunday. She will look at patient. MANASA let Ej know there is a bed, but they will have to review his chart to make sure they can accept him. MANASA told Ej SW will let him know if there are any problems with TCU. MANASA also told him SW will call [employer] to get patient's benefits for snf. MANASA gave him MANASA's card. MANASA told him MANASA will follow up with him tomorrow with answers to his questions. Plan: [facility]CU as long as they can accept him. The bed will be available Sunday. Family's plan is to have patient go to TCU short term while they decide which facility they would like him to go to senior living. Jaylyn Guzman ELECTRIC METER TESTER PATTIE
[2020-07-15] MEDS: Metoprolol Tartrate 25 MG Tablet PO ×2 (16:49→22:15)
[2020-07-15] MEDS: Tamsulosin HCl 0.4 MG Capsule 0.8 MG PO (16:50)
[2020-07-15] MEDS: Atorvastatin Calcium 40 MG Tablet PO (22:15)
[2020-07-15] MEDS: Ensure Clear 120 ML Liquid PO (22:17)
[2020-07-16] VITALS (8 sets, daily range): BP systolic 130–145; BP diastolic 80–85; PULSE 62–105; RESP 18; TEMP 36.6; O2SAT 97–98
[2020-07-16] MEDS: Levothyroxine 50 MCG Tablet PO (06:16)
[2020-07-16] MEDS: 0.9% Normal Saline 1,000 ML 125 ML IV ×2 (08:07)
[2020-07-16] MEDS: 0.9% Saline Lock 10 ML Syringe IV (08:09)
[2020-07-16] MEDS: Galantamine Hydrobromide 4 MG Tablet PO (09:09)
[2020-07-16] MEDS: Metoprolol Tartrate 25 MG Tablet PO (09:09)
[2020-07-16] MEDS: Enoxaparin 40 MG/0.4 ML Syringe SC (09:10)
[2020-07-16] MEDS: Polyethylene Glycol 3350 17 GM PACKET PO (09:10)
[2020-07-16] MEDS: Finasteride 5 MG Tablet PO (09:11)
--- NOTE | 2020-07-16 09:40 | CASEMGMT ---
MANASA faxed all clinicals to [facility] to obtain insurance authorization. MANASA also called [facility] to obtain patient's SNF benefits. He does not have out of network benefits. His in network benefits are as follows: Days 1-20 covered at 100%, days 21-45 $120/day co-pay, and days 46-100 covered at 100%. MANASA called patient's nephew and gave him this information. MANASA let him know that [facility] can take patient, but it won't be until tomorrow as long as insurance approves him. He asked for some guidance on patient's significant other. She also has Dementia and she has not family. MANASA told him to call Adult Protective Services for some guidance. MANASA also explained the TCU visitation. MANASA gave him the name of the individual he needs to talk with and the phone number to [facility]. MANASA told him he will need to bring in a copy of patient's COVID vaccine card. MANASA also gave him MANASA Mendez in TCU's name and number. MANASA called Vanessa in TCU and left her a voice mail letting her know patient's family's plans. MANASA received a call from Brigid at [facility] and patient was approved to go to [facility] when ready and a bed is available. Jaylyn BLANKENSHIP
--- NOTE | 2020-07-16 11:08 | PN.HOSP_ITS ---
Objective Data Objective Data Vital Signs: Vital Signs Temp Pulse Resp BP Pulse Ox 97.8 F 62 18 145/85 H 97 07/16/20 09:05 07/16/20 09:09 07/16/20 09:05 07/16/20 09:09 07/16/20 09:05 Oxygen Delivery Method Room Air Weight: 173 lb 8.061 oz Body Mass Index (BMI) 24.9 Intake & Output: Intake and Output for Last 24 Hours 07/14/20 07/15/20 07/16/20 23:59 23:59 23:59 Intake Total 1023.33 / 1023.33 3874.58 / 4772.50 1897.92 / 1897.92 Output Total 600 / 600 1600 / 2500 1750 / 1750 Balance 423.33 / 423.33 2274.58 / 2272.50 147.92 / 147.92 Lab / Micro Data Result Diagrams: 07/15/20 05:40 07/15/20 05:40 Micro: Microbiology 07/16/20 10:15 Mucosa - Nose SARS-CoV-2 Antigen (Rapid) - Final Radiography Diagnostic Testing: Radiology Impression Echocardiogram 07/15/20 05:55 Interpretation Summary The estimated ejection fraction is 55 %. No evidence for diastolic dysfunction. Trivial mitral valve insufficiency. Ordering Physician: Toshia Chavez Referring Physician: SUNITA WILSON Performed By: Natali Prado, RDCS, RVT
[2020-07-16] MEDS: oxyCODONE 5 MG Tablet PO (11:59)
--- NOTE | 2020-07-16 12:41 | CASEMGMT ---
There is now a bed available in TCU today. Physician will send patient today. SW notified RN and fisher hand line. SW also called patient's grandson, Lázaro and let him know this information. He will be in to see patient around 130-2p. MANASA notified RN. Plan: d/c to [facility] TCU under skilled level of care. Jaylyn Guzman SHOE STICKS REPAIRER PATTIE
--- NOTE | 2020-07-16 13:31 | TREXTCAR_ITS ---
Diet 07/14/20 15:09 Diet: Clear Liquid Food consistency:: N/A - Liquid only Liquid Consistency:: Regular/Thin Routine Orders/Code Status Suppository Type: Dulcolax 10mg Suppository Frequency: Daily PRN Routine Lab Work: CBC and BMP Code Status: DNRCC-A Therapies Weight Bearing: Weight bearing as tolerated Extremity Affected:: Bilateral Lower Physical Therapy: Eval and Treat Occupational Therapy: Eval and Treat Speech Therapy: Eval and Treat Problem/Diagnosis (1) Obstructive ileus of small intestine due to impaction: Status: Acute (2) Closed compression fracture of L2 vertebra: Status: Acute Allergies/Procedures Done in Hospital Allergies No Known Allergies Allergy (Verified 07/14/20 08:45) Type of Care/Length of Stay Estimated LOS: Convalescent Care Less Than 30 days Type of Care Needed: Skilled Rehab Potential: Good Prognosis: Good Additional Orders/Day of Discharge Day of Discharge: 07/16/20 Dietary and Speech Recommendations Dietitian Recommendations/Changes: Continue clear liquid diet. Proceed to general-healthful diet when medically appropriate. Continue ensure clear 120mL PO 4x/day at [facility]. Anamaria White MS, RDN, LD Follow Up Care Please Follow Up With: Markos Griffith MD When: In 1 to 2 weeks. Patient has indwelling Velarde catheter Discharge Plan Admission Admit Date/Time: 07/14/20 14:10 Primary Reason for Your Visit: Back pain. Constipation with small bowel ileus Attending Provider: Tyler Holt Primary Care Provider: Jose Francisco Shah Chi Consulting Providers: Markos Griffith Instructions Patient Instructions: ED Back Pain (Acute or Chronic) Discharge Orders/Prescriptions Prescriptions: New bisacodyl 10 mg Suppository 10 mg ME DAILY PRN PRN (Reason: Constipation) Qty: 0 RF: 0 ciprofloxacin HCl 0.3 % Drops 2 drp EACH EYE Q6H Qty: 0 RF: 0 enoxaparin 40 mg/0.4 mL Syringe 40 mg subcut DAILY Qty: 0 RF: 0 Continued levothyroxine 50 MCG tablet 50 mcg PO DAILY RF: 0 atorvastatin 40 MG tablet 40 mg PO QHS RF: 0 galantamine 4 MG tablet 4 mg PO BIDCM Qty: 60 RF: 0 metoprolol tartrate 25 MG tablet 12.5 mg PO BID Qty: 60 RF: 0 tamsulosin 0.4 MG capsule 0.8 mg PO DAILY@1730 Qty: 60 RF: 0 finasteride 5 MG tablet 5 mg PO DAILY Qty: 30 RF: 0 polyethylene glycol 3350 17 gram Powder In Packet 17 g PO DAILY Qty: 0 RF: 0 oxycodone 5 mg tablet 5 mg PO Q4H PRN PRN (Reason: Pain Score 4-10/10) 3 Days Qty: 10 RF: 0 Changed sennosides-docusate sodium [Stool Softener-Stimulant Laxat] 8.6-50 mg Tablet 2 tab PO BID Qty: 0 RF: 0 Referrals / Follow Up: Jose Francisco Shah Chi, MD [Primary Care Provider] - Markos Griffith MD [STAFF PHYSICIAN] - Disposition Disposition (needs filled in before D/C Order can be placed): [facility]
--- NOTE | 2020-07-16 13:37 | DS.PCM_ITS ---
Providers Date of Admission: 07/14/20 Primary Care Physician: Dr. Jose Francisco Shah MD Consultations 07/15/20 14:28 Consult: Urology Routine Consulting Provider: Markos Griffith Reason for Consult: On chronic Velarde catheter for about 6 months. Etiology unclear EMERGENT Consult: No MD Notified: Yes Date Notified:: 07/15/20 Time Notified: 13:30 Method of Notification: Verbal Reason For Visit: SMALL BOWEL ILEUS, INTRACTABLE BACK PAIN Diagnosis Discharge Diagnosis (1) Obstructive ileus of small intestine due to impaction: Status: Acute Code(s): K56.699 - Other intestinal obstruction unspecified as to partial versus complete obstruction; K56.49 - Other impaction of intestine (2) Closed compression fracture of L2 vertebra: Status: Acute Code(s): S32.020A - Wedge compression fracture of second lumbar vertebra, initial encounter for closed fracture Qualifiers: Encounter type: initial encounter Qualified Code(s): S32.020A - Wedge compression fracture of second lumbar vertebra, initial encounter for closed fracture Medications at Discharge Home Medications levothyroxine 50 mcg PO DAILY 10/18/18 atorvastatin 40 mg PO QHS 07/11/19 finasteride 5 mg PO DAILY #30 tab 07/28/19 galantamine 4 mg PO BIDCM #60 tab 07/28/19 metoprolol tartrate 12.5 mg PO BID #60 tab 07/28/19 tamsulosin 0.8 mg PO DAILY@1730 #60 cap 07/28/19 oxycodone 5 mg PO Q4H PRN PRN 3 Days #10 tab 07/12/20 polyethylene glycol 3350 17 g PO DAILY #0 ea 07/12/20 bisacodyl 10 mg ME DAILY PRN PRN #0 ea 07/16/20 ciprofloxacin HCl 2 drp EACH EYE Q6H #0 ml 07/16/20 enoxaparin 40 mg SUBCUT DAILY #0 ml 07/16/20 sennosides-docusate sodium [Stool Softener-Stimulant Laxat] 2 tab PO BID #0 tab 07/16/20 Hospital Course Summary of Care Provided Hospital Course: ?This is an elderly 84-year-old gentleman was discharged on 07/14 after pain control of compression fracture of L2 vertebra but came back to ER with worsening of pain.? CT of abdomen showed intestinal ileus. 1.? Acute intractable back pain secondary to subacute compression fracture of L2 vertebra with disability: Lower lumbar spine pain mainly on movement and is standing up.? PT and OT.? On pain medications.? During previous admission, christian mendoza was advised to follow-up with Dr. Myrick? for outpatient kyphoplasty. Discharged to TCU. 2.? Constipation with a small bowel ileus: On stool regimen.? Dulcolax suppository and soapsuds enema as needed.? Continue senna?S, 2 tablet twice daily and MiraLAX. 3.? A. fib with RVR: Patient heart rate easily controlled but goes high in the 140s on exertion walking.? On metoprolol.? IV metoprolol as needed for heart rate more than 120.? Discussed with director of audiology by admitting hospitalist and a dvised to hold on Cardizem or amiodarone drip.? Heart rate is low 100s. Heart rate is controlled. Sinus rhythm 4.? Urinary retention with incontinence probably for last 6 months: 1 Velarde catheter.? Discussed with the urologist, Dr. Griffith yesterday and he agreed to see the patient. ? Continue Flomax and Proscar. ?Rest of chronic medical conditions including dementia, BPH, hypothyroidism, hypertension all remained stable Mild bilateral bulbar conjunctivitis: Cipro drops every 6 hourly bilateral eyes for 3 days. DVT prophylaxis: lovenox 40 mg milligrams for 2 weeks. Discontinue if platelet count drops less than 50,000 or hemoglobin less than 8 g% Code status: DNRCCA do not intubate as per during last admission which was last week.? CODE STATUS was discussed with patient's daughter. Discharge medication reconciliation done. Discharge follow-up instructions completed. Discharge process discussed with the patient and all questions were answered to patient's satisfaction. Total time spent, exact 35 minutes on discharge meds reconciliation, examination, coordination of care with nurses and ancillary staff, review of imaging and blood test and discussion with the patient on follow-up instructions Physical Exam Narrative Seen and examined. Patient back pain is better. His eyes seems red mainly bulbar conjunctiva, right more than left. Patient had bowel movement yesterday. General: Alert, Oriented x3, Cooperative. HEENT: Atraumatic, PERRLA, EOMI, Normocephalic. Bilateral conjunctivitis. Oral: No Gingival or Mucosal Lesions/ Ulcerations Neck: Supple, No JVD, Negative Carotid Bruits Lungs:? Air entry diminished in bilateral lung bases.? No crepitation/rhonchi Cardiovascular: Regular rate, Regular Rhythm, Normal S1, Normal S2, No murmurs Abdomen: Bowel Sounds Present, Soft, Non Tender, Non-Distended : Velarde catheter, yellow urine. No renal angle tenderness.? No suprapubic tenderness. Extremities: Mild bilateral ankle edema, Capillary Refill Less than 3 Seconds Skin: No rashes, No breakdown Musculoskeletal/spine: Tenderness over L2-L3 vertebra.? No Tenderness to Palpation of joints of extremities.? ROM limited. Neurological: Cranial nerves II-XII grossly intact, Deep Tendon Reflexes 2+/4 and Symmetrical, Neuro grossly intact Psych/Mental Status: Dementia. ABG / Lab / Microbiology Data Result Diagrams: 07/15/20 05:40 07/15/20 05:40 Microbiology: Microbiology 07/16/20 10:15 SARS-CoV-2 Antigen (Rapid) - Final Mucosa - Nose Microbiology 07/16/20 10:15 Mucosa - Nose SARS-CoV-2 Antigen (Rapid) - Final Radiography Diagnostic Testing: Radiology Impression Echocardiogram 07/15/20 05:55 Interpretation Summary The estimated ejection fraction is 55 %. No evidence for diastolic dysfunction. Trivial mitral valve insufficiency. Ordering Physician: Toshia Chavez Referring Physician: JOSE FRANCISCO SHAH Performed By: Natali Prado, ZEUS, RVT D/C Instructions Please Follow Up With: Markos Griffith MD Meaningful Use Info Meaningful Use Diagnoses (Choose all that apply): None applicable Discharge Plan Admission Admit Date/Time: 07/14/20 14:10 Primary Reason for Your Visit: Back pain. Constipation with small bowel ileus Attending Provider: Tyler Holt Primary Care Provider: Jose Francisco Shah Chi Consulting Providers: Markos Griffith Instructions Patient Instructions: ED Back Pain (Acute or Chronic) Discharge Orders/Prescriptions Prescriptions: New bisacodyl 10 mg Suppository 10 mg ME DAILY PRN PRN (Reason: Constipation) Qty: 0 RF: 0 ciprofloxacin HCl 0.3 % Drops 2 drp EACH EYE Q6H Qty: 0 RF: 0 enoxaparin 40 mg/0.4 mL Syringe 40 mg subcut DAILY Qty: 0 RF: 0 Continued levothyroxine 50 MCG tablet 50 mcg PO DAILY RF: 0 atorvastatin 40 MG tablet 40 mg PO QHS RF: 0 galantamine 4 MG tablet 4 mg PO BIDCM Qty: 60 RF: 0 metoprolol tartrate 25 MG tablet 12.5 mg PO BID Qty: 60 RF: 0 tamsulosin 0.4 MG capsule 0.8 mg PO DAILY@1730 Qty: 60 RF: 0 finasteride 5 MG tablet 5 mg PO DAILY Qty: 30 RF: 0 polyethylene glycol 3350 17 gram Powder In Packet 17 g PO DAILY Qty: 0 RF: 0 oxycodone 5 mg tablet 5 mg PO Q4H PRN PRN (Reason: Pain Score 4-10/10) 3 Days Qty: 10 RF: 0 Changed sennosides-docusate sodium [Stool Softener-Stimulant Laxat] 8.6-50 mg Tablet 2 tab PO BID Qty: 0 RF: 0 Referrals / Follow Up: Markos Griffith MD [STAFF PHYSICIAN] - Jose Francisco Shah Chi, MD [Primary Care Provider] - Disposition Disposition (needs filled in before D/C Order can be placed): [facility] Facility Visit Charges Inpatient E&M: 13710 Disch Hosp
--- NOTE | 2020-07-16 13:42 | PHA.DC.MR ---
Pharmacy Service has performed discharge medication reconciliation for this patient. The patient's discharge medication list was reviewed for discrepancies and discrepancies were resolved. Home Medications levothyroxine 50 mcg PO DAILY 10/18/18 atorvastatin 40 mg PO QHS 07/11/19 finasteride 5 mg PO DAILY #30 tab 07/28/19 galantamine 4 mg PO BIDCM #60 tab 07/28/19 metoprolol tartrate 12.5 mg PO BID #60 tab 07/28/19 tamsulosin 0.8 mg PO DAILY@1730 #60 cap 07/28/19 oxycodone 5 mg PO Q4H PRN PRN 3 Days #10 tab 07/12/20 polyethylene glycol 3350 17 g PO DAILY #0 ea 07/12/20 bisacodyl 10 mg [place] DAILY PRN PRN #0 ea 07/16/20 ciprofloxacin HCl 2 drp EACH EYE Q6H #0 ml 07/16/20 enoxaparin 40 mg SUBCUT DAILY #0 ml 07/16/20 sennosides-docusate sodium [Stool Softener-Stimulant Laxat] 2 tab PO BID #0 tab 07/16/20
[2020-07-16] MEDS: Potassium Chloride Oral Tablet 20 MEQ 40 MEQ PO (13:58)
--- NOTE | 2020-07-16 14:17 | NURSING ---
Report called to nurse Walter for pt transfer to TCU
[2020-07-16] MEDS: Ciprofloxacin 0.3% 2.5ml Bottle 2 DRP EACH EYE (14:27)
--- NOTE | 2020-07-16 14:39 | CON.PCM.UR_ITS ---
Assessment & Plan Assessment/Plan (1) Retention of urine: PLAN: Plan to proceed with the cystoscopy evaluate the prostatic channel tomorrow possible TURP patient is agreeable with the plan will make him n.p.o. at midnight and let us hold his Lovenox. HPI Consult Data Date of Consult: 07/16/20 HPI Narrative HPI Narrative: Patient presented to the hospital he has retention of urine with a Velarde catheter he does have poor memory problems care member when the catheter was put in. Says he is did see a urologist in the past but because of his poor compliance I do not think he followed up for anything to do with the catheter has been just been living with a catheter for a long time. He is also here with his today. He has fairly severe dementia. [facility] Medical History Anemia Atrial fibrillation BPH (benign prostatic hyperplasia) Debility Dementia Depression Former smoker GERD (gastroesophageal reflux disease) Hypertension Hypothyroidism Hypothyroidism L2 vertebral fracture Osteoarthritis Prostatitis Sleep apnea Stroke Urinary retention Vascular dementia Home Medications levothyroxine 50 mcg PO DAILY 10/18/18 [History Last Taken Unknown] atorvastatin 40 mg PO QHS 07/11/19 [History Last Taken Unknown] finasteride 5 mg PO DAILY #30 tab 07/28/19 [Rx Last Taken Unknown] galantamine 4 mg PO BIDCM #60 tab 07/28/19 [Rx Last Taken Unknown] metoprolol tartrate 12.5 mg PO BID #60 tab 07/28/19 [Rx Last Taken Unknown] tamsulosin 0.8 mg PO DAILY@1730 #60 cap 07/28/19 [Rx Last Taken Unknown] oxycodone 5 mg PO Q4H PRN PRN 3 Days #10 tab 07/12/20 [Rx Last Taken Unknown] polyethylene glycol 3350 17 g PO DAILY #0 ea 07/12/20 [Rx Last Taken Unknown] bisacodyl 10 mg [place] DAILY PRN PRN #0 ea 07/16/20 [Rx Last Taken Unknown] ciprofloxacin HCl 2 drp EACH EYE Q6H #0 ml 07/16/20 [Rx Last Taken Unknown] enoxaparin 40 mg SUBCUT DAILY #0 ml 07/16/20 [Rx Last Taken Unknown] sennosides-docusate sodium [Stool Softener-Stimulant Laxat] 2 tab PO BID #0 tab 07/16/20 [Rx Last Taken Unknown] Allergy/AdvReac Type Severity Reaction Status Date / Time No Known Allergies Allergy Verified 07/14/20 08:45 Surgical History S/P TURP (status post transurethral resection of prostate) Social History Smoking Status: Former smoker Physical Exam Const alert and oriented x3 General Appearance: cooperative HEENT normocephalic, head/scalp atraumatic, EAC's normal and TM's normal bilaterally Eyes PERRL and EOMs intact bilaterally Pupil: sluggish Neck no lymphadenopathy, supple and no JVD General: trachea midline Lymph Lymphatic: no lymphadenopathy noted, lymphedema and lymphadenopathy Resp normal respiratory effort, normal air movement and clear to auscultation bilaterally Cardio regular rate, regular rhythm and peripheral pulses 2+ throughout GI soft to palpation, non-tender and non-distended Extremity normal capillary refill and no clubbing, cyanosis or edema General Extremity: no tenderness to palpation of joints or extremities Skin no rashes or lesions noted General Skin Exam: turgor normal Lesions: no lesions Rashes: no rashes Neuro CN's II-XII intact bilaterally Speech: speech normal Motor Exam: strength 5/5 throughout; Negative for general weakness Psych thought process normal, cooperative and affect normal Appearance: appropriate Lab / Micro Data Result Diagrams: 07/15/20 05:40 07/15/20 05:40 Micro: Microbiology 07/16/20 10:15 SARS-CoV-2 Antigen (Rapid) - Final Mucosa - Nose Radiology Impression Echocardiogram 07/15/20 05:55 Interpretation Summary The estimated ejection fraction is 55 %. No evidence for diastolic dysfunction. Trivial mitral valve insufficiency. Ordering Physician: Toshia Chavez Referring Physician: SUNITA WILSON Performed By: Natali Prado, RDCS, RVT
--- NOTE | 2020-07-16 15:43 | PCM.OPRPT ---
Report of Operation Date of Procedure: 07/16/20 Pre-Operative Diagnosis: BPH with obstruction Post-Operative Diagnosis: Same Surgery/Procedure Performed:: TURP Description of Surgical Findings:: In the preoperative setting I discussed with the patient how the surgery would be done with expect afterwards. We discussed how a prostate resection is done and we discussed the risk of the surgery including, bleeding, infection, retrograde ejaculation, changes with ejaculation or intercourse,. We discussed the possibility that the resection of the prostate may not alleviate his urinary symptoms. We discussed the small risk of developing scar tissue along the urethral channel and strictures. We also discussed the chance of the prostate could grow back and he may need further surgery or treatment in the future for prostate problems. Patient was taken back to the operating room, timeout procedure was performed, he was identified and marked and placed on the operating room table. He underwent general anesthesia. He was placed in dorsolithotomy position. Penis and testicles were prepped and draped in usual sterile fashion. Went into the bladder using the visual obturator with a resectoscope. Once inside the bladder identified the right and left ureteral orifice. I then identified the prostate and the anatomy of the prostate. I marked out the area of the sphincter and the verumontanum was identified. I then proceeded with the prostate resection first resected the median lobe. And then resected the right lobe of the prostate. Then to resect the left lobe of the prostate. I then resected the apical tissue of the prostate. Made sure that there was no injury to the sphincter or the verumontanum was still intact. At the end of the resection all the chips were Ellik out of the bladder. I then identified the left and right ureteral orifice and these were confirmed to be in good position and effluxing and not injured. The resectoscope was removed, a [place] catheter was placed into the bladder on continuous irrigation. And the urine was fairly light pink color and draining normally. He was taken back to the PACU in good condition. Surgeon: TEMITOPE Drains: 22 [place] three-way Admit VTE Documentation VTE Present on Admission: No VTE Mechan Device Prophylaxis: SCD's
== END 2020-07-16 16:25 ==
LOC: ED 14:14 → PCU 07-15 06:20
PROVIDERS: Admitting Provider Student in an Organized Health Care Education/Training Program; Emergency Provider Emergency Medicine; PCP Family Medicine Geriatric Medicine; Visit Provider Internal Medicine
DX: K56.699 Other intestinal obstruction unspecified as to partial versus complete obstruction (principal); K56.49 Other impaction of intestine; K21.9 Gastro-esophageal reflux disease without esophagitis; I48.91 Unspecified atrial fibrillation; N40.1 Benign prostatic hyperplasia with lower urinary tract symptoms; R33.8 Other retention of urine; G47.30 Sleep apnea, unspecified; M19.90 Unspecified osteoarthritis, unspecified site; F01.50 Vascular dementia, unspecified severity, without behavioral disturbance, psychotic disturbance, mood disturbance, and anxiety; E03.9 Hypothyroidism, unspecified; K44.9 Diaphragmatic hernia without obstruction or gangrene; I10 Essential (primary) hypertension; S32.020D Wedge compression fracture of second lumbar vertebra, subsequent encounter for fracture with routine healing; X50.0XXD Overexertion from strenuous movement or load, subsequent encounter; Z87.891 Personal history of nicotine dependence; Z79.899 Other long term (current) drug therapy; K59.03 Drug induced constipation
CPT/HCPCS: 36415; 51702; 74022; 74177; 80048; 80053; 81001; 83735; 84484; 85025; 87426; 93306; 96361; 96372; 96374; 96375; 97162; 97166; 97530; 97535; 97802; 99218; 99285; J7030; Q9967; A4216; G0378; J2405

== ENCOUNTER 2020-07-16 17:13 | Inpatient (IN) | payer MEDICARE, SELFPAY ==
[2020-07-15 14:49] VITALS: BMI 24.9
[2020-07-16 17:00] VITALS: BP 139/84; PULSE 89; RESP 18; TEMP 36.7; O2SAT 97; BMI 25.1
[2020-07-16] MEDS: Ciprofloxacin 0.3% 2.5ml Bottle 2 DRP EACH EYE ×2 (18:28→23:42)
[2020-07-16] MEDS: Tamsulosin HCl 0.4 MG Capsule 0.8 MG PO (18:28)
[2020-07-16] MEDS: Senna/Docusate Sodium 1 Tablet 2 TABLET PO (18:29)
[2020-07-16 18:34] VITALS: PULSE 89
[2020-07-16] MEDS: Metoprolol Tartrate 25 MG Tablet 12.5 MG PO (18:34)
[2020-07-16] MEDS: Atorvastatin Calcium 40 MG Tablet PO (20:34)
--- NOTE | 2020-07-16 20:49 | HP.PCM_ITS ---
HPI - General General Date of Admission: 07/16/20 HPI Narrative 07/14/2020 BETHANY MONAHAN, is a 84 Male who presents to [facility] Emergency Department with back pain. Back pain worse, recent fall with L2 compression fracture. Failed home medications, Pain worse with movement. Pain radiates to abdomen. Acute abdominal series showed possible ileus/early small bowel obstruction. CT abdomen/pelvis showed ileus. Troponin negative, UA negative. 07/14/2020 Admit to Hospital. PT/OT for debility. Enema, laxatives, IV fluids for ileus secondary to constipation. IV Metoprolol as needed for atrial fibrillation with rapid ventricular response. 07/15/2020 Echo EF 55%. Negative diastolic dysfunction. 07/15/2020 Bowel movement today. Tamsulosin, Finasteride, indwelling ventura catheter, Urology for urinary retention. 07/16/2020 Admit to TCU with debility, here for rehabilitation, strengthening, prior to discharge home with significant other. FOR[facility], LATER [facility] Medical History Anemia Atrial fibrillation BPH (benign prostatic hyperplasia) Debility Dementia Depression Former smoker GERD (gastroesophageal reflux disease) Hypertension Hypothyroidism Hypothyroidism L2 vertebral fracture Osteoarthritis Prostatitis Sleep apnea Stroke Urinary retention Vascular dementia Home Medications levothyroxine 50 mcg PO DAILY 10/18/18 [History Last Taken Unknown] atorvastatin 40 mg PO QHS 07/11/19 [History Last Taken Unknown] finasteride 5 mg PO DAILY #30 tab 07/28/19 [Rx Last Taken Unknown] tamsulosin 0.8 mg PO DAILY@1730 #60 cap 07/28/19 [Rx Last Taken Unknown] oxycodone 5 mg PO Q4H PRN PRN 3 Days #10 tab 07/12/20 [Rx Last Taken Unknown] bisacodyl 10 mg NC DAILY PRN PRN #0 ea 07/16/20 [Rx Last Taken Unknown] ciprofloxacin HCl 2 drp EACH EYE Q6H 07/16/20 [History Last Taken Unknown] enoxaparin 40 mg SUBCUT DAILY 07/16/20 [History Last Taken Unknown] galantamine 4 mg PO BIDCM 07/16/20 [History Last Taken Unknown] metoprolol tartrate 12.5 mg PO BID 07/16/20 [History Last Taken Unknown] polyethylene glycol 3350 17 g PO DAILY 07/16/20 [History Last Taken Unknown] sennosides-docusate sodium [Stool Softener-Stimulant Laxat] 2 tab PO BID 07/16/20 [History Last Taken Unknown] Allergy/AdvReac Type Severity Reaction Status Date / Time No Known Allergies Allergy Verified 07/14/20 08:45 Surgical History S/P TURP (status post transurethral resection of prostate) Social History (Updated 07/16/20 @ 20:[address] Jose Francisco Shah MD) household members: significant other Smoking Status: Former smoker ROS Constitutional Constitutional: Denies chills, fever(s) or weight gain ENT HEENT: Denies headache(s), nasal congestion or nasal discharge Cardiovascular Cardiovascular: Denies chest pain or palpitations Respiratory/Chest Respiratory/Chest: Denies cough, excessive phlegm production or shortness of breath with exertion Gastrointestinal Gastrointestinal: Denies abdominal pain, nausea or vomiting Genitourinary Genitourinary: Denies dysuria Musculoskeletal Musculoskeletal: Denies joint pain or joint swelling Integumentary Integumentary: Denies rash or wounds Neurologic Neurologic: Denies focal weakness, numbness or tingling Psychiatric Psychiatric: Reports auditory hallucinations; Denies anxiety, depression, homicidal ideation or suicidal ideation Vital Signs Vital Signs Vital Signs: 07/16/20 17:00 07/16/20 18:34 Temperature 98.1 F Temperature Source Temporal Pulse Rate 89 89 Respiratory Rate 18 Blood Pressure 139/84 H Blood Pressure Mean 102 Blood Pressure Source Monitor Blood Pressure Position Supine Blood Pressure Location Right Arm Pulse Ox 97 Oxygen Delivery Method Room Air Physical Exam Const alert and oriented x3 General Appearance: cooperative HEENT normocephalic Eyes PERRL and EOMs intact bilaterally Neck supple, no JVD and no carotid bruits Resp normal respiratory effort, normal air movement and clear to auscultation bilaterally Cardio regular rate and regular rhythm GI normal to inspection, nondistended, normoactive bowel sounds, non-tender and non-distended Narrative: Indwelling ventura catheter. Extremity normal capillary refill General Extremity: Negative for edema Skin no rashes or lesions noted General Skin Exam: no breakdown Psych affect normal Appearance: appropriate Assessment & Plan Assessment/Plan (1) Debility: (2) Low back pain: (3) Compression fracture of L2: (4) Ileus: (5) Fecal impaction of colon: (6) Urinary retention: (7) Anemia: (8) Atrial fibrillation: (9) Vascular dementia: (10) Depression: (11) Gastroesophageal reflux disease: (12) Hypertension: (13) Hypothyroidism: (14) Obstructive sleep apnea: (15) Stroke: PLAN: 84 year old male with below past medical history hospitalized for low back pain from L2 compression fracture, complicated by ileus, urinary retention, atrial fibrillation with rapid ventricular response, admitted to TCU with debility, here for rehabilitation, strengthening, prior to discharge home with significant other. * Debility - PT/OT. * Dysphagia - ST. * Pain - Tylenol 1000MG Q6H PRN pain (1-3), Oxycodone 5MG Q4H PRN pain (4-10). * Bowel - Miralax 17GM daily, Senna/colace 2 tablets BID, Dulcolax 10MG NC daily PRN. * Adult immunization - Administer Prevnar 13, Pneumovax 23, COVID19 vaccine as appropriate. * DVT prophylaxis - Lovenox 40MG SC daily. * Hyperlipidemia - Atorvastatin 40MG QHS. * Conjunctivitis - Cipro 0.5% 2GTT OU Q6H x 3 days. * BPH/urinary retention - Finasteride 5MG daily, Tamsulosin 0.8MG daily, indwelling ventura catheter. * Vascular dementia - Galantamine 4MG BID. * Hypothyroidism - Levothyroxine 50MCG daily. * Atrial fibrillation - Metoprolol 12.5MG BID. * Stroke - Aspirin 81MG daily. * L2 compression fracture - Consult Dr. Myrick for kyphoplasty assessment.
[2020-07-16] MEDS: oxyCODONE 5 MG Tablet PO (23:43)
[2020-07-17] MEDS: oxyCODONE 5 MG Tablet PO (05:48)
[2020-07-17 05:49] VITALS: PULSE 80
[2020-07-17] MEDS: Metoprolol Tartrate 25 MG Tablet 12.5 MG PO ×2 (05:49→17:53)
[2020-07-17] MEDS: Enoxaparin 40 MG/0.4 ML Syringe SC (05:49)
[2020-07-17] MEDS: Ciprofloxacin 0.3% 2.5ml Bottle 2 DRP EACH EYE ×3 (05:49→17:54)
[2020-07-17] MEDS: Finasteride 5 MG Tablet PO (05:50)
[2020-07-17] MEDS: Levothyroxine 50 MCG Tablet PO (05:50)
[2020-07-17 05:56] VITALS: BP 120/62; PULSE 80; RESP 18; TEMP 37; O2SAT 96
[2020-07-17 07:04] LABS: Absolute Lymphocyte Count 0.83 X10^3/uL (0.83-4.51); Absolute Neutrophil Count 4.5 X10^3/uL (2.0-7.7); Basophil# 0.05 X10^3/uL; Basophil% 0.8 % (0-1); Eosinophil# 0.13 X10^3/uL; Hematocrit 42.6 % (40-54); Hemoglobin 14.5 g/dL (13.0-16.5); Lymphocyte # 0.83 X10^3/ul (0.83-4.51); Mean Corpuscular Hgb 31.3 pg (27.0-32.0); Mean Platelet Vol. 9.4 fl (6.2-12.0); Monocyte# 0.88 X10^3/uL; Monocyte% 13.8 % (0-10); NRBC Flagged by Analyzer 0 % (0-5); Neutrophil # 4.47 X10^3/uL (2.7-7.7); Neutrophil % 69.8 % (47-70); Platelet Count 169 K/mm3 (150-450); RBC Distribution Width CV 13.3 % (11.6-14.6); RBC Distribution Width SD 44.7 fl (35.1-43.9); Red Blood Count 4.63 M/mm3 (4.6-6.2); White Blood Count 6.4 K/mm3 (4.4-11.0)
[2020-07-17 07:21] LABS: Anion Gap 7 (5-15); BUN 8 mg/dL (7-18); BUN/Creat Ratio 14.1 RATIO (10-20); Calcium,Total 7.8 mg/dL (8.5-10.1); Chloride 105 mmol/L (98-107); Creatinine, Serum 0.57 mg/dL (0.70-1.30); EST Glomerular Filtration Rate 145 mL/min (>60); Est Glom Filt Rate - Afr Amer 175 mL/min (>60); Estimated Creatinine Clearance 57.52 ml/min; Glucose 97 mg/dL (74-106); Potassium 3.6 mmol/L (3.5-5.1); Sodium Level 136 mmol/L (136-145)
[2020-07-17] MEDS: Aspirin E.C. 81 MG Tablet PO (08:09)
[2020-07-17] MEDS: Galantamine Hydrobromide 4 MG Tablet PO ×2 (08:09→17:54)
[2020-07-17] MEDS: Acetaminophen 500 MG Tablet 1000 MG PO ×2 (08:11→18:00)
[2020-07-17] MEDS: Tuberculin,Purif.prot.deriv. 50 TU/ML Vial 5 ML ID (11:12)
[2020-07-17 14:15] VITALS: BP 135/80; PULSE 79; RESP 17; TEMP 36.8; O2SAT 95
[2020-07-17] MEDS: Tamsulosin HCl 0.4 MG Capsule 0.8 MG PO (17:52)
[2020-07-17 17:53] VITALS: PULSE 84
--- NOTE | 2020-07-17 18:25 | NURSING ---
Reports having pain. Rates #8/10. Tylenol given at this time and repositioning. Will reassess and may give oxyir if pain not relieved.
[2020-07-17] MEDS: Menthol/Lanolin/Calamine/Znox 113 GM Tube 1 APPLIC TOPICAL (22:57)
[2020-07-17] MEDS: Atorvastatin Calcium 40 MG Tablet PO (22:58)
[2020-07-18] MEDS: Ciprofloxacin 0.3% 2.5ml Bottle 2 DRP EACH EYE ×5 (00:27→22:53)
[2020-07-18 05:21] VITALS: BP 144/73; PULSE 78; RESP 16; TEMP 36.8; O2SAT 94
[2020-07-18] MEDS: Menthol/Lanolin/Calamine/Znox 113 GM Tube 1 APPLIC TOPICAL ×2 (05:21→22:48)
[2020-07-18 05:22] VITALS: BP 144/73; PULSE 78
[2020-07-18] MEDS: Metoprolol Tartrate 25 MG Tablet 12.5 MG PO ×2 (05:22→16:34)
[2020-07-18] MEDS: Levothyroxine 50 MCG Tablet PO (05:24)
[2020-07-18] MEDS: Finasteride 5 MG Tablet PO (05:24)
[2020-07-18] MEDS: Enoxaparin 40 MG/0.4 ML Syringe SC (05:24)
[2020-07-18] MEDS: Acetaminophen 500 MG Tablet 1000 MG PO ×2 (05:25→22:47)
[2020-07-18] MEDS: oxyCODONE 5 MG Tablet PO ×3 (05:25→22:46)
[2020-07-18] MEDS: Aspirin E.C. 81 MG Tablet PO (08:07)
[2020-07-18] MEDS: Galantamine Hydrobromide 4 MG Tablet PO ×2 (08:07→16:33)
--- NOTE | 2020-07-18 09:42 | NURSING ---
Notified Dr. Shah of patient's tongue coated white. Received order for Nystatin S&S for 10 days.
[2020-07-18] MEDS: NYSTATIN 500,000 UNIT/5 ML UDC 500000 UNIT PO ×3 (12:20→22:48)
[2020-07-18] MEDS: 0.9% Saline Lock 10 ML Syringe IV ×2 (12:27→22:51)
[2020-07-18 14:31] VITALS: BP 130/82; PULSE 104; RESP 16; TEMP 37; O2SAT 91
[2020-07-18] MEDS: Tamsulosin HCl 0.4 MG Capsule 0.8 MG PO (16:33)
[2020-07-18 16:34] VITALS: BP 130/82; PULSE 104
[2020-07-18] MEDS: Atorvastatin Calcium 40 MG Tablet PO (22:46)
[2020-07-19 04:45] VITALS: BP 116/75; PULSE 78; RESP 16; TEMP 36.8; O2SAT 93
[2020-07-19] MEDS: Menthol/Lanolin/Calamine/Znox 113 GM Tube 1 APPLIC TOPICAL ×2 (04:47→22:20)
[2020-07-19] MEDS: NYSTATIN 500,000 UNIT/5 ML UDC 500000 UNIT PO ×4 (04:48→22:21)
[2020-07-19] MEDS: Ciprofloxacin 0.3% 2.5ml Bottle 2 DRP EACH EYE ×3 (04:48→18:09)
[2020-07-19] MEDS: Senna/Docusate Sodium 1 Tablet 2 TABLET PO ×2 (04:48→18:11)
[2020-07-19] MEDS: Finasteride 5 MG Tablet PO (04:49)
[2020-07-19 04:50] VITALS: BP 116/75; PULSE 78
[2020-07-19] MEDS: Levothyroxine 50 MCG Tablet PO (04:50)
[2020-07-19] MEDS: Metoprolol Tartrate 25 MG Tablet 12.5 MG PO ×2 (04:50→18:10)
[2020-07-19] MEDS: Enoxaparin 40 MG/0.4 ML Syringe SC (04:51)
[2020-07-19] MEDS: Polyethylene Glycol 3350 17 GM PACKET PO (04:52)
[2020-07-19] MEDS: Galantamine Hydrobromide 4 MG Tablet PO ×2 (08:40→18:11)
[2020-07-19] MEDS: Aspirin E.C. 81 MG Tablet PO (08:40)
[2020-07-19] MEDS: oxyCODONE 5 MG Tablet PO ×3 (10:56→23:30)
[2020-07-19 13:48] VITALS: BP 127/67; PULSE 63; RESP 18; TEMP 36.7; O2SAT 94
--- NOTE | 2020-07-19 17:52 | NURSING ---
Dr Myrick came to see resident. He plans to do a kyphoplasty on Sunday. Orders to hold Lovenox Sunday AM, NPO after midnight. He can take meds Sunday AM except pain meds and Lovenox.
[2020-07-19] MEDS: Tamsulosin HCl 0.4 MG Capsule 0.8 MG PO (18:09)
[2020-07-19 18:10] VITALS: PULSE 60
[2020-07-19] MEDS: Atorvastatin Calcium 40 MG Tablet PO (22:21)
[2020-07-20 06:44] VITALS: BP 127/76; PULSE 88; RESP 16; TEMP 36.7; O2SAT 94
[2020-07-20] MEDS: Menthol/Lanolin/Calamine/Znox 113 GM Tube 1 APPLIC TOPICAL ×2 (06:45→19:53)
[2020-07-20 06:46] VITALS: BP 127/76; PULSE 88
[2020-07-20] MEDS: Metoprolol Tartrate 25 MG Tablet 12.5 MG PO ×2 (06:46→17:17)
[2020-07-20] MEDS: Finasteride 5 MG Tablet PO (06:49)
[2020-07-20] MEDS: Levothyroxine 50 MCG Tablet PO (06:49)
[2020-07-20] MEDS: NYSTATIN 500,000 UNIT/5 ML UDC 500000 UNIT PO ×4 (06:49→19:39)
[2020-07-20] MEDS: Senna/Docusate Sodium 1 Tablet 2 TABLET PO ×2 (06:50→17:16)
[2020-07-20] MEDS: Enoxaparin 40 MG/0.4 ML Syringe SC (08:17)
[2020-07-20] MEDS: Aspirin E.C. 81 MG Tablet PO (08:17)
[2020-07-20] MEDS: Galantamine Hydrobromide 4 MG Tablet PO ×2 (08:17→17:17)
[2020-07-20] MEDS: oxyCODONE 5 MG Tablet PO (09:28)
--- NOTE | 2020-07-20 15:17 | NURSING ---
Dark Hematuria noted to catheter bag emptied 450ml. Dr. Shah update and new order to irrigate catheter and D/C Lovenox. Pt catheter irrigated with 300 ml of NS started to clear initially then more hematuria was noted. Dr. Shah updated and new order for CBC and Urinalysis with EXECUTIVE TEAM LEADER. Will continue to monitor pt denies discomfort at this time. Call light within reach and family updated.
--- NOTE | 2020-07-20 15:55 | NURSING ---
Nurse from surgery called for orders to only give Levothyroxine and Metoprolol after midnight with sips of water. Also NPO after Midnight. orders updated.
[2020-07-20 16:20] LABS: Absolute Lymphocyte Count 1.21 X10^3/uL (0.83-4.51); Absolute Neutrophil Count 6.8 X10^3/uL (2.0-7.7); Basophil# 0.06 X10^3/uL; Basophil% 0.6 % (0-1); Eosinophil# 0.09 X10^3/uL; Hematocrit 47.6 % (40-54); Hemoglobin 16.5 g/dL (13.0-16.5); Lymphocyte # 1.21 X10^3/ul (0.83-4.51); Lymphocyte % 12.8 % (19-41); Mean Corp Hgb Conc 34.7 g/dL (32-36); Mean Corpuscular Hgb 31.1 pg (27.0-32.0); Mean Corpuscular Volume 89.8 fL (80-94); Mean Platelet Vol. 9.4 fl (6.2-12.0); Monocyte# 1.22 X10^3/uL; Monocyte% 12.9 % (0-10); NRBC Flagged by Analyzer 0 % (0-5); Neutrophil # 6.79 X10^3/uL (2.7-7.7); Neutrophil % 72.1 % (47-70); Platelet Count 240 K/mm3 (150-450); RBC Distribution Width CV 13.3 % (11.6-14.6); RBC Distribution Width SD 43.5 fl (35.1-43.9); White Blood Count 9.4 K/mm3 (4.4-11.0)
[2020-07-20 16:41] VITALS: BP 98/50; PULSE 78; RESP 16; TEMP 36.6; O2SAT 91
[2020-07-20 17:17] VITALS: BP 98/50; PULSE 78
[2020-07-20] MEDS: Tamsulosin HCl 0.4 MG Capsule 0.8 MG PO (17:17)
[2020-07-20 19:11] LABS: Bacteria 0 SEEN /hpf (None Seen); Mucous, Urine 0 SEEN /hpf (<or=2+); Squamous Epithelial Cells - UA 0 SEEN /hpf (0-5); White Blood Cells 0 SEEN /hpf (0-5)
[2020-07-20 19:20] LABS: Color, Urine Red (Yellow); Glucose, Dipstick Normal (Normal); Ketone-Dipstick 50 mg/dl (Negative); Leukocyte Esterase-Dipstick 100 /ul (Negative); Nitrite-Dipstick Negative (Negative); Occult Blood-Urine 250 /ul (Negative); Protein-Dipstick 500 mg/dl (Negative); Urine Bilirubin Dipstick Negative (Negative); Urine Clarity Turbid (Clear); Urine Urobilinogen Normal (Normal); Urine pH 6.5 (5.0 - 8.0)
[2020-07-20 19:31] LABS: Red Blood Cells-Urine > 100 SEEN /hpf (0-5)
[2020-07-20] MEDS: Atorvastatin Calcium 40 MG Tablet PO (19:40)
[2020-07-20] MEDS: Acetaminophen 500 MG Tablet 1000 MG PO (19:44)
[2020-07-21 05:40] VITALS: BP 137/82; PULSE 78; RESP 18; TEMP 36; O2SAT 95
[2020-07-21 05:41] VITALS: BP 137/82; PULSE 78
[2020-07-21] MEDS: Metoprolol Tartrate 25 MG Tablet 12.5 MG PO ×2 (05:41→17:35)
[2020-07-21] MEDS: Levothyroxine 50 MCG Tablet PO (05:42)
--- NOTE | 2020-07-21 08:23 | PHA.CONS_ITS ---
Progress Note - Pharmacy Subjective: TCU Admission Objective: Allergies No Known Allergies Allergy (Verified 07/20/20 14:47) Current Medications Generic Name Dose Route Start Last Admin Trade Name Freq PRN Reason Stop Dose Admin Acetaminophen 1,000 mg 07/16/20 21:05 07/20/20 19:44 Acetaminophen 500 Mg Tablet PO 1,000 mg Q6H PRN PRN Administration Pain Score 1-3 Aspirin 81 mg 07/17/20 08:00 07/20/20 08:17 Aspirin E.C. 81 Mg Tablet PO 81 mg DAILY@0800 ERICH Administration Atorvastatin Calcium 40 mg 07/16/20 22:00 07/20/20 19:40 Atorvastatin Calcium 40 Mg Tablet PO 40 mg QHS ERICH Administration Bisacodyl 10 mg 07/16/20 17:11 Bisacodyl 10 Mg Suppository RC DAILY PRN PRN Constipation Calamine/Phenol 1 applic 07/17/20 22:00 07/20/20 23:12 Menthol/Lanolin/Calamine/Znox 113 Gm Tube TOPICAL Not Given [facility] Protocol Finasteride 5 mg 07/17/20 06:00 07/20/20 23:11 Finasteride 5 Mg Tablet PO Not Given DAILY [facility] Galantamine Hydrobromide 4 mg 07/17/20 08:00 07/20/20 17:17 Galantamine Hydrobromide 4 Mg Tablet PO 4 mg BIDCM [facility] Administration Levothyroxine Sodium 50 mcg 07/17/20 06:00 07/21/20 05:42 Levothyroxine 50 Mcg Tablet PO 50 mcg DAILY ERICH Administration Metoprolol Tartrate 12.5 mg 07/16/20 18:00 07/21/20 05:41 Metoprolol Tartrate 25 Mg Tablet PO 12.5 mg BID ERICH Administration Nystatin 500,000 unit 07/18/20 12:00 07/20/20 23:11 Nystatin 500,000 Unit/5 Ml Udc PO 07/28/20 12:01 Not Given 4X/DAY [facility] Oxycodone HCl 5 mg 07/16/20 17:12 07/20/20 09:28 Oxycodone 5 Mg Tablet PO 5 mg Q4H PRN PRN Administration Pain Score 4-10/10 Polyethylene Glycol 17 gm 07/17/20 06:00 07/20/20 23:11 Polyethylene Glycol 3350 17 Gm Packet PO Not Given DAILY [facility] Senna/Docusate Sodium 2 tablet 07/16/20 18:00 07/20/20 23:12 Senna/Docusate Sodium 1 Tablet PO Not Given BID [facility] Sodium Chloride 10 - 40 ml 07/16/20 20:13 07/18/20 22:51 0.9% Saline Lock 10 Ml Syringe IV 10 ml UD PRN Administration SALINE FLUSH Tamsulosin HCl 0.8 mg 07/16/20 17:30 07/20/20 17:17 Tamsulosin Hcl 0.4 Mg Capsule PO 0.8 mg DAILY@1730 ERICH Administration Tuberculin PPD 0.1 ml 07/24/20 10:00 Tuberculin,Purif.Prot.Deriv. 50 Tu/Ml Vial ID 07/24/20 10:01 X1 ONE Problem List (Last Updated 07/20/20 @ 15:43 by Keiry Loco) Debility (Acute) Low back pain (Acute) Compression fracture of L2 (Acute) Ileus (Acute) Fecal impaction of colon (Acute) Urinary retention (Acute) Anemia (Acute) Atrial fibrillation (Acute) Vascular dementia (Acute) Depression (Acute) Gastroesophageal reflux disease (Acute) Hypertension (Chronic) Hypothyroidism (Acute) Obstructive sleep apnea (Acute) Stroke (Acute) Vital Signs Temp Pulse Resp BP Pulse Ox 96.8 F L 78 18 137/82 H 95 07/21/20 05:40 07/21/20 05:41 07/21/20 05:40 07/21/20 05:41 07/21/20 05:40 Oxygen Delivery Method Room Air Weight: 79.832 kg Body Mass Index (BMI) 25.1 Sodium 136 mmol/L (136-145) 07/17/20 06:52 Potassium 3.6 mmol/L (3.5-5.1) 07/17/20 06:52 Chloride 105 mmol/L (98-107) 07/17/20 06:52 Carbon Dioxide 24.0 mmol/L (21.0-32.0) 07/17/20 06:52 Anion Gap 7 (5-15) 07/17/20 06:52 BUN 8 mg/dL (7-18) 07/17/20 06:52 Creatinine 0.57 mg/dL (0.70-1.30) L 07/17/20 06:52 Est GFR (MDRD) Af Amer 175 mL/min (>60) 07/17/20 06:52 Est GFR (MDRD) Non-Af 145 mL/min (>60) 07/17/20 06:52 BUN/Creatinine Ratio 14.1 RATIO (10-20) 07/17/20 06:52 Glucose 97 mg/dL (74-106) 07/17/20 06:52 Assessment/Plan: 1. Pain: acetaminophen 1000mg PO Q6H PRN pain (1-3) and oxycodone 5mg PO Q4H PRN pain (4-10). Please continue to monitor pain, PRN usage, constipation, and respiratory depression.? *2. Hyperlipidemia: atorvastatin 40mg PO QHS. Please consider ordering a lipid panel as last one was 05/14/13, thank you. Please continue to monitor lipids and muscle pain. 3. BPH/urinary retention: finasteride 5mg PO daily, tamsulosin 0.8mg PO daily. Please continue to monitor S/S BPH and urinary retention.? 4. Hypothyroidism: levothyroxine 50mcg PO daily. Please continue to monitor TSH (last 06/21/20) and S/S of hypo/hyperthyroidism. 5. Atrial fibrillation/Stroke: metoprolol tartrate 12.5mg PO BIDCM and aspirin 81mg PO daily. Please continue to monitor HR (last 78), BP (last 137/82), S/S of bleeding/stroke. 6. Vascular dementia: galantamine 4mg PO BID. Please continue to monitor weight, S/S dementia and HR. 7. Thrush (white patches on tongue per nursing note): nystatin 500,000units PO 4x/day thru 07/28/20. Please continue to monitor for improvement in infection. Psychotropic Medications: None Unnecessary Medications: None *Bowel Regimen: Miralax 17gm PO daily, senna/docusate 2T PO BID and bisacodyl 10mg TX daily PRN constipation. Patient has refused 4/5 doses of Miralax. Please consider changing from scheduled to PRN constipation. Thanks. Please continue to monitor constipation and PRN usage. Date of Note:: 07/21/20
[2020-07-21 11:34] VITALS: BP 141/78; PULSE 77; RESP 18; TEMP 36.3; O2SAT 94
--- NOTE | 2020-07-21 14:01 | CASEMGMT ---
Social Work IDT met with patient, dtr and grandson for care plan meeting. Discussed patient's progress in therapy and nursing. Pt varies with assistance level. ST working on cognition and swallowing. Explained [employer] insurance with NRD 07/23 and clarified coverage of days 1-20 100%, 21-45 $120/day copay, 46-100 100%. Family states they can pay out of pocket for copays if needed. Explained continued stay is not guaranteed with each review. Met with dtr and grandson after meeting. Discussed at length DC options. Reviewed patient's finances for eligibility. Discussed to spend down savings with a prepaid burial. Family plans to do this shortly then complete [employer] application for SW to submit. Pt should qualify at that time. Explained AL vs SNF and AL is typically private pay or there are a few [employer] ALs - family does not want [employer] ALs and pt does not have the funds to pay privately. Family agreeable to SNF placement. Pt provided choices of [facility], [facility], [facility], [facility]. Dtr is actively pursuing guardianship for pt and his S.O. as the goal is for S.O. to transfer to SNF with pt. Explained PCP office can assist with community admit to SNF but SW will inform referring SNFs it would be two patients. Family very appreciative of time and assistance of SW. SW to continue to follow to assist. Vanessa Claudio, CLIENT SERVICE AND CONSULTING MANAGER E TAILER
[2020-07-21 17:35] VITALS: PULSE 170
[2020-07-21] MEDS: NYSTATIN 500,000 UNIT/5 ML UDC 500000 UNIT PO ×2 (17:36→19:38)
[2020-07-21] MEDS: oxyCODONE 5 MG Tablet PO (17:36)
[2020-07-21] MEDS: Galantamine Hydrobromide 4 MG Tablet PO (17:36)
[2020-07-21] MEDS: Senna/Docusate Sodium 1 Tablet 2 TABLET PO (17:36)
[2020-07-21] MEDS: Tamsulosin HCl 0.4 MG Capsule 0.8 MG PO (17:36)
[2020-07-21 18:27] VITALS: BP 119/75; PULSE 84; RESP 18; O2SAT 94
[2020-07-21] MEDS: Acetaminophen 500 MG Tablet 1000 MG PO (19:38)
[2020-07-21] MEDS: Menthol/Lanolin/Calamine/Znox 113 GM Tube 1 APPLIC TOPICAL (19:39)
[2020-07-21] MEDS: Atorvastatin Calcium 40 MG Tablet PO (19:39)
[2020-07-22 05:27] VITALS: BP 144/58; PULSE 63; RESP 18; TEMP 36.6; O2SAT 93
[2020-07-22] MEDS: Polyethylene Glycol 3350 17 GM PACKET PO (05:27)
[2020-07-22] MEDS: Finasteride 5 MG Tablet PO (05:27)
[2020-07-22] MEDS: NYSTATIN 500,000 UNIT/5 ML UDC 500000 UNIT PO ×4 (05:27→22:04)
[2020-07-22] MEDS: Levothyroxine 50 MCG Tablet PO (05:27)
[2020-07-22] MEDS: Senna/Docusate Sodium 1 Tablet 2 TABLET PO ×2 (05:27→18:08)
[2020-07-22] MEDS: Metoprolol Tartrate 25 MG Tablet 12.5 MG PO ×2 (05:27→18:08)
[2020-07-22] MEDS: Menthol/Lanolin/Calamine/Znox 113 GM Tube 1 APPLIC TOPICAL ×2 (05:33→22:04)
[2020-07-22] MEDS: 0.9% Saline Lock 10 ML Syringe IV ×3 (06:33→22:14)
[2020-07-22] MEDS: Galantamine Hydrobromide 4 MG Tablet PO ×2 (08:01→18:10)
[2020-07-22] MEDS: oxyCODONE 5 MG Tablet PO ×2 (10:52→22:07)
--- NOTE | 2020-07-22 13:03 | CASEMGMT ---
BIMS and PHQ9 interview completed on this date for MDS assessment. KYRA [place]
[2020-07-22 13:36] VITALS: BP 133/112; PULSE 89; RESP 18; TEMP 36.1; O2SAT 94
[2020-07-22 14:00] VITALS: BP 121/95
[2020-07-22 18:08] VITALS: PULSE 84
[2020-07-22] MEDS: Tamsulosin HCl 0.4 MG Capsule 0.8 MG PO (18:08)
[2020-07-22] MEDS: Atorvastatin Calcium 40 MG Tablet PO (22:04)
--- NOTE | 2020-07-23 03:32 | NURSING ---
Per [facility], ventura has had low output this shift, very dark colored, pt denies discomfort, flushed with 20ml ns with clear return, bladder scan shows 0ml, note left for Dr. Shah to address in am, will continue to monitor.
[2020-07-23 05:31] VITALS: BP 131/69; PULSE 63; RESP 16; TEMP 36.9; O2SAT 94
[2020-07-23 05:37] VITALS: BP 131/69; PULSE 63
[2020-07-23] MEDS: Polyethylene Glycol 3350 17 GM PACKET PO (05:37)
[2020-07-23] MEDS: Senna/Docusate Sodium 1 Tablet 2 TABLET PO ×2 (05:37→17:12)
[2020-07-23] MEDS: Metoprolol Tartrate 25 MG Tablet 12.5 MG PO ×2 (05:37→17:06)
[2020-07-23] MEDS: Levothyroxine 50 MCG Tablet PO (05:37)
[2020-07-23] MEDS: NYSTATIN 500,000 UNIT/5 ML UDC 500000 UNIT PO ×4 (05:38→22:14)
[2020-07-23] MEDS: Finasteride 5 MG Tablet PO (05:38)
[2020-07-23] MEDS: Menthol/Lanolin/Calamine/Znox 113 GM Tube 1 APPLIC TOPICAL ×2 (05:42→22:14)
[2020-07-23] MEDS: Galantamine Hydrobromide 4 MG Tablet PO ×2 (08:40→17:13)
[2020-07-23] MEDS: 0.9% Saline Lock 10 ML Syringe IV (09:58)
[2020-07-23] MEDS: 0.9% Normal Saline 1,000 ML 60 ML IV (09:58)
[2020-07-23 10:38] VITALS: PULSE 90; RESP 16; O2SAT 95
[2020-07-23 16:36] VITALS: BP 103/56; PULSE 90; RESP 16; TEMP 37; O2SAT 95
[2020-07-23 17:06] VITALS: BP 110/53; PULSE 68
[2020-07-23] MEDS: Tamsulosin HCl 0.4 MG Capsule 0.8 MG PO (17:12)
--- NOTE | 2020-07-23 20:40 | NURSING ---
Addendum entered by Sarah Leblanc 07/23/20 20:41: Educated on desired effects to increase appetite, improve depressed mood, and promote sleep. Verbalizes concerns w/ decreased po intake leading to increased decline. Consumed 1/2 of cheeseburger and a few fries this evening that family brought from [place]. Encouraged family to bring food pt enjoys when making visits. Reports one month ago pt was ambulating and more alive. Emotional support and active listening provided. All questions answered and appreciates time spent on phone call. Juan Jose acknowledges pt will be transferred to [facility] upon dc from [facility]. Original Note: Son, Juan Jose, calls this evening questioning if medication was started to improve appetite. Instructed Remeron to start tonight and
[2020-07-23] MEDS: Atorvastatin Calcium 40 MG Tablet PO (22:17)
[2020-07-23] MEDS: Mirtazapine 15 MG Tablet 7.5 MG PO (22:18)
[2020-07-24] MEDS: 0.9% Normal Saline 1,000 ML 60 ML IV ×2 (04:18→17:51)
[2020-07-24 05:07] VITALS: BP 139/75; PULSE 58; RESP 16; TEMP 36.8; O2SAT 93
[2020-07-24] MEDS: Menthol/Lanolin/Calamine/Znox 113 GM Tube 1 APPLIC TOPICAL ×2 (05:10→21:21)
[2020-07-24] MEDS: Polyethylene Glycol 3350 17 GM PACKET PO (05:10)
[2020-07-24] MEDS: Senna/Docusate Sodium 1 Tablet 2 TABLET PO ×2 (05:12→17:46)
[2020-07-24] MEDS: Levothyroxine 50 MCG Tablet PO (05:12)
[2020-07-24] MEDS: NYSTATIN 500,000 UNIT/5 ML UDC 500000 UNIT PO (05:13)
[2020-07-24] MEDS: Finasteride 5 MG Tablet PO (05:13)
--- NOTE | 2020-07-24 05:24 | NURSING ---
Oral care performed w/ toothette. Pt tolerated well. Approximately 200 ml of bloody urine noted in ventura drainage bag. No clots. Pt denies any chest pain, shortness of breath, palpitations, and/or dizziness when asked. In no acute distress.
--- NOTE | 2020-07-24 07:56 | NURSING ---
Additional hematuria noted. No clots noted. No bright red blood noted. Bladderscan completed and noted 0 ml. Ingunial region appears edematous. Shows no sxs pain or discomfort and verbalizes no pain upon palpation. Urine starting to become jackaroo in color. Staff to continue to monitor.
[2020-07-24] MEDS: Galantamine Hydrobromide 4 MG Tablet PO ×2 (08:14→17:47)
[2020-07-24] MEDS: Tuberculin,Purif.prot.deriv. 50 TU/ML Vial 0.1 ML ID (09:25)
[2020-07-24] MEDS: oxyCODONE 5 MG Tablet PO (09:25)
[2020-07-24 09:26] LABS: Absolute Lymphocyte Count 1.08 X10^3/uL (0.83-4.51); Absolute Neutrophil Count 6.8 X10^3/uL (2.0-7.7); Basophil# 0.06 X10^3/uL; Basophil% 0.7 % (0-1); Eosinophil# 0.13 X10^3/uL; Eosinophils% 1.5 % (0-5); Hematocrit 47.8 % (40-54); Hemoglobin 16.1 g/dL (13.0-16.5); Lymphocyte # 1.08 X10^3/ul (0.83-4.51); Lymphocyte % 12.1 % (19-41); Mean Corp Hgb Conc 33.7 g/dL (32-36); Mean Corpuscular Hgb 31.4 pg (27.0-32.0); Mean Corpuscular Volume 93.4 fL (80-94); Mean Platelet Vol. 9.9 fl (6.2-12.0); Monocyte# 0.78 X10^3/uL; Monocyte% 8.7 % (0-10); NRBC Flagged by Analyzer 0 % (0-5); Neutrophil # 6.83 X10^3/uL (2.7-7.7); Neutrophil % 76.6 % (47-70); Platelet Count 177 K/mm3 (150-450); RBC Distribution Width CV 13.6 % (11.6-14.6); RBC Distribution Width SD 46.5 fl (35.1-43.9); Red Blood Count 5.12 M/mm3 (4.6-6.2); White Blood Count 8.9 K/mm3 (4.4-11.0)
[2020-07-24 09:56] LABS: Anion Gap 5 (5-15); BUN 17 mg/dL (7-18); BUN/Creat Ratio 22.8 RATIO (10-20); Calcium,Total 8.5 mg/dL (8.5-10.1); Chloride 110 mmol/L (98-107); Creatinine, Serum 0.75 mg/dL (0.70-1.30); EST Glomerular Filtration Rate 106 mL/min (>60); Est Glom Filt Rate - Afr Amer 128 mL/min (>60); Estimated Creatinine Clearance 57.52 ml/min; Glucose 132 mg/dL (74-106); Potassium 3.2 mmol/L (3.5-5.1); Sodium Level 144 mmol/L (136-145)
[2020-07-24 15:58] VITALS: BP 146/59; PULSE 60; RESP 18; TEMP 36.6; O2SAT 95
[2020-07-24 17:46] VITALS: PULSE 60
[2020-07-24] MEDS: Metoprolol Tartrate 25 MG Tablet 12.5 MG PO (17:46)
[2020-07-24] MEDS: Tamsulosin HCl 0.4 MG Capsule 0.8 MG PO (17:46)
[2020-07-24] MEDS: Atorvastatin Calcium 40 MG Tablet PO (21:22)
[2020-07-24] MEDS: Mirtazapine 15 MG Tablet 7.5 MG PO (21:22)
[2020-07-25 06:11] VITALS: BP 134/81; PULSE 81; RESP 16; TEMP 36.7; O2SAT 94
[2020-07-25] MEDS: Menthol/Lanolin/Calamine/Znox 113 GM Tube 1 APPLIC TOPICAL ×2 (06:12→20:06)
[2020-07-25 06:13] VITALS: BP 134/81; PULSE 81
[2020-07-25] MEDS: Senna/Docusate Sodium 1 Tablet 2 TABLET PO (06:13)
[2020-07-25] MEDS: Levothyroxine 50 MCG Tablet PO (06:13)
[2020-07-25] MEDS: Metoprolol Tartrate 25 MG Tablet 12.5 MG PO ×2 (06:13→17:23)
[2020-07-25] MEDS: FLUCONAZOLE 150 MG TABLET PO (06:14)
[2020-07-25] MEDS: Finasteride 5 MG Tablet PO (06:15)
[2020-07-25] MEDS: Polyethylene Glycol 3350 17 GM PACKET PO (06:15)
[2020-07-25] MEDS: Galantamine Hydrobromide 4 MG Tablet PO ×2 (08:08→17:23)
[2020-07-25] MEDS: 0.9% Normal Saline 1,000 ML 60 ML IV (09:11)
[2020-07-25 15:49] VITALS: BP 106/81; PULSE 78; RESP 20; TEMP 37; O2SAT 97
[2020-07-25 17:23] VITALS: PULSE 78
[2020-07-25] MEDS: Tamsulosin HCl 0.4 MG Capsule 0.8 MG PO (17:23)
[2020-07-25] MEDS: Potassium Chloride Oral Tablet 20 MEQ PO (19:56)
[2020-07-25] MEDS: Mirtazapine 15 MG Tablet 7.5 MG PO (20:06)
[2020-07-25] MEDS: Atorvastatin Calcium 40 MG Tablet PO (20:06)
[2020-07-25] MEDS: oxyCODONE 5 MG Tablet PO (23:42)
[2020-07-26] MEDS: 0.9% Normal Saline 1,000 ML 60 ML IV ×2 (00:01→18:23)
[2020-07-26 04:07] VITALS: BP 121/65; PULSE 60; RESP 16; TEMP 36.6; O2SAT 96
[2020-07-26] MEDS: Levothyroxine 50 MCG Tablet PO (05:26)
[2020-07-26] MEDS: Senna/Docusate Sodium 1 Tablet 2 TABLET PO ×2 (05:26→17:39)
[2020-07-26] MEDS: Finasteride 5 MG Tablet PO (05:26)
[2020-07-26] MEDS: Polyethylene Glycol 3350 17 GM PACKET PO (05:26)
[2020-07-26 05:27] VITALS: PULSE 60
[2020-07-26] MEDS: Menthol/Lanolin/Calamine/Znox 113 GM Tube 1 APPLIC TOPICAL ×2 (05:27→20:12)
[2020-07-26] MEDS: FLUCONAZOLE 150 MG TABLET PO (05:27)
[2020-07-26] MEDS: Metoprolol Tartrate 25 MG Tablet 12.5 MG PO ×2 (05:27→17:39)
[2020-07-26] MEDS: Galantamine Hydrobromide 4 MG Tablet PO ×2 (07:53→17:57)
[2020-07-26] MEDS: Potassium Chloride Oral Tablet 20 MEQ PO (07:53)
[2020-07-26 09:45] VITALS: PULSE 89; RESP 18; O2SAT 96
[2020-07-26] MEDS: oxyCODONE 5 MG Tablet PO (11:05)
[2020-07-26 14:19] VITALS: BP 116/57; PULSE 90; RESP 16; TEMP 36.4; O2SAT 94
[2020-07-26 17:39] VITALS: PULSE 90
[2020-07-26] MEDS: Tamsulosin HCl 0.4 MG Capsule 0.8 MG PO (17:39)
[2020-07-26] MEDS: Mirtazapine 15 MG Tablet 7.5 MG PO (20:12)
[2020-07-26] MEDS: Atorvastatin Calcium 40 MG Tablet PO (20:12)
[2020-07-27] MEDS: oxyCODONE 5 MG Tablet PO (00:30)
[2020-07-27 05:00] VITALS: BP 122/78; PULSE 88; RESP 16; TEMP 36.6; O2SAT 95
[2020-07-27 05:27] VITALS: BP 122/78; PULSE 88
[2020-07-27] MEDS: Metoprolol Tartrate 25 MG Tablet 12.5 MG PO ×2 (05:27→18:05)
[2020-07-27] MEDS: FLUCONAZOLE 150 MG TABLET PO (05:27)
[2020-07-27] MEDS: Levothyroxine 50 MCG Tablet PO (05:27)
[2020-07-27] MEDS: Senna/Docusate Sodium 1 Tablet 2 TABLET PO ×2 (05:27→17:59)
[2020-07-27] MEDS: Finasteride 5 MG Tablet PO (05:28)
[2020-07-27] MEDS: Menthol/Lanolin/Calamine/Znox 113 GM Tube 1 APPLIC TOPICAL ×2 (05:33→20:01)
[2020-07-27] MEDS: 0.9% Normal Saline 1,000 ML 60 ML IV (08:38)
[2020-07-27] MEDS: Potassium Chloride Oral Tablet 20 MEQ PO (08:41)
[2020-07-27] MEDS: Galantamine Hydrobromide 4 MG Tablet PO ×2 (09:16→17:59)
--- NOTE | 2020-07-27 12:24 | CASEMGMT ---
Social Work Grandson and dtr contacted SW to discuss pt's noted decline over the weekend. Nursing confirmed pt has not been eating, drinking, agitated, pulling at cath, having hematuria. Family requesting referral to [facility] to their TCC (SNF skilled) to be a skilled nursing as pt still believes he is in a hospital and hospitals are where people . Family feels pt will improve with the transfer and then can remain LTP. Referred to [facility]. Explained if family wants pt to be skilled, precert will need to be obtained and [employer] can deny [facility] and deny continued stay in TCU. Family expressed understanding and would still like to proceed. Encouraged family to provide SW with Medicaid application to submit for [employer] pending number to have as alternative payor. Family agreed. Explained pt is exhibiting signs that may be end of life and discussed hospice services. Family realistic and understanding. Family appreciative of SW information and time. SW to continue to follow. Vanessa Claudio, POURER CRANE LADLE SENIOR UI DEVELOPER
[2020-07-27 13:35] VITALS: BP 128/71; PULSE 83; RESP 17; TEMP 36.4; O2SAT 95
[2020-07-27] MEDS: Acetaminophen 500 MG Tablet 1000 MG PO (13:36)
--- NOTE | 2020-07-27 14:21 | MDS.RN ---
Information for the mds was obtained from review of the clinical record, interview of resident, staff, and direct observation of resident's care.
--- NOTE | 2020-07-27 16:07 | NURSING ---
Updated Family in room
[2020-07-27] MEDS: Tamsulosin HCl 0.4 MG Capsule 0.8 MG PO (17:59)
[2020-07-27 18:05] VITALS: BP 128/65; PULSE 78
--- NOTE | 2020-07-27 18:21 | NURSING ---
Updated Dr. Shah on Urine still having a large of Hematuria. No new orders at this time.
--- NOTE | 2020-07-27 18:40 | NURSING ---
Pt's alarm going off this nurse went to pt's room to find pt and family member transferring to bed. Educated both the family member and the pt the importance of having a staff member help the pt with ambulating d/t risks of falls. Both pt and family member voiced they understood.
[2020-07-27] MEDS: Atorvastatin Calcium 40 MG Tablet PO (20:03)
[2020-07-27] MEDS: Mirtazapine 15 MG Tablet 7.5 MG PO (20:04)
[2020-07-27 22:40] VITALS: PULSE 68; RESP 12
[2020-07-28] MEDS: 0.9% Normal Saline 1,000 ML 60 ML IV (01:22)
[2020-07-28] MEDS: FLUCONAZOLE 150 MG TABLET PO (05:41)
[2020-07-28] MEDS: Menthol/Lanolin/Calamine/Znox 113 GM Tube 1 APPLIC TOPICAL (05:41)
[2020-07-28] MEDS: Senna/Docusate Sodium 1 Tablet 2 TABLET PO (05:42)
[2020-07-28] MEDS: Polyethylene Glycol 3350 17 GM PACKET PO (05:42)
[2020-07-28] MEDS: Levothyroxine 50 MCG Tablet PO (05:42)
[2020-07-28 05:43] VITALS: BP 137/80; PULSE 79
[2020-07-28] MEDS: Metoprolol Tartrate 25 MG Tablet 12.5 MG PO (05:43)
[2020-07-28] MEDS: Finasteride 5 MG Tablet PO (05:44)
[2020-07-28 06:02] LABS: Anion Gap 4 (5-15); BUN 9 mg/dL (7-18); BUN/Creat Ratio 13.1 RATIO (10-20); Chloride 108 mmol/L (98-107); Creatinine, Serum 0.69 mg/dL (0.70-1.30); EST Glomerular Filtration Rate 116 mL/min (>60); Est Glom Filt Rate - Afr Amer 141 mL/min (>60); Estimated Creatinine Clearance 57.52 ml/min; Glucose 99 mg/dL (74-106); Potassium 3.7 mmol/L (3.5-5.1); Sodium Level 140 mmol/L (136-145)
[2020-07-28 07:19] VITALS: BP 136/66; PULSE 77; RESP 14; TEMP 36.1
[2020-07-28] MEDS: Potassium Chloride Oral Tablet 20 MEQ PO (08:42)
[2020-07-28] MEDS: Galantamine Hydrobromide 4 MG Tablet PO (08:42)
[2020-07-28] MEDS: oxyCODONE 5 MG Tablet PO (08:53)
[2020-07-28 10:00] VITALS: RESP 18
--- NOTE | 2020-07-28 12:50 | NURSING ---
MOTHER TESTER call this nurse to room d/t pt pulled out his IV in his Left Salcedo at this time pt was put back to bed and IV Started by Saba in Left Forearm.
--- NOTE | 2020-07-28 13:25 | CT_ITS ---
STUDY: CTA HEAD AND NECK WITH CONTRAST REASON FOR EXAM: Male, 84 years old. CVA RADIATION DOSAGE (If Supplied By Facility): CTDIvol = ( 27.975 ) mGy, DLP = ( 778.38 ) mGycm TECHNIQUE: CT angiography was performed with a multi-detector CT scanner. Data acquisition was obtained from the skull base through the vertex following intravenous administration of IV 100mL [id number]-[id number]. MIP images were reconstructed from the axial data set. Post-processing of the angiographic images was performed, with multiplanar reformation and 3D reconstruction. Individualized dose optimization techniques were used for this CT. COMPARISON: No relevant priors. FINDINGS: Normal bilateral petrous carotid arteries. Normal right cavernous carotid artery with a normal supraclinoid bifurcation. Normal left cavernous carotid artery with a normal supraclinoid bifurcation. Normal right A1 segments of the anterior cerebral artery. Normal left A1 segments of the anterior cerebral artery. Normal intact anterior communicating artery (ACOM). Normal bilateral A2 segments of the anterior cerebral arteries. Normal right M1 and M2 segments of the middle cerebral arteries, with a normal M1 bifurcation. Normal left M1 and M2 segments of the middle cerebral arteries, with a normal M1 bifurcation. There is a persistent origin of the right posterior cerebral artery with absence of the posterior communicating artery (PCOM). There is a persistent origin of the left posterior cerebral artery with absence of the posterior communicating artery (PCOM). Normal bilateral vertebral arteries. Normal basilar artery with a normal basilar bifurcation. The visualized bilateral superior cerebellar (SCA) arteries are normal. Normal bilateral P1, P2 and visualized P3 segments of the posterior cerebral arteries. There is no demonstrated aneurysm of the [place] of [place]. There is no demonstrated abnormality of the visualized brain. AORTIC ARCH: There is atherosclerotic calcific plaque formation of the aortic arch and great vessels arising from the aortic arch, without a hemodynamically significant stenosis. There is a normal origin of the brachiocephalic, left common carotid, and left subclavian arteries. Nonstenotic atherosclerotic plaque at the origin of the left subclavian artery as well as the right brachiocephalic artery. RIGHT CAROTID ARTERIES: Normal right common carotid artery (CCA). Normal right common carotid bulb. There is extensive atherosclerotic plaque formation of the origin of the right internal carotid artery with an estimated stenosis of greater than 70%. Normal visualized cervical portion of the right internal carotid artery. Normal origin of the right external carotid artery (ECA). LEFT CAROTID ARTERIES: Normal left common carotid artery (CCA). Normal left common carotid bulb. There is extensive atherosclerotic plaque formation of the origin of the left internal carotid artery with an estimated stenosis of greater than 70%. Normal visualized cervical portion of the left internal carotid artery. Normal origin of the left external carotid artery (ECA). VERTEBRAL ARTERIES: There is enhancement within the bilateral vertebral arteries with a small left vertebral artery, and a dominant right vertebral artery. CT/STROKE CTA Head AND Neck W/Con IMPRESSION: Calcific plaques at the origin of both the right and left internal carotid artery causing greater than 70% luminal narrowing. Small left vertebral artery. N.B. : The above information has been verbally conveyed by Omega Almaguer MD to Linda Aj on 07/28/2020 13:53:15 (ET). Electronically Signed: Omega Almaguer MD at 13:57 EDT , Service support ,
--- NOTE | 2020-07-28 13:29 | CT_ITS ---
STUDY: CT HEAD STROKE PROTOCOL W/O CONTRAST INJECTION REASON FOR EXAM: Male, 84 years old. CVA RADIATION DOSAGE (If Supplied By Facility): CTDIvol = ( 44.99 ) mGy, DLP = ( 829.85 ) mGycm TECHNIQUE: Transaxial CT imaging of the brain was performed without administration of intravenous contrast material. Individualized dose optimization techniques were used for this CT. COMPARISON: No relevant priors. FINDINGS: Normal soft tissue structures. Normal calvarium. There is moderate cerebral atrophy with widening of the extra-axial spaces and ventricular dilatation. There are areas of decreased attenuation within the white matter tracts of the supratentorial brain, consistent with microvascular disease changes. Normal basal ganglia and thalami. Normal brainstem. There is mild cerebellar atrophy. There is no intracranial hemorrhage. There are no findings of an acute ischemic infarction. Atherosclerotic calcification of the cavernous portions of the internal carotid arteries bilaterally. Normal visualized paranasal sinuses. CT/STROKE Brain/Head without Cont IMPRESSION: Chronic involutional changes of the brain. N.B. : The above information has been verbally conveyed by Omega Almaguer MD to Linda Aj on 07/28/2020 13:46:42 (ET). Electronically Signed: Omega Almaguer MD at 13:48 EDT , Service support ,
--- NOTE | 2020-07-28 13:30 | CASEMGMT ---
Social Work Responded to stroke alert for pt. Assisted as requested. Contacted dtr to notify of change of condition and pt getting CT then transferring to ED, and for family to meet pt in ED. Dtr appreciative and will contact grandson. SW offered continued assistance as needed. Vanessa Claudio, EXTENSION SERVICE SUPERVISOR SWING DRIVER
[2020-07-28 13:41] LABS: Bedside Glucose 173 mg/dL (70-110)
--- NOTE | 2020-07-28 14:12 | NURSING ---
This nurse called to pt's room d/t heart rate 176 BP 91/64 BS 172 Lethargic Left sided facial Drop Slurred Speech. This Nurse then Called [phone] Stroke Alert and sent to CT.
[2020-07-28 14:35] VITALS: BP 91/64; PULSE 177; RESP 16; TEMP 36.1; O2SAT 92
--- NOTE | 2020-07-28 19:15 | DS.PCM_ITS ---
Providers Date of Admission: 07/16/20 Primary Care Physician: Dr. Jose Francisco Shah MD Consultations 07/16/20 21:05 Consult: Pain Management Routine Consulting Provider: Anaid Myrick Reason for Consult: L2 compression fracture, kyphoplasty evaluation. EMERGENT Consult: No MD Notified: Yes Date Notified:: 07/16/20 Time Notified: 11:27 Method of Notification: Answering Service Reason For Visit: SMALL BOWEL ILEUS,BACK PAIN Diagnosis Discharge Diagnosis (1) Debility: Status: Acute Code(s): R53.81 - Other malaise (2) Low back pain: Status: Acute Code(s): M54.5 - Low back pain (3) Compression fracture of L2: Status: Acute Code(s): S32.020A - Wedge compression fracture of second lumbar vertebra, initial encounter for closed fracture (4) Ileus: Status: Acute Code(s): K56.7 - Ileus, unspecified (5) Fecal impaction of colon: Status: Acute Code(s): K56.41 - Fecal impaction (6) Urinary retention: Status: Acute Code(s): R33.9 - Retention of urine, unspecified (7) Anemia: Status: Acute Code(s): D64.9 - Anemia, unspecified (8) Atrial fibrillation: Status: Acute Code(s): I48.91 - Unspecified atrial fibrillation (9) Vascular dementia: Status: Acute Code(s): F01.50 - Vascular dementia without behavioral disturbance (10) Depression: Status: Acute Code(s): F32.9 - Major depressive disorder, single episode, unspecified (11) Gastroesophageal reflux disease: Status: Acute Code(s): K21.9 - Gastro-esophageal reflux disease without esophagitis (12) Hypertension: Status: Chronic Code(s): I10 - Essential (primary) hypertension (13) Hypothyroidism: Status: Acute Code(s): E03.9 - Hypothyroidism, unspecified (14) Obstructive sleep apnea: Status: Acute Code(s): G47.33 - Obstructive sleep apnea (adult) (pediatric) (15) Stroke: Status: Acute Code(s): I63.9 - Cerebral infarction, unspecified Medications at Discharge Home Medications levothyroxine 50 mcg PO DAILY 10/18/18 atorvastatin 40 mg PO QHS 07/11/19 finasteride 5 mg PO DAILY #30 tab 07/28/19 tamsulosin 0.8 mg PO DAILY@1730 #60 cap 07/28/19 oxycodone 5 mg PO Q4H PRN PRN 3 Days #10 tab 07/12/20 galantamine 4 mg PO BIDCM 07/16/20 metoprolol tartrate 12.5 mg PO BID 07/16/20 polyethylene glycol 3350 17 g PO DAILY 07/16/20 sennosides-docusate sodium [Stool Softener-Stimulant Laxat] 2 tab PO BID 07/16/20 acetaminophen [Tylenol Extra Strength] 1,000 mg PO Q6H PRN 07/28/20 fluconazole 150 mg PO DAILY 07/28/20 food supplemt, lactose-reduced [Ensure Enlive] 120 ml PO 4X/DAY 07/28/20 menthol-zinc oxide [Calmoseptine] 1 applic TOPICAL BID@0600,2200 07/28/20 mirtazapine 7.5 mg PO QHS 07/28/20 potassium chloride [K-Dur] 20 meq PO DAILY 07/28/20 Hospital Course Operations None Procedures - (L2 kyphoplasty.) Summary of Care Provided Minutes Spent on Discharge: 30 Hospital Course: 84 year old male with below past medical history hospitalized for low back pain from L2 compression fracture, complicated by ileus, urinary retention, atrial fibrillation with rapid ventricular response, admitted to TCU with debility, here for rehabilitation, strengthening, prior to discharge home with significant other. 07/28/2020 Resident developed change in mental status, concerning for stroke. 07/28/2020 Transfer to [facility] Emergency Department for evaluation, admission to hospital. Physical Exam Const alert and oriented x3 General Appearance: cooperative HEENT normocephalic Eyes PERRL and EOMs intact bilaterally Neck supple, no JVD and no carotid bruits Resp normal respiratory effort, normal air movement and clear to auscultation bilaterally Cardio regular rate and regular rhythm GI normal to inspection, nondistended, normoactive bowel sounds, non-tender and non-distended Extremity normal capillary refill General Extremity: Negative for edema Skin no rashes or lesions noted General Skin Exam: no breakdown Psych affect normal Appearance: appropriate ABG / Lab / Microbiology Data Result Diagrams: 07/24/20 08:57 07/28/20 05:20 Laboratory: Laboratory Results - last 24 hr 07/28/20 07/28/20 05:20 13:16 Sodium 140 Potassium 3.7 Chloride 108 H Carbon Dioxide 28.0 Anion Gap 4 L BUN 9 Creatinine 0.69 L Estim Creat Clear Calc 57.52 Est GFR (MDRD) Af Amer 141 Est GFR (MDRD) Non-Af 116 BUN/Creatinine Ratio 13.1 Glucose 99 Calcium 8.0 L POC Glucose 173 H Microbiology: Microbiology 07/19/20 19:05 Urine Catheter - Velarde Urine Culture - Final Presumptive C albicans 07/17/20 13:39 Interface Orders SARS-CoV-2 Antigen (Rapid) - Final Radiography Diagnostic Testing: Radiology Impression Head/Neck CTA 07/28/20 13:25 IMPRESSION: Calcific plaques at the origin of both the right and left internal carotid artery causing greater than 70% luminal narrowing. Small left vertebral artery. N.B. : The above information has been verbally conveyed by Omega Almaguer MD to Linda Aj on 07/28/2020 13:53:15 (ET). Electronically Signed: Omega Almaguer MD at 13:57 EDT , Service support , ADDENDUM: 07/28/20 1404 IMPRESSION: Calcific plaques at the origin of both the right and left internal carotid artery causing greater than 70% luminal narrowing. Small left vertebral artery. N.B. : The above information has been verbally conveyed by Omega Almaguer MD to Linda Aj on 07/28/2020 13:53:15 (ET). Electronically Signed: Omega Almaguer MD at 13:57 EDT , Service support , Brain CT 07/28/20 13:29 IMPRESSION: Chronic involutional changes of the brain. N.B. : The above information has been verbally conveyed by Omega Almaguer MD to Linda Aj on 07/28/2020 13:46:42 (ET). Electronically Signed: Omega Almaguer MD at 13:48 EDT , Service support , ADDENDUM: 07/28/20 1355 IMPRESSION: Chronic involutional changes of the brain. N.B. : The above information has been verbally conveyed by Omega Almageur MD to Linda Aj on 07/28/2020 13:46:42 (ET). Electronically Signed: Omega Almaguer MD at 13:48 EDT , Service support , D/C Instructions Discharge Diet: Swallowing Precautions Discharge Activity: Return to Normal Activity Weight Bearing Status: Weight bearing as tolerated Call your doctor if you observe: Fever of 101 or Higher, Inability to urinate, Inability to have a bowel movement, Shortness of breath, Fainting spells, Chest pain and Uncontrolled pain Additional Instructions: 07/28/2020 Transfer to [facility] Emergency Department for evaluation, admission to hospital. Please Follow Up With: Markos Griffith MD When: 2 weeks. Meaningful Use Info Meaningful Use Diagnoses (Choose all that apply): None applicable Discharge Plan Admission Admit Date/Time: 07/16/20 17:13 Primary Reason for Your Visit: Debility Attending Provider: Jose Francisco Shah Chi Primary Care Provider: Jose Francisco Shah Chi Consulting Providers: Anaid Myrick Instructions Additional Instructions / Restrictions: 07/28/2020 Transfer to [facility] Emergency Department for evaluation, admission to hospital. Discharge Orders/Prescriptions Prescriptions: No Action levothyroxine 50 MCG tablet 50 mcg PO DAILY RF: 0 atorvastatin 40 MG tablet 40 mg PO QHS RF: 0 tamsulosin 0.4 MG capsule 0.8 mg PO DAILY@1730 Qty: 60 RF: 0 finasteride 5 MG tablet 5 mg PO DAILY Qty: 30 RF: 0 oxycodone 5 mg tablet 5 mg PO Q4H PRN PRN (Reason: Pain Score 4-10/10) 3 Days Qty: 10 RF: 0 polyethylene glycol 3350 17 gram powder in packet 17 g PO DAILY RF: 0 sennosides-docusate sodium [Stool Softener-Stimulant Laxat] 8.6-50 mg tablet 2 tab PO BID RF: 0 galantamine 4 MG tablet 4 mg PO BIDCM RF: 0 metoprolol tartrate 25 MG tablet 12.5 mg PO BID RF: 0 fluconazole 150 mg Tablet 150 mg PO DAILY RF: 0 acetaminophen [Tylenol Extra Strength] 500 mg Tablet 1,000 mg PO Q6H PRN (Reason: Pain (Scale Score 1-3)) RF: 0 potassium chloride [K-Dur] 20 mEq Tablet,Er Particles/Crystals 20 meq PO DAILY RF: 0 Ensure Enlive Liquid 120 ml PO 4X/DAY RF: 0 mirtazapine 7.5 mg Tablet 7.5 mg PO QHS RF: 0 Calmoseptine 0.44-20.6 % Ointment 1 applic TOPICAL BID@0600,2200 RF: 0 Referrals / Follow Up: Jose Francisco Shah Chi, MD [Primary Care Provider] - Disposition Disposition (needs filled in before D/C Order can be placed): [facility]
[2020-07-29 13:33] VITALS: BP 91/64; PULSE 177; RESP 16; TEMP 36.1; O2SAT 92
== END 2020-07-28 13:00 | disposition short-term general hospital (02) | DRG 561 ==
PROVIDERS: Admitting Provider Family Medicine Geriatric Medicine; PCP Family Medicine Geriatric Medicine; Visit Provider Family Medicine Geriatric Medicine
DX: M48.56XD Collapsed vertebra, not elsewhere classified, lumbar region, subsequent encounter for fracture with routine healing (principal); E03.9 Hypothyroidism, unspecified; I48.91 Unspecified atrial fibrillation; N40.1 Benign prostatic hyperplasia with lower urinary tract symptoms; R33.8 Other retention of urine; F01.50 Vascular dementia, unspecified severity, without behavioral disturbance, psychotic disturbance, mood disturbance, and anxiety; E78.5 Hyperlipidemia, unspecified; H10.9 Unspecified conjunctivitis; G47.33 Obstructive sleep apnea (adult) (pediatric); K21.9 Gastro-esophageal reflux disease without esophagitis; F32.9 Major depressive disorder, single episode, unspecified; M19.90 Unspecified osteoarthritis, unspecified site; I10 Essential (primary) hypertension; Z79.899 Other long term (current) drug therapy; Z87.891 Personal history of nicotine dependence
CPT/HCPCS: 36415; 70450; 70496; 70498; 80048; 81001; 82962; 85025; 87086; 87088; 87426; 92507; 92523; 92526; 97110; 97116; 97162; 97166; 97530; 97535; 97802; J7030; Q9967; A4216; J2405

== ENCOUNTER 2020-07-21 11:35 | Day surgery (SDC) | payer MEDICARE, SELFPAY ==
[2020-07-21] VITALS (9 sets, daily range): BP systolic 110–142; BP diastolic 67–92; PULSE 58–127; RESP 16–18; TEMP 36.1–36.3; O2SAT 93–96; BMI 24.5
--- NOTE | 2020-07-21 12:01 | SUR.PREOP ---
ON ARRIVAL TO [facility] PRE[facility], PATIENT HAS SMITH CATHETER WHICH IS COLA-COLORED. SPOKE WITH ABELARDO MODI, WHO STATES NURSING NOTED COLA-COLORED URINE THIS MORNING ON TRANSITIONAL CARE UNIT.
--- NOTE | 2020-07-21 13:00 | RAD_ITS ---
STUDY: X-RAY - LUMBAR SPINE REASON FOR EXAM: Male, 84 years old. KYPHOPLASTY L2 TECHNIQUE: 6 C-arm view(s) of the lumbar spine were obtained. 92 seconds fluoroscopy time COMPARISON: None FINDINGS: This series of C-arm images shows grossly appropriate placement of kyphoplasty cement into the L2 compression fracture. Correlate with procedure note. Electronically Signed: Gabriel Woods MD at 19:17 EDT [phone] This report is pending additional review. Service support , RAD/Lumbar Spine 2 or 3 Views
[2020-07-21] MEDS: Lidocaine 0.5% (50 ml) 50 ML Vial (13:48)
[2020-07-21] MEDS: Lactated Ringers 1,000 ML 100 ML IV (14:59)
== END 2020-07-21 15:43 ==
LOC: SDC 11:37 → AC 11:37
PROVIDERS: PCP Family Medicine Geriatric Medicine; Referring Provider Anesthesiology Pain Medicine; Visit Provider Anesthesiology Pain Medicine
PROC: (CPT 22514; principal; 2020-07-21 12:45)
DX: M80.08XA Age-related osteoporosis with current pathological fracture, vertebra(e), initial encounter for fracture (principal); R53.81 Other malaise; K21.9 Gastro-esophageal reflux disease without esophagitis; I10 Essential (primary) hypertension; E03.9 Hypothyroidism, unspecified; Z87.891 Personal history of nicotine dependence; Z86.73 Personal history of transient ischemic attack (TIA), and cerebral infarction without residual deficits; Z79.899 Other long term (current) drug therapy; X50.0XXA Overexertion from strenuous movement or load, initial encounter; Y93.89 Activity, other specified; Y92.89 Other specified places as the place of occurrence of the external cause; Y99.8 Other external cause status
CPT/HCPCS: 22514; 72100; 76000; J7120

== ENCOUNTER 2020-07-28 13:38 | Inpatient (IN) | payer MEDICARE, SELFPAY ==
[2020-07-21 12:01] VITALS: BMI 24.5
[2020-07-28] VITALS (24 sets, daily range): BP systolic 108–153; BP diastolic 63–112; PULSE 86–175; RESP 16–23; TEMP 36.4–36.9; O2SAT 93–99; BMI 22.7; BMI 22.4
--- NOTE | 2020-07-28 13:43 | EKG12_ITS ---
Test Reason : STROKE Blood Pressure : / mmHG Vent. Rate : 175 BPM Atrial Rate : 104 BPM P-R Int : 000 ms QRS Dur : 084 ms QT Int : 266 ms P-R-T Axes : 000 040 233 degrees QTc Int : 453 ms Atrial Flutter with 2:[address] & T wave abnormality, consider inferior ischemia Abnormal ECG Confirmed by LATASHA ROBERSON, SAMIRA ([id number]), continuity editor PRASHANT GUSMAN ([id number]) on 07/29/2020 12:52:11 PM Referred By: SON Confirmed By:ALCON PAGAN MD
--- NOTE | 2020-07-28 13:45 | EDS_ITS ---
HPI History of Present Illness Chief Complaint: Neuro S/Sx Detail of Chief Complaint: Confusion and concern for stroke with last known well approximately 13:15 Informant: patient and other (Dr. Linda Aj) Onset/Context/Timing Onset: Today Narrative Narrative: Patient presents to the emergency department with concern for possible stroke. Patient in the hospital transitional care unit and last known well approximately 1315. Patient apparently developed confusion as well as a left-sided facial droop and difficulty answering questions appropriately. He was taken to the CT scanner and initially evaluated by hospitalist Dr. Linda Aj. Patient had CT of the brain and CTA of head and neck. On arrival to the emergency department he is really without complaints. Patient also was noted to be in A. fib RVR. He has had a history of hematuria and had kyphoplasty on July 21. [facility] Medical History (Updated 07/28/20 @ 15:[address] Radha Alvarez, ) Anemia Atrial fibrillation BPH (benign prostatic hyperplasia) Debility Dementia Depression Velarde catheter in place Former smoker GERD (gastroesophageal reflux disease) Hematuria Hypertension Hypertension Hypothyroidism Hypothyroidism L2 vertebral fracture Normal echocardiogram (~07/15/20) Osteoarthritis Prostatitis Sleep apnea Stroke Urinary retention Vascular dementia Home Medications levothyroxine 50 mcg PO DAILY 10/18/18 [History Last Taken 07/28/20 05:42] atorvastatin 40 mg PO QHS 07/11/19 [History Last Taken 07/27/20 20:03] finasteride 5 mg PO DAILY #30 tab 07/28/19 [Rx Last Taken 07/28/20 05:44] tamsulosin 0.8 mg PO DAILY@1730 #60 cap 07/28/19 [Rx Last Taken 07/27/20 17:59] oxycodone 5 mg PO Q4H PRN PRN 3 Days #10 tab 07/12/20 [Rx Last Taken 07/28/20 08:53] galantamine 4 mg PO BIDCM 07/16/20 [History Last Taken 07/28/20 08:42] metoprolol tartrate 12.5 mg PO BID 07/16/20 [History Last Taken 07/28/20 05:43] polyethylene glycol 3350 17 g PO DAILY 07/16/20 [History Last Taken 07/28/20 05:42] sennosides-docusate sodium [Stool Softener-Stimulant Laxat] 2 tab PO BID 07/16/20 [History Last Taken 07/28/20 05:42] acetaminophen [Tylenol Extra Strength] 1,000 mg PO Q6H PRN 07/28/20 [History Last Taken 07/27/20 13:36] fluconazole 150 mg PO DAILY 07/28/20 [History Last Taken 07/28/20 05:41] food supplemt, lactose-reduced [Ensure Enlive] 120 ml PO 4X/DAY 07/28/20 [History Last Taken 07/28/20 11:24] menthol-zinc oxide [Calmoseptine] 1 applic TOPICAL BID@0600,2200 07/28/20 [History Last Taken 07/28/20 05:41] mirtazapine 7.5 mg PO QHS 07/28/20 [History Last Taken 07/27/20 20:04] potassium chloride [K-Dur] 20 meq PO DAILY 07/28/20 [History Last Taken 07/28/20 08:42] Allergy/AdvReac Type Severity Reaction Status Date / Time No Known Allergies Allergy Verified 07/20/20 14:47 Family History (Updated 07/28/20 @ 13:[address] Linda Aj MD) Mother CVA (cerebral vascular accident) Father CVA (cerebral vascular accident) Surgical History (Updated 07/28/20 @ 13:[address] Linda Aj MD) S/P kyphoplasty S/P TURP (status post transurethral resection of prostate) Social History (Updated 07/28/20 @ 13:[address] Linda Aj MD) household members: significant other Smoking Status: Former smoker alcohol intake: never substance use type: does not use ROS ROS ED ROS Narrative Confusion while in TCU with suspected left facial droop and difficulty with expressive aphasia. Constitutional Constitutional ED: Reports systems reviewed and no addt'l complaints, except as documented; Denies body ache(s), change in weight or chills Eyes Eyes: Denies acute decrease in peripheral vision, change in vision, double vision or loss of vision ENT ENT ED: Reports none; Denies ear pain, lip swelling, loss taste/smell, neck pain, otalgia or sore throat Cardiovascular Cardiovascular: Reports none; Denies abdominal pain, chest pain with activity, leg edema, lightheadedness, palpitations, rapid heart rate or syncope Respiratory/Chest Respiratory/Chest: Reports none; Denies change in mental status, dry cough, dyspnea, hemoptysis, shortness of breath at rest or shortness of breath with exertion Gastrointestinal Gastrointestinal: Reports none; Denies abdominal pain, change in stool character, diarrhea, hematemesis, hematochezia, melena, rectal bleeding or vomiting Genitourinary Genitourinary ED: Reports none; Denies abdominal discomfort, anuria, dysuria, genital pain or polyuria Musculoskeletal Musculoskeletal: Reports none; Denies arthralgias, back pain, difficulty walking, extremity pain, muscle weakness or myalgias Integumentary Reports none; Denies abscess or rash Neurologic Neurologic: Reports none; Denies abnormal gait, confusion, focal weakness, frequent falls, headache(s), loss of vision, numbness, paresthesias, radicular pain, vertigo or weakness Psychiatric Psychiatric: Reports systems reviewed and no addt'l complaints, except as documented and none; Denies behavioral changes, confusion, difficulty concentrating, hallucinations, suicidal ideation, tactile hallucinations or visual hallucinations Endocrine Endocrinology: Denies none, cold intolerance, excessive sweating, fatigue or heat intolerance Hematologic/Lymphatic Hematologic/Lymphatic: Reports none; Denies anemia, easy bleeding or easy bruising Allergic/Immunologic Allergic/Immunologic ED: Denies as per HPI, none, lip swelling, mouth swelling, throat swelling, tongue swelling or hives EXAM Physical Exam Const Vital Signs: 07/28/20 13:38 07/28/20 13:53 07/28/20 13:54 Temperature 98 F Temperature Source Oral Pulse Rate 174 H 175 H 161 H Respiratory Rate 21 H 23 H 21 H Blood Pressure 112/77 112/77 110/77 Blood Pressure Mean 88 88 88 Pulse Ox 96 96 97 Oxygen Delivery Method Room Air Room Air Room Air 07/28/20 14:27 07/28/20 14:57 Temperature Temperature Source Pulse Rate 118 H 125 H Respiratory Rate 16 19 H Blood Pressure 111/73 132/63 H Blood Pressure Mean 85 86 Pulse Ox 94 96 Oxygen Delivery Method Room Air Room Air Positive well nourished and well developed General Appearance ED: well developed and NAD HEENT Reports TM's clear and moist mucous membranes normocephalic and atraumatic; Negative for trauma or tenderness Tympanic Membrane ED: Yes TM's clear Eyes PERRL and EOMs intact bilaterally General Eye ED: Negative for pale conjunctiva or scleral icterus Neck no lymphadenopathy, supple and no JVD General: Negative for tenderness Chest Wall inspection of chest normal and palpation of chest normal Chest: Negative for tenderness Resp normal respiratory effort and clear to auscultation bilaterally Effort and Inspection: Negative for respiratory distress or pain with movement Auscultation: Negative for rhonchi, wheezes or diminished lung sounds Cardio regular rate, regular rhythm, S1 normal heart sound, S2 normal heart sound and no murmurs Peripheral Pulses: pulses 2+ throughout GI normal to inspection, nondistended, normoactive bowel sounds, soft to palpation, non-tender, non-distended and no masses Back/Spine no CVA tenderness and no thoracic nor lumbar tenderness Extremity normal to inspection General Extremety ED: Negative for edema General Extremity: Negative for edema Neuro oriented x3, CN's II-XII intact bilaterally, no sensory deficits noted and gait normal Neuro Narrative: On my evaluation of the patient I gave him an NIH stroke scale of 0. Per hospitalist who initially saw patient he has improved. Sensorium / Orientation: awake, alert, oriented to person, oriented to place and oriented to time Motor Exam: strength 5/5 throughout and strength abnormal Psych mental status grossly normal Skin no rashes or lesions noted and no wounds STROKE Vital Signs/Narrative: Vital Signs Temp Pulse Resp BP Pulse Ox 07/28/20 14:57 125 H 19 H 132/63 H 96 07/28/20 14:27 118 H 16 111/73 94 07/28/20 13:54 161 H 21 H 110/77 97 07/28/20 13:53 175 H 23 H 112/77 96 07/28/20 13:38 98 F 174 H 21 H 112/77 96 MDM MDM MDM Narrative Medical decision making narrative: Patient not a TPA candidate as his NIH stroke scale currently is 0. I suspect he may have had TIA. Patient will have urine sent for analysis. Patient was noted to be in A. fib RVR and was started on a Cardizem drip. Lab Data Attestation: I reviewed the patient's lab results. Labs: Laboratory Results - last 24 hr 07/28/20 07/28/20 07/28/20 13:55 13:55 13:55 WBC 9.0 RBC 4.30 L Hgb 13.6 Hct 40.2 MCV 93.5 MCH 31.6 MCHC 33.8 RDW Std Deviation 45.8 H RDW Coeff of Francis 13.4 Plt Count 108 L MPV 10.6 Immature Gran % (Auto) 0.400 Neut % (Auto) 76.6 H Lymph % (Auto) 10.7 L Pender % (Auto) 10.7 H Eos % (Auto) 0.9 Baso % (Auto) 0.7 Absolute Neuts (auto) 6.9 Absolute Lymphs (auto) 0.97 Nucleated RBC % 0 PT 15.1 H INR 1.3 APTT 34.4 Sodium 138 Potassium 3.9 Chloride 108 H Carbon Dioxide 27.0 Anion Gap 3 L BUN 10 Creatinine 0.73 Estim Creat Clear Calc 61.42 Est GFR (MDRD) Af Amer 130 Est GFR (MDRD) Non-Af 108 BUN/Creatinine Ratio 13.6 Glucose 140 H Calcium 8.0 L Troponin I < 0.015 Radiography Diagnostic Testing: Radiology Impression Chest X-Ray 07/28/20 14:25 IMPRESSION: Increased markings in the medial aspect of the left lower lobe. Follow-up is recommended. Electronically Signed: Omega Almaguer MD at 15:02 EDT , Service support , 1 view chest x-ray obtained interpreted by myself as chronic interstitial disease and questionable left lower lobe infiltrate. EKG Initial EKG: Comments: EKG obtained on arrival showed a atrial fibrillation with ventricular rate of [address] changes Stroke Documentation Questions Stroke Team Activated: Yes Reviewed Inclusion/Exclusion criteria: Yes Was Patient considered for Endovascular Intervention?: No IV Alteplase (t-PA) Administered: No No contraindications for IV Alteplase (t-PA) administration.: No Alteplase (t-PA) risks, benefits, alternative discussed: Yes Critical Care Time Critical Care Time: Yes Critical care time (excluding procedures): 30-74 minutes, Including time spent:, Discussing w/Patient &/or Family/Supervising Chef, Discussing w/Consultants, Arranging Admission or Transfer, Performing Direct Patient Care at Bedside and - (30 minutes) Discharge Plan Dx/Rx/DC Orders Clinical Impression: Brain TIA, Atrial fibrillation with rapid ventricular response Disposition Disposition: [facility]
--- NOTE | 2020-07-28 13:52 | PCM.HP.STD ---
HPI - General General Date of Admission: 07/28/20 Date of Service: 07/28/20 Chief Complaint: Stroke call in TCU HPI Narrative The patient is an 84 y/o M w/ PMHx: BAO on CPAP, HTN, HLD, Hypothyrodism, Vascular dementia with no behavioral disturbance history, Chronic anemia, PAF with episodes of RVR not anticoagulated per records secondary to episodes of notable hematuria, Anxiety and Depression, BPH s/p TURB with chronic urinary retention with ventura in place, GERD, Former Tobacco use, Hx CVA recently transitioned to 07/16/20 to TCU following lumbar intractable L2 back pain with episode of atrial fibrillation with RVR with Cardiology recommendation to continue low dose BID metoprolol in addition to ileus with fecal impactions/p 07/21/20 L2 kyphoplasty who now re-presents to the [facility] ED on 07/28/20 following TCU Stroke call at 13:16 with last reported normal 30 minutes prior with appropriate BS upon TCU assessment, initial NIHSS 5 for mild aphasia, dysarthria, inability to answer appropriate questions and mild L sided facial droop. Patient also noted to be in atrial fibrillation with RVR rate 170s with SBP 102. Patient last renal function appropriate therefore emergently transitioned to the CT scanner and CT head as well as CTA head and neck obtained. Patient then transitioned to the ED for continued evaluation and treatment. In the ED patient status improved with NIHSS 0 upon re-evaluation. BP still noted to be low normal range (112/77) and rate ongoing 170s. In the ED patient ministered Cardizem 20 mg IV bolus and transition to a Cardizem drip as well. Work-up in the ED currently with T 97, heart rate initially down to 118 but now back up to 117, BP 111/73, respiratory rate 16, 92 to 97% on room air, CBC with WBC 9, hemoglobin 13.6, platelet 108 without marked shift, coags with PT 15.1 otherwise not marked appearing, BMP with glucose 140 otherwise not marked appearing, troponin less than 0.015. Telemetry stroke with recommendation for if no LVO on CTA head neck then plan admission with MRI brain, appropriate neuro checks, FLP, A1c, therapy evaluations. UA, UCx and ventura catheter change pending per ED. Patient administered cardizem bolus and eventually placed on cardizem drip in the ED. [facility] Medical History Anemia Asthma Atrial fibrillation BPH (benign prostatic hyperplasia) Debility Dementia Depression Ventura catheter in place Former smoker GERD (gastroesophageal reflux disease) Hematuria Hypertension Hypertension Hypothyroidism Hypothyroidism L2 vertebral fracture Normal echocardiogram (~07/15/20) Osteoarthritis Prostatitis Sleep apnea Stroke Urinary retention Vascular dementia Home Medications levothyroxine 50 mcg PO DAILY 10/18/18 [History Last Taken 07/28/20 05:42] atorvastatin 40 mg PO QHS 07/11/19 [History Last Taken 07/27/20 20:03] finasteride 5 mg PO DAILY #30 tab 07/28/19 [Rx Last Taken 07/28/20 05:44] tamsulosin 0.8 mg PO DAILY@1730 #60 cap 07/28/19 [Rx Last Taken 07/27/20 17:59] oxycodone 5 mg PO Q4H PRN PRN 3 Days #10 tab 07/12/20 [Rx Last Taken 07/28/20 08:53] galantamine 4 mg PO BIDCM 07/16/20 [History Last Taken 07/28/20 08:42] metoprolol tartrate 12.5 mg PO BID 07/16/20 [History Last Taken 07/28/20 05:43] polyethylene glycol 3350 17 g PO DAILY 07/16/20 [History Last Taken 07/28/20 05:42] sennosides-docusate sodium [Stool Softener-Stimulant Laxat] 2 tab PO BID 07/16/20 [History Last Taken 07/28/20 05:42] acetaminophen [Tylenol Extra Strength] 1,000 mg PO Q6H PRN 07/28/20 [History Last Taken 07/27/20 13:36] fluconazole 150 mg PO DAILY 07/28/20 [History Last Taken 07/28/20 05:41] food supplemt, lactose-reduced [Ensure Enlive] 120 ml PO 4X/DAY 07/28/20 [History Last Taken 07/28/20 11:24] menthol-zinc oxide [Calmoseptine] 1 applic TOPICAL BID@0600,2200 07/28/20 [History Last Taken 07/28/20 05:41] mirtazapine 7.5 mg PO QHS 07/28/20 [History Last Taken 07/27/20 20:04] potassium chloride [K-Dur] 20 meq PO DAILY 07/28/20 [History Last Taken 07/28/20 08:42] Allergy/AdvReac Type Severity Reaction Status Date / Time No Known Allergies Allergy Verified 07/20/20 14:47 Family History Mother CVA (cerebral vascular accident) Father CVA (cerebral vascular accident) Surgical History S/P kyphoplasty S/P TURP (status post transurethral resection of prostate) Social History adopted: No household members: significant other number of children: 4 financial difficulty paying for basics: decline to answer service: Yes current occupational status: retired current occupational exposures/hazards: No pets and animals: No Smoking Status: Former smoker alcohol intake: never substance use type: does not use ROS ROS Narrative Admission Review of Systems: CONSTITUTIONAL: No weight loss, fever, chills, + weakness or fatigue. HEENT: + Transient L sided facial droop. Eyes: No visual loss, blurred vision, double vision or yellow sclerae. Ears, Nose, Throat: No hearing loss, sneezing, congestion, runny nose or sore throat. SKIN: No rash or itching, lesions, wounds. CARDIOVASCULAR: No chest pain, chest pressure or chest discomfort, palpitations, edema, orthopnea, syncopal events. RESPIRATORY: No shortness of breath, cough or sputum, wheezing, hemoptysis. GASTROINTESTINAL: No anorexia, nausea, vomiting or diarrhea, abdominal pain, melena, BRBPR. GENITOURINARY: + Chronic urinary retention, ventura in place. No dysuria,urgency. NEUROLOGICAL: + TIA w/ NIHSS 5 upon stroke call, with altered speech/confusion, mild L sided facial droop now resolved. No headache, dizziness, syncope, paralysis, ataxia, numbness or tingling in the extremities, change in bowel or bladder control, seizure. MUSCULOSKELETAL: + muscle, back pain, joint pain or stiffness. HEMATOLOGIC:+ anemia, bleeding or bruising. LYMPHATICS: No enlarged nodes. No history of splenectomy. PSYCHIATRIC: No history of depression or anxiety. ENDOCRINOLOGIC: No reports of sweating, cold or heat intolerance. No polyuria or polydipsia. ALLERGIES: No history of asthma, hives, eczema or rhinitis. Vital Signs Vital Signs Vital Signs: 07/28/20 13:38 Temperature 98 F Temperature Source Oral Pulse Rate 174 H Respiratory Rate 21 H Blood Pressure 112/77 Blood Pressure Mean 88 Pulse Ox 96 Oxygen Delivery Method Room Air Weight Weight: 177 lb 4.026 oz Body Mass Index (BMI) 22.7 Physical Exam Narrative TCU Stroke call examination: Physical Examination: General: awake, alert, oriented only to self, slurred speech (mild), remains cooperative, laying in the TCU bed, NAD. Skin: normal color, normal turgor, no icterus, no cyanosis. HEENT: AT/NC, EOMI, PERRLA, mildly dry MM, dentures in place lower (removed), mild L sided facial droop, near correction with smile, no carotid bruits or JVD noted. Lungs: Diminished BS, > bases, appropriate effort, no rales, ronchi or wheezing. Heart: Irregular irregular; no gallop, rub audible. Abdomen: soft, NTTP, ND, distant normal BS, no HSM. Extremities: no cyanosis, clubbing, or edema. Neurological: patient awake, alert, oriented as noted, cognitive function not baseline intact; pupils equally reactive to light and accommodation, cranial nerves II-XII grossly normal except mild L sided facial droop, slurred speech, moving all 4 extremities, no focal deficits, strength preserved aside expected global reduction given TCU admission, ongoing therapies and chronic underlying comorbidities. Psychiatric: affect appears flat, no acute evidence of depressive or anxiety feelings. Repeat ED assessment with resolution of mild facial droop, slurred speech, NIHSS repeat 0. Lab / Micro Data Result Diagrams: 07/28/20 13:55 07/28/20 13:55 Assessment & Plan Assessment/Plan (1) TIA (transient ischemic attack): (2) Atrial fibrillation with RVR: PLAN: The patient is an 84 y/o M w/ PMHx: BAO on CPAP, HTN, HLD, Hypothyrodism, Vascular dementia with no behavioral disturbance history, Chronic anemia, PAF with episodes of RVR not anticoagulated per records secondary to episodes of notable hematuria, Anxiety and Depression, BPH s/p TURP with chronic urinary retention with ventura in place, GERD, Former Tobacco use, Hx CVA recently transitioned to 07/16/20 to TCU following lumbar intractable L2 back pain with episode of atrial fibrillation with RVR with Cardiology recommendation to continue low dose BID metoprolol in addition to ileus with fecal impactions/p 07/21/20 L2 kyphoplasty who now re-presents to the [facility] ED on 07/28/20 following TCU Stroke call at 13:16 with last reported normal 30 minutes prior with appropriate BS upon TCU assessment, initial NIHSS 5 for mild aphasia, dysarthria, inability to answer appropriate questions and mild L sided facial droop. 1. Transient L facial droop, slurred speech, confusion concerning for CVA/TIA, resolved: Stroke call CT brain with chronic involutional changes, CTA head neck with calcific plaques at the origin of both right and left internal carotid arteries causing greater than 77% luminal narrowing with a small left vertebral artery. Will admit to PCU, will obtain MRI Brain, ECHO 07/16/20 but without contrast, last prior to this 2017 also without bubble study thus will request repeat with bubble, PT/OT/Speech/Nutrition evaluation per protocol. Will consult Neurology for evaluation once imaging and work-up obtained. Will allow permissive HTN although presentation with low BP, will need to consider as noted usage of amiodarone for #2, maintain on asa, statin w/ AM FLP, fall precautions, mag, TSH, HgbA1c, FLP pending. Carotid US requested given BL carotid disease noted on CTA. 2. Paroxsymal atrial fibrillation with RVR: EKG in ED w/ atrial fibrillation w/ RVR. Will maintain on telemetry, obtain cardiac enzyme serial set, obtain magnesium level, obtain ECHO as noted above only because need for bubble study but actually had study on 07/16/20 with noted EF 55%, no evidence of diastolic dysfunction, trivial MVI, obtain TSH level. CHADs scoring appropriate for anticoagulation however has had issues per report with hematuria, thus to be cautious will initiate on heparin drip to ascertain if recurrent immediate hematuria prior to anticoagulation long-term consideration. Will maintain on cardizem drip but if notable hypotension may necessitate transition to amiodarone. 3. Acute Complicated Urinary Tract Infection complicated by #6: UA upon ED evaluation eventually resulted and notably remarkable, pending UCx, Ventura catheter changed in the ED per discussion with ED physician, monitor I/Os, will initiate IV Rocephin w/ transition as able pending sensitivities and speciation. Additionally patient from 07/19/2020 had been on antifungal regimen secondary to significant Diflucan noted on urine culture, will continue also. 4. Hypertension: Complicated given PAF with RVR, will hold hypertensive regimen except agents needed to maintain rate control with as needed breakthrough given #1 evaluation. 5. Hyperlipidemia: Continue home statin regimen. AM FLP. 6. BPH with chronic urinary retention with chronic indwelling Ventura: We will continue patient home finasteride and Flomax regimen, from view of Ventura catheter would benefit from change as notable debris in the catheter, continue outpatient follow-up with urology. 7. Vascular dementia without behavioral disturbance history: We will continue galantamine as well as mirtazapine regimen, fall precautions. 8. Anxiety and depression: We will continue patient home mirtazapine regimen. 9. Hypothyroidism: Continue home synthroid regimen, TSH pending. 10. Former tobacco use: Encourage continued tobacco cessation. 11. BAO: We will continue CPAP nightly. 12. GERD: We will maintain on famotidine. 13. DVT prophylaxis: SCDs, heparin drip as noted trial given history of significant hematuria prior to any consideration of long-term anticoagulation. 14. CODE STATUS: DNR CCA, no intubation. Visit Charges Inpatient E&M: 90781 Init Hosp L3
[2020-07-28] MEDS: dilTIAZem 25 MG/5 ML Vial 20 MG IV BOLUS (13:58)
[2020-07-28 14:11] LABS: Absolute Lymphocyte Count 0.97 X10^3/uL (0.83-4.51); Absolute Neutrophil Count 6.9 X10^3/uL (2.0-7.7); Basophil# 0.06 X10^3/uL; Basophil% 0.7 % (0-1); Eosinophil# 0.08 X10^3/uL; Eosinophils% 0.9 % (0-5); Hematocrit 40.2 % (40-54); Hemoglobin 13.6 g/dL (13.0-16.5); Lymphocyte # 0.97 X10^3/ul (0.83-4.51); Lymphocyte % 10.7 % (19-41); Mean Corp Hgb Conc 33.8 g/dL (32-36); Mean Corpuscular Hgb 31.6 pg (27.0-32.0); Mean Corpuscular Volume 93.5 fL (80-94); Mean Platelet Vol. 10.6 fl (6.2-12.0); Monocyte# 0.97 X10^3/uL; Monocyte% 10.7 % (0-10); NRBC Flagged by Analyzer 0 % (0-5); Neutrophil # 6.91 X10^3/uL (2.7-7.7); Neutrophil % 76.6 % (47-70); Platelet Count 108 K/mm3 (150-450); RBC Distribution Width CV 13.4 % (11.6-14.6); RBC Distribution Width SD 45.8 fl (35.1-43.9)
[2020-07-28 14:25] LABS: International Normalized Ratio 1.3; Prothrombin Time (Protime)PT. 15.1 SECONDS (11.7-14.9)
--- NOTE | 2020-07-28 14:25 | RAD_ITS ---
STUDY: X-RAY CHEST REASON FOR EXAM: Male, 84 years old. Neuro deficit, acute, stroke suspected TECHNIQUE: Single AP portable view of the chest. COMPARISON: Comparison is made with prior examination 07/14/2020. FINDINGS: EKG electrodes are seen. Focal area of increased markings in the medial aspect of the left lower lobe. This may represent either atelectasis and/or early infiltrate. There is no demonstrated pleural abnormality. Normal size heart. Normal mediastinum and deysi. Normal visualized pulmonary arteries. There is atherosclerotic calcification of the aortic arch with tortuosity. There are diffuse degenerative changes of the visualized thoracic spine. Normal visualized ribs, clavicles, and shoulders. There is no demonstrated abnormality of the visualized soft tissue structures of the upper abdomen. RAD/Chest 1 View IMPRESSION: Increased markings in the medial aspect of the left lower lobe. Follow-up is recommended. Electronically Signed: Omega Almaguer MD at 15:02 EDT , Service support ,
[2020-07-28 14:26] LABS: Partial Thromboplast Time 34.4 Seconds (24.1-36.2)
[2020-07-28 14:27] LABS: Anion Gap 3 (5-15); BUN 10 mg/dL (7-18); BUN/Creat Ratio 13.6 RATIO (10-20); Chloride 108 mmol/L (98-107); Creatinine, Serum 0.73 mg/dL (0.70-1.30); EST Glomerular Filtration Rate 108 mL/min (>60); Est Glom Filt Rate - Afr Amer 130 mL/min (>60); Estimated Creatinine Clearance 61.42 ml/min; Glucose 140 mg/dL (74-106); Potassium 3.9 mmol/L (3.5-5.1); Sodium Level 138 mmol/L (136-145)
--- NOTE | 2020-07-28 15:06 | NURSING ---
PCU WHITE CONFUSION, AFIB RVR, TIA
[2020-07-28 15:27] LABS: Mucous, Urine 0 SEEN /hpf (<or=2+); Squamous Epithelial Cells - UA 0 SEEN /hpf (0-5)
[2020-07-28 15:39] LABS: Color, Urine Yellow (Yellow); Glucose, Dipstick Normal (Normal); Ketone-Dipstick Negative (Negative); Leukocyte Esterase-Dipstick 500 /ul (Negative); Nitrite-Dipstick Positive (Negative); Occult Blood-Urine 250 /ul (Negative); Protein-Dipstick 30 mg/dl (Negative); Urine Bilirubin Dipstick Negative (Negative); Urine Clarity Cloudy (Clear); Urine Urobilinogen 4 mg/dl (Normal)
[2020-07-28 16:06] LABS: Bedside Glucose 113 mg/dL (70-110)
[2020-07-28 16:17] LABS: Bacteria 3+ /hpf (None Seen); White Blood Cells 50-100 SEEN /hpf (0-5)
[2020-07-28 16:20] LABS: Red Blood Cells-Urine 5-10 SEEN /hpf (0-5)
--- NOTE | 2020-07-28 16:20 | CDU_ITS ---
Reason For Study: TIA, carotid disease on CTA Rt. Velocities/BP Lt. Velocities/BP Prox CCA 82.6/10.8 cm/sec. Prox CCA 89.0/10.8 cm/sec. Mid CCA 70.8/9.5 cm/sec. Mid CCA 66.9/8.2 cm/sec. Dist CCA 66.9/6.9 cm/sec. Dist CCA 59.1/12.1 cm/sec. Prox ICA 55.2/10.8 cm/sec. Prox ICA 74.7/19.9 cm/sec. Mid ICA 113.9/13.4 cm/sec. Mid ICA 73.4/17.3 cm/sec. Dist ICA 111.2/20.0 cm/sec. Dist ICA 73.4/19.9 cm/sec. Rt. ICA/CCA = 1.6. Lt. ICA/CCA = 1.1. Prox ECA 123.0 cm/sec. Prox ECA 68.2 cm/sec. Rt. Vert. 52.5/12.1 cm/sec. Lt. Vert. 83.8/12.4 cm/sec. Right Extracranial There is heterogeneous, irregular atherosclerotic plaque noted in the right common carotid artery. There is heterogeneous, irregular atherosclerotic plaque noted in the right internal carotid artery. The atherosclerotic plaque causes acoustic shadowing. There is heterogeneous, irregular atherosclerotic plaque noted in the right external carotid artery. Antegrade flow is noted in the right vertebral artery. Left Extracranial There is heterogeneous, irregular atherosclerotic plaque noted in the left common carotid artery. There is heterogeneous, irregular atherosclerotic plaque noted in the left internal carotid artery. The atherosclerotic plaque causes acoustic shadowing. There is heterogeneous, irregular atherosclerotic plaque noted in the left external carotid artery. Antegrade flow is noted in the left vertebral artery. Procedure Carotid Duplex 15165. This is a Carotid Duplex examination using B-mode, color flow and specral Doppler. The exam was diagnostic. Exam performed portable in patient room. VL/Carotid Duplex Ultrasound Interpretation Summary Irregular calcific plaque with shadowing at the proximal right internal carotid artery with less than 50% stenosis. Less than 50% stenosis right external carotid artery Good imaging was obtained Irregular calcific plaque with shadowing at the proximal left internal carotid artery with less than 50% stenosis. Less than 50% stenosis left external carotid artery Patent antegrade vertebral arteries bilaterally The length of the calcific shadowing in bilateral internal carotid arteries is less than 2 cm which should correlate with accurate duplex velocity measurement Ordering Physician: Linda Aj Performed By: Eleuterio Isaac RVT
[2020-07-28 16:58] LABS: Magnesium 1.8 mg/dL (1.6-2.6)
[2020-07-28] MEDS: 0.9% Normal Saline 1,000 ML 100 ML IV (17:49)
[2020-07-28] MEDS: HEPARIN/D5w 25,000 UNITS 25,000 UNITS/250 ML IV.SOLN. 11 UNITS IV (17:50)
[2020-07-28] MEDS: Heparin Injection (Vial) 5,000 UNIT/ML VIAL 5000 UNIT IV (17:50)
[2020-07-28] MEDS: Ceftriaxone 1 GM/50 ML BAG IV (19:57)
[2020-07-28] MEDS: Tamsulosin HCl 0.4 MG Capsule 0.8 MG PO (20:02)
[2020-07-28] MEDS: Galantamine Hydrobromide 4 MG Tablet PO (20:07)
[2020-07-28] MEDS: Metoprolol Tartrate 25 MG Tablet PO (20:09)
[2020-07-28] MEDS: Menthol/Lanolin/Calamine/Znox 113 GM Tube 1 APPLIC TOPICAL (21:46)
[2020-07-28] MEDS: Senna/Docusate Sodium 1 Tablet 2 TABLET PO (21:52)
[2020-07-28] MEDS: Famotidine 20 MG Tablet PO (21:53)
[2020-07-28] MEDS: Atorvastatin Calcium 40 MG Tablet PO (21:53)
[2020-07-28] MEDS: Mirtazapine 15 MG Tablet 7.5 MG PO (21:56)
[2020-07-28] MEDS: MELATONIN 3 MG TABLET PO (21:56)
[2020-07-29] VITALS (25 sets, daily range): BP systolic 96–139; BP diastolic 56–89; PULSE 67–98; RESP 14–23; TEMP 36–36.6; O2SAT 93–97; BMI 22.4
[2020-07-29 01:04] LABS: Partial Thromboplast Time 157.2 Seconds (24.1-36.2)
[2020-07-29] MEDS: 0.9% Normal Saline 1,000 ML 100 ML IV ×2 (03:14→15:20)
[2020-07-29] MEDS: Menthol/Lanolin/Calamine/Znox 113 GM Tube 1 APPLIC TOPICAL ×2 (05:15→22:37)
[2020-07-29] MEDS: Levothyroxine 50 MCG Tablet PO (05:16)
[2020-07-29 07:17] LABS: Absolute Lymphocyte Count 0.92 X10^3/uL (0.83-4.51); Absolute Neutrophil Count 5.5 X10^3/uL (2.0-7.7); Basophil# 0.04 X10^3/uL; Basophil% 0.5 % (0-1); Eosinophil# 0.14 X10^3/uL; Eosinophils% 1.8 % (0-5); Hematocrit 38.6 % (40-54); Hemoglobin 13.1 g/dL (13.0-16.5); Lymphocyte # 0.92 X10^3/ul (0.83-4.51); Lymphocyte % 12.2 % (19-41); Mean Corp Hgb Conc 33.9 g/dL (32-36); Mean Corpuscular Hgb 31.4 pg (27.0-32.0); Mean Corpuscular Volume 92.6 fL (80-94); Mean Platelet Vol. 11.1 fl (6.2-12.0); Monocyte% 11.9 % (0-10); NRBC Flagged by Analyzer 0 % (0-5); Neutrophil # 5.54 X10^3/uL (2.7-7.7); Neutrophil % 73.2 % (47-70); Platelet Count 118 K/mm3 (150-450); RBC Distribution Width CV 13.4 % (11.6-14.6); RBC Distribution Width SD 45.5 fl (35.1-43.9); Red Blood Count 4.17 M/mm3 (4.6-6.2); White Blood Count 7.6 K/mm3 (4.4-11.0)
--- NOTE | 2020-07-29 07:25 | EKG12_ITS ---
Test Reason : MEDS Blood Pressure : / mmHG Vent. Rate : 119 BPM Atrial Rate : 119 BPM P-R Int : 000 ms QRS Dur : 086 ms QT Int : 320 ms P-R-T Axes : 000 050 106 degrees QTc Int : 450 ms Atrial Flutter Nonspecific T wave abnormality Abnormal ECG Confirmed by LATASHA ROBERSON, SAMIRA ([id number]), industrial editor PRASHANT GUSMAN ([id number]) on 07/29/2020 12:52:30 PM Referred By: SON Confirmed By:ALCON PAGAN MD
--- NOTE | 2020-07-29 07:44 | EKG12_ITS ---
Test Reason : RYTHME CHANGE Blood Pressure : / mmHG Vent. Rate : 086 BPM Atrial Rate : 326 BPM P-R Int : 000 ms QRS Dur : 100 ms QT Int : 370 ms P-R-T Axes : 000 055 095 degrees QTc Int : 442 ms Atrial flutter Abnormal ECG When compared with ECG of 28-JUL-2020 14:08, MANUAL COMPARISON REQUIRED, DATA IS UNCONFIRMED Confirmed by LATASHA ROBERSON, SAMIRA ([id number]), video tape editor PRASHANT GUSMAN ([id number]) on 08/02/2020 10:42:23 AM Referred By: CARLOS VAN Confirmed By:ALCNO PAGAN MD
[2020-07-29 07:53] LABS: ALB/GLOB Ratio 0.8 RATIO (0.9-2.4); AST(SGOT) 10 U/L (15-37); Alanine Aminotransfer ALT/SGPT 15 U/L (16-61); Albumin, Serum 2.4 g/dL (3.2-5.0); Alkaline Phosphatase 111 U/L (45-117); Anion Gap 9 (5-15); BUN 7 mg/dL (7-18); BUN/Creat Ratio 11.9 RATIO (10-20); Calcium,Total 7.8 mg/dL (8.5-10.1); Chloride 106 mmol/L (98-107); Cholesterol 81 mg/dL (200); Creatinine, Serum 0.59 mg/dL (0.70-1.30); EST Glomerular Filtration Rate 139 mL/min (>60); Est Glom Filt Rate - Afr Amer 168 mL/min (>60); Globulin 3.2 g/dL (2.2-4.2); Glucose 107 mg/dL (74-106); High Density Lipoprotein 39 mg/dL; Potassium 3.6 mmol/L (3.5-5.1); Protein, Total 5.6 g/dL (6.4-8.2); Sodium Level 139 mmol/L (136-145); Thyroid Stim Hormone (TSH) 2.82 uIU/mL (0.358-3.74); Triglycerides 51 mg/dL; Very Low Density Lipoprotein 10 mg/dL (5-40)
[2020-07-29] MEDS: Ceftriaxone 1 GM/50 ML BAG IV (08:45)
[2020-07-29] MEDS: Senna/Docusate Sodium 1 Tablet 2 TABLET PO ×2 (08:46→22:36)
[2020-07-29] MEDS: Famotidine 20 MG Tablet PO ×2 (08:46→22:36)
[2020-07-29] MEDS: Aspirin 81 MG TAB.CHEW PO (08:48)
[2020-07-29] MEDS: Galantamine Hydrobromide 4 MG Tablet PO ×2 (08:48→16:43)
[2020-07-29] MEDS: Finasteride 5 MG Tablet PO (08:49)
[2020-07-29] MEDS: Metoprolol Tartrate 25 MG Tablet PO ×2 (08:49→22:35)
[2020-07-29] MEDS: Polyethylene Glycol 3350 17 GM PACKET PO (08:54)
[2020-07-29] MEDS: FLUCONAZOLE 150 MG TABLET PO (08:55)
--- NOTE | 2020-07-29 09:00 | MRI_ITS ---
STUDY: MRI BRAIN WITHOUT CONTRAST REASON FOR EXAM: Male, 84 years old. CVA TECHNIQUE: Standardized multiplanar fat and water weighted pulse sequences were obtained. COMPARISON: CT head without contrast 07/28/2020. MRI brain with and without contrast 08/04/2014. FINDINGS: No diffusion restriction to suspect acute or subacute ischemic infarct. Normal size of the ventricles and extra-axial spaces for the patient''s age. Periventricular white matter T2 FLAIR hyperintensity foci are chronic white matter ischemic changes. They are unchanged. Normal bilateral basal ganglia. Normal thalami. There is no extra-axial fluid accumulation. Normal flow voids within the major intracranial circulation suggesting patency by spin echo criteria. Normal sella turcica, pituitary gland, infundibular stalk, optic chiasm and hypothalamus. Normal tectal plate and pineal gland. Normal midbrain, adonis and medulla. Old linear cystic infarct with atrophy in the left inferior semilunar lobule is unchanged. Normal right cerebellum. Normal basal cisterns. Normal bilateral temporal bones. Normal bilateral internal auditory canals. No demonstrated orbital abnormality, within the constraints of a routine brain study. Normal visualized paranasal sinuses. Normal calvarium and skull base. Normal visualized soft tissue structures. Normal visualized upper cervical spine. MRI/Brain without Contrast IMPRESSION: 1. No MRI evidence of acute or subacute ischemic infarct or acute intracranial abnormality. 2. 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 3. Chronic white matter ischemic changes in both cerebral hemispheres. 4. No interval change when compared to 08/04/2014. Electronically Signed: Delta Chaudhry MD at 13:49 EDT , Service support ,
[2020-07-29 09:14] LABS: Partial Thromboplast Time 71.9 Seconds (24.1-36.2)
--- NOTE | 2020-07-29 10:30 | CASEMGMT ---
MANASA called Sara at [facility]. Per TCU MANASA the plan was for patient to go to [facility] when discharged from [facility]. MANASA left Sara a message requesting a return call. Jaylyn BLANKENSHIP
[2020-07-29] MEDS: 0.9% Saline Lock 10 ML Syringe IV (11:27)
[2020-07-29] MEDS: LORazepam 2 MG/ML Syringe 1 MG IV (11:27)
--- NOTE | 2020-07-29 11:40 | CASEMGMT ---
MANASA spoke with Sara at [facility] and her understanding was that patient would come to them skilled with the plan to move to jail [facility] with his significant other. MANASA told her SW will fax her some information on patient. Jaylyn BLANKENSHIP
--- NOTE | 2020-07-29 12:40 | NURSING ---
PT TOLERATING MRI FAIRLY WELL. OCCASIONAL LEG AND ARM SHAKING. PT REASSURED VIA INTERCOM.
--- NOTE | 2020-07-29 14:21 | PN.HOSP_ITS ---
Subjective Subjective Patient seen and examined. He was admitted via the ED from TCU with a complaint of mild aphasia, dysarthria and mild left facial droop. Stroke alert was called and patient was taken to the emergency room TCU. Initial NIH stroke scale was 5. He was also noted to be in A. fib with RVR. CT of the brain was negative for any evidence of stroke. He was started on a Cardizem drip in the ER. He has been managed for A. fib with RVR and probable stroke. Patient seen and examined today. He was alert but lethargic. He was able to answer some questions and said he was having left shoulder pain but stated that this pain has been ongoing for a while. Unable to do comprehensive review of systems due to patient's confusion and lethargy. Objective Data Objective Data Vital Signs: Vital Signs Temp Pulse Resp BP Pulse Ox 97.8 F 75 18 97/56 L 94 07/29/20 11:30 07/29/20 13:48 07/29/20 12:38 07/29/20 12:38 07/29/20 12:38 Oxygen Delivery Method Room Air Weight: 174 lb 9.698 oz Body Mass Index (BMI) 22.4 Intake & Output: Intake and Output for Last 24 Hours 07/27/20 07/28/20 07/29/20 23:59 23:59 23:59 Intake Total 455.34 / 470.34 1990.77 / 1990. Output Total 550 / 550 900 / 900 Balance -94.66 / -79.66 1091.77 / 1091.77 Lab / Micro Data Result Diagrams: 07/29/20 06:04 07/29/20 06:04 Labs: Laboratory Results - last 24 hr 07/28/20 07/28/20 07/28/20 13:55 13:55 13:55 WBC RBC Hgb Hct MCV MCH MCHC RDW Std Deviation RDW Coeff of Francis Plt Count MPV Immature Gran % (Auto) Neut % (Auto) Lymph % (Auto) [place] % (Auto) Eos % (Auto) Baso % (Auto) Absolute Neuts (auto) Absolute Lymphs (auto) Nucleated RBC % PT 15.1 H INR 1.3 APTT 34.4 Sodium 138 Potassium 3.9 Chloride 108 H Carbon Dioxide 27.0 Anion Gap 3 L BUN 10 Creatinine 0.73 Estim Creat Clear Calc 61.42 Est GFR (MDRD) Af Amer 130 Est GFR (MDRD) Non-Af 108 BUN/Creatinine Ratio 13.6 Glucose 140 H Calcium 8.0 L Magnesium 1.8 Total Bilirubin AST ALT Alkaline Phosphatase Troponin I < 0.015 Total Protein Albumin Globulin Albumin/Globulin Ratio Triglycerides Cholesterol LDL Cholesterol VLDL Cholesterol HDL Cholesterol TSH Urine Color Urine Clarity Urine pH Ur Specific [place] Urine Protein Urine Glucose (UA) Urine Ketones Urine Occult Blood Urine Nitrite Urine Bilirubin Urine Urobilinogen Ur Leukocyte Esterase Urine RBC Urine WBC Ur Squamous Epith Cells Urine Bacteria Urine Mucus POC Glucose 07/28/20 07/28/20 07/28/20 15:20 15:59 16:40 WBC RBC Hgb Hct MCV MCH MCHC RDW Std Deviation RDW Coeff of Francis Plt Count MPV Immature Gran % (Auto) Neut % (Auto) Lymph % (Auto) [place] % (Auto) Eos % (Auto) Baso % (Auto) Absolute Neuts (auto) Absolute Lymphs (auto) Nucleated RBC % PT INR APTT Sodium Potassium Chloride Carbon Dioxide Anion Gap BUN Creatinine Estim Creat Clear Calc Est GFR (MDRD) Af Amer Est GFR (MDRD) Non-Af BUN/Creatinine Ratio Glucose Calcium Magnesium Total Bilirubin AST ALT Alkaline Phosphatase Troponin I < 0.015 Total Protein Albumin Globulin Albumin/Globulin Ratio Triglycerides Cholesterol LDL Cholesterol VLDL Cholesterol HDL Cholesterol TSH Urine Color Yellow Urine Clarity Cloudy Urine pH 6.0 Ur Specific [place] 1.010 Urine Protein 30 H Urine Glucose (UA) Normal Urine Ketones Negative Urine Occult Blood 250 H Urine Nitrite Positive H Urine Bilirubin Negative Urine Urobilinogen 4 H Ur Leukocyte Esterase 500 H Urine RBC 5-10 SEEN Urine WBC 50-100 SEEN Ur Squamous Epith Cells 0 SEEN Urine Bacteria 3+ Urine Mucus 0 SEEN POC Glucose 113 H 07/28/20 07/29/20 07/29/20 20:08 00:45 06:04 WBC 7.6 RBC 4.17 L Hgb 13.1 Hct 38.6 L MCV 92.6 MCH 31.4 MCHC 33.9 RDW Std Deviation 45.5 H RDW Coeff of Francis 13.4 Plt Count 118 L MPV 11.1 Immature Gran % (Auto) 0.400 Neut % (Auto) 73.2 H Lymph % (Auto) 12.2 L [place] % (Auto) 11.9 H Eos % (Auto) 1.8 Baso % (Auto) 0.5 Absolute Neuts (auto) 5.5 Absolute Lymphs (auto) 0.92 Nucleated RBC % 0 PT INR APTT 157.2 H* Sodium Potassium Chloride Carbon Dioxide Anion Gap BUN Creatinine Estim Creat Clear Calc Est GFR (MDRD) Af Amer Est GFR (MDRD) Non-Af BUN/Creatinine Ratio Glucose Calcium Magnesium Total Bilirubin AST ALT Alkaline Phosphatase Troponin I < 0.015 Total Protein Albumin Globulin Albumin/Globulin Ratio Triglycerides Cholesterol LDL Cholesterol VLDL Cholesterol HDL Cholesterol TSH Urine Color Urine Clarity Urine pH Ur Specific [place] Urine Protein Urine Glucose (UA) Urine Ketones Urine Occult Blood Urine Nitrite Urine Bilirubin Urine Urobilinogen Ur Leukocyte Esterase Urine RBC Urine WBC Ur Squamous Epith Cells Urine Bacteria Urine Mucus POC Glucose 07/29/20 07/29/20 06:04 08:53 WBC RBC Hgb Hct MCV MCH MCHC RDW Std Deviation RDW Coeff of Francis Plt Count MPV Immature Gran % (Auto) Neut % (Auto) Lymph % (Auto) [place] % (Auto) Eos % (Auto) Baso % (Auto) Absolute Neuts (auto) Absolute Lymphs (auto) Nucleated RBC % PT INR APTT 71.9 H Sodium 139 Potassium 3.6 Chloride 106 Carbon Dioxide 24.0 Anion Gap 9 BUN 7 Creatinine 0.59 L Estim Creat Clear Calc 60.50 Est GFR (MDRD) Af Amer 168 Est GFR (MDRD) Non-Af 139 BUN/Creatinine Ratio 11.9 Glucose 107 H Calcium 7.8 L Magnesium Total Bilirubin 1.40 H AST 10 L ALT 15 L Alkaline Phosphatase 111 Troponin I Total Protein 5.6 L Albumin 2.4 L Globulin 3.2 Albumin/Globulin Ratio 0.8 L Triglycerides 51 Cholesterol 81 LDL Cholesterol 32 VLDL Cholesterol 10 HDL Cholesterol 39 L TSH 2.82 Urine Color Urine Clarity Urine pH Ur Specific [place] Urine Protein Urine Glucose (UA) Urine Ketones Urine Occult Blood Urine Nitrite Urine Bilirubin Urine Urobilinogen Ur Leukocyte Esterase Urine RBC Urine WBC Ur Squamous Epith Cells Urine Bacteria Urine Mucus POC Glucose Radiography Diagnostic Testing: Radiology Impression Chest X-Ray 07/28/20 14:25 IMPRESSION: Increased markings in the medial aspect of the left lower lobe. Follow-up is recommended. Electronically Signed: Omega Almaguer MD at 15:02 EDT , Service support , Carotid Duplex 07/28/20 16:20 Interpretation Summary Irregular calcific plaque with shadowing at the proximal right internal carotid artery with less than 50% stenosis. Less than 50% stenosis right external carotid artery Good imaging was obtained Irregular calcific plaque with shadowing at the proximal left internal carotid artery with less than 50% stenosis. Less than 50% stenosis left external carotid artery Patent antegrade vertebral arteries bilaterally The length of the calcific shadowing in bilateral internal carotid arteries is less than 2 cm which should correlate with accurate duplex velocity measurement Ordering Physician: Linda Aj Performed By: Eleuterio Isaac, T Brain MRI 07/29/20 09:00 IMPRESSION: 1. No MRI evidence of acute or subacute ischemic infarct or acute intracranial abnormality. 2. 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 3. Chronic white matter ischemic changes in both cerebral hemispheres. 4. No interval change when compared to 08/04/2014. Electronically Signed: Delta Chaudhry MD at 13:49 EDT , Service support , Physical Exam Const alert Orientation / Consciousness: confused and lethargic Exam Limitations: altered mental status Nutritional Appearance: cachectic HEENT head/scalp atraumatic and moist oral mucous membranes Head and Scalp: normocephalic Eyes PERRL, EOMs intact bilaterally and conjunctivae normal Neck no lymphadenopathy, supple and no JVD Cardio Cardio Narrative: afib, tachycardic
--- NOTE | 2020-07-29 14:34 | PN.HOSP_ITS ---
Documented by User: Mray Hernandez NP, ARMAMENT INSTALLER-C 07/29/20 14:44 Subjective Subjective Patient seen and examined. Restless, confused. Patient denies symptoms or complaints. Met with patient and significant other and patient's daughter who is healthcare power of estate attorney. Discussed plan of care with patient's daughter, daughter amenable to hospice transition and has already discussed this with her siblings. Objective Data Objective Data Vital Signs: Vital Signs Temp Pulse Resp BP Pulse Ox 97.8 F 75 18 97/56 L 94 07/29/20 11:30 07/29/20 13:48 07/29/20 12:38 07/29/20 12:38 07/29/20 12:38 Oxygen Delivery Method Room Air Weight: 174 lb 9.698 oz Body Mass Index (BMI) 22.4 Intake & Output: Intake and Output for Last 24 Hours 07/27/20 07/28/20 07/29/20 23:59 23:59 23:59 Intake Total 455.34 / 470.34 1990.77 / 1990. Output Total 550 / 550 900 / 900 Balance -94.66 / -79.66 1091.77 / 1091.77 Lab / Micro Data Result Diagrams: 07/29/20 06:04 07/29/20 06:04 Labs: Laboratory Results - last 24 hr 07/28/20 07/28/20 07/28/20 13:55 15:20 15:59 WBC RBC Hgb Hct MCV MCH MCHC RDW Std Deviation RDW Coeff of Francis Plt Count MPV Immature Gran % (Auto) Neut % (Auto) Lymph % (Auto) [place] % (Auto) Eos % (Auto) Baso % (Auto) Absolute Neuts (auto) Absolute Lymphs (auto) Nucleated RBC % APTT Sodium Potassium Chloride Carbon Dioxide Anion Gap BUN Creatinine Estim Creat Clear Calc Est GFR (MDRD) Af Amer Est GFR (MDRD) Non-Af BUN/Creatinine Ratio Glucose Calcium Magnesium 1.8 Total Bilirubin AST ALT Alkaline Phosphatase Troponin I Total Protein Albumin Globulin Albumin/Globulin Ratio Triglycerides Cholesterol LDL Cholesterol VLDL Cholesterol HDL Cholesterol TSH Urine Color Yellow Urine Clarity Cloudy Urine pH 6.0 Ur Specific [place] 1.010 Urine Protein 30 H Urine Glucose (UA) Normal Urine Ketones Negative Urine Occult Blood 250 H Urine Nitrite Positive H Urine Bilirubin Negative Urine Urobilinogen 4 H Ur Leukocyte Esterase 500 H Urine RBC 5-10 SEEN Urine WBC 50-100 SEEN Ur Squamous Epith Cells 0 SEEN Urine Bacteria 3+ Urine Mucus 0 SEEN POC Glucose 113 H 07/28/20 07/28/20 07/29/20 16:40 20:08 00:45 WBC RBC Hgb Hct MCV MCH MCHC RDW Std Deviation RDW Coeff of Francis Plt Count MPV Immature Gran % (Auto) Neut % (Auto) Lymph % (Auto) [place] % (Auto) Eos % (Auto) Baso % (Auto) Absolute Neuts (auto) Absolute Lymphs (auto) Nucleated RBC % APTT 157.2 H* Sodium Potassium Chloride Carbon Dioxide Anion Gap BUN Creatinine Estim Creat Clear Calc Est GFR (MDRD) Af Amer Est GFR (MDRD) Non-Af BUN/Creatinine Ratio Glucose Calcium Magnesium Total Bilirubin AST ALT Alkaline Phosphatase Troponin I < 0.015 < 0.015 Total Protein Albumin Globulin Albumin/Globulin Ratio Triglycerides Cholesterol LDL Cholesterol VLDL Cholesterol HDL Cholesterol TSH Urine Color Urine Clarity Urine pH Ur Specific [place] Urine Protein Urine Glucose (UA) Urine Ketones Urine Occult Blood Urine Nitrite Urine Bilirubin Urine Urobilinogen Ur Leukocyte Esterase Urine RBC Urine WBC Ur Squamous Epith Cells Urine Bacteria Urine Mucus POC Glucose 07/29/20 07/29/20 07/29/20 06:04 06:04 08:53 WBC 7.6 RBC 4.17 L Hgb 13.1 Hct 38.6 L MCV 92.6 MCH 31.4 MCHC 33.9 RDW Std Deviation 45.5 H RDW Coeff of Francis 13.4 Plt Count 118 L MPV 11.1 Immature Gran % (Auto) 0.400 Neut % (Auto) 73.2 H Lymph % (Auto) 12.2 L [place] % (Auto) 11.9 H Eos % (Auto) 1.8 Baso % (Auto) 0.5 Absolute Neuts (auto) 5.5 Absolute Lymphs (auto) 0.92 Nucleated RBC % 0 APTT 71.9 H Sodium 139 Potassium 3.6 Chloride 106 Carbon Dioxide 24.0 Anion Gap 9 BUN 7 Creatinine 0.59 L Estim Creat Clear Calc 60.50 Est GFR (MDRD) Af Amer 168 Est GFR (MDRD) Non-Af 139 BUN/Creatinine Ratio 11.9 Glucose 107 H Calcium 7.8 L Magnesium Total Bilirubin 1.40 H AST 10 L ALT 15 L Alkaline Phosphatase 111 Troponin I Total Protein 5.6 L Albumin 2.4 L Globulin 3.2 Albumin/Globulin Ratio 0.8 L Triglycerides 51 Cholesterol 81 LDL Cholesterol 32 VLDL Cholesterol 10 HDL Cholesterol 39 L TSH 2.82 Urine Color Urine Clarity Urine pH Ur Specific [place] Urine Protein Urine Glucose (UA) Urine Ketones Urine Occult Blood Urine Nitrite Urine Bilirubin Urine Urobilinogen Ur Leukocyte Esterase Urine RBC Urine WBC Ur Squamous Epith Cells Urine Bacteria Urine Mucus POC Glucose Radiography Diagnostic Testing: Radiology Impression Chest X-Ray 07/28/20 14:25 IMPRESSION: Increased markings in the medial aspect of the left lower lobe. Follow-up is recommended. Electronically Signed: Omega Almaguer MD at 15:02 EDT , Service support , Carotid Duplex 07/28/20 16:20 Interpretation Summary Irregular calcific plaque with shadowing at the proximal right internal carotid artery with less than 50% stenosis. Less than 50% stenosis right external carotid artery Good imaging was obtained Irregular calcific plaque with shadowing at the proximal left internal carotid artery with less than 50% stenosis. Less than 50% stenosis left external carotid artery Patent antegrade vertebral arteries bilaterally The length of the calcific shadowing in bilateral internal carotid arteries is less than 2 cm which should correlate with accurate duplex velocity measurement Ordering Physician: Linda Aj Performed By: Eleuterio Isaac, RVT Brain MRI 07/29/20 09:00 IMPRESSION: 1. No MRI evidence of acute or subacute ischemic infarct or acute intracranial abnormality. 2. 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 3. Chronic white matter ischemic changes in both cerebral hemispheres. 4. No interval change when compared to 08/04/2014. Electronically Signed: Delta Chaudhry MD at 13:49 EDT , Service support , Physical Exam Const Constitutional Narrative: Restless Orientation / Consciousness: confused Nutritional Appearance: cachectic HEENT normocephalic and moist oral mucous membranes Eyes PERRL, EOMs intact bilaterally and conjunctivae normal Neck no lymphadenopathy Resp normal respiratory effort and clear to auscultation bilaterally Cardio Rhythm: other Other Details: Atrial fibrillation Peripheral Pulses: pulses 2+ throughout GI normal to inspection, nondistended, normoactive bowel sounds, non-tender and non-distended Extremity normal to inspection Skin no rashes or lesions noted Lesions: no lesions Rashes: no rashes Trauma: no lacerations or abrasions Neuro CN's II-XII intact bilaterally, no focal motor deficits, no sensory deficits noted and deep tendon reflexes 2+ bilaterally Psych mental status grossly normal and affect normal Assessment & Plan Assessment/Plan (1) Atrial fibrillation: (2) TIA (transient ischemic attack): PLAN: 1. TIA-CVA ruled out. MRI without acute stroke. Carotid ultrasound with less than 50% stenosis bilaterally. Continue aspirin, statin. Patient amendable to hospice consult, pending. Plan for SNF with hospice pending formal consult. 2. Paroxysmal atrial fibrillation with RVR-initially placed on Cardizem and heparin drip which have since been discontinued. Begin oral Cardizem. Continue home metoprolol regimen. Not a candidate for anticoagulation. Hospice trans ition as noted above. 3. Acute complicated UTI-IV Rocephin pending culture. 4. BPH with chronic urinary retention/chronic indwelling Velarde-Velarde catheter in place. Continue finasteride, Flomax. 5. Hypertension-stable, continue current regimen. 6. Hyperlipidemia- continue statin. 7. Vascular dementia without behavioral disturbance history-on mirtazapine. Recent functional and cognitive decline. 8. Anxiety/depression-continue mirtazapine. 9. Hypothyroidism-continue Synthroid. 10. BAO-on CPAP nightly. 11. GERD-on famotidine. DVT prophylaxis-Heparin subcu Discharge planning: Family amendable to hospice transition, hospice consult pending. This patient was seen by JAMES Winters under the supervision of Dr. Chavez. Documented by User: Dr. Toshia Chavez MD 07/29/20 15:45 Objective Data Lab / Micro Data Result Diagrams: 07/29/20 06:04 07/29/20 06:04 Charges/Coding Addendum Addendum: Patient seen by Mary RAMIREZ under my supervision Patient seen and examined. He was admitted from the TCU on account of concerns for stroke as he had expressive aphasia and some dysarthria facial droop. The symptoms subsequently resolved. On admission his NIH stroke scale was 5 but this went down to 0. CT of the brain was negative for stroke. Patient seen today. He is alert but confused. He was able to say that he had left shoulder pain which has been present for a long but had no other complaints. Unable to do complaints of review of system on account of patient's confusion. O/E: Orientation / Consciousness: confused Nutritional Appearance: cachectic HEENT normocephalic and moist oral mucous membranes Eyes PERRL, EOMs intact bilaterally and conjunctivae normal Neck no lymphadenopathy Resp normal respiratory effort and clear to auscultation bilaterally Cardio Rhythm: other Other Details: Atrial fibrillation, tachycardic Peripheral Pulses: pulses 2+ throughout GI normal to inspection, nondistended, normoactive bowel sounds, non-tender and non-distended Extremity normal to inspection Skin no rashes or lesions noted Lesions: no lesions Rashes: no rashes Trauma: no lacerations or abrasions Neuro CN's II-XII intact bilaterally, no focal motor deficits, no sensory deficits noted and deep tendon reflexes 2+ bilaterally Psych mental status; confused MRI of the brain done was negative for stroke. Patient was also placed on Cardizem drip on account of A. fib with RVR. He was also placed on heparin drip. Heparin was discontinued as patient has a history of gross hematuria and that is why he was not on anticoagulation. Patient was transitioned to oral Cardizem today and drip discontinued. Carotid ultrasound showed less than 50% stenosis bilaterally. Patient on aspirin and statin. Family and significant other wants to take patient to hospice.Plan is for hospice transition once patient has been evaluated by hospice team. Patient currently on IV Rocephin for pneumonia. We will continue this. Rest as per Mary Hernandez NP-C's notes which I have reviewed and endorsed. Visit Charges Inpatient E&M: 98946 Subs Hosp L3
--- NOTE | 2020-07-29 15:26 | EX.NTREPO ---
Medical Nutrition Therapy - History Nutrition Services has been consulted to:: Manage nutrient details of diet order Current diet/nutrition support order:: Cardiac heart healthy diet. Soft and bite sized food consistency. Regular/thin liquid consistency. No ONS at this time. - Anthropometric Measurements Height:: 6 ft 2 in Weight:: 79.2 kg Body Mass Index (BMI):: 22.4 - Relevant Labs Relevant Labs:: RBC 4.17 M/mm3 (4.6-6.2) L 07/29/20 06:04 Hct 38.6 % (40-54) L 07/29/20 06:04 RDW Std Deviation 45.5 fl (35.1-43.9) H 07/29/20 06:04 Plt Count 118 K/mm3 (150-450) L 07/29/20 06:04 Neut % (Auto) 73.2 % (47-70) H 07/29/20 06:04 Lymph % (Auto) 12.2 % (19-41) L 07/29/20 06:04 [place] % (Auto) 11.9 % (0-10) H 07/29/20 06:04 PT 15.1 SECONDS (11.7-14.9) H 07/28/20 13:55 APTT 71.9 Seconds (24.1-36.2) H 07/29/20 08:53 Chloride 108 mmol/L (98-107) H 07/28/20 13:55 Anion Gap 3 (5-15) L 07/28/20 13:55 Creatinine 0.59 mg/dL (0.70-1.30) L 07/29/20 06:04 Glucose 107 mg/dL (74-106) H 07/29/20 06:04 Calcium 7.8 mg/dL (8.5-10.1) L 07/29/20 06:04 Total Bilirubin 1.40 mg/dL (0.20-1.00) H 07/29/20 06:04 AST 10 U/L (15-37) L 07/29/20 06:04 ALT 15 U/L (16-61) L 07/29/20 06:04 Total Protein 5.6 g/dL (6.4-8.2) L 07/29/20 06:04 Albumin 2.4 g/dL (3.2-5.0) L 07/29/20 06:04 Albumin/Globulin Ratio 0.8 RATIO (0.9-2.4) L 07/29/20 06:04 HDL Cholesterol 39 mg/dL (40-) L 07/29/20 06:04 - Assessment Food and Nutrient Intake: Seen in conjuction w/ RClarisa Moore, international tax manager. Pt reports that he ate poorly at breakfast. Pt states that food doesn't taste good anymore. Pt's EMR weight on 07/10/20 was 183.2#. Pt's EMR weight on 07/16/20 was 173# and CBW is 174.6# which represents a 1.6#/0.9% weight gain in 2 weeks. However, his weight from 183.2# on 07/10/20 to CBW of 174.6# represents an 8.6#/5% weight loss in ~3 weeks which is significant for malnutrition. Of note, pt stated on remeron during TCU admission. - Nutrition Diagnosis: Clinical Problem Acute Disease or Injury Related Malnutrition Clinical Problem - Etiology: (moderate) related to frequent hospitalizations and inadequate oral intake Clinical Problem - Signs/Symptoms: as evidenced by consumption of <75% estimated energy needs for ~3 weeks and 8.6#/5% weight loss in ~3 weeks. - Protein Calorie Malnutrition Evidence of Malnutrition Exists: Yes Moderate Protein Calorie Malnutrition: Acute Illness/Injury - Nutrition Intervention Nutrition Prescription: 2,000-2,100kcal/day (RMR x 1.3). Protein 80-100g/day (1.0-1.25g/kg). Fluid 2,200-2,300mL/day (25mL/kg) - Food / Nutrient Delivery Interventions Summary of nutrition intervention:: Provide oral nutrition supplement Nutrition support ordered as / adjusted to:: Continue cardiac heart healthy diet. Add ensure enlive 120mL PO 4x/day at medpass. Add magic cup BID at lunch and dinner. Will monitor need for liberalized diet pending PO intake and acceptance of ONS. - MNT Monitoring Active Nutrition Patient: Yes Nutrition Status: Requires Follow Up 3-5 Days
--- NOTE | 2020-07-29 15:27 | CASEMGMT ---
Nurse Practitioner, Mary spoke with patient's daughter about Hospice. She was agreeable to a referral being made. She left before SW could talk with her so SW called her. SW left her a voice mail letting her know that SW will fax the referral to Hospice and someone should be calling her to set up an appt to talk about their services. SW then faxed referral to Hospice and also called regarding referral. Plan: d/c to [place] on Hospice vs skilled. Family to meet with Hospice. Jaylyn Guzman JAVA GRAILS DEVELOPER PATTIE
--- NOTE | 2020-07-29 15:53 | CASEMGMT ---
ABELARDO CM Readmission Note Previous Admission: 07/16/20-07/28/20 Diagnosis: low back pain, small bowel ileus DC Disposition: To [facility] ER Current Admission Diagnosis: TIA, Afib with RVR Pt presented to ER from TCU do to change in mental status consistent with stroke. Pt admitted to PCU. Pt without acute infarct per MRI. Pt confused. Daughter is DPOA. Dtr spoke with siblings and they are open to hospice consult at this time. Plan for SNF with hospice consult pending.
[2020-07-29] MEDS: Tamsulosin HCl 0.4 MG Capsule 0.8 MG PO (16:42)
[2020-07-29] MEDS: dilTIAZem CD 120 MG Capsule PO (16:42)
[2020-07-29] MEDS: Atorvastatin Calcium 40 MG Tablet PO (22:35)
[2020-07-29] MEDS: Mirtazapine 15 MG Tablet 7.5 MG PO (22:36)
[2020-07-29] MEDS: Heparin Injection (Vial) 5,000 UNIT/ML VIAL 5000 UNIT SC (22:36)
[2020-07-30] VITALS (9 sets, daily range): BP systolic 123–141; BP diastolic 55–80; PULSE 82–107; RESP 16–18; TEMP 36.3–36.6; O2SAT 93–96
[2020-07-30] MEDS: 0.9% Normal Saline 1,000 ML 100 ML IV ×2 (01:29→08:46)
[2020-07-30] MEDS: Menthol/Lanolin/Calamine/Znox 113 GM Tube 1 APPLIC TOPICAL (06:17)
[2020-07-30] MEDS: Levothyroxine 50 MCG Tablet PO (06:19)
--- NOTE | 2020-07-30 07:00 | CASEMGMT ---
MANASA received a voice mail evening from [facility]. She said they met with patient's daughter and all papers have been signed. She asked that SW let Hospice know when SW has a time set up to transfer patient to [facility]. SW will talk with patient's daughter to make sure she is aware it will be private pay and also check with Sara at [facility] letting her know patient will not be coming skilled. Jaylyn Guzman LOAD DISPATCHER PATTIE
[2020-07-30] MEDS: Aspirin 81 MG TAB.CHEW PO (08:46)
[2020-07-30] MEDS: Acetaminophen 325 MG Tablet 650 MG PO (08:46)
[2020-07-30] MEDS: Galantamine Hydrobromide 4 MG Tablet PO ×2 (08:46→16:23)
[2020-07-30] MEDS: Heparin Injection (Vial) 5,000 UNIT/ML VIAL 5000 UNIT SC (08:59)
[2020-07-30] MEDS: Ceftriaxone 1 GM/50 ML BAG IV (08:59)
[2020-07-30] MEDS: Finasteride 5 MG Tablet PO (10:01)
[2020-07-30] MEDS: FLUCONAZOLE 150 MG TABLET PO (10:01)
[2020-07-30] MEDS: dilTIAZem CD 120 MG Capsule PO (10:02)
[2020-07-30] MEDS: Senna/Docusate Sodium 1 Tablet 2 TABLET PO (10:02)
[2020-07-30] MEDS: Famotidine 20 MG Tablet PO (10:02)
[2020-07-30] MEDS: Metoprolol Tartrate 25 MG Tablet PO (10:02)
[2020-07-30] MEDS: Polyethylene Glycol 3350 17 GM PACKET PO (10:04)
--- NOTE | 2020-07-30 10:13 | CASEMGMT ---
MANASA called [facility] this am and left Sara a message letting her know patient will be coming to them on Hospice and not skilled. MANASA requested a return call. MANASA called patient's daughter Silvia. She confirmed the plan is for patient to go to [facility] on Hospice. She is aware it will be private pay. MANASA told her we will probably get him over there today. MANASA will keep her updated. Plan: d/c to [facility] on [facility] Jaylyn BLANKENSHIP
--- NOTE | 2020-07-30 11:55 | TREXTCAR_ITS ---
Diet 07/28/20 16:20 Diet: Cardiac - Heart Healthy Food consistency:: Soft & Bite Sized Liquid Consistency:: Regular/Thin Is pt able to select menu?: No Diet Comments: total feed/supervision Routine Orders/Code Status Code Status: DNRCC Problem/Diagnosis (1) Atrial fibrillation: Status: Acute (2) TIA (transient ischemic attack): Status: Acute Allergies/Procedures Done in Hospital Allergies No Known Allergies Allergy (Verified 07/20/20 14:47) Procedures: None Type of Care/Length of Stay Estimated LOS: More Than 30 Days Type of Care Needed: Inpt Hospice Facility Rehab Potential: Poor Prognosis: Poor Additional Orders/Day of Discharge H&P will serve as current which was dated: 07/28/20 Day of Discharge: 07/30/20 Dietary and Speech Recommendations Dietitian Recommendations/Changes: Continue cardiac heart healthy diet. Add ensure enlive 120mL PO 4x/day at medpass. Add magic cup BID at lunch and dinner. Will monitor need for liberalized diet pending PO intake and acceptance of ONS. 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 Pt oriented to self. When asked for pt began stating 02/24 however then corrected to December 10. Pt unable to recall year of . Pt stated age was 65 (actually 84). Pt believed he was at work stating I have to get some of this stuff cleaned up before work. Reoriented to [facility] several times throughout assessment. Pt also reoriented to current date and reason for admission (i.e stroke workup). Pt noted to reach for objects either just above or to the left of actual object placement demonstrating impaired visual perception. Confrontation naming completed with objects in room with pt naming 3/10 objects independently. Examples of errors include pt naming bed a baggage tray and cup of apple juice a jar. Pt able to follow single step directions with max cues and occasional repetition. At times, pt responded completely off topic from question asked. Pt forgetful of information several minutes after hearing it and required frequent redirection to stay in bed for safety and to explain reason for [facility] admission. Pt presents with both expressive and receptive aphasia. Speech intelligibility remains diminished. Discharge Plan Admission Admit Date/Time: 07/28/20 16:01 Primary Reason for Your Visit: jairon FU Attending Provider: Toshia Chavez Primary Care Provider: Jose Francisco Shah Chi Discharge Orders/Prescriptions Prescriptions: New aspirin 81 mg Tablet,Chewable 81 mg PO DAILY@0800 Qty: 0 RF: 0 diltiazem HCl 120 mg Capsule,Extended Release 24hr 120 mg PO DAILY Qty: 0 RF: 0 cefadroxil 500 mg Capsule 1,000 mg PO BID 4 Days Qty: 16 RF: 0 Continued levothyroxine 50 MCG tablet 50 mcg PO DAILY RF: 0 atorvastatin 40 MG tablet 40 mg PO QHS RF: 0 tamsulosin 0.4 MG capsule 0.8 mg PO DAILY@1730 Qty: 60 RF: 0 finasteride 5 MG tablet 5 mg PO DAILY Qty: 30 RF: 0 oxycodone 5 mg tablet 5 mg PO Q4H PRN PRN (Reason: Pain Score 4-10/10) 3 Days Qty: 10 RF: 0 polyethylene glycol 3350 17 gram powder in packet 17 g PO DAILY RF: 0 sennosides-docusate sodium [Stool Softener-Stimulant Laxat] 8.6-50 mg tablet 2 tab PO BID RF: 0 galantamine 4 MG tablet 4 mg PO BIDCM RF: 0 metoprolol tartrate 25 MG tablet 12.5 mg PO BID RF: 0 acetaminophen [Tylenol Extra Strength] 500 mg Tablet 1,000 mg PO Q6H PRN (Reason: Pain (Scale Score 1-3)) RF: 0 potassium chloride 20 mEq Tablet,Er Particles/Crystals 20 meq PO DAILY RF: 0 food supplemt, lactose-reduced Liquid 120 ml PO 4X/DAY RF: 0 mirtazapine 7.5 mg Tablet 7.5 mg PO QHS RF: 0 Calmoseptine 0.44-20.6 % Ointment 1 applic TOPICAL BID@0600,2200 RF: 0 Discontinued fluconazole 150 mg Tablet 150 mg PO DAILY RF: 0 Referrals / Follow Up: Jose Francisco Shah Chi, MD [Primary Care Provider] - Disposition Disposition (needs filled in before D/C Order can be placed): Hospice in Medical Facility
--- NOTE | 2020-07-30 12:27 | CASEMGMT ---
MANASA received a call from [facility]. She said Sara is out at appointments so they called her in. She asked SW if they knew patient was coming on Hospice. MANASA told her SW told Sara there is a good possibility he will. She asked SW to fax updates and she will take it to the team. Await Salty Hughes's response. Jaylyn Guzman INDUSTRIAL RELATIONS DIRECTOR PATTIE
--- NOTE | 2020-07-30 12:28 | PHA.DC.MR ---
Pharmacy Service has performed discharge medication reconciliation for this patient. The patient's discharge medication list was reviewed for discrepancies and discrepancies were resolved. Home Medications levothyroxine 50 mcg PO DAILY 10/18/18 atorvastatin 40 mg PO QHS 07/11/19 finasteride 5 mg PO DAILY #30 tab 07/28/19 tamsulosin 0.8 mg PO DAILY@1730 #60 cap 07/28/19 oxycodone 5 mg PO Q4H PRN PRN 3 Days #10 tab 07/12/20 galantamine 4 mg PO BIDCM 07/16/20 metoprolol tartrate 12.5 mg PO BID 07/16/20 polyethylene glycol 3350 17 g PO DAILY 07/16/20 sennosides-docusate sodium [Stool Softener-Stimulant Laxat] 2 tab PO BID 07/16/20 acetaminophen [Tylenol Extra Strength] 1,000 mg PO Q6H PRN 07/28/20 fluconazole 150 mg PO DAILY 07/28/20 food supplemt, lactose-reduced [Ensure Enlive] 120 ml PO 4X/DAY 07/28/20 menthol-zinc oxide [Calmoseptine] 1 applic TOPICAL BID@0600,2200 07/28/20 mirtazapine 7.5 mg PO QHS 07/28/20 potassium chloride [K-Dur] 20 meq PO DAILY 07/28/20
--- NOTE | 2020-07-30 12:40 | PCM.DC.SUM ---
Documented by User: Mary Hernandez NP, RESPIRATORY THERAPY DIRECTOR-C 07/30/20 12:44 Providers Date of Admission: 07/28/20 Date of Discharge: 07/30/20 Primary Care Physician: Dr. Jose Francisco Shah MD Reason For Visit: TIA AFIB RVR Diagnosis Discharge Diagnosis (1) Atrial fibrillation: Status: Acute Code(s): I48.91 - Unspecified atrial fibrillation (2) TIA (transient ischemic attack): Status: Acute Code(s): G45.9 - Transient cerebral ischemic attack, unspecified Medications at Discharge Home Medications levothyroxine 50 mcg PO DAILY 10/18/18 atorvastatin 40 mg PO QHS 07/11/19 finasteride 5 mg PO DAILY #30 tab 07/28/19 tamsulosin 0.8 mg PO DAILY@1730 #60 cap 07/28/19 oxycodone 5 mg PO Q4H PRN PRN 3 Days #10 tab 07/12/20 galantamine 4 mg PO BIDCM 07/16/20 metoprolol tartrate 12.5 mg PO BID 07/16/20 polyethylene glycol 3350 17 g PO DAILY 07/16/20 sennosides-docusate sodium [Stool Softener-Stimulant Laxat] 2 tab PO BID 07/16/20 Calmoseptine 1 applic TOPICAL BID@0600,2200 07/28/20 acetaminophen [Tylenol Extra Strength] 1,000 mg PO Q6H PRN 07/28/20 food supplemt, lactose-reduced 120 ml PO 4X/DAY 07/28/20 mirtazapine 7.5 mg PO QHS 07/28/20 potassium chloride 20 meq PO DAILY 07/28/20 aspirin 81 mg PO DAILY@0800 #0 tab 07/30/20 cefadroxil 1,000 mg PO BID 4 Days #16 cap 07/30/20 diltiazem HCl 120 mg PO DAILY #0 cap 07/30/20 Hospital Course Operations None Procedures 2-D Echocardiogram Summary of Care Provided Minutes Spent on Discharge: 35 Hospital Course: Patient is an 84-year-old male admitted 07/28/20 due to stroke team and TCU. 1. TIA-CVA ruled out. MRI without acute stroke. Carotid ultrasound with less than 50% stenosis bilaterally. Continue aspirin, statin. Patient's family requesting hospice transition. SNF with hospice services at discharge. 2. Paroxysmal atrial fibrillation with RVR-initially placed on Cardizem and heparin drip which have since been discontinued. Continue oral Cardizem. Continue home metoprolol regimen. Not a candidate for anticoagulation. Hospice transition as noted above. 3. Acute complicated UTI-IV Rocephin during admission. Duricef at discharge to complete course. 4. BPH with chronic urinary retention/chronic indwelling Velarde-Velarde catheter in place. Continue finasteride, Flomax. 5. Hypertension-stable, continue current regimen. 6. Hyperlipidemia- continue statin. 7. Vascular dementia without behavioral disturbance history-on mirtazapine. Recent functional and cognitive decline. 8. Anxiety/depression-continue mirtazapine. 9. Hypothyroidism-continue Synthroid. 10. BAO-on CPAP nightly. 11. GERD-on famotidine. Physical Exam Const Constitutional Narrative: Restless, drowsy Orientation / Consciousness: confused Nutritional Appearance: cachectic HEENT normocephalic and moist oral mucous membranes Eyes PERRL, EOMs intact bilaterally and conjunctivae normal Neck no lymphadenopathy Resp normal respiratory effort and clear to auscultation bilaterally Cardio Rhythm: other Other Details: Atrial fibrillation Peripheral Pulses: pulses 2+ throughout GI normal to inspection, nondistended, normoactive bowel sounds, non-tender and non-distended Extremity normal to inspection Skin no rashes or lesions noted Lesions: no lesions Rashes: no rashes Trauma: no lacerations or abrasions Neuro CN's II-XII intact bilaterally, no focal motor deficits, no sensory deficits noted and deep tendon reflexes 2+ bilaterally Psych mental status grossly normal and affect normal Patient seen and examined prior to discharge. Physical assessment as noted above. SNF with hospice transition as noted above. This patient was seen by JAMES Winters under the supervision of Dr. Chavez. ABG / Lab / Microbiology Data Result Diagrams: 07/29/20 06:04 07/29/20 06:04 Microbiology: Microbiology 07/30/20 10:10 SARS-CoV-2 Antigen (Rapid) - Final Interface Orders 07/28/20 15:20 Urine Culture - Preliminary Urine Catheter - Velarde Presumptive E. coli Microbiology 07/30/20 10:10 Interface Orders SARS-CoV-2 Antigen (Rapid) - Final 07/28/20 15:20 Urine Catheter - Velarde Urine Culture - Preliminary Presumptive E. coli Radiography Diagnostic Testing: Radiology Impression Brain MRI 07/29/20 09:00 IMPRESSION: 1. No MRI evidence of acute or subacute ischemic infarct or acute intracranial abnormality. 2. 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 3. Chronic white matter ischemic changes in both cerebral hemispheres. 4. No interval change when compared to 08/04/2014. Electronically Signed: Delta Chaudhry MD at 13:49 EDT , Service support , Meaningful Use Info Meaningful Use Diagnoses (Choose all that apply): None applicable Discharge Plan Admission Admit Date/Time: 07/28/20 16:01 Primary Reason for Your Visit: TIA, a.fib Attending Provider: Toshia Chavez Primary Care Provider: Jose Francisco Shah Chi Discharge Orders/Prescriptions Prescriptions: New aspirin 81 mg Tablet,Chewable 81 mg PO DAILY@0800 Qty: 0 RF: 0 diltiazem HCl 120 mg Capsule,Extended Release 24hr 120 mg PO DAILY Qty: 0 RF: 0 cefadroxil 500 mg Capsule 1,000 mg PO BID 4 Days Qty: 16 RF: 0 Continued levothyroxine 50 MCG tablet 50 mcg PO DAILY RF: 0 atorvastatin 40 MG tablet 40 mg PO QHS RF: 0 tamsulosin 0.4 MG capsule 0.8 mg PO DAILY@1730 Qty: 60 RF: 0 finasteride 5 MG tablet 5 mg PO DAILY Qty: 30 RF: 0 oxycodone 5 mg tablet 5 mg PO Q4H PRN PRN (Reason: Pain Score 4-10/10) 3 Days Qty: 10 RF: 0 polyethylene glycol 3350 17 gram powder in packet 17 g PO DAILY RF: 0 sennosides-docusate sodium [Stool Softener-Stimulant Laxat] 8.6-50 mg tablet 2 tab PO BID RF: 0 galantamine 4 MG tablet 4 mg PO BIDCM RF: 0 metoprolol tartrate 25 MG tablet 12.5 mg PO BID RF: 0 acetaminophen [Tylenol Extra Strength] 500 mg Tablet 1,000 mg PO Q6H PRN (Reason: Pain (Scale Score 1-3)) RF: 0 potassium chloride 20 mEq Tablet,Er Particles/Crystals 20 meq PO DAILY RF: 0 food supplemt, lactose-reduced Liquid 120 ml PO 4X/DAY RF: 0 mirtazapine 7.5 mg Tablet 7.5 mg PO QHS RF: 0 Calmoseptine 0.44-20.6 % Ointment 1 applic TOPICAL BID@0600,2200 RF: 0 Discontinued fluconazole 150 mg Tablet 150 mg PO DAILY RF: 0 Referrals / Follow Up: Jose Francisco Shah Chi, MD [Primary Care Provider] - Disposition Disposition (needs filled in before D/C Order can be placed): Hospice in Medical Facility Documented by User: Dr. Toshia Chavez MD 07/30/20 15:36 Providers Date of Admission: 07/28/20 Reason For Visit: TIA AFIB RVR Medications at Discharge Home Medications levothyroxine 50 mcg PO DAILY 10/18/18 atorvastatin 40 mg PO QHS 07/11/19 finasteride 5 mg PO DAILY #30 tab 07/28/19 tamsulosin 0.8 mg PO DAILY@1730 #60 cap 07/28/19 oxycodone 5 mg PO Q4H PRN PRN 3 Days #10 tab 07/12/20 galantamine 4 mg PO BIDCM 07/16/20 metoprolol tartrate 12.5 mg PO BID 07/16/20 polyethylene glycol 3350 17 g PO DAILY 07/16/20 sennosides-docusate sodium [Stool Softener-Stimulant Laxat] 2 tab PO BID 07/16/20 Calmoseptine 1 applic TOPICAL BID@0600,2200 07/28/20 acetaminophen [Tylenol Extra Strength] 1,000 mg PO Q6H PRN 07/28/20 food supplemt, lactose-reduced 120 ml PO 4X/DAY 07/28/20 mirtazapine 7.5 mg PO QHS 07/28/20 potassium chloride 20 meq PO DAILY 07/28/20 aspirin 81 mg PO DAILY@0800 #0 tab 07/30/20 cefadroxil 1,000 mg PO BID 4 Days #16 cap 07/30/20 diltiazem HCl 120 mg PO DAILY #0 cap 07/30/20 ABG / Lab / Microbiology Data Result Diagrams: 07/29/20 06:04 07/29/20 06:04 Discharge Plan Admission Admit Date/Time: 07/28/20 16:01 Primary Reason for Your Visit: jairon FU Attending Provider: Toshia Chavez Primary Care Provider: Jose Francisco Shah Chi Discharge Orders/Prescriptions Prescriptions: New aspirin 81 mg Tablet,Chewable 81 mg PO DAILY@0800 Qty: 0 RF: 0 diltiazem HCl 120 mg Capsule,Extended Release 24hr 120 mg PO DAILY Qty: 0 RF: 0 cefadroxil 500 mg Capsule 1,000 mg PO BID 4 Days Qty: 16 RF: 0 Continued levothyroxine 50 MCG tablet 50 mcg PO DAILY RF: 0 atorvastatin 40 MG tablet 40 mg PO QHS RF: 0 tamsulosin 0.4 MG capsule 0.8 mg PO DAILY@1730 Qty: 60 RF: 0 finasteride 5 MG tablet 5 mg PO DAILY Qty: 30 RF: 0 oxycodone 5 mg tablet 5 mg PO Q4H PRN PRN (Reason: Pain Score 4-10/10) 3 Days Qty: 10 RF: 0 polyethylene glycol 3350 17 gram powder in packet 17 g PO DAILY RF: 0 sennosides-docusate sodium [Stool Softener-Stimulant Laxat] 8.6-50 mg tablet 2 tab PO BID RF: 0 galantamine 4 MG tablet 4 mg PO BIDCM RF: 0 metoprolol tartrate 25 MG tablet 12.5 mg PO BID RF: 0 acetaminophen [Tylenol Extra Strength] 500 mg Tablet 1,000 mg PO Q6H PRN (Reason: Pain (Scale Score 1-3)) RF: 0 potassium chloride 20 mEq Tablet,Er Particles/Crystals 20 meq PO DAILY RF: 0 food supplemt, lactose-reduced Liquid 120 ml PO 4X/DAY RF: 0 mirtazapine 7.5 mg Tablet 7.5 mg PO QHS RF: 0 Calmoseptine 0.44-20.6 % Ointment 1 applic TOPICAL BID@0600,2200 RF: 0 Discontinued fluconazole 150 mg Tablet 150 mg PO DAILY RF: 0 Referrals / Follow Up: Jose Francisco Shah Chi, MD [Primary Care Provider] - Disposition Disposition (needs filled in before D/C Order can be placed): Hospice in Medical Facility Charges/Coding Addendum Addendum: Patient seen by Mary RAMIREZ under my supervision Patient is an 84-year-old male with an extensive past medical history as outlined who was admitted from the TCU on account of concerns for stroke as he had expressive aphasia and some dysarthria facial droop. The symptoms subsequently resolved. On admission his NIH stroke scale was 5 but this went down to 0. CT of the brain was negative for stroke. Patient was also in A. fib with RVR on admission was initially started on Cardizem drip and heparin drip. In light of his history of profound hematuria, heparin drip was discontinued. He had carotid ultrasound which showed bilateral stenosis which was less than 50%. Patient was transitioned to oral Cardizem. Patient's family reviewed patient and in light of his declining health, family opted for discharge to shelter with hospice. Of note, patient was also started on Rocephin for UTI during this admission. Patient was discharged to residential facility with hospice service on 07/30/2020. He was discharged on oral Cardizem and metoprolol as well as oral Duricef for UTI. Patient was seen and examined prior to discharge. He remained very confused. Unable to do review of systems on account of patient's confusion. Labs and vitals reviewed. Home medication reviewed and reconciled. O/E: Const Constitutional Narrative: confused Orientation / Consciousness: confused Nutritional Appearance: cachectic HEENT normocephalic and moist oral mucous membranes Eyes PERRL, EOMs intact bilaterally and conjunctivae normal Neck no lymphadenopathy Resp normal respiratory effort and clear to auscultation bilaterally Cardio Rhythm: other Other Details: Atrial fibrillation Peripheral Pulses: pulses 2+ throughout GI normal to inspection, nondistended, normoactive bowel sounds, non-tender and non-distended Extremity normal to inspection Skin no rashes or lesions noted Lesions: no lesions Rashes: no rashes Trauma: no lacerations or abrasions Neuro CN's II-XII intact bilaterally, no focal motor deficits, no sensory deficits noted and deep tendon reflexes 2+ bilaterally Psych confused Plan is for discharge to SNF with hospice as above. Rest as per JAMES Winters's note which I have reviewed and endorsed. Visit Charges Inpatient E&M: [id number] Disch Hosp
--- NOTE | 2020-07-30 14:56 | CASEMGMT ---
MANASA spoke with Carmen at [facility] and they can take patient. MANASA faxed orders to [facility]. MANASA arranged for patient to get picked up at 430 via cot. MANASA notified Sara at [facility], RN, paralegal secretary, patient's grandson Ej, daughter Silvia, and Dustin at Hospice. SW completed a PASRR. Plan: d/c to [facility] under intermediate level of care on a PASRR on Hospice. Jaylyn Guzman LEASING REPRESENTATIVE PATTIE
--- NOTE | 2020-07-30 14:56 | NURSING ---
This RN called report to ABELARDO Harp at [facility].
[2020-07-30] MEDS: Tamsulosin HCl 0.4 MG Capsule 0.8 MG PO (16:24)
== END 2020-07-30 18:12 | disposition hospice, inpatient (51) | DRG 69 ==
LOC: ED 15:12 → PCU 15:24
PROVIDERS: Admitting Provider Family Medicine; Emergency Provider Emergency Medicine; PCP Family Medicine Geriatric Medicine; Visit Provider Student in an Organized Health Care Education/Training Program
DX: G45.9 Transient cerebral ischemic attack, unspecified (principal); T83.518A Infection and inflammatory reaction due to other urinary catheter, initial encounter; N39.0 Urinary tract infection, site not specified; E44.0 Moderate protein-calorie malnutrition; I48.0 Paroxysmal atrial fibrillation; N40.1 Benign prostatic hyperplasia with lower urinary tract symptoms; R33.8 Other retention of urine; I10 Essential (primary) hypertension; E78.5 Hyperlipidemia, unspecified; F01.50 Vascular dementia, unspecified severity, without behavioral disturbance, psychotic disturbance, mood disturbance, and anxiety; F32.9 Major depressive disorder, single episode, unspecified; F41.9 Anxiety disorder, unspecified; E03.9 Hypothyroidism, unspecified; K21.9 Gastro-esophageal reflux disease without esophagitis; G47.33 Obstructive sleep apnea (adult) (pediatric); Z79.899 Other long term (current) drug therapy; Z87.891 Personal history of nicotine dependence; Z66 Do not resuscitate; Z68.22 Body mass index [BMI] 22.0-22.9, adult
CPT/HCPCS: 36415; 70551; 71045; 80048; 80053; 80061; 81001; 82962; 83735; 84443; 84484; 85025; 85610; 85730; 87086; 87088; 87186; 87426; 92523; 92526; 92610; 93005; 93880; 94762; 97802; 99284; J7030; A4216